=== PATIENT | female | born 1950 | race Caucasian/White ===

== ENCOUNTER 2024-11-22 13:44 | Inpatient (IN) | payer MEDICARE, MEDICAID, SELFPAY ==
[2024-11-22] VITALS (47 sets, daily range): BP systolic 99–181; BP diastolic 52–93; PULSE 51–96; RESP 2–29; TEMP 33.9–34.9; O2SAT 76–989; BMI 25.8
--- NOTE | 2024-11-22 13:48 | XR_ITS ---
Examination: CT brain head without contrast. 2-D sagittal coronal reconstructions Date and time of exam:November 22, 2024 1733 hrs. Comparison November 06, 2016 Indications: Cardiopulmonary arrest today with loss of consciousness altered mental status CTDI: vol (mGy):52.3 DLP: (mGycm):1223 Technique: Multiple CT axial sections of the brain have been obtained, 5 mm slice thickness. Contrast has not been administered. 2-D sagittal, coronal reconstructions have been obtained Low dose protocols were performed. One or more of the following dose reduction techniques were used; automated exposure control, adjustment of the mA and/or KV according to patient size, use of iterative reconstruction technique. Findings: No significant ventricular enlargement. 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 No midline shift Basal cisterns are not remarkable. Fourth ventricle is midline. Cranial vault intact. Impression: Negative for acute hemorrhage, mass effect or midline shift As clinically warranted, brain MRI follow-up would best assess for acute ischemic/anoxic change
--- NOTE | 2024-11-22 13:49 | EDNOTE_ITS ---
ED SOB =RME/HPI General Chief Complaint: Shortness of Breath/Dyspnea Stated Complaint: RESPIRATORY ARREST Time Seen by Provider: 11/22/24 13:48 Arrival date/time: 11/22/24 13:44 RME / HPI RME / HPI Narrative: [facility] where patient was found to be in respiratory distress and had a respiratory arrest initially patient was bagged and then intubated en route. Patient was having some biting of the tube postintubation but when she arrived she was comfortable with intermittent biting. She was reported to be eating her usual pur?ed diet. No witnessed aspiration was seen. No other history is known. Patient development delayed and nonverbal. Patient arrives intubated and with no family and no other information of them provided by EMS. Related Data Home Medications ?Medication ?Instructions ?Recorded ?Confirmed ASCORBATE CALCIUM (VITAMIN C) 500 mg PO QDAY ##0 07/12/16 03/18/18 Acetaminophen * (TYLENOL *) 2 tab PO Q4HR PRN PAIN #0 tabs 07/12/16 03/18/18 Albuterol Sulfate/Ipratropium NEB 3 ml HHN Q4HR PRN SHORTNESS OF 07/12/16 03/18/18 * (DUONEB *) BREATH OR WHEEZE #0 mL Alendronate Sodium * (FOSAMAX *) 35 mg PO Q7D #0 tabs 07/12/16 03/18/18 Calcium Carbonate/Cholecalciferol 1 tab PO BID #0 tabs 07/12/16 03/18/18 600 * (CALTRATE PLUS D 600 *) Guaifenesin/D-Methorphan Hb Syrup 10 ml PO Q4HR PRN COUGH #0 mL 07/12/16 0 03/18/18 (Robitussin Dm Syrup) LORATADINE (CLARITIN) 10 mg PO QDAY ##0 07/12/16 03/18/18 Multivit-Min/Iron Fum/Folic AC 1 tab PO QDAY ##0 07/12/16 03/18/18 (Dfqtt-Hybcicp-Xigqkrfx Tablet) divalproex 500 mg tablet,extended 1,000 mg PO BID #0 tabs 07/12/16 03/18/18 release 24 hr (Depakote ER) docusate sodium 250 mg capsule 250 mg PO 0700 #0 caps 07/12/16 03/18/18 (DOK) docusate sodium 250 mg capsule 500 mg PO 1500 #0 caps 07/12/16 03/18/18 (DOK) lactulose 10 gram/15 mL oral 10 mg PO QDAY CONSTIPATION ##0 07/12/16 03/18/18 solution levothyroxine 100 mcg tablet 100 mcg PO ACBR #0 tabs 07/12/16 03/18/18 (Synthroid) pseudoephedrine HCl 60 mg tablet 60 mg PO Q6HR PRN CONGESTION ##0 07/12/16 03/18/18 (Sudogest) quetiapine 300 mg tablet,extended 300 mg PO BID ##0 07/12/16 03/18/18 release 24 hr (Seroquel XR) simvastatin 20 mg tablet 20 mg PO HS ##0 07/12/16 03/18/18 Allergies Allergy/AdvReac Type Severity Reaction Status Date / Time amitriptyline Allergy Intermediate unknown Verified 03/18/18 07:54 haloperidol Allergy Intermediate Itching Verified 03/18/18 07:54 Review of Systems Review of Systems ROS Unobtainable: due to endotracheal tube Past Medical History Past Medical History MUSCULOSKELETAL: Positive Musculoskeletal Disorders (pt in wheelchair dd pt lives in penit[facility]) and Arthritis HEMATOLOGIC: Positive Blood Disorders (dd pt lives in penitentiary) PSYCHO/SOCIAL: Positive Psychiatric Problems, Schizophrenia and Anxiety Family History FAMILY HISTORY: Negative Family Cardiac Disorders (unknown family hx) Social History SMOKING STATUS: Never smoker ED Exam Narrative Physical exam: Physical Exam:? Patient arrives with a #8 ET tube at 21 cm at the corner of the mouth with bilateral breath sounds and breathing by [id number]. Patient has a good pulse. Patient occasionally is biting down on the ET tube. She is unresponsive to verbal stimuli. General:?? ? Patient is brought in by EMS with ET tube in place due to respiratory arrest . The vital signs were reviewed. The patient is arousable with verbal and painful stimuli patient is not attentive to verbal stimuli. Patient has some spontaneous respirations O2 sats are adequate at the present time. Head & Scalp:?? ? Normocephalic, atraumatic. Face:?? ? Appears normal and is without lesions, deformity. No apparent trauma Ears:??? Left external pinna appears normal. Right external pinna appears normal. Eyes:?? ? The sclera is anicteric. The Left and Right Orbit/Lid/Conjunctiva appears normal without swelling, discoloration or injection. Nose: ? ? The nose is without deformity, discharge or tenderness; Throat: ? ? ET tube at 21 cm in the corner of the mouth at the teeth. Appears normal.? The mucous membranes are pink and moist without exudates, redness or mass seen.? The tongue appears normal. Neck: The neck is supple and no apparent mass or adenopathy. Chest: The chest wall is normal in size and symmetry and has no chest wall tenderness or crepitus. The patient displays adequate ventilator effort without retractions, accessory muscle use. Patient has adequate air movement bilaterally with no wheezes and no rales. ? Cardiovascular: Regular rate and rhythm; No murmurs, rubs, or gallops; Gastrointestinal: The abdomen appears normal.? No obvious hernias or mass. The abdomen is soft and benign, non-distended, with no pain, no guarding and no rebound tenderness.? Bowel sounds are present and normal sounding.? No CVA tenderness. Genitourinary: No apparent injury or trauma. Back/Spine: No apparent injury or trauma Extremities/Musculoskeletal/lymphatic:? ? ? The bilateral upper and lower extremities are warm. There is no evidence of arterial? insufficiency. There is no evidence of venous insufficiency/edema. The patient is obtunded but displays no obvious focal deficits and spontaneously moves bilateral upper and lower extremities with painful or verbal stimuli There is no apparent, injury or trauma. Skin:? The skin is warm, dry and intact.? No rashes. No petechia. No purpura. No abnormal bruising.? The color is appropriate with no cyanosis. Mental status/Psychiatric: Mental status is GCS of 3 unresponsive with some withdrawal to pain and is seen biting on ET tube intermittently. Neurological:? The patient is obtunded. The pupils are equal and reactive to light No obvious focal deficits. Patient responds to painful and verbal stimuli. Course Quality Measures Current suspected stage: severe sepsis Possible source: pulmonary Blood cultures ordered: completed in ED Antibiotic ordered: Yes Pertinent labs: 11/22/24 14:49 Lactic Acid 4.1 H* mMol/L (0.4-2.0) Procalcitonin 0.06 ng/ml (0.0-0.49) sepsis Orders Category Date Time Status 24 HR Medical Restraints Q2HR Care 11/22/24 13:50 Active 24 HR Medical Restraints Q2HR Care 11/22/24 13:50 Active Bedside Blood Glucose NOW Care 11/22/24 13:48 Active EKG (ED ONLY) *Do not use* NOW Care 11/22/24 13:48 Completed Emergency Titration Protocol Stat Care 11/22/24 14:[address] head/brain wo con Stat Exams 11/22/24 13:48 Taken EKG (ED Only) Stat Exams 11/22/24 13:48 Ordered XR chest 1V portable Stat Exams 11/22/24 13:48 Completed XR chest 1V post procedure Stat Exams 11/22/24 16:26 Taken Alcohol, Blood Medical Stat Lab 11/22/24 14:49 Completed Ammonia Stat Lab 11/22/24 14:49 Completed B-Type Natriuretic Peptide Stat Lab 11/22/24 14:49 Completed Blood Culture (Lab) Stat Lab 11/22/24 14:49 Received CBC Stat Lab 11/22/24 14:49 Completed Comprehensive Metabolic Panel Stat Lab 11/22/24 14:49 Completed Drug Screen,Urine Stat Lab 11/22/24 13:48 Ordered Lactate (Lactic Acid) Stat Lab 11/22/24 14:49 Results Procalcitonin Stat Lab 11/22/24 14:49 Completed Prothrombin Time with INR Stat Lab 11/22/24 14:49 Completed Sputum Culture and Gram Stain Stat Lab 11/22/24 13:50 Results Troponin I Stat Lab 11/22/24 14:49 Completed Type and Screen Stat Lab 11/22/24 14:49 Completed Urinalysis, C/S if Indicated Stat Lab 11/22/24 14:44 Completed Urine Culture Stat Lab 11/22/24 14:44 Received Venous Blood Gas Stat Lab 11/22/24 14:49 Completed LORazepam [Ativan Inj] Med 11/22/24 14:12 Discontinued 1 mg IVP X1 ONE Piper/Tazo 3.375 gm [Zosyn] Med 11/22/24 15:48 Discontinued 3.375 gm in 50 ml IV X1 Propofol 1,000 mg Ivpb [Diprivan Ivpb] Med 11/22/24 17:49 Active 1,000 mg in 100 ml IV 5 mcg/kg/min Sodium Chloride 0.9% 1000 ml [Ns] 2,000 ml Med 11/22/24 13:48 Active IV 150 mls/hr Vancomycin Inj 1,000 mg Med 11/22/24 15:48 Discontinued Sodium Chloride 0.9% 250 ml [Ns] 250 ml IV X1 fentaNYL 2,500 MCG/250 ML BAG [Sublimaze Inj 2,500 MCG/ Med 11/22/24 13:58 Active 250 ML BAG] 2,500 mcg in 250 ml IV 25 mcg/hr fentaNYL INJ [Sublimaze Inj] Med 11/22/24 13:46 Discontinued 50 mcg IVP X1 ONE Ventilator [Volume Ventilator] Stat RT 11/22/24 13:55 Active Vital Signs Vital signs: Vital Signs Temperature 93.1 F L 11/22/24 13:45 Pulse Rate 91 11/22/24 13:45 Respiratory Rate 20 11/22/24 13:45 Blood Pressure 105/68 11/22/24 13:45 Pulse Oximetry (%) 100 11/22/24 13:45 Oxygen Delivery Method Mechanical Ventilation 11/22/24 13:45 Shortness of Breath / Dyspnea MDM Narrative MDM Narrative:: Patient evidently has respiratory arrest was intubated by paramedics and brought in with ET tube in place and [id number] breathing. There appeared to be some white somewhat cloudy contents in the ET tube on arrival and RT came stat and suctioned the tube out well. Medical workup was ordered soon after arrival to determine the cause of the respiratory arrest. Patient tolerated the ventilator while the workup was going on in the department and reevaluation multiple times and especially at the time of this dictation which is [address] a [address] scan which shows lots of encephalomalacia with no acute blood. Chest x-ray reveals left lower lobe infiltrates most likely pneumonia cannot exclude aspiration event. ET tube is 5.5 cm above the tracey little high but patient has good end-tidal CO2's and good breath sounds bilaterally. Critical care doctor when she came down Dr. Evans is aware of this. NG tube was placed and a second chest x-ray was done which reveals the NG tube to be in good position. Urinalysis came back with specific gravity of 1010 with thousand 37 white blood cells consistent with a urinary tract infection. Lactic acid came back elevated 4.1. BUN was 25 creatinine 1.2 consistent with prerenal azotemia and probable some dehydration. And/or sepsis. pH was 7.34 pCO2 of 50 white count is 10.2 and hemoglobin is 10.7. Patient presents with respiratory arrest intubated by paramedics and brought in. ET tube was in adequate position with good ventilation and good end-tidal CO 2's. Patient was comfortable and tolerating this with usual sedation. Medical workup reveals both UTI and left lower lobe pneumonias. Because of this vancomycin and Zosyn were started. Patient is admitted to the ICU with Dr. Evans and her team. Patient data External records reviewed:: [facility] previous records (I reviewed discharged packet from 03/18/2018), EMS form and [facility] records (I reviewed medication list from pen[facility] ) Clinical information provided by:: EMS Social determinants that could affect healthcare access:: housing ([facility] resident ) Patient has the following chronic illnesses:: Severe mental retardation, schizophrenia How is presenting disease/condition affected by chronic disease/condition?: exacerbated by Evaluation data The following diagnostics were reviewed and interpreted by me:: lab results, radiology exam(s) (CXR interpreted by me shows ET and OG tube are in satisfactory position, no effusions, left sided pneumonia ) and EKG tracing(s) (Sinus tachycardia, rate 100, no STEMI. ) Lab and/or radiology exams considered but not ordered:: None Interpretation Summary: Ordering Physician: Myles Tidwell MD Date of Service: 11/22/24 Procedure(s): XR chest 1V portable Accession Number(s): [id number] cc: Nathan Avila MD; Myles Tidwell MD; Itz Hernández MD~ Examination: AP chest single view Technique one AP portable supine chest single view Exam date and time: November 22, 2024 1503 hours Comparison March 17, 2017 INDICATIONS: Chest pain today, hypoxic respiratory failure postintubation FINDINGS: Prominent opacity left base consistent with pneumonia and possible left pleural fluid Mild enlargement left ventricle Endotracheal tube tip 5.7 cm above tracey Prominent osteopenia IMPRESSION: Prominent pneumonia left base, consider aspiration pneumonia Endotracheal tube tip 5.7 cm above tracey Dictated By: Itz Hernández MD Signed By: <Electronically signed by Itz Hernández MD in OV> 11/22/24 1526 Medications / Prescriptions Medications or Prescriptions considered but not ordered:: None Medication administrations:: Medication Administration History Sodium Chloride (Ns) 2,000 mls @ 150 mls/hr IV .[id number] ONE Stop: 11/23/24 03:07 Last Admin: 11/22/24 13:54 Dose: 150 mls/hr Documented By: SAULO Fentanyl Citrate (Sublimaze Inj 2,500 Mcg/250 Ml Bag) 2,500 mcg in 250 mls @ 2.5 mls/hr IV .Q24H PRN; Protocol PRN Reason: PER PROTOCOL Stop: 11/27/24 13:57 Last Titration: 11/22/24 15:22 Dose: 300 mcg/hr, 30 mls/hr Documented By: Titration: 11/22/24 15:03 Dose: 225 mcg/hr, 22.5 mls/hr Documented By: Titration: 11/22/24 14:46 Dose: 175 mcg/hr, 17.5 mls/hr Documented By: Titration: 11/22/24 14:27 Dose: 125 mcg/hr, 12.5 mls/hr Documented By: Admin: 11/22/24 14:07 Dose: 25 mcg/hr, 2.5 mls/hr Documented By: SAULO Co-signed By: LIANA Propofol (Diprivan Ivpb) 1,000 mg in 100 mls @ 2.177 mls/hr IV .Q24H PRN; Protocol PRN Reason: PER PROTOCOL Stop: 12/22/24 17:48 Discontinued Medications Fentanyl Citrate (Fentanyl Cit Inj 50 Mcg/Ml Amp 2ml) 50 mcg IVP X1 ONE Stop: 11/22/24 13:47 Last Admin: 11/22/24 13:53 Dose: 50 mcg Documented By: SAULO Vancomycin HCl 1,000 mg/ (Sodium Chloride) 250 mls @ 150 mls/hr IV X1 ONE Stop: 11/22/24 17:27 Piperacillin/Tazobactam/Dextrose (Zosyn) 3.375 gm in 50 mls @ 100 mls/hr IV X1 ONE Stop: 11/22/24 16:17 Last Admin: 11/22/24 16:30 Dose: 100 mls/hr Documented By: SAULO Lorazepam (Lorazepam 2 Mg/Ml Vial) 1 mg IVP X1 ONE Stop: 11/22/24 14:13 Last Admin: 11/22/24 14:16 Dose: 1 mg Documented By: SAULO See above Consultations Consultation(s) initiated? (list below): Yes Consultation #1 (Physician, Specialty, Details): I spoke with sidewalk repairer Dr. Evans. Discussed patients PMHx, HPI, ED course, exam findings, labs, and radiology results as noted above. Diagnosis Shortness of Breath Differential Diagnosis: acute exacerbation of chronic obstructive airways disease, congestive heart failure, community acquired pneumonia and other (Aspiration pneumonia ) Most likely diagnosis given after review of the tests above:: Respiratory arrest Developmental delay Pneumonia Sepsis UTI Endotracheally intubated Elevated lactic acid level Admission Indicated Admission indicated?: indicated Admission Request Was there a request for admission?: Yes Admission Attestation Admission request attestation: Discussed case with [] from Hospitalist service regarding admission. Discussed patients ED course, exam findings, labs, and radiology results. The Hospitalist [agrees,declines] to accept the patient for admission. Disposition Plan Disposition Plan: Admit Critical Care Time Critical Care Time Critical Care Time: Yes Total Critical Care Time (min.): 40 Attestation: The high probability of sudden, clinically significant deterioration in the patient's condition required the highest level of my preparedness to intervene urgently. The services I provided to this patient were to treat and/or prevent clinically significant deterioration. Services included the following: chart data review, reviewing nursing notes and/or old charts, documentation time, residential solar consultant collaboration regarding findings and treatment options, medication orders and management, direct patient care, vital sign assessments and ordering, interpreting and reviewing diagnostic studies and lab tests. Aggregate critical care time includes only time during which I was engaged in work directly related to the patient's care, as described above, whether at bedside or elsewhere in the Emergency Department. It did not include time spent performing other reported procedures or the services of residents, students, nurses or physician assistants. Discharge Plan Plan Patient Disposition: Admit Acute Care w/in Hospital Disposition Comment: ICU Prescriptions/Referrals Prescriptions/Med Rec: No Action ASCORBATE CALCIUM (VITAMIN C) 500 MG tablet 500 mg PO QDAY Qty: 0 Acetaminophen * (TYLENOL *) 325 MG tablet 2 tab PO Q4HR PRN (Reason: PAIN) Qty: 0 Patient Comments: FOR FEVER OR PAIN Albuterol Sulfate/Ipratropium NEB * (DUONEB *) 3 ML AMPUL.NEB 3 ml HHN Q4HR PRN (Reason: SHORTNESS OF BREATH OR WHEEZE) Qty: 0 Alendronate Sodium * (FOSAMAX *) 35 MG tablet 35 mg PO Q7D Qty: 0 levothyroxine [Synthroid] 100 MCG tablet 100 mcg PO ACBR Qty: 0 simvastatin 20 MG tablet 20 mg PO HS Qty: 0 divalproex [Depakote ER] 500 MG tablet extended release 24 hr 1,000 mg PO BID Qty: 0 docusate sodium [DOK] 250 MG capsule 500 mg PO 1500 Qty: 0 docusate sodium [DOK] 250 MG capsule 250 mg PO 0700 Qty: 0 pseudoephedrine HCl [Sudogest] 60 MG tablet 60 mg PO Q6HR PRN (Reason: CONGESTION) Qty: 0 lactulose 10 GM/15 ML syrup 10 mg PO QDAY Qty: 0 quetiapine [Seroquel XR] 300 MG tablet extended release 24 hr 300 mg PO BID Qty: 0 Calcium Carbonate/Cholecalciferol 600 * (CALTRATE PLUS D 600 *) 1 TAB tablet 1 tab PO BID Qty: 0 Guaifenesin/D-Methorphan Hb Syrup (Robitussin Dm Syrup) 120 ML syrup 10 ml PO Q4HR PRN (Reason: COUGH) Qty: 0 LORATADINE (CLARITIN) 10 MG capsule 10 mg PO QDAY Qty: 0 Multivit-Min/Iron Fum/Folic AC (Kfwod-Odzgszw-Ebbywvqf Tablet) 1 EACH tablet 1 tab PO QDAY Qty: 0 Problem List Clinical Impression: Respiratory arrest, Developmental delay, profound, Pneumonia, Sepsis, Urinary tract infection, Endotracheally intubated, Elevated lactic acid level Patient/Caregiver Discharge Instructions Print Language: Portuguese Stand Alone Forms: Aleja Award Info., Patient Portal Info Letter
[2024-11-22] MEDS: fentaNYL CIT INJ 50 mCg/ML AMP 2ML IVP (13:53)
[2024-11-22] MEDS: SODIUM CHLORIDE 0.9% 1000 ML 2,000 ML 150 ML IV (13:54)
[2024-11-22] MEDS: fentaNYL 2,500 MCG/250 ML BAG 2,500 MCG/250 ML BAG IV (14:07)
[2024-11-22] MEDS: LORazepam 2 MG/ML VIAL 1 MG IVP (14:16)
--- NOTE | 2024-11-22 14:22 | PC.NURSE ---
CHERY BOSS RN ATTEMPTED TO INSERT GLOVER CATHETER X2, UNSUCCESFUL. SENDY Rendon RN ATTEMPTING TO INSERT GLOVER CATHETER X1; UNSUCCESFUL. SMALL AMOUNT OF BRIGHT RED BLOOD NOTED AROUND VAGINAL AREA.
--- NOTE | 2024-11-22 14:35 | PC.NURSE ---
DEEPTI CHASE PLACED ON PT AT THIS TIME.
[2024-11-22 14:59] LABS: Collection Type, Urine Clean Catch
[2024-11-22 15:01] LABS: Base Excess, Venous 1 (-3-3); O2 Saturation, Venous 89 % (96-97); PCO2, Venous 50 mmHg (36-56); PO2, Venous 62 mmHg (15-58); pH, Venous 7.34 (7.33-7.66)
[2024-11-22 15:18] LABS: Basophils % (Auto) 0 % (0-2.5); Eosinophils % (Auto) 0 % (0-10); Hematocrit 33.1 % (36.0-46.0); Hemoglobin 10.7 g/dL (12.0-16.0); Immature Granulocytes % (Auto) 1 % (0-0); Immature Granulocytes Auto 0.05 Thou/mm3 (0.00-0.00); Lymphocytes # (Auto) 0.8 Thou/mm3 (1.0-4.8); Lymphocytes % (Auto) 8 % (10-50); Mean Corpuscular HGB Conc 32.3 g/dl (31.0-37.0); Mean Corpuscular Hemoglobin 31.5 pg (25.0-35.0); Mean Corpuscular Volume 97 fL (80-100); Monocytes # (Auto) 0.6 Thou/mm3 (0.0-0.8); Monocytes % (Auto) 6 % (0-12); Neutrophils # (Auto) 8.7 Thou/mm3 (1.8-7.7); Neutrophils % (Auto) 86 % (37-80); Nucleated Red Blood Cell % 0 /100 WBC (0); Platelet Count 93 Thou/mm3 (140-440); RDW Standard Deviation 58.2 fL (36.4-46.3); White Blood Count 10.2 Thou/mm3 (3.6-11.0)
[2024-11-22 15:20] LABS: Prothrombin Time 10.5 Seconds (9.0-12.2)
[2024-11-22 15:24] LABS: B-Type Natriuretic Peptide 149 pg/mL (0-100)
[2024-11-22 15:25] LABS: Ammonia < 10 uMol/L (11-32)
[2024-11-22 15:27] LABS: Alanine Aminotransferase 18 U/L (10-49); Albumin, Serum 3.5 gm/dL (3.4-4.8); Albumin/Globulin Ratio 0.9 (1.2-2.2); Alcohol, Blood Medical < 3.0 mg/dL (0-10.0); Alkaline Phosphatase 173 U/L (46-116); Anion Gap 9 (7-16); Aspartate Amino Transferase 34 U/L (0-34); BUN/Creatinine Ratio 21 Ratio (12-20); Bilirubin,Total < 0.2 mg/dL (0.3-1.2); Blood Urea Nitrogen 25 mg/dL (9-23); Calcium 9.4 mg/dL (8.3-10.6); Calcium (Corrected) 9.8 mg/dL (8.5-10.1); Carbon Dioxide 25.4 mMol/L (20.0-31.0); Chloride 97 mMol/L (98-107); Creatinine (Component) 1.2 mg/dL (0.6-1.3); Estimated Creatinine Clearance 41.3 mL/min (>60); Globulin 3.7 gm/dL (2.3-3.5); Glucose 240 mg/dL (74-106); Osmolality,Calculated 275 (275-295); Sodium 131 mMol/L (136-145); Total Protein 7.2 gm/dL (5.7-8.2); Troponin I < 0.020 ng/mL (0.0-0.045); eGFR 47 See Note
[2024-11-22 15:34] LABS: Procalcitonin 0.06 ng/ml (0.0-0.49)
[2024-11-22 15:35] LABS: Bilirubin,Urine Negative (Negative); Blood,Urine 3+ (Negative); Glucose, Urine Negative (Negative); Ketones,Urine Negative (Negative); Leukocyte Esterase,Urine Positive (Negative); Nitrite,Urine Negative (Negative); PH,Urine 7.5 (5.0-7.0); Protein,Urine 1+ (Neg - Trace); RBC,Urine 85 /hpf (0-3); Renal Epithelial Cells,Urine 2 /hpf (0-5); Squamous Epithelial Cell,Urine 2 /hpf (0-5); Urobilinogen,Urine Negative mg/dL (0.0-1.0); WBC,Urine 1037 /hpf (0-5)
[2024-11-22 15:38] LABS: Clarity,Urine Hazy (Clear/Hazy); Color,Urine Yellow (Lt Yel-Yel); Culture Indicated,Urine Yes
[2024-11-22 15:44] LABS: Lactate (Lactic Acid) 4.1 mMol/L (0.4-2.0)
--- NOTE | 2024-11-22 16:26 | XR_ITS ---
Examination: AP chest single view Technique one AP portable supine chest single view Exam date and time: November 22, 2024 1653 hrs. Comparison November 22, 2024 1503 hrs. Indications: Hypoxic respiratory failure today, postintubation, post orogastric tube placement Findings: Orogastric tube in the stomach satisfactory position Dense opacity left base consistent with pneumonia consider aspiration pneumonia Tracheal tube tip 3.7 cm above tracey Moderate vascular congestion Prominent osteopenia Impression: Interval insertion orogastric tube, in the stomach satisfactory position
[2024-11-22] MEDS: PIPER/TAZO 3.375 GM 3.375 GM/50 ML BAG IV (16:30)
--- NOTE | 2024-11-22 16:53 | ESHP_ITS ---
Documentation for date of: 11/22/24 HPI History of Present Illness Chief complaint: respiratory arrest History of present illness: Ty Alcantar is a 74 yr female with PMH of osteoporosis, seizure disorder, hypothyroidism, developmentally delayed, and hyperlipidemia who presented to ED from half-way. Per chart review and EMS, patient was found at half-way with difficulty breathing, eventually leading to respiratory distress. Pulses were very diminished. She was intubated en route to hospital. RN from home care was eventually contacted. She stated that patient's diet is solely of pureed foods and is able to feed herself under supervision. Per the care staff, patient has been at her baseline since this morning with acute deterioration after coughing episode half hour after lunch. Pulse ox showed O2 sat 85% with apparent worsening respiratory distress. Agonal breathing, facial palor, and decreased responsiveness exhibited by patient. She was sedated and intubated upon presentation to the ED. In ED, vitals significant for BP 130/70, HR 90, hypothermia 93.1. Labs revealed WBC 10.2, Hb 10.7, plts 93, Na 131, potassium 5.0, bicarb 25, BUN 25, Cr 1.2, glucose 240, LA 4.1. Continued of fentanyl for sedation. Zosyn x1, lorazepam 1mg IV x1, 2L ns. CXR LLL consolidation. Head CT pending. Patient admitted for AHRF 2/2 aspiration PNA. PMH: as noted above Social: lives at half-way, needs assitance for ADL, no smoking, no drinking. Allergies: amitriptylline, haloperidol Review of Systems Constitutional Constitutional: Reports system reviewed and no additional complaints, except as documented Exam Vital Signs Temp Pulse Resp BP Pulse Ox O2 Del Method FiO2 93.1 F L 70 20 172/87 H 100 Mechanical Ventilation 100 11/22/24 14:43 11/22/24 16:30 11/22/24 16:30 11/22/24 16:30 11/22/24 16:30 11/22/24 16:30 11/22/24 13:56 Narrative Exam General: sedated, MV, No acute distress Eyes: Pupils are equal and reactive to light bilaterally, anicteric HEENT: Atraumatic, normocephalic. No JVD noted. Mucosa moist Cardiovascular: Normal S1 and S2. Regular rate and rhythm. No pitting edema Respiratory: Lungs are clear to auscultation bilaterally. No wheezing or crackles heard. GI: Soft, nontender, not distended, normal bowel sounds, OG tube : scant blood in diaper, no discharge Skin: Warm to touch, dry, no rashes noted Musculoskeletal: No gross injuries. Neuro: sedated, GCS7T Results: Labs 11/23/24 04:30 11/23/24 04:30 Labs: Short CBC 11/22/24 Range/Units 14:49 WBC 10.2 (3.6-11.0) Thou/mm3 Hgb 10.7 L (12.0-16.0) g/dL Hct 33.1 L (36.0-46.0) % Plt Count 93 L (140-440) Thou/mm3 BMP 11/22/24 14:49 Sodium 131 L Potassium 5.0 Chloride 97 L Carbon Dioxide 25.4 BUN 25 H Creatinine 1.2 Glucose 240 H Calcium 9.4 Cardiac Enzymes 11/22/24 Range/Units 14:49 Troponin I < 0.020 (0.0-0.045) ng/mL Liver Function 11/22/24 Range/Units 14:49 Total Bilirubin < 0.2 L (0.3-1.2) mg/dL AST 34 (0-34) U/L ALT 18 (10-49) U/L Alkaline Phosphatase 173 H (46-116) U/L Albumin 3.5 (3.4-4.8) gm/dL Urine 11/22/24 Range/Units 14:44 Urine Color Yellow (Lt Yel-Yel) Urine Clarity Hazy (Clear/Hazy) Urine pH 7.5 H (5.0-7.0) Ur Specific [place] 1.010 (1.001-1.035) Urine Protein 1+ A (Neg - Trace) Urine Glucose (UA) Negative (Negative) ABG Interpretation ABG results: 11/22/24 14:49 VBG pH 7.34 VBG pCO2 50 VBG pO2 62 H VBG Base Excess 1 Quality Measures Quality Measures VTE prophylaxis Advance care planning discussed with:: other Medications Home Medications and Allergies Home Medications ?Medication ?Instructions ?Recorded ?Confirmed ?Type ASCORBATE CALCIUM (VITAMIN C) 500 mg PO QDAY ##0 07/12/16 11/23/24 History Acetaminophen * (TYLENOL *) 2 tab PO Q4HR PRN PAIN #0 tabs 07/12/16 11/23/24 History Albuterol Sulfate/Ipratropium NEB 3 ml HHN Q4HR PRN SHORTNESS OF 07/12/16 11/23/24 History * (DUONEB *) BREATH OR WHEEZE #0 mL Alendronate Sodium * (FOSAMAX *) 35 mg PO Q7D #0 tabs 07/12/16 11/23/24 History Calcium Carbonate/Cholecalciferol 1 tab PO BID #0 tabs 07/12/16 11/23/24 History 600 * (CALTRATE PLUS D 600 *) Guaifenesin/D-Methorphan Hb Syrup 10 ml PO Q4HR PRN COUGH #0 mL 07/12/16 11/23/24 History (Robitussin Dm Syrup) LORATADINE (CLARITIN) 10 mg PO QDAY ##0 07/12/16 11/23/24 History Multivit-Min/Iron Fum/Folic AC 1 tab PO QDAY ##0 07/12/16 11/23/24 History (Baxii-Gkgbnme-Xupcwljs Tablet) divalproex 500 mg tablet,extended 500 mg PO BID #0 tabs 07/12/16 11/23/24 History release 24 hr (Depakote ER) docusate sodium 250 mg capsule 250 mg PO 0700 #0 caps 07/12/16 11/23/24 History (DOK) docusate sodium 250 mg capsule 500 mg PO 1500 #0 caps 07/12/16 11/23/24 History (DOK) lactulose 10 gram/15 mL oral 10 mg PO QDAY CONSTIPATION ##0 07/12/16 11/23/24 History solution levothyroxine 100 mcg tablet 100 mcg PO ACBR #0 tabs 07/12/16 11/23/24 History (Synthroid) pseudoephedrine HCl 60 mg tablet 60 mg PO Q6HR PRN CONGESTION ##0 07/12/16 11/23/24 History (Sudogest) quetiapine 300 mg tablet,extended 400 mg PO BID ##0 07/12/16 11/23/24 History release 24 hr (Seroquel XR) simvastatin 20 mg tablet 20 mg PO HS ##0 07/12/16 11/23/24 History bisacodyl 10 mg rectal suppository 10 mg NH QDAY PRN Constipation 11/23/24 11/23/24 History naproxen 500 mg tablet 500 mg PO BID PRN pain/agitation 11/23/24 11/23/24 History Allergies Allergy/AdvReac Type Severity Reaction Status Date / Time amitriptyline Allergy Intermediate unknown Verified 03/18/18 07:54 haloperidol Allergy Intermediate Itching Verified 03/18/18 07:54 Visit Medications Sodium Chloride (Ns) 2,000 mls @ 150 mls/hr IV .[id number] ONE Stop: 11/23/24 03:07 Last Admin: 11/22/24 13:54 Dose: 150 mls/hr Fentanyl Citrate (Sublimaze Inj 2,500 Mcg/250 Ml Bag) 2,500 mcg in 250 mls @ 2.5 mls/hr IV .Q24H PRN; Protocol PRN Reason: PER PROTOCOL Stop: 11/27/24 13:57 Last Titration: 11/22/24 15:22 Dose: 300 mcg/hr, 30 mls/hr Vancomycin HCl 1,000 mg/ (Sodium Chloride) 250 mls @ 150 mls/hr IV X1 ONE Stop: 11/22/24 17:27 Discontinued Medications Fentanyl Citrate (Fentanyl Cit Inj 50 Mcg/Ml Amp 2ml) 50 mcg IVP X1 ONE Stop: 11/22/24 13:47 Last Admin: 11/22/24 13:53 Dose: 50 mcg Piperacillin/Tazobactam/Dextrose (Zosyn) 3.375 gm in 50 mls @ 100 mls/hr IV X1 ONE Stop: 11/22/24 16:17 Last Admin: 11/22/24 16:30 Dose: 100 mls/hr Lorazepam (Lorazepam 2 Mg/Ml Vial) 1 mg IVP X1 ONE Stop: 11/22/24 14:13 Last Admin: 11/22/24 14:16 Dose: 1 mg Assessment & Plan Plan Ty Alcantar is 74 yr female with PMH of osteoporosis, seizure disorder, hypothyroidism, developmentally delayed, and hyperlipidemia who presented to ED from half-way. She was sedated and intubated en route after coughing episode Lead to desaturation with unresponsiveness. Pulse ox was 85%. Patient admitted for AHRF 2/2 aspiration PNA. Neuro: #Sedated for MV d/t AHRF 2/2 aspiration PNA At baseline, patient is typically able to feed herself. Diet mostly consists of pur?ed foods. Per nursing staff eye half-way, she has been at baseline since the morning of admission. Shortly after having lunch she developed coughing episode that led to desaturation of oxygen and unresponsiveness. Patient was sedated with fentanyl and intubated and route to the ED. -Fentanyl 25 mcg/h ? Propofol 5 mcg ? RASS 0 ? sedation holiday and assess mentation #Hx seizure disorder Last known seizure has been more than 5 yrs ago. -continue depakote 500mg BID #Hx mood Disorder -Quetiapine 400 mg daily #Developmental delay Resides in half-way for daily needs. CVS: -no active problem #Hx HLD home medication Include simvastatin 20 mg daily ? Start atorvastatin 10 mg daily Pulm: #Mechanically ventilated due to #AHRF 2/2 aspiration pneumonia Ddx: pneumonitis, healthcare associated PNA, effusion Pt had coughing episode half hour after having lunch. Lead to desaturation of 02 to 85%. Cover possible healthcare PNA and anerobes. CXR on 11/22 confirmed LLL consolidation. -start vancomycin -start Zosyn 4.5 g q6hr ?Follow-up MRSA nasal screen ? Sputum culture pending ? Blood cultures pending -goal to decrease Fio2 to 40% with o2 sat >92% -wean sedation and asess mentation for extubation -Daily chest physiotherapy every 6 hours -repeat ABG -repeat cxr Renal: #Mild hyponatremia Most likely due to dehydration. Patient not taking any medications possibly leading to hyponatremia. No recent episodes of vomiting or diarrhea. Sodium 131 -1 L bolus NS -Daily CMP #Hematuria Scant bleeding noticed in diapter in ED. Ddx: trauma from aldana cath attempt, cystitis RBC 85 -treat UTI as noted below #Cystitis Nitrites negative, leukocyte esterase positive, WBC 1037, Hematuria. -Urine cultures pending ? Empirical treatment with Zosyn Elevated lactic acid? Less likely due to sepsis. Patient has probable source however does not meet SIRS. WBC 10.2 Lactic acid 4.1 -Trend every 4 hours GI: no active problems Endo: #Hyperglycemia BS 240. -A1c pending #Hx hypothyroidism -start levothyroxine 100mcg -TSH pending Heme/Onc: #Normocytic anemia -daily CBC -transfuse prbc if Hb <7 #Thrombocytopenia ? Daily CBC ? Transfuse 1 unit platelets if less than 10 ID: #Aspiration PNA -as noted above in resp -vanc/zosyn Skin: no acitve problems Health maintenance: Dispo: ICU, MV 2/2 AHRF DVT prophylaxis: Subcu heparin CODE STATUS: Full code Diet: NPO OG tube 2 peripheral lines The patient's management plan was discussed with my attending physician Dr. Evans and senior Dr. Brian. Yamilet Andrews, PGY-1 Attending Provider Attestation/Addendum Patient seen and examined with resident, agree with above. In brief this is 74-year-old female who was at a facility earlier today and appeared to aspirate become hypoxic. EMS services were called. She was noted to have sats in the 70s upon arrival of EMS. Decision was made to intubate her in the field. Apparently she had significant secretions suctioned once she was intubated which appeared food-like per ER. She was started on fentanyl in the ER for sedation. On exam she is elderly pale, heart rate regular rhythmic with no bruits, no increased work of breathing diminished breath sounds, abdomen soft. Edema of lower extremities. The patient was transferred to the ICU for acute hypoxic respiratory failure secondary to aspiration with an apparent aspiration pneumonia on chest x-ray. Case discussed with the ICU team Labs, imaging and records reviewed Approximately 70 cc minutes required for evaluation, exam, review, intervention, discussion and formulation of plan of care for this critically ill patient with acute hypoxic respiratory failure secondary to aspiration who is currently intubated on mechanical ventilation at high risk for further and ongoing decompensation.
--- NOTE | 2024-11-22 17:22 | PC.NURSE ---
Dr. Evans at bedside assessing pt; made aware that OG tube inserted but CXR post-OG insertion has not resulted. Per Dr. Evans, ok to connect pt's OG tube to Low-Intermittent suction at this time.
[2024-11-22 17:55] LABS: Reflex Lactate? Y
[2024-11-22 18:12] LABS: Lactic Acid, 3 HR 2.7 mMol/L (0.4-2.0)
[2024-11-22] MEDS: PROPOFOL 1,000 MG IVPB 1,000 MG/100 ML VIAL 2.177 MG IV (18:22)
[2024-11-22] MEDS: Vancomycin Inj 1,000 MG in SODIUM CHLORIDE 0.9% 250 ML 250 ML 150 MG IV (18:27)
[2024-11-22] MEDS: SODIUM CHLORIDE 0.9% 1000 ML 1,000 ML 999 ML IV (19:16)
[2024-11-22] MEDS: PANTOPRAZOLE INJ 40 MG VIAL IVP (19:31)
[2024-11-22] MEDS: fentaNYL 2,500 MCG/250 ML BAG 2,500 MCG/250 ML BAG 30 MCG IV (20:23)
[2024-11-22] MEDS: PIPER/TAZO INJ 4.5 GM in SODIUM CHLORIDE 0.9% (P) 100 ML IV (22:01)
[2024-11-22] MEDS: DIVALPROEX SOD DR 500 MG TABLET.DR PO (22:06)
[2024-11-22] MEDS: ATORVASTATIN CALCIUM 10 MG TABLET PO (22:06)
[2024-11-22] MEDS: HEPARIN SOD INJ 5000 UNIT/ML VIAL SC (22:06)
[2024-11-22] MEDS: QUEtiapine FUMARATE 100 MG TABLET 300 MG PO (22:07)
[2024-11-22 22:19] LABS: Lactate (Lactic Acid) 1.3 mMol/L (0.4-2.0)
[2024-11-22] MEDS: fentaNYL 2,500 MCG/250 ML BAG 2,500 MCG/250 ML BAG 20 MCG IV (22:30)
[2024-11-22 22:42] LABS: Base Excess 4 (-3-3); HCO3 27 mEq/L (20-26); Inspired Oxygen, FIO2 50 %; O2 Saturation 95 % (91-98); PCO2 36 mmHg (32.0-48.0); PO2 73 mmHg (83-108); pH, Arterial 7.48 (7.35-7.45)
[2024-11-22 22:43] LABS: Allen Test Performed/OK; Puncture Site Right Radial
[2024-11-23] VITALS (34 sets, daily range): BP systolic 106–173; BP diastolic 49–88; PULSE 60–82; RESP 7–19; TEMP 35.8–36.5; O2SAT 95–98; BMI 25.7
[2024-11-23 00:27] LABS: Base Excess 4 (-3-3); HCO3 28 mEq/L (20-26); Inspired Oxygen, FIO2 50 %; O2 Saturation 80 % (91-98); PCO2 41 mmHg (32.0-48.0); pH, Arterial 7.44 (7.35-7.45)
[2024-11-23 00:31] LABS: PO2 45 mmHg (83-108)
[2024-11-23 00:32] LABS: Allen Test Performed/OK; Puncture Site Right Radial
--- NOTE | 2024-11-23 02:17 | XR_ITS ---
Examination: AP chest single view Technique one AP portable semiupright chest single view Exam date and time: November 23, 2024 0226 hours Comparison November 22, 2024 INDICATIONS: Hypoxic respiratory failure, postintubation FINDINGS: Normal heart size Significant bibasilar pneumonia Endotracheal tube tip 5.5 cm above tracey Orogastric tube proximal stomach IMPRESSION: Significant bibasilar pneumonia Advance the orogastric tube 5 cm
[2024-11-23 04:19] LABS: Base Excess 4 (-3-3); HCO3 28 mEq/L (20-26); O2 Saturation 95 % (91-98); PCO2 39 mmHg (32.0-48.0); PO2 81 mmHg (83-108); pH, Arterial 7.46 (7.35-7.45)
[2024-11-23 04:21] LABS: Allen Test Performed/OK; Inspired Oxygen, FIO2 50 %; Puncture Site Right Radial
[2024-11-23 05:00] LABS: Basophils % (Auto) 0 % (0-2.5); Eosinophils % (Auto) 0 % (0-10); Hematocrit 29.2 % (36.0-46.0); Hemoglobin 9.7 g/dL (12.0-16.0); Immature Granulocytes % (Auto) 1 % (0-0); Immature Granulocytes Auto 0.07 Thou/mm3 (0.00-0.00); Lymphocytes # (Auto) 0.5 Thou/mm3 (1.0-4.8); Lymphocytes % (Auto) 3 % (10-50); Mean Corpuscular HGB Conc 33.2 g/dl (31.0-37.0); Mean Corpuscular Hemoglobin 31.5 pg (25.0-35.0); Mean Corpuscular Volume 95 fL (80-100); Monocytes # (Auto) 1.2 Thou/mm3 (0.0-0.8); Monocytes % (Auto) 8 % (0-12); Neutrophils # (Auto) 13.6 Thou/mm3 (1.8-7.7); Neutrophils % (Auto) 88 % (37-80); Nucleated Red Blood Cell % 0 /100 WBC (0); Platelet Count 83 Thou/mm3 (140-440); RDW Standard Deviation 57.6 fL (36.4-46.3); Red Blood Count 3.08 Miln/mm3 (4.00-5.20); White Blood Count 15.5 Thou/mm3 (3.6-11.0)
[2024-11-23] MEDS: PIPER/TAZO INJ 4.5 GM in SODIUM CHLORIDE 0.9% (P) 100 ML IV (05:17)
[2024-11-23] MEDS: LEVOTHYROXINE SODIUM 100 MCG TABLET PO (05:17)
[2024-11-23 05:18] LABS: Glucose Estimated Average 100 mg/dL (80-131); Hemoglobin A1C 5.1 % Hgb (4.8-6.0)
[2024-11-23 05:32] LABS: Alanine Aminotransferase 18 U/L (10-49); Albumin, Serum 2.9 gm/dL (3.4-4.8); Albumin/Globulin Ratio 0.9 (1.2-2.2); Alkaline Phosphatase 152 U/L (46-116); Anion Gap 4 (7-16); Aspartate Amino Transferase 32 U/L (0-34); BUN/Creatinine Ratio 28 Ratio (12-20); Bilirubin,Total 0.2 mg/dL (0.3-1.2); Blood Urea Nitrogen 22 mg/dL (9-23); Calcium 8.5 mg/dL (8.3-10.6); Calcium (Corrected) 9.4 mg/dL (8.5-10.1); Carbon Dioxide 26.8 mMol/L (20.0-31.0); Cardiac Risk Estimate 2.1 RATIO (3.7-5.6); Chloride 104 mMol/L (98-107); Cholesterol 111 mg/dL (132-200); Creatinine (Component) 0.8 mg/dL (0.6-1.3); Globulin 3.2 gm/dL (2.3-3.5); Glucose 77 mg/dL (74-106); HDL Cholesterol 54 mg/dL (40-60); LDL Cholesterol,Calculated 38 mg/dL (0-130); Magnesium 2.1 mg/dL (1.6-2.6); Osmolality,Calculated 272 (275-295); Phosphorous 2.1 mg/dL (2.4-5.1); Potassium 4.7 mMol/L (3.4-5.1); Sodium 135 mMol/L (136-145); Thyroid Stimulating Hormone 2.59 uIU/mL (0.55-4.78); Total Protein 6.1 gm/dL (5.7-8.2); Triglycerides 93 mg/dL (30-150); eGFR > 60 See Note
[2024-11-23 06:43] LABS: Base Excess 2 (-3-3); HCO3 27 mEq/L (20-26); Inspired Oxygen, FIO2 50 %; O2 Saturation 96 % (91-98); PCO2 41 mmHg (32.0-48.0); PO2 91 mmHg (83-108); pH, Arterial 7.43 (7.35-7.45)
[2024-11-23 06:49] LABS: Allen Test Not Performed; Puncture Site Left Radial
[2024-11-23] MEDS: PANTOPRAZOLE INJ 40 MG VIAL IVP (08:06)
[2024-11-23] MEDS: QUEtiapine FUMARATE 100 MG TABLET 300 MG PO (08:06)
--- NOTE | 2024-11-23 09:59 | PC.NURSE ---
Addendum entered by Aspen Zhu RN 11/23/24 10:07: Dr. Andrews aware, and orders to continue with Vancomycin administration. Original Note: Per Lab MRSA test will not be available to be read until 11/24/24 AM
[2024-11-23] MEDS: VANCOMYCIN/NS 750 MG IVPB 750 MG/150 ML BAG 120 MG IV (10:13)
--- NOTE | 2024-11-23 11:21 | PC.NURSE ---
Spoke with [facility] Nurse Kell, provided appropriate update. Obtained information about pt. Per Kell swallowing/chewing issues started about 1 month ago and pt. was them put on pureed diet. Pt. has been tolerating well ever since, with the exception of yesterdays incident, Per Kell. Pt. baseline: pt. is verbal and has clear speech but Does not make sense per Kell. At baseline pt. takes pills whole with applesauce or yogurt. pt. can stand pivot to wheelchair, but does not walk.
[2024-11-23] MEDS: PIPER/TAZO 3.375 GM 50 ML IV ×2 (12:46→21:14)
--- NOTE | 2024-11-23 13:36 | PC.NURSE ---
Spoke with Sabrina at [facility] and Per Sabrina pt. is an unconserved adult, so in the case of an emergency Dr. Garcia will make medical decision. you can call him at [phone]. He is available 25/05.
--- NOTE | 2024-11-23 13:53 | PC.NURSE ---
Dr. Portillo made aware of pt. platelet level 83, and orders OK to give SC heparin as ordered.
[2024-11-23] MEDS: HEPARIN SOD INJ 5000 UNIT/ML VIAL SC ×2 (13:54→21:14)
--- NOTE | 2024-11-23 15:30 | PC.SS ---
Delayed entry from 11-23-24: [employer] conducted phone contact with the patient?s care provider, Elise Carlos to conduct initial assessment and to discuss discharge plan. Patient currently in ICU and intubated. Patient is a resident of [facility]. Patient is developmentally delayed and a client of [facility]. Patient is an un-conserved client. Patient?s heel caser is Chelsey Boone . Patient utilizes a wheelchair to assist with mobility. Patient has access to a don lyft at facility. Patient does not utilize home oxygen. Patient requires assistance with completion of ADL?s. Dr. Garcia is the patient?s medical decision maker. Patient?s PCP is Dr. Avila. Patient has been a resident of [facility] for approximately 12 years. Plan is for the patient to return to home once medically stable. Patient possesses transport coverage if facility is unable to provide transportation on behalf of the patient. No discharge needs identified by the patient. No further intervention required at this time, social studies department chair will be available to address any further concerns. Next of Kin: Elise Carlos D/C Plan: Home
--- NOTE | 2024-11-23 15:39 | PC.SS ---
Nicci ([facility]) informed ICU medical team that the patient is an unconserved adult client of [facility]. Dr. Garcia is the patient's medical decision maker.
--- NOTE | 2024-11-23 16:29 | ESPR_ITS ---
Documentation for date of: 11/23/24 Subjective Subjective Interval history: This is a 74yo F admitted for acute hypoxic resp failure 2/2 aspiration. She is originally from a [place] [facility] [place]. There were no acute overnight events. She is afebrile, good UOP. She wakes up and is able to interact Critical Care Note Critical care time (min.): 38 Exam Vital Signs Temp Pulse Resp BP Pulse Ox O2 Del Method FiO2 97.7 F 60 14 135/62 H 98 Mechanical Ventilation 35 11/23/24 07:00 11/23/24 16:00 11/23/24 15:00 11/23/24 15:00 11/23/24 15:00 11/22/24 21:00 11/23/24 14:47 Narrative Exam Gen- NAD, awake, alert, elderly, frail HEENT- NC/AT, mucosa hydrated, sclera anicteric, ETT/OGT in place Chest- LCTAB, diminished at bases, HRRR, no increase in WOB Abd- s/nt/bs+ Ext- pulses palp, no clubbing, no mottling, mod edema b/l LE, Vent AC VC Physical Exam Completion Physical Exam Complete?: Yes Objective - Spectrographic Analyst Labs 11/23/24 04:30 11/23/24 04:30 Labs: Laboratory Results - last 24 hr 11/22/24 11/22/24 11/22/24 14:49 18:02 21:57 WBC RBC Hgb Hct MCV MCH MCHC RDW Std Deviation Plt Count Neut % (Auto) Lymph % (Auto) Bennett % (Auto) Eos % (Auto) Baso % (Auto) Neut # (Auto) Lymph # (Auto) Bennett # (Auto) Eos # (Auto) Baso # (Auto) Immature Gran # (Auto) Absolute Nucleated RBC Immature Gran % Nucleated RBC % Puncture Site ABG pH ABG pCO2 ABG pO2 ABG HCO3 ABG O2 Saturation ABG Base Excess FiO2 Sodium Potassium Chloride Carbon Dioxide Anion Gap BUN Creatinine Estim Creat Clear Calc eGFR BUN/Creatinine Ratio Glucose Estimated Ave Glu mg/dL Hemoglobin A1c Calculated Osmolality Lactic Acid 2.7 H 1.3 Calcium Corrected Calcium Phosphorus Magnesium Total Bilirubin AST ALT Alkaline Phosphatase Total Protein Albumin Globulin Albumin/Globulin Ratio Triglycerides Cholesterol LDL Cholesterol, Calc HDL Cholesterol Cholesterol/HDL Ratio TSH Blood Type A Positive Antibody Screen NEGATIVE Blood Bank Wristband ID Yes 11/22/24 11/23/24 11/23/24 22:30 00:17 04:07 WBC RBC Hgb Hct MCV MCH MCHC RDW Std Deviation Plt Count Neut % (Auto) Lymph % (Auto) Bennett % (Auto) Eos % (Auto) Baso % (Auto) Neut # (Auto) Lymph # (Auto) Bennett # (Auto) Eos # (Auto) Baso # (Auto) Immature Gran # (Auto) Absolute Nucleated RBC Immature Gran % Nucleated RBC % Puncture Site Right Radial Right Radial Right Radial ABG pH 7.48 H 7.44 7.46 H ABG pCO2 36 41 39 ABG pO2 73 L 45 L* D 81 L D ABG HCO3 27 H 28 H 28 H ABG O2 Saturation 95 80 L 95 ABG Base Excess 4 H 4 H 4 H FiO2 50 50 50 Sodium Potassium Chloride Carbon Dioxide Anion Gap BUN Creatinine Estim Creat Clear Calc eGFR BUN/Creatinine Ratio Glucose Estimated Ave Glu mg/dL Hemoglobin A1c Calculated Osmolality Lactic Acid Calcium Corrected Calcium Phosphorus Magnesium Total Bilirubin AST ALT Alkaline Phosphatase Total Protein Albumin Globulin Albumin/Globulin Ratio Triglycerides Cholesterol LDL Cholesterol, Calc HDL Cholesterol Cholesterol/HDL Ratio TSH Blood Type Antibody Screen Blood Bank Wristband ID 11/23/24 11/23/24 04:30 06:30 WBC 15.5 H D RBC 3.08 L Hgb 9.7 L Hct 29.2 L MCV 95 MCH 31.5 MCHC 33.2 RDW Std Deviation 57.6 H Plt Count 83 L Neut % (Auto) 88 H Lymph % (Auto) 3 L Bennett % (Auto) 8 Eos % (Auto) 0 Baso % (Auto) 0 Neut # (Auto) 13.6 H Lymph # (Auto) 0.5 L Bennett # (Auto) 1.2 H Eos # (Auto) 0.0 Baso # (Auto) 0.0 Immature Gran # (Auto) 0.07 H Absolute Nucleated RBC 0.00 Immature Gran % 1 H Nucleated RBC % 0 Puncture Site Left Radial ABG pH 7.43 ABG pCO2 41 ABG pO2 91 ABG HCO3 27 H ABG O2 Saturation 96 ABG Base Excess 2 FiO2 50 Sodium 135 L Potassium 4.7 Chloride 104 Carbon Dioxide 26.8 Anion Gap 4 L BUN 22 Creatinine 0.8 Estim Creat Clear Calc 62.0 eGFR > 60 BUN/Creatinine Ratio 28 H Glucose [address] Glu mg/dL 100 Hemoglobin A1c 5.1 Calculated Osmolality 272 L Lactic Acid Calcium 8.5 Corrected Calcium 9.4 Phosphorus 2.1 L Magnesium 2.1 Total Bilirubin 0.2 L AST 32 ALT 18 Alkaline Phosphatase 152 H D Total Protein 6.1 Albumin 2.9 L D Globulin 3.2 Albumin/Globulin Ratio 0.9 L Triglycerides 93 Cholesterol 111 L LDL Cholesterol, Calc 38 HDL Cholesterol 54 Cholesterol/HDL Ratio 2.1 L TSH 2.59 Blood Type Antibody Screen Blood Bank Wristband ID Assessment & Plan Additional Assessment Additional Assessment: In summary this is a 74yo F admitted for acute hypoxic resp failure a/p [employer]ER h/o Cognitive delay- not on sedation h/o Sz- cont current home meds CV stable Resp Acute hypoxic resp failure- currently intubated and on MV, fu with ABG and CXR , ween as able, adjust vent Aspiration PNA- on vanc/zosyn, will descalate once cx are back Renal HypoNa- mild, monitor HypoPhos- replete PO GI GI proph- PPI Endo Hypothyroid Heme Leukocytosis- 2/2 aspiration pna Anemia- mild, monitor, no active bleeding Thrombocytopenia- no active bleed, no need for transfusion at this time DVT proph- lovenox ID Aspiration- on abx ? UTI- cx pending, on abx Case discussed with ICU team labs, imaging and records reviewed ~38ccmin required for eval, exam, review, intervention, discussion of formulation of plan of care for this critically ill patient with acute respiratory failure currently intubated on mechanical ventilation at high risk for further and ongoing decompensation Provider Notation Provider Notation: Although this document has been carefully reviewed, there may still be some phonetic and other typographical errors. These errors are purely grammatical due to imperfections in the software program and should not be construed in any way to compromise the substance of the patient's medical care during this visit. Thank you for the opportunity and privilege in assisting you with this patient's care and management.
--- NOTE | 2024-11-23 17:43 | ESPR_ITS ---
<Statement entered by Shaka Knowles MD - 11/25/24 06:56> Senior Resident Attestation: I supervised/discussed management plan with electrical engineering intern physician Dr. Andrews, and was involved in the care of this patient. I personally saw and examined the patient and discussed the assessment and plan with the entire medicine team, including my attending. I agree with the assessment and plan as documented. Patient's care was discussed with attending physician, Dr. Evans. Shaka Knowles MD PGY-2. Documentation for date of: 11/23/24 Subjective Subjective Interval history: 11/23: Patient was seen and examind at bedside. Overnight, urine ouput was 600cc with no reported BM. Patient is no longer on IV sedation and is able to open eyes to tactile stimuli. She did not pass SBT today due to recurring apnic episodes. While on PS RR was 7-8 with minute ventilaion 2-4. Noticeable prolonged exhalation. Plan to hold quetiapine and all other sedatives to attempt SBT tomrrow. Difficulty in determining baseline mentation because of developmental delay. WBCs uptrended to 15.5, Hb 9.7, platelets downtrnded to 83. Hyponatremia resolving, today 135, Cr 0.8, lactic acid downtrended 1.3. Continue vanc/zosyn for aspiration pneumonia and UTI x7 days. Exam Vital Signs Temp Pulse Resp BP Pulse Ox O2 Del Method FiO2 97.7 F 60 14 136/63 H 97 Mechanical Ventilation 35 11/23/24 07:00 11/23/24 16:00 11/23/24 15:00 11/23/24 16:00 11/23/24 16:00 11/22/24 21:00 11/23/24 16:00 Narrative Exam General: sedated, MV, No acute distress Eyes: Pupils are equal and reactive to light bilaterally, anicteric HEENT: Atraumatic, normocephalic. No JVD noted. Mucosa moist Cardiovascular: Normal S1 and S2. Regular rate and rhythm. +2 pitting edema Respiratory: Lungs are clear to auscultation bilaterally. No wheezing or crackles heard. GI: Soft, nontender, not distended, normal bowel sounds, OG tube : scant blood, aldana cath Skin: Warm to touch, dry, no rashes noted Musculoskeletal: No gross injuries. Neuro: sedated, GCS10T Objective Labs 11/23/24 04:30 11/23/24 04:30 Labs: Laboratory Results - last 24 hr 11/22/24 11/22/24 11/22/24 18:02 21:57 22:30 WBC RBC Hgb Hct MCV MCH MCHC RDW Std Deviation Plt Count Neut % (Auto) Lymph % (Auto) [place] % (Auto) Eos % (Auto) Baso % (Auto) Neut # (Auto) Lymph # (Auto) [place] # (Auto) Eos # (Auto) Baso # (Auto) Immature Gran # (Auto) Absolute Nucleated RBC Immature Gran % Nucleated RBC % Puncture Site Right Radial ABG pH 7.48 H ABG pCO2 36 ABG pO2 73 L ABG HCO3 27 H ABG O2 Saturation 95 ABG Base Excess 4 H FiO2 50 Sodium Potassium Chloride Carbon Dioxide Anion Gap BUN Creatinine Estim Creat Clear Calc eGFR BUN/Creatinine Ratio Glucose Estimated Ave Glu mg/dL Hemoglobin A1c Calculated Osmolality Lactic Acid 2.7 H 1.3 Calcium Corrected Calcium Phosphorus Magnesium Total Bilirubin AST ALT Alkaline Phosphatase Total Protein Albumin Globulin Albumin/Globulin Ratio Triglycerides Cholesterol LDL Cholesterol, Calc HDL Cholesterol Cholesterol/HDL Ratio TSH 11/23/24 11/23/24 11/23/24 00:17 04:07 04:30 WBC 15.5 H D RBC 3.08 L Hgb 9.7 L Hct 29.2 L MCV 95 MCH 31.5 MCHC 33.2 RDW Std Deviation 57.6 H Plt Count 83 L Neut % (Auto) 88 H Lymph % (Auto) 3 L [place] % (Auto) 8 Eos % (Auto) 0 Baso % (Auto) 0 Neut # (Auto) 13.6 H Lymph # (Auto) 0.5 L [place] # (Auto) 1.2 H Eos # (Auto) 0.0 Baso # (Auto) 0.0 Immature Gran # (Auto) 0.07 H Absolute Nucleated RBC 0.00 Immature Gran % 1 H Nucleated RBC % 0 Puncture Site Right Radial Right Radial ABG pH 7.44 7.46 H ABG pCO2 41 39 ABG pO2 45 L* D 81 L D ABG HCO3 28 H 28 H ABG O2 Saturation 80 L 95 ABG Base Excess 4 H 4 H FiO2 50 50 Sodium 135 L Potassium 4.7 Chloride 104 Carbon Dioxide 26.8 Anion Gap 4 L BUN 22 Creatinine 0.8 Estim Creat Clear Calc 62.0 eGFR > 60 BUN/Creatinine Ratio 28 H Glucose [address] Glu mg/dL 100 Hemoglobin A1c 5.1 Calculated Osmolality 272 L Lactic Acid Calcium 8.5 Corrected Calcium 9.4 Phosphorus 2.1 L Magnesium 2.1 Total Bilirubin 0.2 L AST 32 ALT 18 Alkaline Phosphatase 152 H D Total Protein 6.1 Albumin 2.9 L D Globulin 3.2 Albumin/Globulin Ratio 0.9 L Triglycerides 93 Cholesterol 111 L LDL Cholesterol, Calc 38 HDL Cholesterol 54 Cholesterol/HDL Ratio 2.1 L TSH 2.59 11/23/24 06:30 WBC RBC Hgb Hct MCV MCH MCHC RDW Std Deviation Plt Count Neut % (Auto) Lymph % (Auto) [place] % (Auto) Eos % (Auto) Baso % (Auto) Neut # (Auto) Lymph # (Auto) [place] # (Auto) Eos # (Auto) Baso # (Auto) Immature Gran # (Auto) Absolute Nucleated RBC Immature Gran % Nucleated RBC % Puncture Site Left Radial ABG pH 7.43 ABG pCO2 41 ABG pO2 91 ABG HCO3 27 H ABG O2 Saturation 96 ABG Base Excess 2 FiO2 50 Sodium Potassium Chloride Carbon Dioxide Anion Gap BUN Creatinine Estim Creat Clear Calc eGFR BUN/Creatinine Ratio Glucose Estimated Ave Glu mg/dL Hemoglobin A1c Calculated Osmolality Lactic Acid Calcium Corrected Calcium Phosphorus Magnesium Total Bilirubin AST ALT Alkaline Phosphatase Total Protein Albumin Globulin Albumin/Globulin Ratio Triglycerides Cholesterol LDL Cholesterol, Calc HDL Cholesterol Cholesterol/HDL Ratio TSH ABG Interpretation ABG results: 11/22/24 11/22/24 11/23/24 14:49 22:30 00:17 ABG pH 7.48 H 7.44 ABG pCO2 36 41 ABG pO2 73 L 45 L* D ABG HCO3 27 H 28 H ABG O2 Saturation 95 80 L ABG Base Excess 4 H 4 H VBG pH 7.34 VBG pCO2 50 VBG pO2 62 H VBG Base Excess 1 11/23/24 11/23/24 04:07 06:30 ABG pH 7.46 H 7.43 ABG pCO2 39 41 ABG pO2 81 L D 91 ABG HCO3 28 H 27 H ABG O2 Saturation 95 96 ABG Base Excess 4 H 2 VBG pH VBG pCO2 VBG pO2 VBG Base Excess Quality Measures Quality Measures VTE prophylaxis Advance care planning discussed with:: other Assessment & Plan Assessment Current Active Medications: Generic Name Dose Route Start Last Admin Trade Name Juniorq PRN Reason Stop Dose Admin Acetaminophen 650 mg 11/22/24 18:51 Acetaminophen 325 Mg Tablet PO 12/22/24 18:50 Q6H PRN Fever >100.3 or pain Atorvastatin Calcium 10 mg 11/22/24 21:00 11/22/24 22:06 Atorvastatin Calcium 10 Mg Tablet PO 12/23/24 20:59 10 mg HS PRATIBHA Administration Divalproex Sodium 500 mg 11/22/24 21:00 11/23/24 08:[address] 500 Mg Tablet.Dr PO 12/22/24 20:59 Not Given BID PRATIBHA Heparin Sodium (Porcine) 5,000 unit 11/23/24 14:00 11/23/24 13:54 Heparin Sod Inj 5000 Unit/Ml Vial SC 12/07/24 13:59 5,000 unit Q8HR PRATIBHA Administration Propofol 1,000 mg in 100 mls @ 2.177 mls/hr 11/22/24 17:49 11/23/24 03:00 Diprivan Ivpb IV 12/22/24 17:48 0 mcg/kg/min .Q24H PRN 0 mls/hr PER PROTOCOL Titration Protocol 5 MCG/KG/MIN Fentanyl Citrate 2,500 mcg in 250 mls @ 2.5 mls/hr 11/22/24 23:36 Sublimaze Inj 2,500 Mcg/250 Ml Bag IV 11/27/24 13:57 .Q24H PRN PER PROTOCOL Protocol 25 MCG/HR Vancomycin HCl 750 mg/ Sodium 250 mls @ 120 mls/hr 11/23/24 22:00 Chloride IV 11/30/24 21:59 BID@1000,2200 PRATIBHA Piperacillin/Tazobactam/Dextrose 50 mls @ 12.5 mls/hr 11/23/24 12:15 11/23/24 12:46 Zosyn IV 11/30/24 12:14 12.5 mls/hr Q8HR PRATIBHA Administration Lactulose 10 gm 11/22/24 18:51 Lactulose Syrup 20 Gm/30 Ml Udc PO 12/22/24 18:59 QDAY PRN constipation Protocol Levothyroxine Sodium 100 mcg 11/23/24 06:00 11/23/24 05:17 Levothyroxine Sodium 100 Mcg Tablet PO 12/23/24 05:59 100 mcg ACBR PRATIBHA Administration Ondansetron HCl 4 mg 11/22/24 18:51 Ondansetron Inj 2 Mg/Ml Inj 2 Ml IV 12/22/24 18:50 Q6H PRN NAUSEA OR VOMITING Protocol Pantoprazole Sodium 40 mg 11/22/24 19:00 11/23/24 08:06 Pantoprazole Inj 40 Mg Vial IVP 12/22/24 18:59 40 mg QDAY PRATIBHA Administration Pharmacy Consult 1 each 11/22/24 20:30 11/23/24 08:10 Vancomycin Pharmacy To Dose 1 Each Each IV 12/22/24 20:29 Not Given QDAY PRATIBHA Quetiapine Fumarate 300 mg 11/22/24 21:00 11/23/24 08:06 Quetiapine Fumarate 100 Mg Tablet PO 12/22/24 20:59 300 mg BID PRATIBHA Administration Plan Ty Alcantar is 74 yr female with PMH of osteoporosis, seizure disorder, hypothyroidism, developmentally delayed, and hyperlipidemia who presented to ED from residential. She was sedated and intubated en route after coughing episode Lead to desaturation with unresponsiveness. Pulse ox was 85%. Patient admitted for AHRF 2/2 aspiration PNA. Neuro: #s/p sedation for MV d/t AHRF 2/2 aspiration PNA At baseline, patient is typically able to feed herself. Diet mostly consists of pur?ed foods. Per nursing staff eye residential, she has been at baseline since the morning of admission. Shortly after having lunch she developed coughing episode that led to desaturation of oxygen and unresponsiveness. Patient was sedated with fentanyl and intubated and route to the ED. -weaned off all sedation today -unsuccessful SBT with apnic episodes. -hold all sedation overnight/stop quetiapine and -attempt SBT tomorrow morning #Hx seizure disorder Last known seizure has been more than 5 yrs ago. -continue depakote 500mg BID #Hx mood Disorder -hold Quetiapine 400 mg daily #Developmental delay Resides in residential for daily needs. CVS: -no active problem #Hx HLD home medication Include simvastatin 20 mg daily ? Start atorvastatin 10 mg daily Pulm: #Mechanically ventilated due to #AHRF 2/2 aspiration pneumonia Ddx: pneumonitis, healthcare associated PNA, effusion Pt had coughing episode half hour after having lunch. Lead to desaturation of 02 to 85%. Cover possible healthcare PNA and anerobes. CXR on 11/22 confirmed LLL consolidation. -continue vancomycin/Zosyn 4.5 g q6hr x 7 days (until 11/29) ?Follow-up MRSA nasal screen ? Sputum culture pending ? Blood cultures pending -attempt SBT tomorrow and possible extubation. Patient exhibiting prolonged exhalation and hypoventilation. If not able to maintain oxygenation saturation >92% with low RR and MV, may need to defer extubation. -Daily chest physiotherapy every 6 hours -repeat ABG -repeat cxr Renal: #Mild hyponatremia-resolved Most likely due to dehydration. Patient not taking any medications possibly leading to hyponatremia. No recent episodes of vomiting or diarrhea. Sodium 131-->135 -Daily CMP #Hematuria Scant bleeding noticed in diapter in ED. Ddx: trauma from aldana cath attempt, cystitis RBC 85 -treat UTI as noted below #Cystitis Nitrites negative, leukocyte esterase positive, WBC 1037, Hematuria. -Urine cultures pending ? Empirical treatment with Zosyn #Elevated lactic acid?resolved On admission patient did not meet SIRS. WBC was borderline high. There maybe have been early sepsis picture contributing to elevated lactic acid with localized hypoperfusion vs systemic.Patient has probable source. Today WBCs uptrended to 15.5. Has not needed pressors since time of admission. Stable MAP. Lactic acid 4.1-->1.3 GI: no active problems Endo: #Hyperglycemia-resolved -A1c 5.1 #Hx hypothyroidism - levothyroxine 100mcg -TSH 2.59 Heme/Onc: #Normocytic anemia -daily CBC -transfuse prbc if Hb <7 #Thrombocytopenia ? Daily CBC ? Transfuse 1 unit platelets if less than 10 ID: #Aspiration PNA -as noted above in resp -vanc/zosyn Skin: no acitve problems Health maintenance: Dispo: ICU, MV 2/2 AHRF DVT prophylaxis: Subcu heparin 5000 q8hr CODE STATUS: Full code Diet: NPO OG tube 2 peripheral lines The patient's management plan was discussed with my attending physician Dr. Evans and senior Dr. Knowles. Yamilet Andrews, PGY-1
[2024-11-23] MEDS: VALPROATE SOD INJ 250 MG in SODIUM CHLORIDE 0.9% 50 ML 52.5 MG IV (21:14)
[2024-11-23] MEDS: ATORVASTATIN CALCIUM 10 MG TABLET PO (21:14)
[2024-11-23] MEDS: Vancomycin Inj 750 MG in SODIUM CHLORIDE 0.9% 250 ML 250 ML 120 MG IV (22:25)
[2024-11-24] VITALS (26 sets, daily range): BP systolic 152–185; BP diastolic 74–107; PULSE 69–86; RESP 7–16; TEMP 35.9–36.3; O2SAT 90–99
[2024-11-24] MEDS: VALPROATE SOD INJ 250 MG in SODIUM CHLORIDE 0.9% 50 ML 52.5 MG IV ×3 (03:37→15:29)
[2024-11-24 04:13] LABS: Base Excess 0 (-3-3); HCO3 26 mEq/L (20-26); Inspired Oxygen, FIO2 35 %; O2 Saturation 97 % (91-98); PCO2 50 mmHg (32.0-48.0); PO2 121 mmHg (83-108); pH, Arterial 7.33 (7.35-7.45)
[2024-11-24 04:22] LABS: Allen Test Performed/OK; Puncture Site Right Radial
--- NOTE | 2024-11-24 05:00 | XR_ITS ---
Examination: AP chest single view Technique one AP portable semiupright chest single view Exam date and time: November 24, 2024 0524 hrs. Comparison November 23, 2024 Indications: Hypoxic respiratory failure, extensive pneumonia on earlier chest films are significantly November 23, 2024 Findings: Bilateral pneumonia, most severe left base Endotracheal tube tip 7.4 cm above tracey Orogastric tube in the stomach tip in the body the stomach satisfactory position No pneumothorax Minimal prominence left ventricle Moderate vascular congestion Impression: Bilateral pneumonia, significant left base Moderate vascular congestion
[2024-11-24] MEDS: LEVOTHYROXINE SODIUM 100 MCG TABLET PO (05:13)
[2024-11-24] MEDS: HEPARIN SOD INJ 5000 UNIT/ML VIAL SC ×2 (05:13→14:30)
[2024-11-24] MEDS: PIPER/TAZO 3.375 GM 50 ML IV (05:14)
[2024-11-24 06:13] LABS: Basophils % (Auto) 0 % (0-2.5); Eosinophils # (Auto) 0.1 Thou/mm3 (0.0-0.5); Eosinophils % (Auto) 0 % (0-10); Hematocrit 30.2 % (36.0-46.0); Immature Granulocytes % (Auto) 1 % (0-0); Immature Granulocytes Auto 0.08 Thou/mm3 (0.00-0.00); Lymphocytes # (Auto) 1.1 Thou/mm3 (1.0-4.8); Lymphocytes % (Auto) 7 % (10-50); Mean Corpuscular HGB Conc 33.1 g/dl (31.0-37.0); Mean Corpuscular Hemoglobin 32.4 pg (25.0-35.0); Mean Corpuscular Volume 98 fL (80-100); Monocytes # (Auto) 0.7 Thou/mm3 (0.0-0.8); Monocytes % (Auto) 5 % (0-12); Neutrophils # (Auto) 13.1 Thou/mm3 (1.8-7.7); Neutrophils % (Auto) 87 % (37-80); Nucleated Red Blood Cell % 0 /100 WBC (0); Platelet Count 80 Thou/mm3 (140-440); RDW Standard Deviation 59.5 fL (36.4-46.3); Red Blood Count 3.09 Miln/mm3 (4.00-5.20); White Blood Count 15.1 Thou/mm3 (3.6-11.0)
[2024-11-24 07:12] LABS: Alanine Aminotransferase 22 U/L (10-49); Albumin, Serum 3.2 gm/dL (3.4-4.8); Albumin/Globulin Ratio 0.9 (1.2-2.2); Alkaline Phosphatase 162 U/L (46-116); Anion Gap 10 (7-16); Aspartate Amino Transferase 42 U/L (0-34); BUN/Creatinine Ratio 34 Ratio (12-20); Bilirubin,Total 0.3 mg/dL (0.3-1.2); Blood Urea Nitrogen 27 mg/dL (9-23); Calcium 8.9 mg/dL (8.3-10.6); Calcium (Corrected) 9.5 mg/dL (8.5-10.1); Carbon Dioxide 24.6 mMol/L (20.0-31.0); Chloride 104 mMol/L (98-107); Creatinine (Component) 0.8 mg/dL (0.6-1.3); Estimated Creatinine Clearance 62.4 mL/min (>60); Globulin 3.4 gm/dL (2.3-3.5); Osmolality,Calculated 279 (275-295); Potassium 4.5 mMol/L (3.4-5.1); Sodium 139 mMol/L (136-145); Total Protein 6.6 gm/dL (5.7-8.2); eGFR > 60 See Note
[2024-11-24 07:28] LABS: Glucose 39 mg/dL (74-106)
[2024-11-24] MEDS: DEXTROSE 50%-WATER INJ 50 ML SYRINGE IV ×2 (07:39→15:55)
[2024-11-24 09:28] LABS: Vancomycin,Trough 17.5 mcg/mL (5.0-10.0)
[2024-11-24] MEDS: cefTRIAXone/D5w 1gm IV premix 50 ML IV (09:49)
[2024-11-24] MEDS: PANTOPRAZOLE INJ 40 MG VIAL IVP (09:50)
--- NOTE | 2024-11-24 10:05 | ESPR_ITS ---
<Statement entered by Shaka Knowles MD - 11/25/24 06:58> Senior Resident Attestation: I supervised/discussed management plan with employee communications intern physician Dr. Andrews, and was involved in the care of this patient. I personally saw and examined the patient and discussed the assessment and plan with the entire medicine team, including my attending. I agree with the assessment and plan as documented. Patient's care was discussed with attending physician, Dr. Evans. Shaka Knowles MD PGY-2. Documentation for date of: 11/24/24 Subjective Subjective Interval history: 11/23: Patient was seen and examind at bedside. Overnight, urine ouput was 600cc with no reported BM. Patient is no longer on IV sedation and is able to open eyes to tactile stimuli. She did not pass SBT today due to recurring apnic episodes. While on PS RR was 7-8 with minute ventilaion 2-4. Noticeable prolonged exhalation. Plan to hold quetiapine and all other sedatives to attempt SBT tomrrow. Difficulty in determining baseline mentation because of developmental delay. WBCs uptrended to 15.5, Hb 9.7, platelets downtrnded to 83. Hyponatremia resolving, today 135, Cr 0.8, lactic acid downtrended 1.3. Continue vanc/zosyn for aspiration pneumonia and UTI x7 days. 11/24: Patient seen and examined at bedside. Home medication quetiapine was held and patient appeared to have improved mentation. GCS11T. She was able to follow commands to open eyes and turn head. Not able to follow motor commands. Started on PS mode this morning. PS level 10, peep 5, FiO2 35 with patient's MV 3-4. One hour later MV dropped to 2. Will watch for improvement in RR and possible extubation. Preliminary blood cultures, urine cultures were negative. Sputum cultures still pending. Nasal MRSA screen was negative. Stop vancomycin and deescalate to cetriaxone 1 gm daily until 11/29. WBCs 15, Hb 10, plts 80, sodium 139, glucose 39. Patient was given amp D50 with repeat sugars 180. Plan to start D10W if extubation further deferred. Exam Vital Signs Temp Pulse Resp BP Pulse Ox O2 Del Method FiO2 96.8 F 75 14 171/84 H 95 Mechanical Ventilation 35 11/24/24 07:00 11/24/24 09:00 11/23/24 15:00 11/24/24 09:00 11/24/24 09:00 11/24/24 07:00 11/24/24 06:55 Narrative Exam General: elderly, MV, No acute distress Eyes: Pupils are equal and reactive to light bilaterally, anicteric HENT: Atraumatic, normocephalic. No JVD noted. Mucosa moist Cardiovascular: Normal S1 and S2. Regular rate and rhythm. Respiratory: Lungs are clear to auscultation bilaterally. No wheezing or crackles heard. GI: Soft, nontender, not distended, normal bowel sounds, OG tube : aldana cath Skin: Warm to touch, dry, no rashes noted Musculoskeletal: No gross injuries, +2 pitting edema Neuro: GCS11T, follows commands Objective Labs 11/24/24 04:33 11/24/24 04:33 Labs: Laboratory Results - last 24 hr 11/24/24 11/24/24 11/24/24 04:03 04:33 08:25 WBC 15.1 H RBC 3.09 L Hgb 10.0 L Hct 30.2 L MCV 98 MCH 32.4 MCHC 33.1 RDW Std Deviation 59.5 H Plt Count 80 L Neut % (Auto) 87 H Lymph % (Auto) 7 L [place] % (Auto) 5 Eos % (Auto) 0 Baso % (Auto) 0 Neut # (Auto) 13.1 H Lymph # (Auto) 1.1 [place] # (Auto) 0.7 Eos # (Auto) 0.1 Baso # (Auto) 0.0 Immature Gran # (Auto) 0.08 H Absolute Nucleated RBC 0.00 Immature Gran % 1 H Nucleated RBC % 0 Puncture Site Right Radial ABG pH 7.33 L D ABG pCO2 50 H ABG pO2 121 H D ABG HCO3 26 ABG O2 Saturation 97 ABG Base Excess 0 FiO2 35 Sodium 139 Potassium 4.5 Chloride 104 Carbon Dioxide 24.6 Anion Gap 10 BUN 27 H Creatinine 0.8 Estim Creat Clear Calc 62.4 eGFR > 60 BUN/Creatinine Ratio 34 H Glucose 39 L* Calculated Osmolality 279 Calcium 8.9 Corrected Calcium 9.5 Total Bilirubin 0.3 AST 42 H ALT 22 Alkaline Phosphatase 162 H Total Protein 6.6 Albumin 3.2 L Globulin 3.4 Albumin/Globulin Ratio 0.9 L Vancomycin Trough 17.5 H ABG Interpretation ABG results: 11/22/24 11/22/24 11/23/24 14:49 22:30 00:17 ABG pH 7.48 H 7.44 ABG pCO2 36 41 ABG pO2 73 L 45 L* D ABG HCO3 27 H 28 H ABG O2 Saturation 95 80 L ABG Base Excess 4 H 4 H VBG pH 7.34 VBG pCO2 50 VBG pO2 62 H VBG Base Excess 1 11/23/24 11/23/24 11/24/24 04:07 06:30 04:03 ABG pH 7.46 H 7.43 7.33 L D ABG pCO2 39 41 50 H ABG pO2 81 L D 91 121 H D ABG HCO3 28 H 27 H 26 ABG O2 Saturation 95 96 97 ABG Base Excess 4 H 2 0 VBG pH VBG pCO2 VBG pO2 VBG Base Excess Quality Measures Quality Measures VTE prophylaxis Advance care planning discussed with:: other Assessment & Plan Assessment Current Active Medications: Generic Name Dose Route Start Last Admin Trade Name Freq PRN Reason Stop Dose Admin Acetaminophen 650 mg 11/22/24 18:51 Acetaminophen 325 Mg Tablet PO 12/22/24 18:50 Q6H PRN Fever >100.3 or pain Atorvastatin Calcium 10 mg 11/22/24 21:00 11/23/24 21:14 Atorvastatin Calcium 10 Mg Tablet PO 12/23/24 20:59 10 mg HS PRATIBHA Administration Divalproex Sodium 500 mg 11/22/24 21:00 11/23/24 21:[address] 500 Mg Tablet.Dr PO 12/22/24 20:59 Not Given BID PRATIBHA Heparin Sodium (Porcine) 5,000 unit 11/23/24 14:00 11/24/24 05:13 Heparin Sod Inj 5000 Unit/Ml Vial SC 12/07/24 13:59 5,000 unit Q8HR PRATIBHA Administration Valproic Acid 250 mg/ Sodium 52.5 mls @ 52.5 mls/hr 11/23/24 21:00 11/24/24 09:49 Chloride IV 12/23/24 20:59 52.5 mls/hr Q6H PRATIBHA Administration Ceftriaxone Sodium/Dextrose 50 mls @ 100 mls/hr 11/24/24 08:58 11/24/24 09:49 Rocephin/D5w 1gm Iv Premix IV 11/29/24 08:57 100 mls/hr QDAY PRATIBHA Administration Lactulose 10 gm 11/22/24 18:51 Lactulose Syrup 20 Gm/30 Ml Udc PO 12/22/24 18:59 QDAY PRN constipation Protocol Levothyroxine Sodium 100 mcg 11/23/24 06:00 11/24/24 05:13 Levothyroxine Sodium 100 Mcg Tablet PO 12/23/24 05:59 100 mcg ACBR PRATIBHA Administration Ondansetron HCl 4 mg 11/22/24 18:51 Ondansetron Inj 2 Mg/Ml Inj 2 Ml IV 12/22/24 18:50 Q6H PRN NAUSEA OR VOMITING Protocol Pantoprazole Sodium 40 mg 11/22/24 19:00 11/24/24 09:50 Pantoprazole Inj 40 Mg Vial IVP 12/22/24 18:59 40 mg QDAY PRATIBHA Administration Plan Ty Alcantar is 74 yr female with PMH of osteoporosis, seizure disorder, hypothyroidism, developmentally delayed, and hyperlipidemia who presented to ED from group home. She was sedated and intubated en route after coughing episode Lead to desaturation with unresponsiveness. Pulse ox was 85%. Patient admitted for AHRF 2/2 aspiration PNA. Neuro: #s/p sedation for MV d/t AHRF 2/2 aspiration PNA At baseline, patient is typically able to feed herself. Diet mostly consists of pur?ed foods. Per nursing staff eye group home, she has been at baseline since the morning of admission. Shortly after having lunch she developed coughing episode that led to desaturation of oxygen and unresponsiveness. Patient was sedated with fentanyl and intubated and route to the ED. -continue to hold off all sedation -SBT today. Watching for improvement in RR and minute ventilation. Right now pt fluctuates 2-3 mint vent. #Hx seizure disorder Last known seizure has been more than 5 yrs ago. -250 mg IV valproic acid q6hr #Hx mood Disorder -hold Quetiapine 400 mg daily #Developmental delay Resides in group home for daily needs. CVS: -no active problem #Hx HLD home medication Include simvastatin 20 mg daily ? Start atorvastatin 10 mg daily Pulm: #Mechanically ventilated due to #AHRF 2/2 aspiration pneumonia Ddx: pneumonitis, healthcare associated PNA, effusion Pt had coughing episode half hour after having lunch. Lead to desaturation of 02 to 85%. Cover possible healthcare PNA and anerobes. CXR on 11/22 confirmed LLL consolidation. Sputum stain positive for GPC. Nasal MRSA swab negative. -stop vancomycin -deescalate Zosyn 4.5 g q6hr to ceftriaxone 1 gm daily x 7 days (until 11/29) ? Sputum culture pending -attempt SBT today and possible extubation. If not able to maintain oxygenation saturation >92% with low RR and MV, may need to defer extubation. -Daily chest physiotherapy every 6 hours -repeat ABG -repeat cxr Renal: #Mild hyponatremia-resolved Most likely due to dehydration. Patient not taking any medications possibly leading to hyponatremia. No recent episodes of vomiting or diarrhea. Sodium 131-->135-->139 -Daily CMP #Hematuria Scant bleeding noticed in diapter in ED. Ddx: trauma from aldana cath attempt, cystitis RBC 85 -treat UTI as noted below #Cystitis Nitrites negative, leukocyte esterase positive, WBC 1037, Hematuria. -Urine cultures negative ?complete Zosyn course #Elevated lactic acid?resolved On admission patient did not meet SIRS. WBC was borderline high. There maybe have been early sepsis picture contributing to elevated lactic acid with localized hypoperfusion vs systemic.Patient has probable source. Today WBCs uptrended to 15.5. Has not needed pressors since time of admission. Stable MAP. Lactic acid 4.1-->1.3 GI: no active problems Endo: #Hypoglycemia-resolved Blood sugars this morning 30 with improvement to 180 after amp D50. -Plan to start D10W if extubation further deferred. -A1c 5.1 #Hx hypothyroidism - levothyroxine 100mcg -TSH 2.59 Heme/Onc: #Normocytic anemia -daily CBC -transfuse prbc if Hb <7 #Thrombocytopenia ? Daily CBC ? Transfuse 1 unit platelets if less than 10 ID: #Aspiration PNA -as noted above in resp -vanc/zosyn Skin: no acitve problems Health maintenance: Dispo: ICU, MV 2/2 AHRF DVT prophylaxis: Subcu heparin 5000 q8hr CODE STATUS: Full code Diet: NPO OG tube 2 peripheral lines The patient's management plan was discussed with my attending physician Dr. Evans and senior Dr. Knowles. Yamilet Andrews, PGY-1
--- NOTE | 2024-11-24 15:26 | PC.SS ---
Update: Patient has been extubated today. Patient on room air. Speech evaluation is pending. No skin issues present.
[2024-11-24] MEDS: DEXTROSE 10%-WATER 1000 ML 250 ML 75 ML IV (15:57)
[2024-11-24] MEDS: DEXTROSE 10%-WATER 1000 ML 250 ML 25 ML IV (16:06)
--- NOTE | 2024-11-24 18:56 | EVENTNT_ITS ---
Documentation for date of: 11/24/24 Event Note Event Note: Patient is a 74-year-old female with a past medical history of hyperlipidemia, hypothyroidism, history of seizure disorders, developmentally delayed, and osteoporosis who presented with a chief complaint of shortness of breath r equiring intubation and direct admission to ICU on 11/22/2024. During ER visit patient oxygen saturation was low at 85% with worsening distress and admitted for acute hypoxic respiratory failure secondary to aspiration. In ICU patient was treated for aspiration pneumonia and cystitis empirically with Zosyn and de- escalated to ceftriaxone on 11/24/2024. UA cultures negative. Blood cultrues Negative after 48 hours. Lactic Acidosis, resolved, on admission did NOT meet sepsis criteria. Never started on pressors. Patient continues to be on Divalproex for hisotry of seizures. Continue Levothyroxine 100 mcg for hypothyroidism. NPO, pending speech evaluation. Mild Hyponatremia resolved. A1c of 5.1 Sputum culture pending (stain gram positive cocci and WBCs positive w/ epithelia cells). WBCS for today 15.1. Patient was extubated on 11/24/2024 and will be downgrade onto floors, IM team to resume care on 11/24/2024. - The patient's plan was discussed with attending Dr. Painter and senior residents Dr. Candice Villarreal MD PGY1 Internal Medicine
[2024-11-25] VITALS (7 sets, daily range): BP systolic 130–173; BP diastolic 72–96; PULSE 64–73; RESP 17–20; TEMP 35.7–36.6; O2SAT 91–99; BMI 23.4; BMI 23.3
--- NOTE | 2024-11-25 00:03 | PC.NURSE ---
89% O2 sat on room air- Applied O2 inh on at 2L/min/nc with 92% O2 sat.
[2024-11-25] MEDS: VALPROATE SOD INJ 250 MG in SODIUM CHLORIDE 0.9% 50 ML 52.5 MG IV ×5 (00:05→21:25)
[2024-11-25] MEDS: HEPARIN SOD INJ 5000 UNIT/ML VIAL SC (00:08)
--- NOTE | 2024-11-25 05:22 | PC.NURSE ---
urine specimen sent to lab for urine drug screen.
[2024-11-25] MEDS: DEXTROSE 50%-WATER INJ 50 ML SYRINGE IV (05:58)
[2024-11-25 06:12] LABS: Basophils % (Auto) 0 % (0-2.5); Eosinophils # (Auto) 0.1 Thou/mm3 (0.0-0.5); Eosinophils % (Auto) 1 % (0-10); Hematocrit 27.8 % (36.0-46.0); Hemoglobin 9.1 g/dL (12.0-16.0); Immature Granulocytes % (Auto) 1 % (0-0); Immature Granulocytes Auto 0.04 Thou/mm3 (0.00-0.00); Lymphocytes # (Auto) 1.2 Thou/mm3 (1.0-4.8); Lymphocytes % (Auto) 14 % (10-50); Mean Corpuscular HGB Conc 32.7 g/dl (31.0-37.0); Mean Corpuscular Hemoglobin 31.8 pg (25.0-35.0); Mean Corpuscular Volume 97 fL (80-100); Monocytes # (Auto) 0.8 Thou/mm3 (0.0-0.8); Monocytes % (Auto) 9 % (0-12); Neutrophils # (Auto) 6.6 Thou/mm3 (1.8-7.7); Neutrophils % (Auto) 76 % (37-80); Nucleated Red Blood Cell % 0 /100 WBC (0); Platelet Count 103 Thou/mm3 (140-440); RDW Standard Deviation 59.1 fL (36.4-46.3); Red Blood Count 2.86 Miln/mm3 (4.00-5.20); White Blood Count 8.7 Thou/mm3 (3.6-11.0)
[2024-11-25 06:30] LABS: Alanine Aminotransferase 16 U/L (10-49); Albumin, Serum 3.1 gm/dL (3.4-4.8); Alkaline Phosphatase 165 U/L (46-116); Anion Gap 9 (7-16); Aspartate Amino Transferase 33 U/L (0-34); BUN/Creatinine Ratio 32 Ratio (12-20); Bilirubin,Total 0.2 mg/dL (0.3-1.2); Blood Urea Nitrogen 19 mg/dL (9-23); Calcium 9.2 mg/dL (8.3-10.6); Calcium (Corrected) 9.9 mg/dL (8.5-10.1); Carbon Dioxide 28.5 mMol/L (20.0-31.0); Chloride 104 mMol/L (98-107); Creatinine (Component) 0.6 mg/dL (0.6-1.3); Estimated Creatinine Clearance 75.8 mL/min (>60); Globulin 3.2 gm/dL (2.3-3.5); Glucose 51 mg/dL (74-106); Osmolality,Calculated 280 (275-295); Potassium 3.7 mMol/L (3.4-5.1); Sodium 141 mMol/L (136-145); Total Protein 6.3 gm/dL (5.7-8.2); eGFR > 60 See Note
[2024-11-25 06:57] LABS: Amphetamine/Methamp Scrn,U Negative (Negative); Barbiturate Screen,Urine Negative (Negative); Benzodiazepines Screen,Urine Negative (Negative); Benzoylecgonine Screen, Ur Negative (Negative); Fentanyl Screen,Urine Positive (Negative); Opiate Screen,Urine Negative (Negative); THC Screen,Urine Negative (Negative)
[2024-11-25] MEDS: cefTRIAXone/D5w 1gm IV premix 50 ML IV (09:36)
[2024-11-25] MEDS: PANTOPRAZOLE INJ 40 MG VIAL IVP ×2 (09:36→21:25)
--- NOTE | 2024-11-25 10:17 | PCS.ST ---
Swallow Evaluation completed. See report for details. Suspect esophageal dysfunction. Recommend Dysphagia 1/mildy thick liquids with reflux precautions for now. ST will continue service. Medcial team notified.
--- NOTE | 2024-11-25 11:23 | XR_ITS ---
Examination: Esophagram AP abdomen single view Exam date and time: November 25, 2024 1411 hours INDICATIONS: Difficulty swallowing this week FINDINGS: Order Picker/Assembler AP supine abdomen demonstrates small bowel ileus Significant parenchymal disease both lungs consistent with pneumonia but clinical correlation advised Underlying pulmonary mass is not excluded The patient refused esophagram IMPRESSION: The patient refusing esophagram Significant nodular parenchymal disease bilaterally, consider CT chest post intravenous contrast follow-up
--- NOTE | 2024-11-25 13:38 | ESPR_ITS ---
<Statement entered by Rashawn Montgomery MD - 11/25/24 17:04> Patient was seen and examined at the bedside. Patient is AO x 1 and has difficulty speaking with development delay. Patient is currently having low blood sugars and overnight received amp of D50 despite having D10. Currently being managed with IV Rocephin for UTI and aspiration pneumonia. Barium swallow could not be taking as patient refused it. Patient does have hematuria therefore heparin was discontinued bladder irrigation was started. Patient is currently NPO. Consult GI for further recommendations. Continue to monitor blood sugars and current management. All labs and orders were reviewed. I saw and examined the patient, and I agree with current management stated by Dr Salbador MD,PGY1. Plan of care was discussed with the attending physician and resident physician. Disclaimer: Despite multiple revisions, due to the dictation software being used, the document bellow may not be free of grammatical errors including phonetic/typographic errors. However, this does not deter from our commitment to providing health care in the patient's best interest in mind. Dr. Ulises MD, PGY 2 Documentation for date of: 11/25/24 Subjective Subjective Interval history: No overnight events. Patient seen and examined at bedside. Patient resting comfortably. A&O x 1, difficulty speaking, developmentally delayed. No specific complaints. Cough noted on deep inspiration. Patient having aspiration events after eating. Esophagram ordered, follow-up. Continue Rocephin, continue D10W. Exam Vital Signs Temp Pulse Resp BP Pulse Ox O2 Del Method O2 Flow Rate 96.9 F 73 18 130/75 91 L Room Air 2 11/25/24 12:00 11/25/24 12:00 11/25/24 12:00 11/25/24 12:00 11/25/24 12:00 11/25/24 12:00 11/25/24 10:38 FiO2 30 11/24/24 10:46 Objective Labs 11/26/24 04:46 11/26/24 04:46 Labs: Laboratory Results - last 24 hr 11/25/24 11/25/24 04:26 05:19 WBC 8.7 D RBC 2.86 L Hgb 9.1 L Hct 27.8 L MCV 97 MCH 31.8 MCHC 32.7 RDW Std Deviation 59.1 H Plt Count 103 L D Neut % (Auto) 76 Lymph % (Auto) 14 Wirt % (Auto) 9 Eos % (Auto) 1 Baso % (Auto) 0 Neut # (Auto) 6.6 Lymph # (Auto) 1.2 Wirt # (Auto) 0.8 Eos # (Auto) 0.1 Baso # (Auto) 0.0 Immature Gran # (Auto) 0.04 H Absolute Nucleated RBC 0.00 Immature Gran % 1 H Nucleated RBC % 0 Sodium 141 Potassium 3.7 D Chloride 104 Carbon Dioxide 28.5 Anion Gap 9 BUN 19 Creatinine 0.6 Estim Creat Clear Calc 75.8 eGFR > 60 BUN/Creatinine Ratio 32 H Glucose 51 L Calculated Osmolality 280 Calcium 9.2 Corrected Calcium 9.9 Total Bilirubin 0.2 L AST 33 ALT 16 Alkaline Phosphatase 165 H Total Protein 6.3 Albumin 3.1 L Globulin 3.2 Albumin/Globulin Ratio 1.0 L Urine Opiates Screen Negative Urine Fentanyl Screen Positive A Ur Barbiturates Screen Negative U Amphetamin/Meth Scrn Negative U Benzodiazepines Scrn Negative U Cocaine Metab Screen Negative U Marijuana (THC) Screen Negative ABG Interpretation ABG results: 11/22/24 11/22/24 11/23/24 14:49 22:30 00:17 ABG pH 7.48 H 7.44 ABG pCO2 36 41 ABG pO2 73 L 45 L* D ABG HCO3 27 H 28 H ABG O2 Saturation 95 80 L ABG Base Excess 4 H 4 H VBG pH 7.34 VBG pCO2 50 VBG pO2 62 H VBG Base Excess 1 11/23/24 11/23/24 11/24/24 04:07 06:30 04:03 ABG pH 7.46 H 7.43 7.33 L D ABG pCO2 39 41 50 H ABG pO2 81 L D 91 121 H D ABG HCO3 28 H 27 H 26 ABG O2 Saturation 95 96 97 ABG Base Excess 4 H 2 0 VBG pH VBG pCO2 VBG pO2 VBG Base Excess Quality Measures Quality Measures VTE prophylaxis Advance care planning discussed with:: other Assessment & Plan Assessment Current Active Medications: Generic Name Dose Route Start Last Admin Trade Name Freq PRN Reason Stop Dose Admin Acetaminophen 650 mg 11/22/24 18:51 Acetaminophen 325 Mg Tablet PO 12/22/24 18:50 Q6H PRN Fever >100.3 or pain Atorvastatin Calcium 10 mg 11/22/24 21:00 11/25/24 00:11 Atorvastatin Calcium 10 Mg Tablet PO 12/23/24 20:59 Not Given HS PRATIBHA Divalproex Sodium 500 mg 11/22/24 21:00 11/23/24 21:[address] 500 Mg Tablet.Dr PO 12/22/24 20:59 Not Given BID PRATIBHA Heparin Sodium (Porcine) 5,000 unit 11/23/24 14:00 11/25/24 05:52 Heparin Sod Inj 5000 Unit/Ml Vial SC 12/07/24 13:59 Not Given Q8HR PRATIBHA Valproic Acid 250 mg/ Sodium 52.5 mls @ 52.5 mls/hr 11/23/24 21:00 11/25/24 09:41 Chloride IV 12/23/24 20:59 52.5 mls/hr Q6H PRATIBHA Administration Ceftriaxone Sodium/Dextrose 50 mls @ 100 mls/hr 11/24/24 08:58 11/25/24 09:36 Rocephin/D5w 1gm Iv Premix IV 11/29/24 08:57 100 mls/hr QDAY PRATIBHA Administration Lactulose 10 gm 11/22/24 18:51 Lactulose Syrup 20 Gm/30 Ml Udc PO 12/22/24 18:59 QDAY PRN constipation Protocol Levothyroxine Sodium 100 mcg 11/23/24 06:00 11/25/24 05:52 Levothyroxine Sodium 100 Mcg Tablet PO 12/23/24 05:59 Not Given ACBR PRATIBHA Ondansetron HCl 4 mg 11/22/24 18:51 Ondansetron Inj 2 Mg/Ml Inj 2 Ml IV 12/22/24 18:50 Q6H PRN NAUSEA OR VOMITING Protocol Pantoprazole Sodium 40 mg 11/22/24 19:00 11/25/24 09:36 Pantoprazole Inj 40 Mg Vial IVP 12/22/24 18:59 40 mg QDAY PRATIBHA Administration Plan 74 yr female with PMH of osteoporosis, seizure disorder, hypothyroidism, developmentally delayed, and hyperlipidemia who presented to ED from [facility]. She was sedated and intubated en route after coughing episode Lead to desaturation with unresponsiveness. Pulse ox was 85%. Patient admitted for AHRF 2/2 aspiration PNA. #AHRF 2/2 aspiration pneumonia, resolving #Frequent aspiration events Pt had coughing episode half hour after having lunch. Lead to desaturation of 02 to 85%. CXR on 11/22 confirmed LLL consolidation. Sputum stain positive for GPC. Nasal MRSA swab negative. Patient required intubation and ICU. Was successfully extubated and downgraded to floors for further management. Patient saturating well on 2 L nasal cannula. Patient was evaluated by speech therapy, patient was functionally swallowing well, however with developed coughing fits shortly afterwards. Suspect some form of reflux versus esophageal dysmotility. Patient refused esophagram. -Ceftriaxone 1 gm daily x 7 days (until 11/29) -Daily chest physiotherapy every 6 hours -Protonix 40 mg IV twice daily -Will get GI consult, follow-up #Hematuria Scant bleeding noticed in diaper in ED. Patient had Giraldo cath inserted. Gross hematuria noted in Giraldo. No notable bleeding at Giraldo insertion. RBC 85. -Hold anticoagulants, use SCDs for DVT prophylaxis -Bladder irrigation x 1 #Cystitis, treated Nitrites negative, leukocyte esterase positive, WBC 1037, Hematuria. -Urine cultures negative ?completed Zosyn course #Hypoglycemia, persistent Blood sugars found to be 30 with improvement to 180 after amp D50. Patient has had frequent hypoglycemic episodes despite treatment with D5W. Patient showed slight improvement on D10 W. -D10 W70 5 mL/h x 2 L -Blood sugar checks every 6 hours #Mild hyponatremia-resolved Most likely due to dehydration. Patient not taking any medications possibly leading to hyponatremia. No recent episodes of vomiting or diarrhea. Sodium 131-->135-->139 -Daily CMP #Hx hypothyroidism -Resume home levothyroxine 100mcg -TSH 2.59 #Normocytic anemia -daily CBC -transfuse prbc if Hb <7 #Thrombocytopenia -Daily CBC -Transfuse 1 unit platelets if less than 10 #Hx seizure disorder Last known seizure has been more than 5 yrs ago. -resume home 250 mg IV valproic acid q6hr #Hx mood Disorder -Resume home quetiapine 400 mg daily #Developmental delay Resides in [facility] for daily needs. DVT prophylaxis: SCDs GI prophylaxis: Protonix Diet: N.p.o. Lines: Peripheral IV, Giraldo cath Code status: Full code Plan of care discussed with senior resident Dr. Montgomery PGY?[address] Painter. Grupo Siu MD PGY-1 Attending Provider Attestation/Addendum I have examined the patient, reviewed labs and imaging findings, discussed the case with the resident(s), and reviewed entered orders. I agree with the plan of care as outlined in this note, with these additional summaries/recommendations: Patient is a 74-year-old male with a medical history of developmental delay, seizure disorder, hypothyroidism, hyperlipidemia, and osteoporosis who presented to [facility] emergency department on 11/22/2024 with chief complaint of acute hypoxic respiratory failure. Patient was intubated and admitted to ICU. Patient was successfully extubated and downgraded to medical floor and hospitalist team has resumed care. # Acute hypoxic respiratory failure: Secondary to aspiration pneumonia. Status post extubation. Continue supplemental oxygen as needed. # Community-acquired pneumonia: Chest x-ray shows bilateral pneumonia significant left base. Continue antibiotics. Sputum, blood, and urine culture show no growth. #?Dysphagia #Recurrent hypoglycemia Patient is relatively nonverbal at baseline and no history can be obtained. Suspect patient has been having dysphagia. Recurrent hypoglycemia likely secondary to dysphagia. Speech therapy following and recommended esophagram. The patient apparently refused esophagram while in interventional radiology unit. Continue to monitor blood sugars closely every 6 hours and and if patient not tolerating diet dysphagia 1 then we will consult gastroenterology. # Developmental delay # Seizure disorder Plan: No evidence of seizure-like activity while hospitalized. Continue home antiepileptics. Dr. Painter
--- NOTE | 2024-11-25 14:46 | PC.SS ---
Rounding note: ICU downgrade. Pending blood glucose improvement.
[2024-11-25] MEDS: DEXTROSE 10%-WATER 1000 ML 1,000 ML 70 ML IV (17:14)
--- NOTE | 2024-11-25 21:41 | PD.IMCONS ---
HPI Data of Consult Requesting Physician: Natty Evans MD Primary Care Provider: Nathan Avila MD Consult Narrative Reason for consult: Dysphagia possible aspiration History of present illness: 74 years old female no history 74 years old female, I have been asked for evaluation as the esophagram could not be done and appears that she has dysphagia No history obtainable She was admitted with bilateral pneumonia leading to acute respiratory failure requiring endotracheal intubation and mechanical ventilation cc:: cc: Natty Evans MD Review of Systems Review of Systems ROS Unobtainable: unobtainable due to medical condition Past Medical History Surgical History OTHER SURGICAL HX: As in the history of present illness Meds Home Medications and Allergies Home Medications ?Medication ?Instructions ?Recorded ?Confirmed ?Type ASCORBATE CALCIUM (VITAMIN C) 500 mg PO QDAY ##0 07/12/16 11/23/24 History Acetaminophen * (TYLENOL *) 2 tab PO Q4HR PRN PAIN #0 tabs 07/12/16 11/23/24 History Albuterol Sulfate/Ipratropium NEB 3 ml HHN Q4HR PRN SHORTNESS OF 07/12/16 11/23/24 History * (DUONEB *) BREATH OR WHEEZE #0 mL Alendronate Sodium * (FOSAMAX *) 35 mg PO Q7D #0 tabs 07/12/16 11/23/24 History Calcium Carbonate/Cholecalciferol 1 tab PO BID #0 tabs 07/12/16 11/23/24 History 600 * (CALTRATE PLUS D 600 *) Guaifenesin/D-Methorphan Hb Syrup 10 ml PO Q4HR PRN COUGH #0 mL 07/12/16 11/23/24 History (Robitussin Dm Syrup) LORATADINE (CLARITIN) 10 mg PO QDAY ##0 07/12/16 11/23/24 History Multivit-Min/Iron Fum/Folic AC 1 tab PO QDAY ##0 07/12/16 11/23/24 History (Rwdgb-Lqqurzo-Tbqtlagy Tablet) divalproex 500 mg tablet,extended 500 mg PO BID #0 tabs 07/12/16 11/23/24 History release 24 hr (Depakote ER) docusate sodium 250 mg capsule 250 mg PO 0700 #0 caps 07/12/16 11/23/24 History (DOK) docusate sodium 250 mg capsule 500 mg PO 1500 #0 caps 07/12/16 11/23/24 History (DOK) lactulose 10 gram/15 mL oral 10 mg PO QDAY CONSTIPATION ##0 07/12/16 11/23/24 History solution levothyroxine 100 mcg tablet 100 mcg PO ACBR #0 tabs 07/12/16 11/23/24 History (Synthroid) pseudoephedrine HCl 60 mg tablet 60 mg PO Q6HR PRN CONGESTION ##0 07/12/16 11/23/24 History (Sudogest) quetiapine 300 mg tablet,extended 400 mg PO BID ##0 07/12/16 11/23/24 History release 24 hr (Seroquel XR) simvastatin 20 mg tablet 20 mg PO HS ##0 07/12/16 11/23/24 History bisacodyl 10 mg rectal suppository 10 mg TX QDAY PRN Constipation 11/23/24 11/23/24 History naproxen 500 mg tablet 500 mg PO BID PRN pain/agitation 11/23/24 11/23/24 History Allergies Allergy/AdvReac Type Severity Reaction Status Date / Time amitriptyline Allergy Intermediate unknown Verified 03/18/18 07:54 haloperidol Allergy Intermediate Itching Verified 03/18/18 07:54 Exam Vital Signs Temp Pulse Resp BP Pulse Ox O2 Del Method O2 Flow Rate 96.3 F L 70 20 167/96 H 99 Nasal Cannula 2 11/25/24 20:00 11/25/24 20:00 11/25/24 20:00 11/25/24 20:00 11/25/24 20:00 11/25/24 20:00 11/25/24 20:00 FiO2 30 11/24/24 10:46 Constitutional Comments: Chronically ill-appearing Routine Respiratory Exam Comments: Scattered rhonchi Routine Abdominal Exam Comments: Soft nontender Results Labs 11/25/24 04:26 11/25/24 04:26 Labs: Short CBC 11/25/24 Range/Units 04:26 WBC 8.7 D (3.6-11.0) Thou/mm3 Hgb 9.1 L (12.0-16.0) g/dL Hct 27.8 L (36.0-46.0) % Plt Count 103 L D (140-440) Thou/mm3 BMP 11/25/24 04:26 Sodium 141 Potassium 3.7 D Chloride 104 Carbon Dioxide 28.5 BUN 19 Creatinine 0.6 Glucose 51 L Calcium 9.2 Liver Function 11/25/24 Range/Units 04:26 Total Bilirubin 0.2 L (0.3-1.2) mg/dL AST 33 (0-34) U/L ALT 16 (10-49) U/L Alkaline Phosphatase 165 H (46-116) U/L Albumin 3.1 L (3.4-4.8) gm/dL ABG Interpretation ABG results: 11/22/24 11/22/24 11/23/24 14:49 22:30 00:17 ABG pH 7.48 H 7.44 ABG pCO2 36 41 ABG pO2 73 L 45 L* D ABG HCO3 27 H 28 H ABG O2 Saturation 95 80 L ABG Base Excess 4 H 4 H VBG pH 7.34 VBG pCO2 50 VBG pO2 62 H VBG Base Excess 1 11/23/24 11/23/24 11/24/24 04:07 06:30 04:03 ABG pH 7.46 H 7.43 7.33 L D ABG pCO2 39 41 50 H ABG pO2 81 L D 91 121 H D ABG HCO3 28 H 27 H 26 ABG O2 Saturation 95 96 97 ABG Base Excess 4 H 2 0 VBG pH VBG pCO2 VBG pO2 VBG Base Excess Assessment and Plan Additional Assessment & Plan Additional Plan: # Dysphagia may be the cause of aspiration or patient may have esophageal motility disorder Plan N.p.o. midnight tonight Fiberoptic esophagogastroduodenoscopy with possible biopsy possible therapeutic intervention under intravenous moderate sedation Consent will be obtained from the appropriate authorities Procedure has been tentatively scheduled for tomorrow Other medical problems include # Bilateral pneumonia leading to acute respiratory failure requiring intubation and subsequent extubation Thank you very much for the opportunity to participate in the care of this patient
[2024-11-26] VITALS (18 sets, daily range): BP systolic 118–206; BP diastolic 65–116; PULSE 64–116; RESP 10–94; TEMP 36.1–36.5; O2SAT 91–96; BMI 22.8
[2024-11-26] MEDS: VALPROATE SOD INJ 250 MG in SODIUM CHLORIDE 0.9% 50 ML 52.5 MG IV ×4 (03:25→20:11)
[2024-11-26 05:12] LABS: Basophils % (Auto) 0 % (0-2.5); Eosinophils # (Auto) 0.1 Thou/mm3 (0.0-0.5); Eosinophils % (Auto) 1 % (0-10); Hematocrit 30.3 % (36.0-46.0); Immature Granulocytes % (Auto) 0 % (0-0); Immature Granulocytes Auto 0.02 Thou/mm3 (0.00-0.00); Lymphocytes # (Auto) 0.9 Thou/mm3 (1.0-4.8); Lymphocytes % (Auto) 13 % (10-50); Mean Corpuscular Hemoglobin 31.5 pg (25.0-35.0); Mean Corpuscular Volume 96 fL (80-100); Monocytes # (Auto) 0.8 Thou/mm3 (0.0-0.8); Monocytes % (Auto) 11 % (0-12); Neutrophils # (Auto) 5.1 Thou/mm3 (1.8-7.7); Neutrophils % (Auto) 74 % (37-80); Nucleated Red Blood Cell % 0 /100 WBC (0); Platelet Count 110 Thou/mm3 (140-440); RDW Standard Deviation 56.9 fL (36.4-46.3); Red Blood Count 3.17 Miln/mm3 (4.00-5.20); White Blood Count 6.9 Thou/mm3 (3.6-11.0)
[2024-11-26 05:33] LABS: Alanine Aminotransferase 15 U/L (10-49); Albumin, Serum 3.2 gm/dL (3.4-4.8); Albumin/Globulin Ratio 0.9 (1.2-2.2); Alkaline Phosphatase 172 U/L (46-116); Anion Gap 6 (7-16); Aspartate Amino Transferase 29 U/L (0-34); BUN/Creatinine Ratio 22 Ratio (12-20); Bilirubin,Total 0.2 mg/dL (0.3-1.2); Blood Urea Nitrogen 13 mg/dL (9-23); Calcium 9.2 mg/dL (8.3-10.6); Calcium (Corrected) 9.8 mg/dL (8.5-10.1); Carbon Dioxide 31.5 mMol/L (20.0-31.0); Chloride 101 mMol/L (98-107); Creatinine (Component) 0.6 mg/dL (0.6-1.3); Estimated Creatinine Clearance 75.8 mL/min (>60); Globulin 3.4 gm/dL (2.3-3.5); Glucose 124 mg/dL (74-106); Magnesium 1.7 mg/dL (1.6-2.6); Osmolality,Calculated 276 (275-295); Phosphorous 3.3 mg/dL (2.4-5.1); Potassium 3.5 mMol/L (3.4-5.1); Sodium 138 mMol/L (136-145); Total Protein 6.6 gm/dL (5.7-8.2); eGFR > 60 See Note
--- NOTE | 2024-11-26 05:48 | PC.NURSE ---
Addendum entered by Radha Mireles RN 11/26/24 05:50: No new orders received at this point. Original Note: Dr. Persaud made aware of patient's BP being on the high side. said he'll look into patient's chart.
[2024-11-26] MEDS: PANTOPRAZOLE INJ 40 MG VIAL IVP ×2 (08:19→20:04)
[2024-11-26] MEDS: cefTRIAXone/D5w 1gm IV premix 50 ML IV (08:19)
[2024-11-26] MEDS: DEXTROSE 10%-WATER 1000 ML 1,000 ML 70 ML IV (08:24)
--- NOTE | 2024-11-26 13:17 | ESPR_ITS ---
Documentation for date of: 11/26/24 Subjective Subjective Interval history: No overnight events reported for patient. Patient continues to be on dextrose 10% at 70 mL/h, re-evaluate as patient is now full liquid. Glucose has fluctuated between 108 and 126. Patient is scheduled for EGD this morning. Patient examined at bedside. Patient was drowsy but arousable and later in the evening with more alert and trying to communicate. EGD showed gastritis, esophagitis and moderate stenosis. Exam Vital Signs Temp Pulse Resp BP Pulse Ox O2 Del Method O2 Flow Rate 97.4 F 67 17 156/77 H 93 L Nasal Cannula 2 11/26/24 12:00 11/26/24 12:00 11/26/24 12:00 11/26/24 12:00 11/26/24 12:00 11/26/24 12:00 11/26/24 12:00 FiO2 30 11/24/24 10:46 Narrative Exam General Appearance: Alert & Oriented X0, well-nourished female who is lying in bed in no acute distress HEENT: Skull symmetrical and atraumatic. Conjunctivae pin and moist. Pupils equal, round, reactive to light and accommodation (PERRL). External ear without lesion or discharge. Straight, nares patient, mucosa pink, no discharge. No thyroid nodule appreciated. No cervical lymphadenopathy. Cardio: Normal Rate and Rhythm with S1 and S2 heart sounds. No murmurs or extra heart sounds auscultated. No bruits on carotid auscultation. No peripheral edema or cyanosis. Lungs: Symmetric with good expansion. Chest and back non-tender. Breath sounds vesicular with some rhonchi Abdomen: Non-tender, Non-distended, Normal Reactive Bowel Sounds Neuro: Yes Alert, Yes cooperative, No oriented to person, No place, and No time. Speech clear. CN grossly intact. Upper motor strength 5/5 and Lower motor strength 5/5. Sensation intact. Objective Labs 11/26/24 04:46 11/26/24 04:46 Labs: Laboratory Results - last 24 hr 11/26/24 04:46 WBC 6.9 RBC 3.17 L Hgb 10.0 L Hct 30.3 L MCV 96 MCH 31.5 MCHC 33.0 RDW Std Deviation 56.9 H Plt Count 110 L Neut % (Auto) 74 Lymph % (Auto) 13 Chambers % (Auto) 11 Eos % (Auto) 1 Baso % (Auto) 0 Neut # (Auto) 5.1 Lymph # (Auto) 0.9 L Chambers # (Auto) 0.8 Eos # (Auto) 0.1 Baso # (Auto) 0.0 Immature Gran # (Auto) 0.02 H Absolute Nucleated RBC 0.00 Immature Gran % 0 Nucleated RBC % 0 Sodium 138 Potassium 3.5 Chloride 101 Carbon Dioxide 31.5 H Anion Gap 6 L BUN 13 Creatinine 0.6 Estim Creat Clear Calc 75.8 eGFR > 60 BUN/Creatinine Ratio 22 H Glucose 124 H D Calculated Osmolality 276 Calcium 9.2 Corrected Calcium 9.8 Phosphorus 3.3 Magnesium 1.7 Total Bilirubin 0.2 L AST 29 ALT 15 Alkaline Phosphatase 172 H Total Protein 6.6 Albumin 3.2 L Globulin 3.4 Albumin/Globulin Ratio 0.9 L ABG Interpretation ABG results: 11/22/24 11/22/24 11/23/24 14:49 22:30 00:17 ABG pH 7.48 H 7.44 ABG pCO2 36 41 ABG pO2 73 L 45 L* D ABG HCO3 27 H 28 H ABG O2 Saturation 95 80 L ABG Base Excess 4 H 4 H VBG pH 7.34 VBG pCO2 50 VBG pO2 62 H VBG Base Excess 1 11/23/24 11/23/24 11/24/24 04:07 06:30 04:03 ABG pH 7.46 H 7.43 7.33 L D ABG pCO2 39 41 50 H ABG pO2 81 L D 91 121 H D ABG HCO3 28 H 27 H 26 ABG O2 Saturation 95 96 97 ABG Base Excess 4 H 2 0 VBG pH VBG pCO2 VBG pO2 VBG Base Excess Quality Measures Quality Measures VTE prophylaxis Advance care planning discussed with:: patient Assessment & Plan Assessment Current Active Medications: Generic Name Dose Route Start Last Admin Trade Name Freq PRN Reason Stop Dose Admin Acetaminophen 650 mg 11/22/24 18:51 Acetaminophen 325 Mg Tablet PO 12/22/24 18:50 Q6H PRN Fever >100.3 or pain Atorvastatin Calcium 10 mg 11/22/24 21:00 11/25/24 21:24 Atorvastatin Calcium 10 Mg Tablet PO 12/23/24 20:59 Not Given HS PRATIBHA Divalproex Sodium 500 mg 11/22/24 21:00 11/23/24 21:[address] 500 Mg Tablet.Dr PO 12/22/24 20:59 Not Given BID PRATIBHA Valproic Acid 250 mg/ Sodium 52.5 mls @ 52.5 mls/hr 11/23/24 21:00 11/26/24 08:18 Chloride IV 12/23/24 20:59 52.5 mls/hr Q6H PRATIBHA Administration Ceftriaxone Sodium/Dextrose 50 mls @ 100 mls/hr 11/24/24 08:58 11/26/24 08:19 Rocephin/D5w 1gm Iv Premix IV 11/29/24 08:57 100 mls/hr QDAY PRATIBHA Administration Dextrose 1,000 mls @ 70 mls/hr 11/25/24 16:45 11/26/24 08:24 D10w 1000 Ml IV 11/26/24 21:19 70 mls/hr .[id number] PRATIBHA Administration Protocol Lactulose 10 gm 11/22/24 18:51 Lactulose Syrup 20 Gm/30 Ml Udc PO 12/22/24 18:59 QDAY PRN constipation Protocol Levothyroxine Sodium 100 mcg 11/23/24 06:00 11/26/24 05:28 Levothyroxine Sodium 100 Mcg Tablet PO 12/23/24 05:59 Not Given ACBR PRATIBHA Ondansetron HCl 4 mg 11/22/24 18:51 Ondansetron Inj 2 Mg/Ml Inj 2 Ml IV 12/22/24 18:50 Q6H PRN NAUSEA OR VOMITING Protocol Pantoprazole Sodium 40 mg 11/25/24 21:00 11/26/24 08:19 Pantoprazole Inj 40 Mg Vial IVP 12/25/24 20:59 40 mg BID PRATIBHA Administration Plan 74 yr female with PMH of osteoporosis, seizure disorder, hypothyroidism, developmentally delayed, and hyperlipidemia who presented to ED from group home. She was sedated and intubated en route after coughing episode Lead to desaturation with unresponsiveness. Pulse ox was 85%. Patient admitted for AHRF 2/2 aspiration PNA. #Dysphagia secondary to stenosis #S/P EGD w/ Dilation (11/26/2024) Given findings of stenosis on EGD. Consider D/C Alendronate as a side effect is stenosis of the esophagus and esophagitis. EGD Findings: Esophagitis w/ two biopsies. Benign appearing, moderate stenosis at proximal esophagus-->Dilation. Moderate inflammation at stomach level/gastritis. Plan: Protonix 40 mg BID Consider D/C Alendronate upon discharge Full Liquid diet, advance as needed Antireflux regimen on discharge #AHRF 2/2 aspiration pneumonia, resolving #Frequent aspiration events Pt had coughing episode half hour after having lunch. Lead to desaturation of 02 to 85%. CXR on 11/22 confirmed LLL consolidation. Sputum stain positive for GPC. Nasal MRSA swab negative. Patient required intubation and ICU. Was successfully extubated and downgraded to floors for further management. Patient saturating well on 2 L nasal cannula. Patient was evaluated by speech therapy, patient was functionally swallowing well, however with developed coughing fits shortly afterwards. Suspect some form of reflux versus esophageal dysmotility. Patient refused esophagram. -Ceftriaxone 1 gm daily x 7 days (until 11/29) -Daily chest physiotherapy every 6 hours -Will get GI consult, follow-up #Hematuria Scant bleeding noticed in diaper in ED. Patient had Giraldo cath inserted. Gross hematuria noted in Giraldo. No notable bleeding at Giraldo insertion. RBC 85. -Hold anticoagulants, use SCDs for DVT prophylaxis -Bladder irrigation x 1 #Hypoglycemia, persistent Blood sugars found to be 30 with improvement to 180 after amp D50. Patient has had frequent hypoglycemic episodes despite treatment with D5W. Patient showed slight improvement on D10 W. -D10 W70 5 mL/h x 2 L, will be completed after second bag on 11/26/2024. May extend another bag but patinet is now full liquids. Re-evaluate. -Blood sugar checks every 6 hours #Mild hyponatremia-resolved Most likely due to dehydration. Patient not taking any medications possibly leading to hyponatremia. No recent episodes of vomiting or diarrhea. Sodium 131-->135-->139 -Daily CMP #Hx hypothyroidism -Resume home levothyroxine 100mcg -TSH 2.59 #Normocytic anemia -daily CBC -transfuse prbc if Hb <7 #Thrombocytopenia -Daily CBC -Transfuse 1 unit platelets if less than 10 #Hx seizure disorder Last known seizure has been more than 5 yrs ago. -resume home 250 mg IV valproic acid q6hr #Hx mood Disorder -Resume home quetiapine 400 mg daily #Developmental delay Resides in group home for daily needs. #Cystitis, treated DVT prophylaxis: SCDs GI prophylaxis: Protonix Diet: Full liquid, advance as tolerated Lines: Peripheral IV, Giraldo cath Code status: Full code disposition, tentative d/c for tomorrow if patient is able to tolerate diet as its advanced. - The patient's plan was discussed with attending Dr. Painter and senior residents Dr. Harvey. Mirtha Villarreal MD PGY1 Internal Medicine Attending Provider Attestation/Addendum I have examined the patient, reviewed labs and imaging findings, discussed the case with the resident(s), and reviewed entered orders. I agree with the plan of care as outlined in this note, with these additional summaries/recommendations: Patient is a 74-year-old male with a medical history of developmental delay, seizure disorder, hypothyroidism, hyperlipidemia, and osteoporosis who presented to [facility] emergency department on 11/22/2024 with chief complaint of acute hypoxic respiratory failure. Patient was intubated and admitted to ICU. Patient was successfully extubated and downgraded to medical floor and hospitalist team has resumed care. # Acute hypoxic respiratory failure: Secondary to aspiration pneumonia. Status post extubation. Continue supplemental oxygen as needed. # Community-acquired pneumonia: Chest x-ray shows bilateral pneumonia significant left base. Continue antibiotics. Sputum, blood, and urine culture show no growth. #Dysphagia #Recurrent hypoglycemia Patient is relatively nonverbal at baseline although does speak at times. Suspect patient has been having dysphagia. Recurrent hypoglycemia likely secondary to dysphagia. Speech therapy following and recommended esophagram. The patient apparently refused esophagram while in interventional radiology unit. Continue to monitor blood sugars closely every 6 hours Plan: Gastroenterology consulted and patient went for EGD today which revealed esophagitis with biopsies taken, benign appearing stenosis status post dilation, gastritis with biopsies taken. Per GI await pathology reports and follow-up in gastroenterology's office in 2 weeks. Antireflux regimen. We will resume dysphagia diet and monitor for any aspiration events. If evidence of any continued aspiration patient will likely require gastrostomy tube. # Developmental delay # Seizure disorder Plan: No evidence of seizure-like activity while hospitalized. Continue home antiepileptics. Dr. Painter
--- NOTE | 2024-11-26 15:26 | SUR.PHASEI ---
1503 pt to pacu via yunior, drowsy able to follow simple commands, iv's intact, will monitor
[2024-11-26] MEDS: ATORVASTATIN CALCIUM 10 MG TABLET PO (20:04)
[2024-11-27] VITALS: BP 145/77; PULSE 74; RESP 20; TEMP 36.2; O2SAT 95
[2024-11-27] MEDS: VALPROATE SOD INJ 250 MG in SODIUM CHLORIDE 0.9% 50 ML 52.5 MG IV ×4 (03:24→22:20)
[2024-11-27 04:00] VITALS: BP 153/76; PULSE 69; RESP 21; TEMP 36.1; O2SAT 96
[2024-11-27] MEDS: DEXTROSE 50%-WATER INJ 50 ML SYRINGE IV (05:46)
[2024-11-27] MEDS: LEVOTHYROXINE SODIUM 100 MCG TABLET PO (05:52)
[2024-11-27 06:00] VITALS: BMI 21.9
[2024-11-27 06:20] LABS: Basophils % (Auto) 0 % (0-2.5); Eosinophils # (Auto) 0.1 Thou/mm3 (0.0-0.5); Eosinophils % (Auto) 2 % (0-10); Hematocrit 30.1 % (36.0-46.0); Hemoglobin 9.7 g/dL (12.0-16.0); Immature Granulocytes % (Auto) 1 % (0-0); Immature Granulocytes Auto 0.03 Thou/mm3 (0.00-0.00); Lymphocytes # (Auto) 1.3 Thou/mm3 (1.0-4.8); Lymphocytes % (Auto) 22 % (10-50); Mean Corpuscular HGB Conc 32.2 g/dl (31.0-37.0); Mean Corpuscular Hemoglobin 31.2 pg (25.0-35.0); Mean Corpuscular Volume 97 fL (80-100); Monocytes # (Auto) 0.8 Thou/mm3 (0.0-0.8); Monocytes % (Auto) 13 % (0-12); Neutrophils # (Auto) 3.7 Thou/mm3 (1.8-7.7); Neutrophils % (Auto) 62 % (37-80); Nucleated Red Blood Cell % 0 /100 WBC (0); Platelet Count 99 Thou/mm3 (140-440); RDW Standard Deviation 57.2 fL (36.4-46.3); Red Blood Count 3.11 Miln/mm3 (4.00-5.20)
[2024-11-27 06:46] LABS: Alanine Aminotransferase 20 U/L (10-49); Alkaline Phosphatase 167 U/L (46-116); Anion Gap 6 (7-16); Aspartate Amino Transferase 38 U/L (0-34); BUN/Creatinine Ratio 20 Ratio (12-20); Bilirubin,Total 0.2 mg/dL (0.3-1.2); Blood Urea Nitrogen 10 mg/dL (9-23); Calcium 9.1 mg/dL (8.3-10.6); Calcium (Corrected) 9.9 mg/dL (8.5-10.1); Carbon Dioxide 34.4 mMol/L (20.0-31.0); Chloride 101 mMol/L (98-107); Creatinine (Component) 0.5 mg/dL (0.6-1.3); Globulin 3.1 gm/dL (2.3-3.5); Glucose 65 mg/dL (74-106); Magnesium 1.7 mg/dL (1.6-2.6); Osmolality,Calculated 278 (275-295); Phosphorous 3.4 mg/dL (2.4-5.1); Potassium 3.2 mMol/L (3.4-5.1); Sodium 141 mMol/L (136-145); Total Protein 6.1 gm/dL (5.7-8.2); eGFR > 60 See Note
[2024-11-27 08:00] VITALS: BP 155/90; PULSE 69; RESP 18; TEMP 36.3; O2SAT 93
[2024-11-27] MEDS: PANTOPRAZOLE INJ 40 MG VIAL IVP ×2 (08:14→22:19)
[2024-11-27] MEDS: cefTRIAXone/D5w 1gm IV premix 50 ML IV (08:14)
[2024-11-27] MEDS: POTASSIUM CHLORIDE 20 mEq TABCR 40 MEQ PO (11:02)
[2024-11-27 12:00] VITALS: BP 172/77; PULSE 73; RESP 20; TEMP 36.4; O2SAT 95
--- NOTE | 2024-11-27 13:15 | PD.RESPRO ---
Documentation for date of: 11/27/24 Subjective Subjective Interval history: No overnight events. Patient seen and examined at bedside. No specific complaints. Patient seems to be tolerating oral diet well. Continue full liquid diet, will advance as tolerated. Continue to monitor blood glucose. Exam Vital Signs Temp Pulse Resp BP Pulse Ox O2 Del Method O2 Flow Rate 97.5 F 73 20 172/77 H 95 Nasal Cannula 2 11/27/24 12:00 11/27/24 12:00 11/27/24 12:00 11/27/24 12:00 11/27/24 12:00 11/27/24 12:00 11/27/24 12:00 FiO2 30 11/24/24 10:46 Narrative Exam PE: Gen: Well-developed and well-nourished. HEENT: NCAT, PERRLA, EOMI, MMM, anicteric conjunctivae. CVS: normal S1 and S2. RRR. No M/R/G. Resp: CTA B/L. No rhonchi, rales, crackles or wheezing. Abd: soft, non-tender, non-distended. BS+ in all 4 quadrants. MSK: Good ROM in BUE & BLE. No edema or rash. Neuro: CN II-XII grossly intact. Strength 5/5 in BUE & BLE. Alert and oriented x1, baseline for patient. Cooperative. Psych: appropriate mood and affect. Objective Labs 11/27/24 04:59 11/27/24 04:59 Labs: Laboratory Results - last 24 hr 11/27/24 04:59 WBC 6.0 RBC 3.11 L Hgb 9.7 L Hct 30.1 L MCV 97 MCH 31.2 MCHC 32.2 RDW Std Deviation 57.2 H Plt Count 99 L Neut % (Auto) 62 Lymph % (Auto) 22 [place] % (Auto) 13 H Eos % (Auto) 2 Baso % (Auto) 0 Neut # (Auto) 3.7 Lymph # (Auto) 1.3 [place] # (Auto) 0.8 Eos # (Auto) 0.1 Baso # (Auto) 0.0 Immature Gran # (Auto) 0.03 H Absolute Nucleated RBC 0.00 Immature Gran % 1 H Nucleated RBC % 0 Sodium 141 Potassium 3.2 L Chloride 101 Carbon Dioxide 34.4 H Anion Gap 6 L BUN 10 Creatinine 0.5 L Estim Creat Clear Calc 91.0 eGFR > 60 BUN/Creatinine Ratio 20 Glucose 65 L D Calculated Osmolality 278 Calcium 9.1 Corrected Calcium 9.9 Phosphorus 3.4 Magnesium 1.7 Total Bilirubin 0.2 L AST 38 H ALT 20 Alkaline Phosphatase 167 H Total Protein 6.1 Albumin 3.0 L Globulin 3.1 Albumin/Globulin Ratio 1.0 L ABG Interpretation ABG results: 11/22/24 11/22/24 11/23/24 14:49 22:30 00:17 ABG pH 7.48 H 7.44 ABG pCO2 36 41 ABG pO2 73 L 45 L* D ABG HCO3 27 H 28 H ABG O2 Saturation 95 80 L ABG Base Excess 4 H 4 H VBG pH 7.34 VBG pCO2 50 VBG pO2 62 H VBG Base Excess 1 11/23/24 11/23/24 11/24/24 04:07 06:30 04:03 ABG pH 7.46 H 7.43 7.33 L D ABG pCO2 39 41 50 H ABG pO2 81 L D 91 121 H D ABG HCO3 28 H 27 H 26 ABG O2 Saturation 95 96 97 ABG Base Excess 4 H 2 0 VBG pH VBG pCO2 VBG pO2 VBG Base Excess Quality Measures Quality Measures VTE prophylaxis Advance care planning discussed with:: other Assessment & Plan Assessment Current Active Medications: Generic Name Dose Route Start Last Admin Trade Name Freq PRN Reason Stop Dose Admin Acetaminophen 650 mg 11/22/24 18:51 Acetaminophen 325 Mg Tablet PO 12/22/24 18:50 Q6H PRN Fever >100.3 or pain Atorvastatin Calcium 10 mg 11/22/24 21:00 11/26/24 20:04 Atorvastatin Calcium 10 Mg Tablet PO 12/23/24 20:59 10 mg HS PRATIBHA Administration Dextrose 25 ml 11/27/24 05:34 Dextrose 50%-Water Inj 50 Ml Syringe IV 12/27/24 05:33 Q15MIN PRN BG 50-70 responsive npo pt Dextrose 50 ml 11/27/24 05:34 Dextrose 50%-Water Inj 50 Ml Syringe IV 12/27/24 05:33 Q15MIN PRN BG <50 OR BG <70 & pt unresponsive Glucagon 1 mg 11/27/24 05:34 Glucagon Inj 1 Mg Vial IM Q15MIN PRN BG <70, and no IV access Valproic Acid 250 mg/ Sodium 52.5 mls @ 52.5 mls/hr 11/23/24 21:00 11/27/24 08:14 Chloride IV 12/23/24 20:59 52.5 mls/hr Q6H PRATIBHA Administration Ceftriaxone Sodium/Dextrose 50 mls @ 100 mls/hr 11/24/24 08:58 11/27/24 08:14 Rocephin/D5w 1gm Iv Premix IV 11/29/24 08:57 100 mls/hr QDAY PRATIBHA Administration Lactulose 10 gm 11/22/24 18:51 Lactulose Syrup 20 Gm/30 Ml Udc PO 12/22/24 18:59 QDAY PRN constipation Protocol Levothyroxine Sodium 100 mcg 11/23/24 06:00 11/27/24 05:52 Levothyroxine Sodium 100 Mcg Tablet PO 12/23/24 05:59 100 mcg ACBR PRATIBHA Administration Ondansetron HCl 4 mg 11/22/24 18:51 Ondansetron Inj 2 Mg/Ml Inj 2 Ml IV 12/22/24 18:50 Q6H PRN NAUSEA OR VOMITING Protocol Pantoprazole Sodium 40 mg 11/25/24 21:00 11/27/24 08:14 Pantoprazole Inj 40 Mg Vial IVP 12/25/24 20:59 40 mg BID PRATIBHA Administration Plan 74 yr female with PMH of osteoporosis, seizure disorder, hypothyroidism, developmentally delayed, and hyperlipidemia who presented to ED from residential. She was sedated and intubated en route after coughing episode Lead to desaturation with unresponsiveness. Pulse ox was 85%. Patient admitted for AHRF 2/2 aspiration PNA. #AHRF 2/2 aspiration pneumonia, resolving #Frequent aspiration events Pt had coughing episode half hour after having lunch. Lead to desaturation of 02 to 85%. CXR on 11/22 confirmed LLL consolidation. Sputum stain positive for GPC. Nasal MRSA swab negative. Patient required intubation and ICU. Was successfully extubated and downgraded to floors for further management. Patient saturating well on 2 L nasal cannula. Patient was evaluated by speech therapy, patient was functionally swallowing well, however with developed coughing fits shortly afterwards. Suspect some form of reflux versus esophageal dysmotility. Patient refused esophagram. Patient received EGD which showed esophageal stenosis, dilated. Biopsies were taken for esophagitis and gastritis. -Ceftriaxone 1 gm daily x 7 days (until 11/29) -Daily chest physiotherapy every 6 hours -Protonix 40 mg IV twice daily -GI consult appreciated -DC alendronate upon discharge #Hypoglycemia, persistent Blood sugars found to be 30 with improvement to 180 after amp D50. Patient has had frequent hypoglycemic episodes despite treatment with D5W. Patient showed slight improvement on D10 W. D10 W70 5 mL/h x 2 L was given. -Blood sugar checks every 6 hours #Hematuria, resolved Scant bleeding noticed in diaper in ED. Patient had Giraldo cath inserted. Gross hematuria noted in Giraldo. No notable bleeding at Giraldo insertion. RBC 85. Patient received bladder irrigation x 1, urine has been pale yellow since. -Hold anticoagulants, use SCDs for DVT prophylaxis -Monitor #Mild hyponatremia-resolved Most likely due to dehydration. Patient not taking any medications possibly leading to hyponatremia. No recent episodes of vomiting or diarrhea. Sodium 131-->135-->139 -Daily CMP #Hx hypothyroidism -Resume home levothyroxine 100mcg -TSH 2.59 #Normocytic anemia -daily CBC -transfuse prbc if Hb <7 #Thrombocytopenia -Daily CBC -Transfuse 1 unit platelets if less than 10 #Hx seizure disorder Last known seizure has been more than 5 yrs ago. -resume home 250 mg IV valproic acid q6hr #Hx mood Disorder -Resume home quetiapine 400 mg daily #Cystitis, treated Nitrites negative, leukocyte esterase positive, WBC 1037, Hematuria. Urine cultures negative completed Zosyn course #Developmental delay Resides in residential for daily needs. DVT prophylaxis: SCDs GI prophylaxis: Protonix Diet: Full liquid diet, advance as tolerated Lines: Peripheral IV, Giraldo cath Code status: Full code Plan of care discussed with attending Dr. Painter. Grupo Siu MD PGY-1 Attending Provider Attestation/Addendum I have examined the patient, reviewed labs and imaging findings, discussed the case with the resident(s), and reviewed entered orders. I agree with the plan of care as outlined in this note, with these additional summaries/recommendations: Patient is a 74-year-old male with a medical history of developmental delay, seizure disorder, hypothyroidism, hyperlipidemia, and osteoporosis who presented to [facility] emergency department on 11/22/2024 with chief complaint of acute hypoxic respiratory failure. Patient was intubated and admitted to ICU. Patient was successfully extubated and downgraded to medical floor and hospitalist team has resumed care. # Acute hypoxic respiratory failure: Secondary to aspiration pneumonia. Status post extubation. Continue supplemental oxygen as needed. # Community-acquired pneumonia: Chest x-ray shows bilateral pneumonia significant left base. Continue antibiotics. Sputum, blood, and urine culture show no growth. #Dysphagia #Recurrent hypoglycemia Patient is relatively nonverbal at baseline although does speak at times. Suspect patient has been having dysphagia. Recurrent hypoglycemia likely secondary to dysphagia. Speech therapy following and recommended esophagram. The patient apparently refused esophagram while in interventional radiology unit. Continue to monitor blood sugars closely every 6 hours Plan: Gastroenterology consulted and patient went for EGD which revealed esophagitis with biopsies taken, benign appearing stenosis status post dilation, gastritis with biopsies taken. Per GI await pathology reports and follow-up in gastroenterology's office in 2 weeks. Antireflux regimen. We will resume dysphagia diet and advance as tolerated. If patient tolerates diet then anticipate discharge in the next 24 to 48 hours. If unable to tolerate diet patient may require PEG tube. # Developmental delay # Seizure disorder Plan: No evidence of seizure-like activity while hospitalized. Continue home antiepileptics. Dr. Painter
--- NOTE | 2024-11-27 14:41 | PC.SS ---
Rounding: Continue full liquid diet, advance as tolerated, continue to monitor blood glucose.
[2024-11-27 15:56] VITALS: PULSE 72; RESP 18; TEMP 36.3; O2SAT 93
--- NOTE | 2024-11-27 18:03 | PD.IMPROG ---
Documentation for date of: 11/27/24 Subjective Subjective Interval history: Patient status post endoscopic dilatation Exam Vital Signs Temp Pulse Resp BP Pulse Ox O2 Del Method O2 Flow Rate 97.4 F 72 18 172/77 H 93 L Nasal Cannula 2 11/27/24 15:56 11/27/24 15:56 11/27/24 15:56 11/27/24 12:00 11/27/24 15:56 11/27/24 15:56 11/27/24 15:56 FiO2 30 11/24/24 10:46 Objective Labs 11/27/24 04:59 11/27/24 04:59 Labs: Laboratory Results - last 24 hr 11/27/24 04:59 WBC 6.0 RBC 3.11 L Hgb 9.7 L Hct 30.1 L MCV 97 MCH 31.2 MCHC 32.2 RDW Std Deviation 57.2 H Plt Count 99 L Neut % (Auto) 62 Lymph % (Auto) 22 [place] % (Auto) 13 H Eos % (Auto) 2 Baso % (Auto) 0 Neut # (Auto) 3.7 Lymph # (Auto) 1.3 [place] # (Auto) 0.8 Eos # (Auto) 0.1 Baso # (Auto) 0.0 Immature Gran # (Auto) 0.03 H Absolute Nucleated RBC 0.00 Immature Gran % 1 H Nucleated RBC % 0 Sodium 141 Potassium 3.2 L Chloride 101 Carbon Dioxide 34.4 H Anion Gap 6 L BUN 10 Creatinine 0.5 L Estim Creat Clear Calc 91.0 eGFR > 60 BUN/Creatinine Ratio 20 Glucose 65 L D Calculated Osmolality 278 Calcium 9.1 Corrected Calcium 9.9 Phosphorus 3.4 Magnesium 1.7 Total Bilirubin 0.2 L AST 38 H ALT 20 Alkaline Phosphatase 167 H Total Protein 6.1 Albumin 3.0 L Globulin 3.1 Albumin/Globulin Ratio 1.0 L Impressions Impression: # esophageal stricture status post endoscopic dilatation # Gastritis , continue current management ABG Interpretation ABG results: 11/22/24 11/22/24 11/23/24 14:49 22:30 00:17 ABG pH 7.48 H 7.44 ABG pCO2 36 41 ABG pO2 73 L 45 L* D ABG HCO3 27 H 28 H ABG O2 Saturation 95 80 L ABG Base Excess 4 H 4 H VBG pH 7.34 VBG pCO2 50 VBG pO2 62 H VBG Base Excess 1 01/22/25 01/22/25 01/23/25 04:07 06:30 04:03 ABG pH 7.46 H 7.43 7.33 L D ABG pCO2 39 41 50 H ABG pO2 81 L D 91 121 H D ABG HCO3 28 H 27 H 26 ABG O2 Saturation 95 96 97 ABG Base Excess 4 H 2 0 VBG pH VBG pCO2 VBG pO2 VBG Base Excess Assessment & Plan A&P Narrative # Dysphagia may be the cause of aspiration or patient may have esophageal motility disorder Plan N.p.o. midnight tonight Fiberoptic esophagogastroduodenoscopy with possible biopsy possible therapeutic intervention under intravenous moderate sedation Consent will be obtained from the appropriate authorities Procedure has been tentatively scheduled for tomorrow Other medical problems include # Bilateral pneumonia leading to acute respiratory failure requiring intubation and subsequent extubation Thank you very much for the opportunity to participate in the care of this patient Time Spent With Patient Time: Total time spent is greater than 50% in coordination of care (as documented) at patient's floor/unit and/or counseling patient:
[2024-11-27 20:00] VITALS: BP 159/87; PULSE 75; PULSE 78; RESP 18; RESP 20; TEMP 36.6; O2SAT 93
[2024-11-27] MEDS: ATORVASTATIN CALCIUM 10 MG TABLET PO (22:19)
[2024-11-27] MEDS: DEXTROSE 50%-WATER INJ 50 ML SYRINGE 25 ML IV (23:26)
[2024-11-28] VITALS (9 sets, daily range): BP systolic 140–179; BP diastolic 71–96; PULSE 67–85; RESP 15–19; TEMP 36.3–37.3; O2SAT 92–97; BMI 21.5
[2024-11-28] MEDS: VALPROATE SOD INJ 250 MG in SODIUM CHLORIDE 0.9% 50 ML 52.5 MG IV ×3 (03:27→21:29)
[2024-11-28] MEDS: LEVOTHYROXINE SODIUM 100 MCG TABLET PO (05:10)
[2024-11-28 06:44] LABS: Basophils % (Auto) 0 % (0-2.5); Eosinophils # (Auto) 0.1 Thou/mm3 (0.0-0.5); Eosinophils % (Auto) 2 % (0-10); Hematocrit 31.9 % (36.0-46.0); Hemoglobin 10.4 g/dL (12.0-16.0); Immature Granulocytes % (Auto) 0 % (0-0); Immature Granulocytes Auto 0.02 Thou/mm3 (0.00-0.00); Lymphocytes # (Auto) 1.3 Thou/mm3 (1.0-4.8); Lymphocytes % (Auto) 22 % (10-50); Mean Corpuscular HGB Conc 32.6 g/dl (31.0-37.0); Mean Corpuscular Hemoglobin 31.6 pg (25.0-35.0); Mean Corpuscular Volume 97 fL (80-100); Monocytes # (Auto) 0.9 Thou/mm3 (0.0-0.8); Monocytes % (Auto) 15 % (0-12); Neutrophils # (Auto) 3.6 Thou/mm3 (1.8-7.7); Neutrophils % (Auto) 61 % (37-80); Nucleated Red Blood Cell % 0 /100 WBC (0); Platelet Count 103 Thou/mm3 (140-440); RDW Standard Deviation 56.5 fL (36.4-46.3); Red Blood Count 3.29 Miln/mm3 (4.00-5.20)
[2024-11-28 07:11] LABS: Alanine Aminotransferase 18 U/L (10-49); Albumin, Serum 3.1 gm/dL (3.4-4.8); Albumin/Globulin Ratio 0.9 (1.2-2.2); Alkaline Phosphatase 167 U/L (46-116); Anion Gap 8 (7-16); Aspartate Amino Transferase 31 U/L (0-34); BUN/Creatinine Ratio 17 Ratio (12-20); Bilirubin,Total 0.3 mg/dL (0.3-1.2); Blood Urea Nitrogen 10 mg/dL (9-23); Calcium 8.9 mg/dL (8.3-10.6); Calcium (Corrected) 9.6 mg/dL (8.5-10.1); Carbon Dioxide 31.1 mMol/L (20.0-31.0); Chloride 103 mMol/L (98-107); Creatinine (Component) 0.6 mg/dL (0.6-1.3); Estimated Creatinine Clearance 75.8 mL/min (>60); Globulin 3.4 gm/dL (2.3-3.5); Glucose 77 mg/dL (74-106); Magnesium 1.7 mg/dL (1.6-2.6); Osmolality,Calculated 281 (275-295); Phosphorous 3.1 mg/dL (2.4-5.1); Potassium 3.9 mMol/L (3.4-5.1); Sodium 142 mMol/L (136-145); Total Protein 6.5 gm/dL (5.7-8.2); eGFR > 60 See Note
--- NOTE | 2024-11-28 08:55 | PCS.ST ---
Pt needs dysphagia 1 diet with mildy thick liquids. S/S of laryngeal penetration with regular CLD.
[2024-11-28] MEDS: cefTRIAXone/D5w 1gm IV premix 50 ML IV (10:06)
[2024-11-28] MEDS: PANTOPRAZOLE INJ 40 MG VIAL IVP ×2 (10:06→21:29)
--- NOTE | 2024-11-28 10:39 | PC.SS ---
SS follow up note; Patient's blood sugars have been low.
[2024-11-28] MEDS: Magnesium Sulfate 4 GM Ivpb 4 GM/50 ML BAG IV (12:38)
--- NOTE | 2024-11-28 13:35 | ESPR_ITS ---
<Statement entered by Rashawn Montgomery MD - 11/28/24 14:20> Patient was seen and examined at the bedside this morning. Patient is passing bowel movements regularly. Speech therapist evaluated the patient and transferred diet to dysphagia 1 with thick liquid level 2. Overnight patient blood sugars were low and amp of D50 was given. Will continue with Rocephin for 1 more day for UTI. Potassium was repleted. Kidney functions remained stable. All labs and orders were reviewed. I saw and examined the patient, and I agree with current management stated by Dr Salbador MD,PGY1. Plan of care was discussed with the attending physician and resident physician. Disclaimer: Despite multiple revisions, due to the dictation software being used, the document bellow may not be free of grammatical errors including phonetic/typographic errors. However, this does not deter from our commitment to providing health care in the patient's best interest in mind. Dr. Ulises MD, PGY 2 Documentation for date of: 11/28/24 Subjective Subjective Interval history: No overnight events. Patient seen and examined at bedside. Patient was tolerating full liquid diet well, required assistance to eat. No aspiration noted. Diet advanced to pur?ed. Continue to monitor blood sugar. Exam Vital Signs Temp Pulse Resp BP Pulse Ox O2 Del Method O2 Flow Rate 97.9 F 67 17 179/79 H 95 Nasal Cannula 2 11/28/24 12:00 11/28/24 12:00 11/28/24 12:00 11/28/24 12:00 11/28/24 12:00 11/28/24 12:00 11/28/24 12:00 FiO2 30 11/24/24 10:46 Narrative Exam PE: Gen: Well-developed and well-nourished. HEENT: NCAT, PERRLA, EOMI, MMM, anicteric conjunctivae. CVS: normal S1 and S2. RRR. No M/R/G. Resp: CTA B/L. No rhonchi, rales, crackles or wheezing. Abd: soft, non-tender, non-distended. BS+ in all 4 quadrants. MSK: Good ROM in BUE & BLE. No edema or rash. Neuro: CN II-XII grossly intact. Strength 5/5 in BUE & BLE. Alert and oriented x1, baseline for patient. Cooperative. Psych: appropriate mood and affect. Objective Labs 11/29/24 04:53 11/29/24 04:53 Labs: Laboratory Results - last 24 hr 11/28/24 05:56 WBC 6.0 RBC 3.29 L Hgb 10.4 L Hct 31.9 L MCV 97 MCH 31.6 MCHC 32.6 RDW Std Deviation 56.5 H Plt Count 103 L Neut % (Auto) 61 Lymph % (Auto) 22 [place] % (Auto) 15 H Eos % (Auto) 2 Baso % (Auto) 0 Neut # (Auto) 3.6 Lymph # (Auto) 1.3 [place] # (Auto) 0.9 H Eos # (Auto) 0.1 Baso # (Auto) 0.0 Immature Gran # (Auto) 0.02 H Absolute Nucleated RBC 0.00 Immature Gran % 0 Nucleated RBC % 0 Sodium 142 Potassium 3.9 D Chloride 103 Carbon Dioxide 31.1 H Anion Gap 8 BUN 10 Creatinine 0.6 Estim Creat Clear Calc 75.8 eGFR > 60 BUN/Creatinine Ratio 17 Glucose 77 Calculated Osmolality 281 Calcium 8.9 Corrected Calcium 9.6 Phosphorus 3.1 Magnesium 1.7 Total Bilirubin 0.3 AST 31 ALT 18 Alkaline Phosphatase 167 H Total Protein 6.5 Albumin 3.1 L Globulin 3.4 Albumin/Globulin Ratio 0.9 L ABG Interpretation ABG results: 11/22/24 11/22/24 11/23/24 14:49 22:30 00:17 ABG pH 7.48 H 7.44 ABG pCO2 36 41 ABG pO2 73 L 45 L* D ABG HCO3 27 H 28 H ABG O2 Saturation 95 80 L ABG Base Excess 4 H 4 H VBG pH 7.34 VBG pCO2 50 VBG pO2 62 H VBG Base Excess 1 11/23/24 11/23/24 11/24/24 04:07 06:30 04:03 ABG pH 7.46 H 7.43 7.33 L D ABG pCO2 39 41 50 H ABG pO2 81 L D 91 121 H D ABG HCO3 28 H 27 H 26 ABG O2 Saturation 95 96 97 ABG Base Excess 4 H 2 0 VBG pH VBG pCO2 VBG pO2 VBG Base Excess Quality Measures Quality Measures VTE prophylaxis Advance care planning discussed with:: patient Assessment & Plan Assessment Current Active Medications: Generic Name Dose Route Start Last Admin Trade Name Freq PRN Reason Stop Dose Admin Acetaminophen 650 mg 11/22/24 18:51 Acetaminophen 325 Mg Tablet PO 12/22/24 18:50 Q6H PRN Fever >100.3 or pain Atorvastatin Calcium 10 mg 11/22/24 21:00 11/27/24 22:19 Atorvastatin Calcium 10 Mg Tablet PO 12/23/24 20:59 10 mg HS PRATIBHA Administration Dextrose 25 ml 11/27/24 05:34 11/27/24 23:26 Dextrose 50%-Water Inj 50 Ml Syringe IV 12/27/24 05:33 25 ml Q15MIN PRN Administration BG 50-70 responsive npo pt Dextrose 50 ml 11/27/24 05:34 Dextrose 50%-Water Inj 50 Ml Syringe IV 12/27/24 05:33 Q15MIN PRN BG <50 OR BG <70 & pt unresponsive Glucagon 1 mg 11/27/24 05:34 Glucagon Inj 1 Mg Vial IM Q15MIN PRN BG <70, and no IV access Valproic Acid 250 mg/ Sodium 52.5 mls @ 52.5 mls/hr 11/23/24 21:00 11/28/24 10:54 Chloride IV 12/23/24 20:59 52.5 mls/hr Q6H PRATIBHA Administration Ceftriaxone Sodium/Dextrose 50 mls @ 100 mls/hr 11/24/24 08:58 11/28/24 10:06 Rocephin/D5w 1gm Iv Premix IV 11/29/24 08:57 100 mls/hr QDAY PRATIBHA Administration Lactulose 10 gm 11/22/24 18:51 Lactulose Syrup 20 Gm/30 Ml Udc PO 12/22/24 18:59 QDAY PRN constipation Protocol Levothyroxine Sodium 100 mcg 11/23/24 06:00 11/28/24 05:10 Levothyroxine Sodium 100 Mcg Tablet PO 12/23/24 05:59 100 mcg ACBR PRATIBHA Administration Ondansetron HCl 4 mg 11/22/24 18:51 Ondansetron Inj 2 Mg/Ml Inj 2 Ml IV 12/22/24 18:50 Q6H PRN NAUSEA OR VOMITING Protocol Pantoprazole Sodium 40 mg 11/25/24 21:00 11/28/24 10:06 Pantoprazole Inj 40 Mg Vial IVP 12/25/24 20:59 40 mg BID PRATIBHA Administration Plan 74 yr female with PMH of osteoporosis, seizure disorder, hypothyroidism, developmentally delayed, and hyperlipidemia who presented to ED from longterm. She was sedated and intubated en route after coughing episode Lead to desaturation with unresponsiveness. Pulse ox was 85%. Patient admitted for AHRF 2/2 aspiration PNA. #AHRF 2/2 aspiration pneumonia, resolving # Esophageal stenosis, s/p dilation Pt had coughing episode half hour after having lunch. Lead to desaturation of 02 to 85%. CXR on 11/22 confirmed LLL consolidation. Sputum stain positive for GPC. Nasal MRSA swab negative. Patient required intubation and ICU. Was successfully extubated and downgraded to floors for further management. Patient saturating well on 2 L nasal cannula. Patient was evaluated by speech therapy, patient was functionally swallowing well, however with developed coughing fits shortly afterwards. Suspect some form of reflux versus esophageal dysmotility. Patient refused esophagram. Patient received EGD which showed esophageal stenosis, dilated. Biopsies were taken for esophagitis and gastritis. -Ceftriaxone 1 gm daily x 7 days (until 11/29) -Daily chest physiotherapy every 6 hours -Protonix 40 mg IV twice daily -GI consult appreciated -DC alendronate upon discharge -Diet advanced, as needed #Hypoglycemia, persistent Blood sugars found to be 30 with improvement to 180 after amp D50. Patient has had frequent hypoglycemic episodes despite treatment with D5W. Patient showed slight improvement on D10 W. D10 W70 5 mL/h x 2 L was given. -Blood sugar checks every 6 hours #Hematuria, resolved Scant bleeding noticed in diaper in ED. Patient had Giraldo cath inserted. Gross hematuria noted in Giraldo. No notable bleeding at Giraldo insertion. RBC 85. Patient received bladder irrigation x 1, urine has been pale yellow since. -Hold anticoagulants, use SCDs for DVT prophylaxis -Monitor #Mild hyponatremia-resolved Most likely due to dehydration. Patient not taking any medications possibly leading to hyponatremia. No recent episodes of vomiting or diarrhea. Sodium 131-->135-->139 -Daily CMP #Hx hypothyroidism -Resume home levothyroxine 100mcg -TSH 2.59 #Normocytic anemia -daily CBC -transfuse prbc if Hb <7 #Thrombocytopenia -Daily CBC -Transfuse 1 unit platelets if less than 10 #Hx seizure disorder Last known seizure has been more than 5 yrs ago. -resume home 250 mg IV valproic acid q6hr #Hx mood Disorder -Resume home quetiapine 400 mg daily #Cystitis, treated Nitrites negative, leukocyte esterase positive, WBC 1037, Hematuria. Urine cultures negative completed Zosyn course #Developmental delay Resides in longterm for daily needs. DVT prophylaxis: SCDs GI prophylaxis: Protonix Diet: Full liquid diet, advance as tolerated Lines: Peripheral IV, Giraldo cath Code status: Full code Plan of care discussed with senior resident Dr. Montgomery PGY?[address] Painter. Grupo Siu MD PGY-1 Attending Provider Attestation/Addendum I have examined the patient, reviewed labs and imaging findings, discussed the case with the resident(s), and reviewed entered orders. I agree with the plan of care as outlined in this note, with these additional summaries/recommendations: Patient is a 74-year-old male with a medical history of developmental delay, seizure disorder, hypothyroidism, hyperlipidemia, and osteoporosis who presented to [facility] emergency department on 11/22/2024 with chief complaint of acute hypoxic respiratory failure. Patient was intubated and admitted to ICU. Patient was successfully extubated and downgraded to medical floor and hospitalist team has resumed care. # Acute hypoxic respiratory failure: Secondary to aspiration pneumonia. Status post extubation. Continue supplemental oxygen as needed. # Community-acquired pneumonia: Chest x-ray shows bilateral pneumonia significant left base. Continue antibiotics and patient to complete last dose tomorrow 11/29/23. Sputum, blood, and urine culture show no growth. #Dysphagia #Recurrent hypoglycemia Patient is relatively nonverbal at baseline although does speak at times. Suspect patient has been having dysphagia. Recurrent hypoglycemia likely secondary to dysphagia. Speech therapy following and recommended esophagram. The patient apparently refused esophagram while in interventional radiology unit. Continue to monitor blood sugars closely every 6 hours Plan: Gastroenterology consulted and patient went for EGD which revealed esophagitis with biopsies taken, benign appearing stenosis status post dilation, gastritis with biopsies taken. Per GI await pathology reports and follow-up in gastroenterology's office in 2 weeks. Antireflux regimen. Dysphagia diet has been started and patient appears to be tolerating. We will continue to advance and if tolerating anticipate discharge in the next 24 to 48 hrs # Developmental delay # Seizure disorder Plan: No evidence of seizure-like activity while hospitalized. Continue home antiepileptics. Dr. Painter
[2024-11-28] MEDS: amLODIPine BESYLATE 5 MG TABLET PO (18:04)
[2024-11-28] MEDS: ATORVASTATIN CALCIUM 10 MG TABLET PO (21:29)
--- NOTE | 2024-11-28 21:53 | ESPR_ITS ---
Documentation for date of: 11/28/24 Subjective Subjective Interval history: Patient evaluated Status post endoscopic dilatation with Kazakh 45 and 54 savory dilators Exam Vital Signs Temp Pulse Resp BP Pulse Ox O2 Del Method O2 Flow Rate 97.3 F 85 18 144/71 H 92 L Nasal Cannula 2 11/28/24 20:00 11/28/24 20:00 11/28/24 20:00 11/28/24 20:00 11/28/24 20:00 11/28/24 20:00 11/28/24 20:00 FiO2 30 11/24/24 10:46 Objective Labs 11/28/24 05:56 11/28/24 05:56 Labs: Laboratory Results - last 24 hr 11/28/24 05:56 WBC 6.0 RBC 3.29 L Hgb 10.4 L Hct 31.9 L MCV 97 MCH 31.6 MCHC 32.6 RDW Std Deviation 56.5 H Plt Count 103 L Neut % (Auto) 61 Lymph % (Auto) 22 [place] % (Auto) 15 H Eos % (Auto) 2 Baso % (Auto) 0 Neut # (Auto) 3.6 Lymph # (Auto) 1.3 [place] # (Auto) 0.9 H Eos # (Auto) 0.1 Baso # (Auto) 0.0 Immature Gran # (Auto) 0.02 H Absolute Nucleated RBC 0.00 Immature Gran % 0 Nucleated RBC % 0 Sodium 142 Potassium 3.9 D Chloride 103 Carbon Dioxide 31.1 H Anion Gap 8 BUN 10 Creatinine 0.6 Estim Creat Clear Calc 75.8 eGFR > 60 BUN/Creatinine Ratio 17 Glucose 77 Calculated Osmolality 281 Calcium 8.9 Corrected Calcium 9.6 Phosphorus 3.1 Magnesium 1.7 Total Bilirubin 0.3 AST 31 ALT 18 Alkaline Phosphatase 167 H Total Protein 6.5 Albumin 3.1 L Globulin 3.4 Albumin/Globulin Ratio 0.9 L Impressions Impression: # Dyspepsia # Esophageal stricture status post endoscopic dilatation Continue current management ABG Interpretation ABG results: 11/22/24 11/22/24 11/23/24 14:49 22:30 00:17 ABG pH 7.48 H 7.44 ABG pCO2 36 41 ABG pO2 73 L 45 L* D ABG HCO3 27 H 28 H ABG O2 Saturation 95 80 L ABG Base Excess 4 H 4 H VBG pH 7.34 VBG pCO2 50 VBG pO2 62 H VBG Base Excess 1 11/23/24 11/23/24 11/24/24 04:07 06:30 04:03 ABG pH 7.46 H 7.43 7.33 L D ABG pCO2 39 41 50 H ABG pO2 81 L D 91 121 H D ABG HCO3 28 H 27 H 26 ABG O2 Saturation 95 96 97 ABG Base Excess 4 H 2 0 VBG pH VBG pCO2 VBG pO2 VBG Base Excess Assessment & Plan A&P Narrative # Dysphagia may be the cause of aspiration or patient may have esophageal motility disorder Plan N.p.o. midnight tonight Fiberoptic esophagogastroduodenoscopy with possible biopsy possible therapeutic intervention under intravenous moderate sedation Consent will be obtained from the appropriate authorities Procedure has been tentatively scheduled for tomorrow Other medical problems include # Bilateral pneumonia leading to acute respiratory failure requiring intubation and subsequent extubation Thank you very much for the opportunity to participate in the care of this patient Time Spent With Patient Time: Total time spent is greater than 50% in coordination of care (as documented) at patient's floor/unit and/or counseling patient:
[2024-11-29] VITALS: BP 158/83; PULSE 84; RESP 92; TEMP 36.4; O2SAT 92
[2024-11-29] MEDS: LEVOTHYROXINE SODIUM 100 MCG TABLET PO (05:20)
[2024-11-29 06:24] LABS: Basophils % (Auto) 0 % (0-2.5); Eosinophils % (Auto) 0 % (0-10); Hematocrit 33.7 % (36.0-46.0); Hemoglobin 10.9 g/dL (12.0-16.0); Immature Granulocytes % (Auto) 0 % (0-0); Immature Granulocytes Auto 0.04 Thou/mm3 (0.00-0.00); Lymphocytes % (Auto) 10 % (10-50); Mean Corpuscular HGB Conc 32.3 g/dl (31.0-37.0); Mean Corpuscular Hemoglobin 31.4 pg (25.0-35.0); Mean Corpuscular Volume 97 fL (80-100); Monocytes # (Auto) 0.9 Thou/mm3 (0.0-0.8); Monocytes % (Auto) 9 % (0-12); Neutrophils # (Auto) 7.9 Thou/mm3 (1.8-7.7); Neutrophils % (Auto) 79 % (37-80); Nucleated Red Blood Cell % 0 /100 WBC (0); Platelet Count 124 Thou/mm3 (140-440); RDW Standard Deviation 55.8 fL (36.4-46.3); Red Blood Count 3.47 Miln/mm3 (4.00-5.20); White Blood Count 9.9 Thou/mm3 (3.6-11.0)
[2024-11-29 07:13] LABS: Alanine Aminotransferase 16 U/L (10-49); Albumin, Serum 3.5 gm/dL (3.4-4.8); Alkaline Phosphatase 174 U/L (46-116); Anion Gap 8 (7-16); Aspartate Amino Transferase 28 U/L (0-34); BUN/Creatinine Ratio 28 Ratio (12-20); Bilirubin,Total 0.2 mg/dL (0.3-1.2); Blood Urea Nitrogen 17 mg/dL (9-23); Calcium 8.8 mg/dL (8.3-10.6); Calcium (Corrected) 9.2 mg/dL (8.5-10.1); Carbon Dioxide 31.4 mMol/L (20.0-31.0); Chloride 100 mMol/L (98-107); Creatinine (Component) 0.6 mg/dL (0.6-1.3); Estimated Creatinine Clearance 75.8 mL/min (>60); Globulin 3.5 gm/dL (2.3-3.5); Glucose 132 mg/dL (74-106); Magnesium 2.2 mg/dL (1.6-2.6); Osmolality,Calculated 281 (275-295); Phosphorous 2.8 mg/dL (2.4-5.1); Sodium 139 mMol/L (136-145); eGFR > 60 See Note
[2024-11-29 08:00] VITALS: BP 158/83; PULSE 88; RESP 17; TEMP 36.4; O2SAT 9
[2024-11-29] MEDS: VALPROATE SOD INJ 250 MG in SODIUM CHLORIDE 0.9% 50 ML 52.5 MG IV ×3 (08:03→16:16)
--- NOTE | 2024-11-29 08:18 | PC.NURSE ---
md BEEN Notified on the Pt. bp of 180/96. per MD give amlodopine right now and receheck in 20 in minutes
[2024-11-29 08:27] VITALS: BP 180/96; PULSE 96
[2024-11-29] MEDS: amLODIPine BESYLATE 5 MG TABLET 10 MG PO (08:27)
[2024-11-29] MEDS: PANTOPRAZOLE INJ 40 MG VIAL IVP (08:28)
--- NOTE | 2024-11-29 08:57 | PC.NURSE ---
[facility] on 11/29/24 from 0100 to 0700.
[2024-11-29 12:00] VITALS: BP 145/114; PULSE 96; RESP 18; TEMP 36.1; O2SAT 94
--- NOTE | 2024-11-29 12:34 | PC.NURSE ---
delayed discharge until pt. void after DC aldana.
--- NOTE | 2024-11-29 13:22 | ESDS_ITS ---
<Statement entered by Rashawn Montgomery MD - 11/29/24 15:11> I saw and examined the patient, and I agree with current management stated by Dr Luis Eduardo MD,PGY1. Plan of care was discussed with the attending physician and resident physician. Disclaimer: Despite multiple revisions, due to the dictation software being used, the document bellow may not be free of grammatical errors including phonetic/typographic errors. However, this does not deter from our commitment to providing health care in the patient's best interest in mind. Dr. Live MD, PGY 2 Planned Discharge Date 11/29/24 DS: Providers Provider Date of admission: 11/22/24 18:51 Primary care physician: Nathan Avila MD Admitting Provider: Natty Evans MD Attending Provider on Admission: Kenny Painter MD Consults: 11/24/24 15:35 Referral Speech Therapy Stat Comment: Instructions: s/p extubation. Developmental delay, pureed diet at [facility]. 11/25/24 17:06 Consult to Gastroenterology Routine Comment: Consulting Provider: Jelena Amaya Attending Provider on DC: Kenny Painter MD Discharging Provider: Grupo Siu MD DS: Diagnosis Problem List Completed Was Problem List Reviewed/Reconciled?: Yes Hospital Course Hospital Course Hospital course: 74 yr female with PMH of osteoporosis, seizure disorder, hypothyroidism, developmentally delayed, and hyperlipidemia who presented to ED from [facility]. Per chart review and EMS, patient was found at [facility] with difficulty breathing, eventually leading to respiratory distress. She was intubated en route to hospital. RN from home care was eventually contacted, she stated that patient's diet is solely of pureed foods and is able to feed herself under supervision. Per the care staff, patient has acute deterioration after coughing episode half hour after lunch. Pulse ox showed O2 sat 85% with apparent worsening respiratory distress. Agonal breathing, facial pallor, and decreased responsiveness exhibited by patient. She was sedated and intubated upon presentation to the ED. In ED, continued fentanyl for sedation. Zosyn x1, lorazepam 1mg IV x1, 2L ns. CXR LLL consolidation. Head CT pending. Patient admitted for AHRF 2/2 aspiration PNA. In ICU patient was treated for aspiration pneumonia and cystitis empirically with Zosyn and de-escalated to ceftriaxone on 11/24/2024. UA cultures negative. Blood cultrues Negative after 48 hours. Lactic Acidosis, resolved, on admission did NOT meet sepsis criteria. Never started on pressors. Patient was extubated on 11/24/2024 and downgraded onto floors. Speech therapy saw, noted patient had significant regurgitation, aspiration events after eating. GI consult was placed, patient received an EGD which showed esophageal stenosis, which was successfully dilated. Patient was advanced to pur?ed diet, equal to what patient was eating outpatient. Patient tolerating diet well without further aspiration. Patient completed 1 week course of Rocephin for aspiration pneumonia. Patient medically stable and cleared for discharge. Discharge plan: You have been discharged on following medications: -Amlodipine 10 mg daily, hold if BP drops -Lisinopril 10 mg daily, hold if BP drops -Protonix 40 mg daily We have discontinued the following medication: -Alendronate. Please continue taking all other medications as previously prescribed Started on a pur?ed diet, please continue Please follow-up with your PCP in 1-2 weeks Please return to ER if you develop new or worsening symptoms. Diagnoses: #AHRF 2/2 aspiration pneumonia, resolved #Esophageal stenosis, s/p dilation #Hypoglycemia, persistent #Hematuria, resolved #Mild hyponatremia-resolved #Hx hypothyroidism #Normocytic anemia #Thrombocytopenia #Hx seizure disorder #Hx mood Disorder #Cystitis, treated #Developmental delay Plan of care discussed with senior resident Dr. Montgomery PGY?[address] Painter. Grupo Siu MD PGY?1 Time Spent with Patient Time attestation: Total time spent providing and/or coordinating discharge services: Exam Vital Signs Temp Pulse Resp BP Pulse Ox O2 Del Method O2 Flow Rate 97.5 F 96 17 180/96 H 9 L Room Air 3 11/29/24 08:00 11/29/24 08:27 11/29/24 08:00 11/29/24 08:27 11/29/24 08:00 11/29/24 08:00 11/29/24 08:00 FiO2 30 11/29/24 08:00 Narrative Exam PE: Gen: Well-developed and well-nourished. HEENT: NCAT, PERRLA, EOMI, MMM, anicteric conjunctivae. CVS: normal S1 and S2. RRR. No M/R/G. Resp: CTA B/L. No rhonchi, rales, crackles or wheezing. Abd: soft, non-tender, non-distended. BS+ in all 4 quadrants. MSK: Good ROM in BUE & BLE. No edema or rash. Neuro: CN II-XII grossly intact. Strength 5/5 in BUE & BLE. Alert and oriented x1, baseline for patient. Cooperative. Psych: appropriate mood and affect. Discharge Plan Plan Patient Disposition: HOME (Self Care) Patient condition on transfer: Stable Care Plan Goals: You have been discharged on following medications: -Amlodipine 10 mg daily, hold if BP drops -Lisinopril 10 mg daily, hold if BP drops -Protonix 40 mg daily We have discontinued the following medication: -Alendronate. Please continue taking all other medications as previously prescribed Started on a pur?ed diet, please continue Please follow-up with your PCP in 1-2 weeks Please return to ER if you develop new or worsening symptoms. Prescriptions/Referrals Prescriptions/Med Rec: New pantoprazole [Protonix] 40 mg tablet,delayed release (DR/EC) 40 mg PO QDAY Qty: 30 0RF amlodipine 10 mg tablet 10 mg PO QDAY Qty: 30 0RF lisinopril 10 mg tablet 10 mg PO QDAY Qty: 30 0RF Continued ASCORBATE CALCIUM (VITAMIN C) 500 MG tablet 500 mg PO QDAY Qty: 0 Acetaminophen * (TYLENOL *) 325 MG tablet 2 tab PO Q4HR PRN (Reason: PAIN) Qty: 0 Patient Comments: FOR FEVER OR PAIN Albuterol Sulfate/Ipratropium NEB * (DUONEB *) 3 ML AMPUL.NEB 3 ml HHN Q4HR PRN (Reason: SHORTNESS OF BREATH OR WHEEZE) Qty: 0 levothyroxine [Synthroid] 100 MCG tablet 100 mcg PO ACBR Qty: 0 simvastatin 20 MG tablet 20 mg PO HS Qty: 0 divalproex [Depakote ER] 500 MG tablet extended release 24 hr 500 mg PO BID Qty: 0 docusate sodium [DOK] 250 MG capsule 500 mg PO 1500 Qty: 0 docusate sodium [DOK] 250 MG capsule 250 mg PO 0700 Qty: 0 pseudoephedrine HCl [Sudogest] 60 MG tablet 60 mg PO Q6HR PRN (Reason: CONGESTION) Qty: 0 lactulose 10 GM/15 ML syrup 10 mg PO QDAY Qty: 0 Rx Instructions: May hold if loose stools quetiapine [Seroquel XR] 300 MG tablet extended release 24 hr 400 mg PO BID Qty: 0 Calcium Carbonate/Cholecalciferol 600 * (CALTRATE PLUS D 600 *) 1 TAB tablet 1 tab PO BID Qty: 0 Guaifenesin/D-Methorphan Hb Syrup (Robitussin Dm Syrup) 120 ML syrup 10 ml PO Q4HR PRN (Reason: COUGH) Qty: 0 LORATADINE (CLARITIN) 10 MG capsule 10 mg PO QDAY Qty: 0 Multivit-Min/Iron Fum/Folic AC (Zydou-Bdpnjfr-Gzzpgbye Tablet) 1 EACH tablet 1 tab PO QDAY Qty: 0 bisacodyl 10 mg Suppository 10 mg AR QDAY PRN (Reason: Constipation) Rx Instructions: if no BM in 3 days Discontinued Alendronate Sodium * (FOSAMAX *) 35 MG tablet 35 mg PO Q7D Qty: 0 naproxen 500 mg Tablet 500 mg PO BID PRN (Reason: pain/agitation) Referrals: Nathan Avila MD [Primary Care Provider] - Patient/Caregiver Discharge Instructions Education Materials: Upper GI Endoscopy Print Language: Norwegian Stand Alone Forms: Aleja Award Info., Patient Portal Info Letter Discharge Order Discharge Orders: Discharge (Routine); Ordered 11/29/24 Ordered By: Rashawn Montgomery Quality Discharge Quality Measures VTE prophylaxis Attestestation MD Attestation I have examined the patient, reviewed labs and imaging findings, discussed the case with the resident(s), and reviewed entered orders. I agree with the plan of care as outlined in this note. Dr. Painter
--- NOTE | 2024-11-29 15:04 | PC.SS ---
SS update: patient has DC orders. Patient to return to [facility]. Contacted Elise with [facility] to confirm they can accept the patient this evening. They confirmed and informed transportation would be needed for the patient. [facility] reference number for transport: [id number]. [facility] confirmed ETA for 1700. Updated bedside nurse and staff at [facility].
[2024-11-29 16:00] VITALS: BP 162/86; PULSE 112; RESP 17; TEMP 36.2; O2SAT 95
--- NOTE | 2024-11-29 21:04 | PD.IMPROG ---
Documentation for date of: 11/29/24 Subjective Subjective Interval history: Late entry for the note okay to discharge patient home after discussion with the internal medicine team Exam Vital Signs Temp Pulse Resp BP Pulse Ox O2 Del Method O2 Flow Rate 97.2 F 112 H 17 162/86 H 95 Room Air 3 11/29/24 16:00 11/29/24 16:00 11/29/24 16:00 11/29/24 16:00 11/29/24 16:00 11/29/24 16:00 11/29/24 12:00 FiO2 30 11/29/24 12:00 Objective Labs 11/29/24 04:53 11/29/24 04:53 Labs: Laboratory Results - last 24 hr 11/29/24 04:53 WBC 9.9 D RBC 3.47 L Hgb 10.9 L Hct 33.7 L MCV 97 MCH 31.4 MCHC 32.3 RDW Std Deviation 55.8 H Plt Count 124 L D Neut % (Auto) 79 Lymph % (Auto) 10 [place] % (Auto) 9 Eos % (Auto) 0 Baso % (Auto) 0 Neut # (Auto) 7.9 H Lymph # (Auto) 1.0 [place] # (Auto) 0.9 H Eos # (Auto) 0.0 Baso # (Auto) 0.0 Immature Gran # (Auto) 0.04 H Absolute Nucleated RBC 0.00 Immature Gran % 0 Nucleated RBC % 0 Sodium 139 Potassium 4.0 Chloride 100 Carbon Dioxide 31.4 H Anion Gap 8 BUN 17 Creatinine 0.6 Estim Creat Clear Calc 75.8 eGFR > 60 BUN/Creatinine Ratio 28 H Glucose 132 H D Calculated Osmolality 281 Calcium 8.8 Corrected Calcium 9.2 Phosphorus 2.8 Magnesium 2.2 Total Bilirubin 0.2 L AST 28 ALT 16 Alkaline Phosphatase 174 H Total Protein 7.0 Albumin 3.5 Globulin 3.5 Albumin/Globulin Ratio 1.0 L Impressions Impression: # Dysphagia status post endoscopic dilatation Okay to discharge patient ABG Interpretation ABG results: 11/22/24 11/22/24 11/23/24 14:49 22:30 00:17 ABG pH 7.48 H 7.44 ABG pCO2 36 41 ABG pO2 73 L 45 L* D ABG HCO3 27 H 28 H ABG O2 Saturation 95 80 L ABG Base Excess 4 H 4 H VBG pH 7.34 VBG pCO2 50 VBG pO2 62 H VBG Base Excess 1 11/23/24 11/23/24 11/24/24 04:07 06:30 04:03 ABG pH 7.46 H 7.43 7.33 L D ABG pCO2 39 41 50 H ABG pO2 81 L D 91 121 H D ABG HCO3 28 H 27 H 26 ABG O2 Saturation 95 96 97 ABG Base Excess 4 H 2 0 VBG pH VBG pCO2 VBG pO2 VBG Base Excess Assessment & Plan A&P Narrative # Dysphagia may be the cause of aspiration or patient may have esophageal motility disorder Plan N.p.o. midnight tonight Fiberoptic esophagogastroduodenoscopy with possible biopsy possible therapeutic intervention under intravenous moderate sedation Consent will be obtained from the appropriate authorities Procedure has been tentatively scheduled for tomorrow Other medical problems include # Bilateral pneumonia leading to acute respiratory failure requiring intubation and subsequent extubation Thank you very much for the opportunity to participate in the care of this patient Time Spent With Patient Time: Total time spent is greater than 50% in coordination of care (as documented) at patient's floor/unit and/or counseling patient:
== END 2024-11-29 16:55 | disposition home or self-care (01) | DRG 208 ==
LOC: SERX 15:58 → SERHOLD 19:05 → S2SX 21:16 → S3SX 11-24 20:39
PROVIDERS: Specialist; Student in an Organized Health Care Education/Training Program; Admitting Provider Internal Medicine; Emergency Provider Emergency Medicine; PCP Family Medicine; Visit Provider Student in an Organized Health Care Education/Training Program
PROC: 0DB38ZX Excision of Lower Esophagus, Via Natural or Artificial Opening Endoscopic, Diagnostic (ICD-10-PCS; CPT 43239; principal; 2024-11-26 17:00)
DX: J96.01 Acute respiratory failure with hypoxia (principal); J69.0 Pneumonitis due to inhalation of food and vomit; F72 Severe intellectual disabilities; E87.1 Hypo-osmolality and hyponatremia; E87.20 Acidosis, unspecified; E03.9 Hypothyroidism, unspecified; M81.0 Age-related osteoporosis without current pathological fracture; E78.5 Hyperlipidemia, unspecified; R62.50 Unspecified lack of expected normal physiological development in childhood; G40.909 Epilepsy, unspecified, not intractable, without status epilepticus; T68.XXXA Hypothermia, initial encounter; N30.91 Cystitis, unspecified with hematuria; E83.39 Other disorders of phosphorus metabolism; F39 Unspecified mood [affective] disorder; K29.70 Gastritis, unspecified, without bleeding; K22.2 Esophageal obstruction; E86.0 Dehydration; R73.9 Hyperglycemia, unspecified; E16.2 Hypoglycemia, unspecified; D64.9 Anemia, unspecified; D69.6 Thrombocytopenia, unspecified; Z79.899 Other long term (current) drug therapy; K20.90 Esophagitis, unspecified without bleeding; Z11.52 Encounter for screening for COVID-19; Z88.8 Allergy status to other drugs, medicaments and biological substances; Z53.29 Procedure and treatment not carried out because of patient's decision for other reasons
CPT/HCPCS: 36415; 36600; 70450; 71045; 74220; 80053; 80061; 80202; 80307; 80320; 81001; 82140; 82803; 83036; 83605; 83735; 83880; 84100; 84145; 84443; 84484; 85025; 85610; 86850; 86900; 86901; 87040; 87081; 87086; 87205; 87811; 92526; 92610; 93005; 94002; 94003; 96360; 96365; 96366; 96375; 99291; A4217; C1769; J0360; J0696; J1643; J2060; J2250; J2470; J2543; J2704; J3010; J3370; J3371; J3475; J7030; J7050; A9270; G0480

== ENCOUNTER 2024-12-05 10:33 | Emergency (ER) | payer MEDICARE, MEDICAID, SELFPAY ==
[2024-12-05] VITALS (22 sets, daily range): BP systolic 80–121; BP diastolic 44–62; PULSE 70–93; RESP 12–91; TEMP 34.2–36.1; O2SAT 90–98; BMI 21.5
--- NOTE | 2024-12-05 10:42 | EKG_ITS ---
[facility] Test Date: 2024-12-05 Pat Name: AGGIE LEUNG Department: Room: - Gender: Female Criminal Analyst: : 1950 Requested By: Solo Moses (ROSETTE) Order Number: [id number] Reading MD: Solo Moses (MATERIAL HANDLER 2ND SHIFT) Measurements Intervals [place] Rate: 75 P: 55 NV: 138 QRS: 42 QRSD: 106 T: 92 QT: 415 QTc: 465 Interpretive Statements SINUS RHYTHM NONSPECIFIC T-WAVE ABNORMALITY No previous ECG available for comparison /store/S0/[id number]
--- NOTE | 2024-12-05 11:15 | PC.NURSE ---
PT COMING IN FROM ED LOBBY WITH C/O HYPOTENSION. PT PMH OF SCHIZOPHRENIA AND DEVELOPMENTAL DELAY. PER CAREGIVER AT BEDSIDE, PT WAS RECENTLY DISCHARGED FROM HOSPITAL. PT GIVEN BLOOD PRESSURE MEDICATIONS THIS MORNING. PT STARTED BECOMING WEAK, UNABLE TO HOLD HER HEAD UP WHICH SHE NORMALLY DOES. PT WAS NOT EATING AND WAS DROOLING MORE TOO. PT NOT ACTING LIKE HERSELF. PT CONNECTED TO MONITORS AT THIS TIME.
--- NOTE | 2024-12-05 11:36 | XR_ITS ---
Examination: AP chest single view Technique one AP portable upright chest single view Exam date and time: December 05, 2024 1218 hours INDICATIONS: Weakness today. FINDINGS: Left basilar pneumonia with possible left pleural fluid Mild prominence left ventricle Moderate vascular congestion Prominent osteopenia IMPRESSION: Left base pneumonia
[2024-12-05] MEDS: SODIUM CHLORIDE 0.9% 500 ML 500 ML 999 ML IV (11:40)
[2024-12-05 12:06] LABS: Basophils % (Auto) 0 % (0-2.5); Eosinophils % (Auto) 0 % (0-10); Hematocrit 24.8 % (36.0-46.0); Immature Granulocytes % (Auto) 1 % (0-0); Immature Granulocytes Auto 0.08 Thou/mm3 (0.00-0.00); Lymphocytes # (Auto) 0.7 Thou/mm3 (1.0-4.8); Lymphocytes % (Auto) 6 % (10-50); Mean Corpuscular HGB Conc 32.7 g/dl (31.0-37.0); Mean Corpuscular Volume 98 fL (80-100); Monocytes # (Auto) 0.9 Thou/mm3 (0.0-0.8); Monocytes % (Auto) 7 % (0-12); Neutrophils # (Auto) 11.1 Thou/mm3 (1.8-7.7); Neutrophils % (Auto) 86 % (37-80); Nucleated Red Blood Cell % 0 /100 WBC (0); Platelet Count 170 Thou/mm3 (140-440); RDW Standard Deviation 59.1 fL (36.4-46.3); Red Blood Count 2.53 Miln/mm3 (4.00-5.20); White Blood Count 12.8 Thou/mm3 (3.6-11.0)
[2024-12-05 12:18] LABS: Partial Thromboplastin Time 24.8 Seconds (22.0-36.0); Prothrombin Time 10.9 Seconds (9.0-12.2)
--- NOTE | 2024-12-05 12:28 | PD.EDWEAK ---
ED Weakness RME/HPI General Chief complaint: Weakness Stated complaint: SENT BY PMD FOR LOW BP Time Seen by Provider: 12/05/24 11:17 Arrival date/time: 12/05/24 10:33 RME / HPI RME / HPI Narrative: 74 year old female with a medical history significant for developmental delay, seizures, hypothyroidism, osteoporosis, and hyperlipidemia presents to the ED for evaluation of hypotension. The patient was referred from her primary care physician?s office following a follow-up appointment today. Her caregiver reports that the patient was discharged from here one week ago and was doing okay until 3 days ago where she is exhibiting increased grogginess, fatigue, and difficulty keeping her head up. The caregiver adds that prior to this week, the patient was able to hold her head upright without difficulty. Additionally, the caregiver states that at the follow-up appointment with PCP Dr. Avila, he discontinued her Lisinopril and Amlodipine, which had been prescribed during her hospital stay. The caregiver noted that the patient's blood pressure was only checked once in the two days since the initiation of these hypertensive medications. This recent change in her medication regimen and her current presentation raises possible adverse effects related to medication adjustments. Related Data Previous Rx's ?Medication ?Instructions ?Recorded ASCORBATE CALCIUM (VITAMIN C) 500 mg PO QDAY #30 mg 11/29/24 Acetaminophen * (TYLENOL *) 2 tab PO Q4HR PRN PAIN #30 tabs 11/29/24 Albuterol Sulfate/Ipratropium NEB 3 ml HHN Q4HR PRN SHORTNESS OF 11/29/24 * (DUONEB *) BREATH OR WHEEZE #9 mL Calcium Carbonate/Cholecalciferol 1 tab PO BID #30 tabs 11/29/24 600 * (CALTRATE PLUS D 600 *) Guaifenesin/D-Methorphan Hb Syrup 10 ml PO Q4HR PRN COUGH #120 mL 11/29/24 (Robitussin Dm Syrup) LORATADINE (CLARITIN) 10 mg PO QDAY #30 mg 11/29/24 Multivit-Min/Iron Fum/Folic AC 1 tab PO QDAY #30 mg 11/29/24 (Pdywb-Lviucgu-Knimbtcc Tablet) bisacodyl 10 mg rectal suppository 10 mg [place] QDAY PRN Constipation #30 11/29/24 ea divalproex 500 mg tablet,extended 500 mg PO BID #30 tabs 11/29/24 release 24 hr (Depakote ER) docusate sodium 250 mg capsule 250 mg PO QDAY PRN constipation 11/29/24 #30 caps lactulose 10 gram/15 mL oral 1 g (1.5 mL) PO QDAY PRN 11/29/24 solution CONSTIPATION #3,785 mL levothyroxine 100 mcg tablet 100 mcg PO ACBR #30 tabs 11/29/24 (Synthroid) pantoprazole 40 mg tablet,delayed 40 mg PO QDAY #30 tabs 11/29/24 release (Protonix) pseudoephedrine HCl 60 mg tablet 60 mg PO Q6HR PRN CONGESTION #30 11/29/24 (Sudogest) tabs quetiapine 300 mg tablet,extended 400 mg (1.3333 x 300 mg) PO BID 11/29/24 release 24 hr (Seroquel XR) #30 tabs simvastatin 20 mg tablet 20 mg PO HS #30 tabs 11/29/24 amoxicillin 875 mg-potassium 1 tab PO BID pneumonia 5 days #10 12/05/24 clavulanate 125 mg tablet tabs Allergies Allergy/AdvReac Type Severity Reaction Status Date / Time amitriptyline Allergy Intermediate unknown Verified 12/05/24 10:41 haloperidol Allergy Intermediate Itching Verified 12/05/24 10:41 Review of Systems Review of Systems ROS Unobtainable: unobtainable due to medical condition Past Medical History Past Medical History MUSCULOSKELETAL: Positive Musculoskeletal Disorders and Arthritis HEMATOLOGIC: Positive Blood Disorders PSYCHO/SOCIAL: Positive Psychiatric Problems, Schizophrenia and Anxiety Family History FAMILY HISTORY: Negative Family Cardiac Disorders Social History SMOKING STATUS: Never smoker ED Exam Narrative Physical exam: GENERAL APPEARANCE: Lethargic, somewhat somnolent, complains of pain everywhere when pushing on her which caregiver reports is normal for her. HEENT: NC, AT. MMM. EOMI, clear conjunctiva, oropharynx clear. NECK: Supple without lymphadenopathy. No stiffness or restricted ROM. HEART: Normal rate and regular rhythm, normal S1/S1, no m/r/g LUNGS: CTAB, moving air well. No crackles or wheezes are heard. ABDOMEN: Soft, nontender, nondistended with good bowel sounds heard. BACK: No midline C/T/L spine pain or deformity, No CVAT, no obvious deformity. EXTREMITIES: Without cyanosis, clubbing or edema. MUSCULOSKELETAL: FROM of all major joints, no chest tenderness NEUROLOGICAL: Lethargic, somewhat somnolent, CN not formally tested but appear grossly intact. Skin: Warm and dry without any rash. Course Course Course Narrative: 1800: Patient signed out to Dr. Chacon pending ultrasound, reassessment, and final disposition. Quality Measures Current suspected stage: sepsis Possible source: pulmonary Blood cultures ordered: completed in ED Antibiotic ordered: Yes Pertinent labs: 12/05/24 12/05/24 11:48 16:22 Lactic Acid 3.0 H mMol/L 0.9 mMol/L (0.4-2.0) (0.4-2.0) Procalcitonin 0.07 ng/ml (0.0-0.49) sepsis Orders Category Date Time Status Bedside COVID-19 Antigen Test NOW Care 12/05/24 11:36 Completed Bedside Influenza A&B Antigen Test NOW Care 12/05/24 11:[address] Screening NOW Care 12/05/24 13:06 Completed EKG (ED ONLY) *Do not use* NOW Care 12/05/24 10:42 Completed guaiac [Occult Blood,Stool (Nursing)] NOW Care 12/05/24 13:[address] chest abdomen pelvis w Stat Exams 12/05/24 13:06 Completed EKG (ED Only) Stat Exams 12/05/24 10:42 Draft US gall bladder Stat Exams 12/05/24 17:50 Completed XR chest 1V Stat Exams 12/05/24 11:36 Completed Blood Culture (Lab) Stat Lab 12/05/24 11:48 Received CBC Stat Lab 12/05/24 11:48 Completed CMP [Comprehensive Metabolic Panel] Stat Lab 12/05/24 11:48 Completed Lactate (Lactic Acid) Stat Lab 12/05/24 11:48 Completed Lactic Acid, 3 HR Stat Lab 12/05/24 16:22 Completed Occult Blood, Stool (LAB) Stat Lab 12/05/24 14:20 Completed Partial Thromboplastin Time Stat Lab 12/05/24 11:48 Completed Procalcitonin Stat Lab 12/05/24 11:48 Completed Prothrombin Time with INR Stat Lab 12/05/24 11:48 Completed Urinalysis Stat Lab 12/05/24 18:20 Completed Sodium Chloride 0.9% 1000 ml [Ns] 1,000 ml Med 12/05/24 13:06 Discontinued IV 999 mls/hr Sodium Chloride 0.9% 500 ml [Ns] 500 ml Med 12/05/24 11:35 Discontinued IV 999 mls/hr Sodium Chloride 0.9% 500 ml [Ns] 500 ml Med 12/05/24 11:36 Discontinued IV 999 mls/hr Reevaluation(s) Reevaluation #1: On reassessment, the patient is moaning when palpating anywhere on her body which the neon tube pumper states is baseline for the patient. Delivery And Installation Subcontractor does not feel the patient is in any distress. Time: 12:50 Vital Signs Vital signs: Vital Signs Temperature 93.9 F L 12/05/24 11:15 Pulse Rate 73 12/05/24 11:15 Respiratory Rate 18 12/05/24 11:15 Blood Pressure 84/52 L 12/05/24 11:15 Pulse Oximetry (%) 94 L 12/05/24 11:15 Oxygen Delivery Method Nasal Cannula 12/05/24 11:15 Oxygen Flow Rate 2 12/05/24 11:15 Pulse ox is 94% on 2L o2 which is adequate. Weakness MDM Narrative MDM Narrative:: Clary Jimenez am scribing for and in the presence of Dr. Narvaez. Patient data External records reviewed:: [facility] previous records (I reviewed admission from 11/22/2024 through 11/29/2024 ) Clinical information provided by:: neon tube pumper Social determinants that could affect healthcare access:: housing (retirement resident ) Patient has the following chronic illnesses:: developmental delay, seizures, hypothyroidism, osteoporosis, and hyperlipidemia How is presenting disease/condition affected by chronic disease/condition?: exacerbated by Evaluation data The following diagnostics were reviewed and interpreted by me:: lab results, radiology exam(s) and EKG tracing(s) (Sinus rhythm, rate 75, normal axis, normal intervals, no acute ST or T-wave changes, no STEMI. ) Lab and/or radiology exams considered but not ordered:: None Interpretation Summary: Ordering Physician: Brandon Narvaez MD Date of Service: 12/05/24 Procedure(s): XR chest 1V Accession Number(s): [id number] cc: Nathan Avila MD; Brandon Narvaez MD; Itz Hernández MD~ Examination: AP chest single view Technique one AP portable upright chest single view Exam date and time: December 05, 2024 1218 hours INDICATIONS: Weakness today. FINDINGS: Left basilar pneumonia with possible left pleural fluid Mild prominence left ventricle Moderate vascular congestion Prominent osteopenia IMPRESSION: Left base pneumonia Dictated By:Itz Hernández MD Signed By:<Electronically signed by Itz Hernández MD in OV>12/05/24 1259 Ordering Physician: Brandon Narvaez MD Date of Service: 12/05/24 Procedure(s): CT chest abdomen pelvis w Accession Number(s): [id number] cc: Nathan Avila MD; Brandon Narvaez MD; Itz Hernández MD~ Examination: CT chest with intravenous contrast CT abdomen with intravenous contrast CT pelvis with intravenous contrast 2-D coronal and sagittal reconstructions Time of exam: December 05, 2024 1543 hours Comparison November 13, 2016 INDICATIONS: Generalized body pain hypotension weakness today CTDI: vol (mGy) : 13.3 DLP: (mGycm): 1060 Technique: Multiple axial images of the chest, abdomen and pelvis with intravenous contrast, 3.0 mm slice thickness. Images obtained post intravenous injection Isovue 370 60 cc. 2-D sagittal and coronal reconstructions. Low dose protocols were performed. One or more of the following dose reduction techniques were used; automated exposure control, adjustment of the mA and/or KV according to patient size, use of iterative reconstruction technique. Findings: No thoracic aortic aneurysmal dilatation or dissection No pulmonary artery emboli on this non-CTA study Prominent pneumonia left base and right base Mild vascular congestion Mild enlargement cardiac contour No focal liver lesions Gallstones Gallbladder wall appears thickened Spleen is not enlarged No hydronephrosis No pancreatic or adrenal mass Abdominal aorta is not enlarged Fluid distended colon Normal appendix No diverticulitis Atrophic uterus Urinary bladder intact Prominent osteopenia Old fracture body of the sternum Moderate narrowing hip joints IMPRESSION: Significant bibasilar pneumonia, differential includes aspiration pneumonia Cholelithiasis, recommend hepatobiliary sonography to exclude gallbladder wall thickening No renal or ureteral calculi, no hydronephrosis Normal appendix Diffuse moderate colonic ileus No obstruction Dictated By:Itz Hernández MD Signed By:<Electronically signed by Itz Hernández MD in OV>12/05/24 1625 Medications / Prescriptions Medications or Prescriptions considered but not ordered:: None Medication administrations:: Medication Administration History Discontinued Medications Sodium Chloride (Ns) 500 mls @ 999 mls/hr IV .Q31M ONE Stop: 12/05/24 12:06 Last Infusion: 12/05/24 12:15 Dose: Infused Documented By: Admin: 12/05/24 11:40 Dose: 999 mls/hr Documented By: SAULO Sodium Chloride (Ns) 500 mls @ 999 mls/hr IV .Q31M ONE Stop: 12/05/24 12:05 Last Admin: 12/05/24 11:38 Dose: Not Given Documented By: SAULO Non-Admin Reason: Duplicate Medication on eMAR Sodium Chloride (Ns) 1,000 mls @ 999 mls/hr IV .Q1H1M ONE Stop: 12/05/24 14:06 Last Infusion: 12/05/24 14:05 Dose: Infused Documented By: Admin: 12/05/24 13:15 Dose: 999 mls/hr Documented By: MIAN See above Consultations Consultation(s) initiated? (list below): No Diagnosis Weakness Differential Diagnosis: anemia, hypoglycemia, sepsis, dehydration and other (Pneumonia, hypotension, viral illness) Most likely diagnosis given after review of the tests above:: Pneumonia Admission Indicated Admission indicated?: not indicated Explain why admission is indicated or not indicated:: 1800: Patient signed out to Dr. Chacon pending ultrasound, reassessment, and final disposition. Admission Request Was there a request for admission?: No Disposition Plan Disposition Plan: other (specify) (Patient signed out to Dr. Chacon) Discharge Plan Plan Patient Disposition: HOME (Self Care) Disposition Comment: Back to longterm Patient condition on transfer: Stable Prescriptions/Referrals Prescriptions/Med Rec: New amoxicillin-pot clavulanate 875-125 mg tablet 1 tab PO BID 5 Days Qty: 10 0RF Discontinued amlodipine 10 mg tablet 10 mg PO QDAY Qty: 30 0RF lisinopril 10 mg tablet 10 mg PO QDAY Qty: 30 0RF No Action pantoprazole [Protonix] 40 mg tablet,delayed release (DR/EC) 40 mg PO QDAY Qty: 30 0RF docusate sodium 250 mg capsule 250 mg PO QDAY PRN (Reason: constipation) Qty: 30 0RF ASCORBATE CALCIUM (VITAMIN C) 500 MG tablet 500 mg PO QDAY Qty: 30 0RF Acetaminophen * (TYLENOL *) 325 MG tablet 2 tab PO Q4HR PRN (Reason: PAIN) Qty: 30 0RF Albuterol Sulfate/Ipratropium NEB * (DUONEB *) 3 ML AMPUL.NEB 3 ml HHN Q4HR PRN (Reason: SHORTNESS OF BREATH OR WHEEZE) Qty: 9 0RF levothyroxine [Synthroid] 100 MCG tablet 100 mcg PO ACBR Qty: 30 0RF bisacodyl 10 mg Suppository 10 mg AZ QDAY PRN (Reason: Constipation) Qty: 30 0RF Rx Instructions: if no BM in 3 days simvastatin 20 MG tablet 20 mg PO HS Qty: 30 0RF divalproex [Depakote ER] 500 MG tablet extended release 24 hr 500 mg PO BID Qty: 30 0RF pseudoephedrine HCl [Sudogest] 60 MG tablet 60 mg PO Q6HR PRN (Reason: CONGESTION) Qty: 30 0RF lactulose 10 GM/15 ML syrup 1 g PO QDAY PRN (Reason: CONSTIPATION) Qty: 3785 0RF Rx Instructions: May hold if loose stools quetiapine [Seroquel XR] 300 MG tablet extended release 24 hr 400 mg PO BID Qty: 30 0RF Calcium Carbonate/Cholecalciferol 600 * (CALTRATE PLUS D 600 *) 1 TAB tablet 1 tab PO BID Qty: 30 0RF Guaifenesin/D-Methorphan Hb Syrup (Robitussin Dm Syrup) 120 ML syrup 10 ml PO Q4HR PRN (Reason: COUGH) Qty: 120 0RF LORATADINE (CLARITIN) 10 MG capsule 10 mg PO QDAY Qty: 30 0RF Multivit-Min/Iron Fum/Folic AC (Ornzj-Dbzdttc-Lcncdqfi Tablet) 1 EACH tablet 1 tab PO QDAY Qty: 30 0RF Referrals: Nathan Avila MD [Primary Care Provider] - In 1 week Problem List Clinical Impression: Pneumonia Patient/Caregiver Discharge Instructions Education Materials: Preventing Pneumonia, Treating Pneumonia, Dysphagia Aspiration Additional Instructions: Please stop amlodipine and lisinopril. Please take the prescribed antibiotic, Augmentin 875-125 mg twice daily for a total of 5 days for pneumonia. Please prevent aspiration by giving pureed diet with thick liquids. Supervision with feeding at all times. Upright positioning for meals. If observed aspiration event occurs, attempts should be made for pharyngeal suction to clear particulate and fluids. Follow up with PCP within 1 week of discharge. Continue rest of medications as previously prescribed. Return to the ED or call EMS if symptoms return and/or worsen. Print Language: Mongolian Stand Alone Forms: [employer] Award Info., Patient Portal Info Letter
[2024-12-05 12:38] LABS: Alanine Aminotransferase 19 U/L (10-49); Albumin, Serum 3.3 gm/dL (3.4-4.8); Albumin/Globulin Ratio 0.9 (1.2-2.2); Alkaline Phosphatase 151 U/L (46-116); Anion Gap 10 (7-16); Aspartate Amino Transferase 35 U/L (0-34); BUN/Creatinine Ratio 25 Ratio (12-20); Bilirubin,Total < 0.2 mg/dL (0.3-1.2); Blood Urea Nitrogen 32 mg/dL (9-23); Calcium 9.5 mg/dL (8.3-10.6); Calcium (Corrected) 10.1 mg/dL (8.5-10.1); Carbon Dioxide 27.9 mMol/L (20.0-31.0); Chloride 100 mMol/L (98-107); Creatinine (Component) 1.3 mg/dL (0.6-1.3); Estimated Creatinine Clearance 39.1 mL/min (>60); Globulin 3.8 gm/dL (2.3-3.5); Glucose 92 mg/dL (74-106); Osmolality,Calculated 282 (275-295); Potassium 4.4 mMol/L (3.4-5.1); Procalcitonin 0.07 ng/ml (0.0-0.49); Sodium 138 mMol/L (136-145); Total Protein 7.1 gm/dL (5.7-8.2); eGFR 43 See Note
[2024-12-05 12:46] LABS: Hemoglobin 8.1 g/dL (12.0-16.0)
--- NOTE | 2024-12-05 13:06 | XR_ITS ---
Examination: CT chest with intravenous contrast CT abdomen with intravenous contrast CT pelvis with intravenous contrast 2-D coronal and sagittal reconstructions Time of exam: December 05, 2024 1543 hours Comparison November 13, 2016 INDICATIONS: Generalized body pain hypotension weakness today CTDI: vol (mGy) : 13.3 DLP: (mGycm): 1060 Technique: Multiple axial images of the chest, abdomen and pelvis with intravenous contrast, 3.0 mm slice thickness. Images obtained post intravenous injection Isovue 370 60 cc. 2-D sagittal and coronal reconstructions. Low dose protocols were performed. One or more of the following dose reduction techniques were used; automated exposure control, adjustment of the mA and/or KV according to patient size, use of iterative reconstruction technique. Findings: No thoracic aortic aneurysmal dilatation or dissection No pulmonary artery emboli on this non-CTA study Prominent pneumonia left base and right base Mild vascular congestion Mild enlargement cardiac contour No focal liver lesions Gallstones Gallbladder wall appears thickened Spleen is not enlarged No hydronephrosis No pancreatic or adrenal mass Abdominal aorta is not enlarged Fluid distended colon Normal appendix No diverticulitis Atrophic uterus Urinary bladder intact Prominent osteopenia Old fracture body of the sternum Moderate narrowing hip joints IMPRESSION: Significant bibasilar pneumonia, differential includes aspiration pneumonia Cholelithiasis, recommend hepatobiliary sonography to exclude gallbladder wall thickening No renal or ureteral calculi, no hydronephrosis Normal appendix Diffuse moderate colonic ileus No obstruction
[2024-12-05] MEDS: SODIUM CHLORIDE 0.9% 1000 ML 1,000 ML 999 ML IV (13:15)
--- NOTE | 2024-12-05 14:20 | PC.NURSE ---
PT HAD A BM; PT GIVEN PERINEAL CARE WITH WARM BATH CLOTHS. CHUCKS UNDER PT CHANGED ALSO.
[2024-12-05 14:55] LABS: Reflex Lactate? Y
[2024-12-05 15:12] LABS: OBS Developer Lot # 2-24-551749; OBS Performed By MADRG3; OBS QC OK? Yes; Occult Blood, Stool Negative (Negative)
--- NOTE | 2024-12-05 15:24 | PC.NURSE ---
RN CALLED CT AT THIS TIME; NO ANSWER.
--- NOTE | 2024-12-05 16:00 | PC.NURSE ---
PT HAD ANOTHER LARGE LIGHT BROWN BM MOVEMENT; LOOSE IN NATURE. PT GIVEN PERINEAL CARE WITH WARM BATH CLOTHS. PT PLACED IN NEW GOWN AND NEW BRIEFS. LINEN CHANGE PERFORMED WELL. PT GIVEN NEW BLANKETS.
[2024-12-05 16:38] LABS: Lactic Acid, 3 HR 0.9 mMol/L (0.4-2.0)
--- NOTE | 2024-12-05 17:50 | XR_ITS ---
Examination: Abdomen sonogram, Limited Date and time of exam: December 05, 2024 1815 hours INDICATIONS: Onset low blood pressure abdominal pain today, gallbladder wall appears thickened on CT abdomen study today Technique: Real-time gomez scale transabdominal sonographic images of the upper abdomen obtained. Findings: Gallstones with shadowing Gallbladder wall 0.2 cm no edema Common bile duct 0.3 cm Pancreatic head 2.1 cm Liver 13.9 cm no focal liver lesions Normal hepatopedal portal venous flow Patent IVC IMPRESSION: Cholelithiasis Negative for cholecystitis
--- NOTE | 2024-12-05 18:43 | PD.EDADDENDU ---
Emergency Room Addendum <Eli Avila - Last Filed: 12/05/24 23:02> Addendum Narrative: 1800: Care assumed from Dr. Narvaez, the previous shift emergency physician. Past medical, surgical, social and family history reviewed. Vitals and home medications reviewed. Results and treatment plan discussed. I will assume the care of the patient at this time and will follow the patient. Please refer to the emergency department record for history and examination from initial visit. <Tatianna Quintero MD - Last Filed: 12/05/24 23:45> Addendum Narrative: 1800: Care assumed from Dr. Narvaez, the previous shift emergency physician. Past medical, surgical, social and family history reviewed. Vitals and home medications reviewed. Results and treatment plan discussed. I will assume the care of the patient at this time and will follow the patient. 1839: Seen and examined at bedside by Dr. Quintero. Patient on Anabell hugger, abdomen soft nontender, normal breath sounds, unlabored breathing saturating 95% on 2L. BP 106/56. Responds to name. 2129: Reevaluation, patient BP 118/57 and saturating 92-93% on room air. 2229: Patient has maintained saturation at 92% on room air. BP maintained. Patient stable to be discharged back to her facility, prescribed 5-day course of Augmentin for pneumonia. Discharge instructions include to stop lisinopril and amlodipine due to hypotension. Please refer to the emergency department record for history and examination from initial visit.
[2024-12-05 19:02] LABS: Collection Type, Urine Catheter; Squamous Epithelial Cell,Urine 0 /hpf (0-5)
[2024-12-05 19:49] LABS: Bilirubin,Urine Negative (Negative); Blood,Urine 1+ (Negative); Budding Yeast,Urine Present; Clarity,Urine Clear (Clear/Hazy); Color,Urine Lt-Yellow (Lt Yel-Yel); Glucose, Urine Negative (Negative); Hyaline Casts,Urine < 1 /hpf (0-1); Ketones,Urine Negative (Negative); Leukocyte Esterase,Urine Positive (Negative); Nitrite,Urine Negative (Negative); PH,Urine 5.5 (5.0-7.0); Protein,Urine 1+ (Neg - Trace); RBC,Urine 4 /hpf (0-3); Specific Gravity,Urine 1.015 (1.001-1.035); Urobilinogen,Urine Negative mg/dL (0.0-1.0); WBC,Urine 20 /hpf (0-5)
[2024-12-06 00:25] VITALS: BP 130/61; PULSE 83; RESP 17; O2SAT 98
[2024-12-06 00:27] VITALS: BP 130/61; PULSE 76; RESP 18; O2SAT 94
== END 2024-12-06 00:45 | disposition home or self-care (01) ==
PROVIDERS: Emergency Medicine; Emergency Provider Emergency Medicine; PCP Family Medicine
DX: J18.9 Pneumonia, unspecified organism (principal); E03.9 Hypothyroidism, unspecified; M81.0 Age-related osteoporosis without current pathological fracture; E78.5 Hyperlipidemia, unspecified
CPT/HCPCS: 36415; 71045; 71260; 74177; 76705; 80053; 81001; 82270; 83605; 84145; 85025; 85610; 85730; 87040; 87400; 87811; 93005; 96360; 96361; 99285; A4649; J7030; J7040; Q9967

== ENCOUNTER 2024-12-08 16:30 | Inpatient (IN) | payer MEDICARE, MEDICAID, SELFPAY ==
[2024-12-08 16:36] VITALS: BP 130/82; PULSE 84; RESP 20; TEMP 36.4; O2SAT 94
[2024-12-08 17:23] VITALS: PULSE 88; RESP 20; O2SAT 95
--- NOTE | 2024-12-08 18:11 | PD.EDAMS ---
Altered Mental Status RME/HPI General Chief Complaint: Altered Mental Status Stated Complaint: AMS Time Seen by Provider: 12/08/24 18:21 Arrival date/time: 12/08/24 16:30 RME / HPI RME / HPI narrative: Dr. Huang?s Main ED Evaluation: 74yo female LILA from [facility] accompanied by her caregiver osteoporosis, seizure disorder, hypothyroidism, developmentally delayed, and HLD presents to the ED for a chief complaint of AMS. Caregiver states the patient has been slumped forward and generally weak since her last admission one week ago. She states they found the patient to have a temperature of 94.2, reporting it wouldn't go up despite being given warm blankets and fluids. Patient was also saturating at 77% RA per caregiver, so they had the patient brought in for evaluation. She states the patient is normally able to communicate more and feed herself, but has not been doing so lately. Full ROS is unobtainable due to the patient's AMS. Related Data Previous Rx's ?Medication ?Instructions ?Recorded ASCORBATE CALCIUM (VITAMIN C) 500 mg PO QDAY #30 mg 11/29/24 Acetaminophen * (TYLENOL *) 2 tab PO Q4HR PRN PAIN #30 tabs 11/29/24 Albuterol Sulfate/Ipratropium NEB 3 ml HHN Q4HR PRN SHORTNESS OF 11/29/24 * (DUONEB *) BREATH OR WHEEZE #9 mL Calcium Carbonate/Cholecalciferol 1 tab PO BID #30 tabs 11/29/24 600 * (CALTRATE PLUS D 600 *) Guaifenesin/D-Methorphan Hb Syrup 10 ml PO Q4HR PRN COUGH #120 mL 11/29/24 (Robitussin Dm Syrup) LORATADINE (CLARITIN) 10 mg PO QDAY #30 mg 11/29/24 Multivit-Min/Iron Fum/Folic AC 1 tab PO QDAY #30 mg 11/29/24 (Qslrp-Jwbjhvp-Mxzmgkkh Tablet) bisacodyl 10 mg rectal suppository 10 mg VA QDAY PRN Constipation #30 11/29/24 ea divalproex 500 mg tablet,extended 500 mg PO BID #30 tabs 11/29/24 release 24 hr (Depakote ER) docusate sodium 250 mg capsule 250 mg PO QDAY PRN constipation 11/29/24 #30 caps lactulose 10 gram/15 mL oral 1 g (1.5 mL) PO QDAY PRN 11/29/24 solution CONSTIPATION #3,785 mL levothyroxine 100 mcg tablet 100 mcg PO ACBR #30 tabs 11/29/24 (Synthroid) pantoprazole 40 mg tablet,delayed 40 mg PO QDAY #30 tabs 11/29/24 release (Protonix) pseudoephedrine HCl 60 mg tablet 60 mg PO Q6HR PRN CONGESTION #30 11/29/24 (Sudogest) tabs quetiapine 300 mg tablet,extended 400 mg (1.3333 x 300 mg) PO BID 11/29/24 release 24 hr (Seroquel XR) #30 tabs simvastatin 20 mg tablet 20 mg PO HS #30 tabs 11/29/24 amoxicillin 875 mg-potassium 1 tab PO BID pneumonia 5 days #10 12/05/24 clavulanate 125 mg tablet tabs Allergies Allergy/AdvReac Type Severity Reaction Status Date / Time amitriptyline Allergy Intermediate unknown Verified 12/05/24 10:41 haloperidol Allergy Intermediate Itching Verified 12/05/24 10:41 Review of Systems Review of Systems ROS Unobtainable: unobtainable due to mental status Past Medical History Past Medical History NEUROLOGIC: Negative Neurological Disorders (dd pt lives in half-way) or Seizures CARDIAC: Negative Cardiac Disorders or Congestive Heart Failure RESPIRATORY: Negative Chronic Obstructive Pulmonary Disease (COPD) or Asthma GASTROINTESTINAL: Negative Gastrointestinal Disorders (dd pt lives in half-way) GENITOURINARY: Negative Genitourinary Disorders (dd pt lives in half-way) or Renal Disease MUSCULOSKELETAL: Positive Musculoskeletal Disorders and Arthritis ENDOCRINE: Negative Endocrine Disorders, Diabetes Mellitus Type 1 or Diabetes Mellitus Type 2 HEMATOLOGIC: Positive Blood Disorders; Negative Sickle Cell Disease PSYCHO/SOCIAL: Positive Psychiatric Problems, Schizophrenia and Anxiety OTHER HISTORY: Negative Blood Transfusions, Blood Transfusion Reaction or Anesthesia Reactions Family History FAMILY HISTORY: Negative Family Cardiac Disorders Social History SMOKING STATUS: Unknown if ever smoked ED Exam Narrative Physical exam: GENERAL APPEARANCE: awake, alert to self, confused, somnolent but easily arousable to voice, well-nourished, no acute distress VITALS: All vitals were reviewed and the pulse ox is 96% on room air, which is normal according to my interpretation. HEENT: Normocephalic, atraumatic; pupils equal, round, reactive to light; EOMI; mucous membranes pink, dry; oropharynx clear NECK: Supple LUNGS: CTABL; no wheezes, no rales, no rhonchi HEART: Regular rate, regular rhythm; normal S1, S2; no murmurs ABDOMEN: non distended; normal BS; soft, no tenderness, no guarding, no rebound; no masses, no organomegaly, no hernia BACK: no CVA tenderness EXTREMITIES: atraumatic; no edema NEUROLOGIC: awake; alert to self but confused; cranial nerves II-XII grossly intact; no focal sensory or motor deficits PSYCHIATRIC: appropriate mood and affect SKIN: warm, dry, normal color; no rashes Course Course Course Narrative: CXR is ordered for determining the etiology of hypothermia. Quality Measures none Orders Category Date Time Status Warehouse Engineer STAT Care 12/08/24 18:31 Active Continuous Pulse Oximetry STAT Care 12/08/24 18:31 Completed EKG (ED ONLY) *Do not use* NOW Care 12/08/24 18:31 Completed In and Out Catheter X1PRN Care 12/08/24 18:31 Completed Insert IV NOW Care 12/08/24 18:31 Active Miscellaneous Nursing Order NOW Care 12/08/24 18:38 Active NPO STAT Care 12/08/24 18:31 Active Strict Intake and Output Routine Care 12/08/24 18:[address] head/brain wo con Stat Exams 12/08/24 18:38 Completed EKG (ED Only) Stat Exams 12/08/24 18:31 Draft XR chest 1V portable Stat Exams 12/08/24 18:30 Completed B-Type Natriuretic Peptide Stat Lab 12/08/24 18:49 Completed Blood Culture (Lab) Stat Lab 12/08/24 18:56 Received CBC Stat Lab 12/08/24 18:49 Completed Comprehensive Metabolic Panel Stat Lab 12/08/24 18:49 Completed Free T4 (Free Thyroxine) Stat Lab 12/08/24 18:49 Completed LDH (Lactate Dehydrogenase) Stat Lab 12/08/24 18:49 Completed Lactate (Lactic Acid) Stat Lab 12/08/24 18:49 Completed Lipase Stat Lab 12/08/24 18:49 Completed Magnesium Stat Lab 12/08/24 18:49 Completed Partial Thromboplastin Time Stat Lab 12/08/24 18:49 Completed Phosphorous Stat Lab 12/08/24 18:49 Completed Procalcitonin Stat Lab 12/08/24 18:49 Completed Prothrombin Time with INR Stat Lab 12/08/24 18:49 Completed Troponin I Stat Lab 12/08/24 18:49 Completed Urinalysis Stat Lab 12/08/24 20:14 Completed Urine Culture Stat Lab 12/08/24 20:14 Received VBG [Venous Blood Gas] Stat Lab 12/08/24 18:49 Completed Valporic Acid (Depak)* Stat Lab 12/08/24 Ordered Doxycycline Inj [Vibramycin Inj] 100 mg Med 12/08/24 18:30 Discontinued Sodium Chloride 0.9% 250 ml [Ns] 250 ml IV X1 Piper/Tazo 3.375 gm [Zosyn] Med 12/08/24 18:30 Discontinued 3.375 gm in 50 ml IV X1 Sodium Chloride 0.9% 1000 ml [Ns] 1,000 ml Med 12/08/24 18:35 Discontinued IV 999 mls/hr Sodium Chloride 0.9% 1000 ml [Ns] 1,000 ml Med 12/08/24 18:35 Discontinued IV 999 mls/hr Oxygen Delivery NOW RT 12/08/24 18:31 Active Vital Signs Vital signs: Vital Signs Temperature 97.5 F 12/08/24 16:36 Pulse Rate 84 12/08/24 16:36 Respiratory Rate 20 12/08/24 16:36 Blood Pressure 130/82 12/08/24 16:36 Pulse Oximetry (%) 94 L 12/08/24 16:36 Oxygen Delivery Method Room Air 12/08/24 16:36 Altered Mental Status MDM Narrative MDM Narrative:: Scribe Attestation: 12/08/24 Eli Arnold am scribing for and in the presence of Dr. Huang. 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 Social determinants that could affect healthcare access:: housing (half-way resident) Patient has the following chronic illnesses:: osteoporosis, seizure disorder, hypothyroidism, developmentally delayed, and HLD How is presenting disease/condition affected by chronic disease/condition?: uneffected by Evaluation data The following diagnostics were reviewed and interpreted by me:: lab results, radiology exam(s) and EKG tracing(s) Lab and/or radiology exams considered but not ordered:: none Interpretation Summary: WBC count is low at 2.8, Lactate is normal, HnH is 9.5/29.1 (which is baseline for the patient), PT and INR are normal, PTT is normal, BNP is 231, EKG done at 1902, NSR, rate of 83, normal axis, no ectopy, no acute ischemia, according to my interpretation. -------- [facility] Report Signed Patient: AGGIE LEUNG. Record#: [id number] Birthdate: 1950 Age/Sex: 74 / F Location: [facility] Attending Dr: Ordering Physician: Aníbal Huang MD Date of Service: 12/08/24 Procedure(s): XR chest 1V portable Accession Number(s): [id number] cc: Itz Hernández MD; Aníbal Huang MD~ Examination: AP chest single view Technique one AP portable supine chest single view Exam date and time: December 08, 2024 1841 hrs. Comparison December 05, 2024 Indications: Coughing fever shortness of breath today. Findings: Extensive bilateral pneumonia Mild enlargement cardiac contour with prominent vascular congestion Prominent osteopenia Impression: Extensive bilateral pneumonia Mild associated heart failure Dictated By: Itz Hernández MD Signed By: <Electronically signed by Itz Hernández MD in OV> 12/08/241914 [facility] Report Signed Patient: AGGIE LEUNG Record#: [id number] Birthdate: 1950 Age/Sex: 74 / F Location: [facility] Attending Dr: Ordering Physician: Aníbal Huang MD Date of Service: 12/08/24 Procedure(s): CT head/brain wo con Accession Number(s): [id number] cc: Itz Hernández MD; Aníbal Huang MD~ Examination: CT brain head without contrast. 2-D sagittal coronal reconstructions Date and time of exam:December 08, 2024 1924 hrs. Indications: Onset altered mental status today CTDI: vol (mGy):52.4 DLP: (mGycm):1096 Technique: Multiple CT axial sections of the brain have been obtained, 5 mm slice thickness. Contrast has not been administered. 2-D sagittal, coronal reconstructions have been obtained Low dose protocols were performed. One or more of the following dose reduction techniques were used; automated exposure control, adjustment of the mA and/or KV according to patient size, use of iterative reconstruction technique. Findings: No significant ventricular enlargement. Small chronic subdural hygromas, larger on the right side at the level of the frontal area measuring 9 mm Old infarct right cerebellar hemisphere Ventricular enlargement Intra-axial or extra-axial hemorrhage density is not seen. No mass effect or midline shift Basal cisterns are not remarkable. Fourth ventricle is midline. Cranial vault intact. Impression: Negative for acute hemorrhage, mass effect or midline shift If symptoms persist, consider brain MRI follow-up Dictated By: Itz Hernández MD Signed By: <Electronically signed by Itz Hernández MD in OV> 12/08/24 193 Medications / Prescriptions Medications or Prescriptions considered but not ordered:: none Medication administrations:: Medication Administration History Discontinued Medications Piperacillin/Tazobactam/Dextrose (Zosyn) 3.375 gm in 50 mls @ 100 mls/hr IV X1 ONE Stop: 12/08/24 18:59 Last Infusion: 12/08/24 19:22 Dose: Infused Documented By: Admin: 12/08/24 18:52 Dose: 100 mls/hr Documented By: DOMENIC Doxycycline Hyclate 100 mg/ (Sodium Chloride) 250 mls @ 125 mls/hr IV X1 ONE Stop: 12/08/24 20:29 Last Admin: 12/08/24 20:24 Dose: 125 mls/hr Documented By: EF Sodium Chloride (Ns) 1,000 mls @ 999 mls/hr IV .Q1H1M ONE Stop: 12/08/24 19:35 Last Admin: 12/08/24 18:52 Dose: 999 mls/hr Documented By: SF Sodium Chloride (Ns) 1,000 mls @ 999 mls/hr IV .Q1H1M ONE Stop: 12/08/24 19:35 Last Admin: 12/08/24 18:52 Dose: 999 mls/hr Documented By: SF see above Consultations Consultation(s) initiated? (list below): Yes Consultation #1 (Physician, Specialty, Details): Discussed case with [the resident physician, attending Dr. Painter] from Hospitalist service regarding admission. Discussed patients ED course, exam findings, labs, and radiology results. The Hospitalist [agrees] to accept the patient for admission. Time: 20:38 Diagnosis Differential diagnosis altered mental status: sepsis and other (UTI, pneumonia, skin infection, severe sepsis, septic shock) Most likely diagnosis given after review of the tests above:: bilateral pneumonia, AMS Admission Indicated Admission indicated?: indicated Admission Request Was there a request for admission?: Yes Admission Attestation Admission request attestation: Discussed case with [] from Hospitalist service regarding admission. Discussed patients ED course, exam findings, labs, and radiology results. The Hospitalist [agrees,declines] to accept the patient for admission. Disposition Plan Disposition Plan: Admit Critical Care Time Critical Care Time Critical Care Time: Yes Total Critical Care Time (min.): 35 Attestation: The high probability of sudden, clinically significant deterioration in the patient?s condition required the highest level of my preparedness to intervene urgently. The services I provided to this patient were to treat and/or prevent clinically significant deterioration. Services included the following: chart data review, reviewing nursing notes and/or old charts, documentation time, data virtualization consultant collaboration regarding findings and treatment options, medication orders and management, direct patient care, vital sign assessments and ordering, interpreting and reviewing diagnostic studies and lab tests. Aggregate critical care time includes only time during which I was engaged in work directly related to the patient?s care, as described above, whether at bedside or elsewhere in the Emergency Department. It did not include time spent performing other reported procedures or the services of residents, students, nurses or physician assistants. Discharge Plan Plan Patient Disposition: Admit Acute Care w/in Hospital Prescriptions/Referrals Prescriptions/Med Rec: No Action amoxicillin-pot clavulanate 875-125 mg tablet 1 tab PO BID 5 Days Qty: 10 0RF pantoprazole [Protonix] 40 mg tablet,delayed release (DR/EC) 40 mg PO QDAY Qty: 30 0RF docusate sodium 250 mg capsule 250 mg PO QDAY PRN (Reason: constipation) Qty: 30 0RF ASCORBATE CALCIUM (VITAMIN C) 500 MG tablet 500 mg PO QDAY Qty: 30 0RF Acetaminophen * (TYLENOL *) 325 MG tablet 2 tab PO Q4HR PRN (Reason: PAIN) Qty: 30 0RF Albuterol Sulfate/Ipratropium NEB * (DUONEB *) 3 ML AMPUL.NEB 3 ml HHN Q4HR PRN (Reason: SHORTNESS OF BREATH OR WHEEZE) Qty: 9 0RF levothyroxine [Synthroid] 100 MCG tablet 100 mcg PO ACBR Qty: 30 0RF bisacodyl 10 mg Suppository 10 mg VA QDAY PRN (Reason: Constipation) Qty: 30 0RF Rx Instructions: if no BM in 3 days simvastatin 20 MG tablet 20 mg PO HS Qty: 30 0RF divalproex [Depakote ER] 500 MG tablet extended release 24 hr 500 mg PO BID Qty: 30 0RF pseudoephedrine HCl [Sudogest] 60 MG tablet 60 mg PO Q6HR PRN (Reason: CONGESTION) Qty: 30 0RF lactulose 10 GM/15 ML syrup 1 g PO QDAY PRN (Reason: CONSTIPATION) Qty: 3785 0RF Rx Instructions: May hold if loose stools quetiapine [Seroquel XR] 300 MG tablet extended release 24 hr 400 mg PO BID Qty: 30 0RF Calcium Carbonate/Cholecalciferol 600 * (CALTRATE PLUS D 600 *) 1 TAB tablet 1 tab PO BID Qty: 30 0RF Guaifenesin/D-Methorphan Hb Syrup (Robitussin Dm Syrup) 120 ML syrup 10 ml PO Q4HR PRN (Reason: COUGH) Qty: 120 0RF LORATADINE (CLARITIN) 10 MG capsule 10 mg PO QDAY Qty: 30 0RF Multivit-Min/Iron Fum/Folic AC (Yllpm-Crndlgm-Qvcmveck Tablet) 1 EACH tablet 1 tab PO QDAY Qty: 30 0RF Referrals: Nathan Avila MD [Primary Care Provider] - In 1 week Problem List Clinical Impression: Acute dehydration, Altered mental status, Bilateral pneumonia Patient/Caregiver Discharge Instructions Print Language: Canadian Stand Alone Forms: Aleja Award Info., Patient Portal Info Letter
--- NOTE | 2024-12-08 18:30 | XR_ITS ---
Examination: AP chest single view Technique one AP portable supine chest single view Exam date and time: December 08, 2024 1841 hrs. Comparison December 05, 2024 Indications: Coughing fever shortness of breath today. Findings: Extensive bilateral pneumonia Mild enlargement cardiac contour with prominent vascular congestion Prominent osteopenia Impression: Extensive bilateral pneumonia Mild associated heart failure
--- NOTE | 2024-12-08 18:31 | EKG_ITS ---
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
[2024-12-08 18:33] VITALS: TEMP 35.7
--- NOTE | 2024-12-08 18:38 | XR_ITS ---
Examination: CT brain head without contrast. 2-D sagittal coronal reconstructions Date and time of exam:December 08, 2024 1924 hrs. Indications: Onset altered mental status today CTDI: vol (mGy):52.4 DLP: (mGycm):1096 Technique: Multiple CT axial sections of the brain have been obtained, 5 mm slice thickness. Contrast has not been administered. 2-D sagittal, coronal reconstructions have been obtained Low dose protocols were performed. One or more of the following dose reduction techniques were used; automated exposure control, adjustment of the mA and/or KV according to patient size, use of iterative reconstruction technique. Findings: No significant ventricular enlargement. Small chronic subdural hygromas, larger on the right side at the level of the frontal area measuring 9 mm Old infarct right cerebellar hemisphere Ventricular enlargement Intra-axial or extra-axial hemorrhage density is not seen. No mass effect or midline shift Basal cisterns are not remarkable. Fourth ventricle is midline. Cranial vault intact. Impression: Negative for acute hemorrhage, mass effect or midline shift If symptoms persist, consider brain MRI follow-up
[2024-12-08] MEDS: SODIUM CHLORIDE 0.9% 1000 ML 1,000 ML 999 ML IV ×2 (18:52)
[2024-12-08] MEDS: PIPER/TAZO 3.375 GM 3.375 GM/50 ML BAG IV (18:52)
[2024-12-08 18:58] LABS: Base Excess, Venous 9 (-3-3); Lactate (Lactic Acid) 0.7 mMol/L (0.4-2.0); O2 Saturation, Venous 82 % (96-97); PCO2, Venous 34 mmHg (36-56); PO2, Venous 39 mmHg (15-58); pH, Venous 7.58 (7.33-7.66)
[2024-12-08 19:03] LABS: Basophils % (Auto) 0 % (0-2.5); Eosinophils % (Auto) 1 % (0-10); Hematocrit 29.1 % (36.0-46.0); Hemoglobin 9.5 g/dL (12.0-16.0); Immature Granulocytes % (Auto) 0 % (0-0); Immature Granulocytes Auto 0.01 Thou/mm3 (0.00-0.00); Lymphocytes # (Auto) 0.2 Thou/mm3 (1.0-4.8); Lymphocytes % (Auto) 8 % (10-50); Mean Corpuscular HGB Conc 32.6 g/dl (31.0-37.0); Mean Corpuscular Hemoglobin 31.7 pg (25.0-35.0); Mean Corpuscular Volume 97 fL (80-100); Monocytes # (Auto) 0.3 Thou/mm3 (0.0-0.8); Monocytes % (Auto) 12 % (0-12); Neutrophils # (Auto) 2.2 Thou/mm3 (1.8-7.7); Neutrophils % (Auto) 79 % (37-80); Nucleated Red Blood Cell % 0 /100 WBC (0); Platelet Count 144 Thou/mm3 (140-440); RDW Standard Deviation 61.1 fL (36.4-46.3)
[2024-12-08 19:19] LABS: INR 0.9 (0.9-1.3); Partial Thromboplastin Time 27.5 Seconds (22.0-36.0); Prothrombin Time 10.4 Seconds (9.0-12.2)
[2024-12-08 19:27] LABS: White Blood Count 2.8 Thou/mm3 (3.6-11.0)
[2024-12-08 19:35] VITALS: PULSE 76; RESP 18; RESP 95
[2024-12-08 19:39] LABS: B-Type Natriuretic Peptide 231 pg/mL (0-100)
[2024-12-08 19:47] LABS: Alanine Aminotransferase 22 U/L (10-49); Albumin, Serum 2.7 gm/dL (3.4-4.8); Albumin/Globulin Ratio 0.9 (1.2-2.2); Alkaline Phosphatase 121 U/L (46-116); Anion Gap 3 (7-16); Aspartate Amino Transferase 47 U/L (0-34); BUN/Creatinine Ratio 32 Ratio (12-20); Bilirubin,Total < 0.2 mg/dL (0.3-1.2); Blood Urea Nitrogen 19 mg/dL (9-23); Calcium 8.4 mg/dL (8.3-10.6); Calcium (Corrected) 9.4 mg/dL (8.5-10.1); Carbon Dioxide 31.9 mMol/L (20.0-31.0); Chloride 104 mMol/L (98-107); Creatinine (Component) 0.6 mg/dL (0.6-1.3); Free T4 (Free Thyroxine) 0.63 ng/dL (0.89-1.76); Globulin 3.1 gm/dL (2.3-3.5); Glucose 79 mg/dL (74-106); LDH (Lactate Dehydrogenase) 226 U/L (120-246); Lipase 74 U/L (12-53); Magnesium 2.4 mg/dL (1.6-2.6); Osmolality,Calculated 278 (275-295); Phosphorous 3.1 mg/dL (2.4-5.1); Potassium 4.7 mMol/L (3.4-5.1); Procalcitonin 0.05 ng/ml (0.0-0.49); Sodium 139 mMol/L (136-145); Total Protein 5.8 gm/dL (5.7-8.2); Troponin I < 0.020 ng/mL (0.0-0.045); eGFR > 60 See Note
[2024-12-08 19:48] VITALS: BMI 18.7
[2024-12-08 20:09] LABS: Estimated Creatinine Clearance 84.7 mL/min (>60)
[2024-12-08 20:10] VITALS: BP 134/87; PULSE 82; RESP 17; TEMP 35.6; O2SAT 96
[2024-12-08 20:17] LABS: Collection Type, Urine Clean Catch; Squamous Epithelial Cell,Urine 0 /hpf (0-5)
--- NOTE | 2024-12-08 20:21 | PC.NURSE ---
delvin sumner phone number [phone] [facility]
[2024-12-08] MEDS: DOXYCYCLINE INJ 100 MG in SODIUM CHLORIDE 0.9% 250 ML 250 ML 125 MG IV (20:24)
[2024-12-08 20:29] LABS: Bilirubin,Urine Negative (Negative); Blood,Urine Negative (Negative); Budding Yeast,Urine Present; Clarity,Urine Clear (Clear/Hazy); Color,Urine Yellow (Lt Yel-Yel); Glucose, Urine Negative (Negative); Ketones,Urine Negative (Negative); Leukocyte Esterase,Urine Negative (Negative); Nitrite,Urine Negative (Negative); Protein,Urine 1+ (Neg - Trace); RBC,Urine 3 /hpf (0-3); Specific Gravity,Urine 1.015 (1.001-1.035); Urobilinogen,Urine Negative mg/dL (0.0-1.0); WBC,Urine 4 /hpf (0-5)
--- NOTE | 2024-12-08 21:38 | PC.NURSE ---
spoke with delvin sumner via telephone stated patient is under a conservatorship by [facility] full code
--- NOTE | 2024-12-08 21:39 | ESHP_ITS ---
Documentation for date of: 12/08/24 HPI History of Present Illness History of present illness: This is a 74-year-old female PMHx of seizure disorder, developmental delay, hypothyroidism, HLD, osteoporosis coming from [facility] with acute altered mental status and a temperature of 103. History is limited, patient is encephalopathic at baseline. Comfortable although refused physical exam. I spoke with [facility]ci who said patient has been generally weak and slightly altered over the last few days. More altered than usual over the last 2 days. Today they checked her temperature which was 103. She was desatting 77% on room air. No reported cough, headaches, GI or urinary symptoms. ED COURSE: T93.9, RR 22, HR 84, BP 130/82, on room air satting 94%. WBC 12.8. Hgb 9.5, baseline around 10. No coagulopathies. EGD showed pH 7.53, pCO2 34, pO2 39, O2 sats 82. Chemistry showed mild transaminitis with AST 47, ALP 121. BNP was slightly elevated at 231. Free T4 0.63, pending TSH. She was here on 12/05/2024, at the time she had lactic acid of 3.0 and creatinine of 1.3, both resolved after fluids. Currently creatinine and lactic acid are normal. UA negative for UTI. EKG shows sinus rhythm, no ST changes. Troponin was normal. Head CT was negative for acute pathology. CXR showed extensive bilateral pneumonia, mild associated heart failure. PMHx: As above. PSHx: Unable to obtained. MEDS: ALBUTEROL/IPRATROPIUM, LORATADINE 10 mg q. day, DEPAKOTE 500 mg BID, VALBENAZINE 80 mg HS PRATIBHA, QUETIAPINE 400 mg BID, LEVOTHYROXINE 100 mcg AC BR, ALENDRONATE 35 mg q. 7 days, SIMVASTATIN 20 mg HS, ROBITUSSIN 10 mm PRN for cough, Daily Bowel Reg (LACTULOSE 10 mg QID PRATIBHA, DOCUSATE 250 mg suppository q. day, milk of magnesium 30 mg q. day) ALLERGIES: HALOPERIDOL (itching), AMITRIPTYLINE (unknown allergy) SH: Unable to obtained. Exam Vital Signs Temp Pulse Resp BP Pulse Ox O2 Del Method 96.1 F L 82 17 134/87 H 96 Room Air 12/08/24 20:10 12/08/24 20:10 12/08/24 20:10 12/08/24 20:10 12/08/24 20:10 12/08/24 20:10 Narrative Exam GENERAL/PSYCH * Agitated, appears anxious, combative, refused physical exam. * Alert, disoriented, not following command. HEENT/NECK * Limited exam: No abnormality on visual inspection. CHEST * RRR, no m/g/r * Refused exam: I was able to appreciate coarse breath sounds bilaterally. ABDOMEN * Soft, flat, nontender. No guarding/rebound tenderness/masses. * Bowel sounds presents EXTREMITIES * Nontender, no cyanosis, no edema * 2+ bilateral lower extremity. SKIN * Warm and dry, no jaundice/rashes. NEUROMUSCULAR * Unable to obtain exam. Results: Labs 12/08/24 18:49 12/08/24 18:49 Labs: Short CBC 12/08/24 Range/Units 18:49 WBC 2.8 L D (3.6-11.0) Thou/mm3 Hgb 9.5 L (12.0-16.0) g/dL Hct 29.1 L (36.0-46.0) % Plt Count 144 (140-440) Thou/mm3 BMP 12/08/24 18:49 Sodium 139 Potassium 4.7 Chloride 104 Carbon Dioxide 31.9 H BUN 19 Creatinine 0.6 D Glucose 79 Calcium 8.4 Cardiac Enzymes 12/08/24 Range/Units 18:49 Troponin I < 0.020 (0.0-0.045) ng/mL Liver Function 12/08/24 Range/Units 18:49 Total Bilirubin < 0.2 L (0.3-1.2) mg/dL AST 47 H (0-34) U/L ALT 22 (10-49) U/L Alkaline Phosphatase 121 H (46-116) U/L Albumin 2.7 L (3.4-4.8) gm/dL Urine 12/08/24 Range/Units 20:14 Urine Color Yellow (Lt Yel-Yel) Urine Clarity Clear (Clear/Hazy) Urine pH 7.0 (5.0-7.0) Ur Specific [place] 1.015 (1.001-1.035) Urine Protein 1+ A (Neg - Trace) Urine Glucose (UA) Negative (Negative) ABG Interpretation ABG results: 12/08/24 18:49 VBG pH 7.58 VBG pCO2 34 L VBG pO2 39 VBG Base Excess 9 H Quality Measures Quality Measures none Advance care planning discussed with:: patient Medications Home Medications and Allergies Allergies Allergy/AdvReac Type Severity Reaction Status Date / Time amitriptyline Allergy Intermediate unknown Verified 12/05/24 10:41 haloperidol Allergy Intermediate Itching Verified 12/05/24 10:41 Visit Medications Acetaminophen (Acetaminophen 325 Mg Tablet) 650 mg PO Q6H PRN PRN Reason: PAIN SCALE 1-3 (mild Stop: 01/07/25 21:21 Acetaminophen (Acetaminophen 325 Mg Tablet) 650 mg PO Q6H PRN PRN Reason: Fever >100 Stop: 01/07/25 21:21 Albuterol/Ipratropium (Albuterol/Ipratropium (Duoneb) Rt Belkys 3 Ml Nebu) 3 ml INH Q6HRRT [facility] Stop: 01/08/25 00:59 Divalproex Sodium (Divalproex Sod Dr 500 Mg Tablet.Dr) 500 mg PO BID [facility] Stop: 01/07/25 21:44 Docusate Sodium (Docusate Sod 250 Mg Capsule) 250 mg PO QDAY [facility]; Protocol Stop: 01/08/25 08:59 Piperacillin Sod/Tazobactam (Sod 4.5 gm/ Sodium Chloride) 100 mls @ 200 mls/hr IV Q6HR [facility] Stop: 12/16/24 00:00 Loratadine (Loratadine 10 Mg Tablet) 10 mg PO QDAY [facility] Stop: 01/08/25 08:59 Non-Formulary Medication (Valbenazine) 80 mg PO HS [facility] Stop: 01/08/25 20:59 Pantoprazole Sodium (Pantoprazole Inj 40 Mg Vial) 40 mg IVP QDAY [facility] Stop: 01/08/25 08:59 Quetiapine Fumarate (Quetiapine Fumarate 25 Mg Tablet) 400 mg PO BID [facility] Stop: 01/07/25 21:44 Discontinued Medications Piperacillin/Tazobactam/Dextrose (Zosyn) 3.375 gm in 50 mls @ 100 mls/hr IV X1 ONE Stop: 12/08/24 18:59 Last Infusion: 12/08/24 19:22 Dose: Infused Doxycycline Hyclate 100 mg/ (Sodium Chloride) 250 mls @ 125 mls/hr IV X1 ONE Stop: 12/08/24 20:29 Last Admin: 12/08/24 20:24 Dose: 125 mls/hr Sodium Chloride (Ns) 1,000 mls @ 999 mls/hr IV .Q1H1M ONE Stop: 12/08/24 19:35 Last Admin: 12/08/24 18:52 Dose: 999 mls/hr Sodium Chloride (Ns) 1,000 mls @ 999 mls/hr IV .Q1H1M ONE Stop: 12/08/24 19:35 Last Admin: 12/08/24 18:52 Dose: 999 mls/hr Sodium Chloride (Sodium Chloride Rt 10% 15 Ml Nebu) 5 ml INH X1 ONE Stop: 12/08/24 21:28 Assessment & Plan Plan In summary: 74-year-old female PMHx of seizure disorder, developmental delay, hypothyroidism, HLD, osteoporosis coming from [facility] with acute altered mental status and a temperature of 103. Admitted for acute encephalopathy. Holding PO meds secondary to dysphagia. Home meds ordered but on hold, resume when able to. Acute encephalopathy Schizophrenia Developmental delay Seizure disorder Likely multifactorial, most likely infectious 2/2 sepsis PNA. SNF stated patient has been more altered than usual. At baseline she has mental retardation and schizophrenia. On exam she is alert, disoriented, does not follow command. Head CT negative for acute pathology. No electrolyte/metabolic abnormality, ammonia normal. No signs of seizure activities at this time. Currently n.p.o. after failing swallow eval. ? Treating underlying cause as below ? Frequently orientation ? Avoid narcotics ? Seizure precautions ? Consider neurology consult ? Pending TSH/free T4 ? Resume home DEPAKOTE 500 mg BID when able ? Resume home VALBENAZINE 80 mg HS PRATIBHA when able ? Resume home QUETIAPINE 400 mg BID when able Sepsis 2/2 Aspiration pneumonia Transaminitis Met 3/4 SIRS criteria with T93.3, WBC 12.8, RR 20, with signs of EOD i.e. elevated LFTs. CXR showed extensive bilateral pneumonia. Hide risk for aspiration secondary to dysphagia and AMS. Currently on room air and satting well. Mild transaminitis with AST 47, ALP 121. Adequately fluid resuscitated. ? Continue ZOSYN q.8h. (12/09 to present) ? Continue DuoNebs q.6h. scheduled ? Pending blood and sputum culture. ? Daily labs Dysphagia Esophageal stenosis Chronic constipation Previously underwent EGD and dilation for esophageal stenosis on November/2024. Appears to have worsening dysphagia, likely causing aspiration pneumonia. Failed bedside swallow eval. ? Continue n.p.o. ? Consider goals of care. ? Pending formal swallow eval ? Will will likely need PEG tube. ? Resume home LACTULOSE 10 mg QID PRATIBHA when able ? Resume home DOCUSATE 250 mg SUP daily PRATIBHA when able ? Resume home milk of magnesium 30 mg daily PRATIBHA when able Hypothyroidism ? Pending TSH and free T4 ? Resume home LEVOTHYROXINE 100 mcg when able Hyperlipidemia ? Resume home ATORVASTATIN 20 mg when able Osteoporosis ? Resume home ALENDRONATE 10 mg when able ? Resume when able to Health maintenance Diet: NPO GI prophylaxis: PROTONIX DVT prophylaxis: LOVENOX Antibiotics: ZOSYN CODE STATUS: Full code Disposition: Workup for acute encephalopathy Patient case was discussed with attending, Kenny Painter MD. Willard Villalobos DO PGYI Attending Provider Attestation/Addendum I have examined the patient, reviewed labs and imaging findings, discussed the case with the resident(s), and reviewed entered orders. I agree with the plan of care as outlined in this note, with these additional summaries/recommendations: Patient is a 74-year-old female with a medical history of seizure disorder, hypothyroidism, developmental delay, mood disorder, hyperlipidemia, osteoporosis, and dysphagia presented to [facility] emergency department on 12/08/2024 with complaints of altered mental status, generalized weakness, and hypothermia/hypoxia. In the emergency department patient diagnosed with sepsis and pneumonia and thus hospitalist team consulted for continuation of care. # Acute encephalopathy Baseline patient speaks at times but mostly repetitive statements. Appears baseline is only oriented to self. Head CT wo: Negative for acute hemorrhage, mass effect or midline shift. 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 Plan: Most likely secondary to infectious etiology. Started on IV antibiotics and we will monitor for improvement. Non-Pharm measures to prevent delirium. #Sepsis #Aspiration Pneumonia # H. pylori infection SIRS: 3 out 4 SIRS criteria positive qSOFA: 1 point indicating not high risk for inpatient mortality CXR: Extensive bilateral pneumonia. Urinalysis relatively within normal limits 11/22/24: EGD biopsy result returned positive for H. pylori COVID and flu negative Order blood cultures Abx: Zosyn (12/08/24-) Fluids: Received 30 cc/kg fluid resuscitation in ED. No need for pressors or source control at this time Plan: Follow-up culture results. Repeat hematology panel in AM. We will cover H. pylori with Zosyn for now and then transition to triple therapy. Continue PPI. # Dysphagia S/P EGD 11/26/24 which showed esophagitis, esophageal stenosis status post dilation, gastritis Plan: N.p.o. except meds order bedside swallow evaluation and referral to speech therapy. Patient was previously placed on dysphagia diet and now presenting again with aspiration pneumonia. If no improvement patient may require PEG tube. # Hypothermia Likely secondary to underlying sepsis. Plan: Continue rewarming techniques. #Developmental Delay #Seizure disorder #Mood Disorder Plan: Pending med rec, Resume home medication. # Hypothyroidism: Plan: Continue home levothyroxine 100 mcg # Osteoporosis: Plan: Outpatient follow-up. Avoid bisphosphonates in setting of esophagitis/dysphagia. Dr. Painter
[2024-12-08 22:56] VITALS: BP 139/78; PULSE 72; RESP 16; TEMP 35.7; O2SAT 96
[2024-12-09] VITALS (12 sets, daily range): BP systolic 121–154; BP diastolic 63–97; PULSE 71–88; RESP 16–95; TEMP 35.9–36.4; O2SAT 92–99; BMI 27.4; BMI 27.3
[2024-12-09] MEDS: PIPER/TAZO INJ 3.375 GM in SODIUM CHLORIDE 0.9% (P) 100 ML IV ×3 (00:42→16:30)
[2024-12-09] MEDS: ALBUTEROL/IPRATROPIUM (Duoneb) RT SOL 3 ML NEBU INH ×3 (01:39→20:11)
[2024-12-09] MEDS: SODIUM CHLORIDE RT 10% 15 ML NEBU 5 ML INH (02:28)
--- NOTE | 2024-12-09 02:36 | PC.RT ---
Sputum Induction performed at this time. Pt unable to produce sputum sample. Pt unable to follow command. RN is aware.
[2024-12-09 05:47] LABS: Basophils % (Auto) 0 % (0-2.5); Eosinophils # (Auto) 0.1 Thou/mm3 (0.0-0.5); Eosinophils % (Auto) 2 % (0-10); Hematocrit 28.9 % (36.0-46.0); Hemoglobin 9.3 g/dL (12.0-16.0); Immature Granulocytes % (Auto) 1 % (0-0); Immature Granulocytes Auto 0.02 Thou/mm3 (0.00-0.00); Lymphocytes # (Auto) 0.6 Thou/mm3 (1.0-4.8); Lymphocytes % (Auto) 17 % (10-50); Mean Corpuscular HGB Conc 32.2 g/dl (31.0-37.0); Mean Corpuscular Hemoglobin 31.6 pg (25.0-35.0); Mean Corpuscular Volume 98 fL (80-100); Monocytes # (Auto) 0.3 Thou/mm3 (0.0-0.8); Monocytes % (Auto) 10 % (0-12); Neutrophils # (Auto) 2.3 Thou/mm3 (1.8-7.7); Neutrophils % (Auto) 70 % (37-80); Nucleated Red Blood Cell % 0 /100 WBC (0); Platelet Count 144 Thou/mm3 (140-440); RDW Standard Deviation 61.4 fL (36.4-46.3); Red Blood Count 2.94 Miln/mm3 (4.00-5.20); White Blood Count 3.2 Thou/mm3 (3.6-11.0)
[2024-12-09 06:47] LABS: Alanine Aminotransferase 20 U/L (10-49); Albumin, Serum 2.6 gm/dL (3.4-4.8); Albumin/Globulin Ratio 0.9 (1.2-2.2); Alkaline Phosphatase 119 U/L (46-116); Anion Gap 4 (7-16); Aspartate Amino Transferase 42 U/L (0-34); BUN/Creatinine Ratio 27 Ratio (12-20); Bilirubin,Total 0.2 mg/dL (0.3-1.2); Blood Urea Nitrogen 16 mg/dL (9-23); Calcium 8.2 mg/dL (8.3-10.6); Calcium (Corrected) 9.3 mg/dL (8.5-10.1); Chloride 108 mMol/L (98-107); Creatinine (Component) 0.6 mg/dL (0.6-1.3); Free T4 (Free Thyroxine) 0.55 ng/dL (0.89-1.76); Magnesium 2.2 mg/dL (1.6-2.6); Osmolality,Calculated 281 (275-295); Phosphorous 2.7 mg/dL (2.4-5.1); Potassium 4.4 mMol/L (3.4-5.1); Sodium 142 mMol/L (136-145); Thyroid Stimulating Hormone 0.56 uIU/mL (0.55-4.78); Total Protein 5.6 gm/dL (5.7-8.2); eGFR > 60 See Note
[2024-12-09 07:17] LABS: Glucose 38 mg/dL (74-106)
--- NOTE | 2024-12-09 07:19 | CHAP ---
Responded to Rapid Response. Said silent prayer in the hallway. No family present.
[2024-12-09] MEDS: DEXTROSE 50%-WATER INJ 50 ML SYRINGE IV (07:25)
--- NOTE | 2024-12-09 07:35 | PC.NURSE ---
Received a call from the lab at for Pt. BS is 38 and check the pt. BS is 32. Pt alert ,awake, call the SAW SUPERINTENDENT on pt. the pt. IV dextrose of 25 ml per MD presence on the bedside.
[2024-12-09] MEDS: DEXTROSE 5%-NS 1,000 ML 80 ML IV (08:45)
[2024-12-09] MEDS: ENOXAPARIN SOD INJ 40 MG/0.4 ML SYRINGE SC (09:09)
--- NOTE | 2024-12-09 09:26 | PC.SS ---
Follow up note: Pt is on IV antibiotic. Pt had rapid response this morning.
[2024-12-09] MEDS: AZITHROMYCIN INJ 500 MG in SODIUM CHLORIDE 0.9% 250 ML 250 ML 250 MG IV (10:34)
[2024-12-09] MEDS: QUEtiapine FUMARATE 100 MG TABLET 400 MG PO ×2 (10:41→22:41)
--- NOTE | 2024-12-09 11:35 | ESPR_ITS ---
<Statement entered by Nikolay Erazo MD - 12/10/24 17:33> I discussed with and supervised the sport intern physician involved in the care of this patient. Patient assessment and plan was discussed with entire medicine team, including my attending. I agree with the assessment and plan as documented by sport intern doctor. Patient care was discussed with my attending physician Dr. Pedro Erazo, PGY-2 Documentation for date of: 12/09/24 Subjective Subjective Interval history: 12/09/2024: Patient is an overnight admit. Patient had a rapid response earlier this morning for hypoglycemia and required administration of IV dextrose, patient was also started on IV fluid resuscitation measures with D5/NS. Patient has been having dysphagia secondary to esophageal strictures status post endoscopic manipulation from last admission. On reassessment, patient is awake but does have developmental disorder at baseline. Per speech eval, patient has been started on a pur?ed diet. Patient continues to be treated with IV antibiotics for suspected aspiration event. There are also laboratory findings which include some leukopenia and hypothyroidism with reduced TSH which will need outpatient workup for secondary hypothyroidism. Facility nurse was contacted alongside professional security officer regarding patient's status and they have been updated. Patient apparently takes Ingrezza 80 mg at night for dyskinesia but hospital does not have an formulary.. Will assess for medication need on further examination. Exam Vital Signs Temp Pulse Resp BP Pulse Ox O2 Del Method O2 Flow Rate 97.1 F 79 16 133/70 H 92 L Room Air 2 12/09/24 08:00 12/09/24 08:00 12/09/24 08:00 12/09/24 08:00 12/09/24 08:00 12/09/24 08:00 12/09/24 02:29 Narrative Exam Physical Exam: GENERAL: Verbal, but has clear developmental disorder, awake, appears stated age HEENT: NC/AT. Moist mucosa. PERRLA/EOMI. CARDIO: Heart RRR, no obvious murmurs, no JVD. PULM: No coughing or visible SOB. Lungs CTA B/L. GI: Abdomen soft, NT/ND, +BS. SKIN/MSK/EXT: No wounds/discoloration/rashes/edema/amputations. +Pedal pulses present B/L. NEURO: Oriented x0. Unable to assess orientation, no focal neurologic deficits noted. Objective Labs 12/09/24 04:33 12/09/24 04:33 Labs: Laboratory Results - last 24 hr 12/08/24 12/08/24 12/09/24 18:49 20:14 04:33 WBC 2.8 L D 3.2 L RBC 3.00 L 2.94 L Hgb 9.5 L 9.3 L Hct 29.1 L 28.9 L MCV 97 98 MCH 31.7 31.6 MCHC 32.6 32.2 RDW Std Deviation 61.1 H 61.4 H Plt Count 144 144 Neut % (Auto) 79 70 Lymph % (Auto) 8 L 17 [place] % (Auto) 12 10 Eos % (Auto) 1 2 Baso % (Auto) 0 0 Neut # (Auto) 2.2 2.3 Lymph # (Auto) 0.2 L 0.6 L [place] # (Auto) 0.3 0.3 Eos # (Auto) 0.0 0.1 Baso # (Auto) 0.0 0.0 Immature Gran # (Auto) 0.01 H 0.02 H Absolute Nucleated RBC 0.00 0.00 Immature Gran % 0 1 H Nucleated RBC % 0 0 PT 10.4 INR 0.9 APTT 27.5 VBG pH 7.58 VBG pCO2 34 L VBG pO2 39 VBG O2 Sat (Ayde) 82 L VBG Base Excess 9 H Sodium 139 142 Potassium 4.7 4.4 Chloride 104 108 H Carbon Dioxide 31.9 H 30.0 Anion Gap 3 L 4 L BUN 19 16 Creatinine 0.6 D 0.6 Estim Creat Clear Calc 84.7 85.0 eGFR > 60 > 60 BUN/Creatinine Ratio 32 H 27 H Glucose 79 38 L* D Calculated Osmolality 278 281 Lactic Acid 0.7 Calcium 8.4 8.2 L Corrected Calcium 9.4 9.3 Phosphorus 3.1 2.7 Magnesium 2.4 2.2 Total Bilirubin < 0.2 L 0.2 L AST 47 H 42 H ALT 22 20 Alkaline Phosphatase 121 H 119 H Lactate Dehydrogenase 226 Troponin I < 0.020 B-Natriuretic Peptide 231 H Total Protein 5.8 5.6 L Albumin 2.7 L 2.6 L Globulin 3.1 3.0 Albumin/Globulin Ratio 0.9 L 0.9 L Lipase 74 H Procalcitonin 0.05 TSH 0.56 D Free T4 0.63 L 0.55 L Ur Collection Type Clean Catch Urine Color Yellow Urine Clarity Clear Urine pH 7.0 Ur Specific [place] 1.015 Urine Protein 1+ A Urine Glucose (UA) Negative Urine Ketones Negative Urine Blood Negative Urine Nitrite Negative Urine Bilirubin Negative Urine Urobilinogen (Auto) Negative Ur Leukocyte Esterase Negative Urine RBC 3 Urine WBC 4 Ur Squamous Epith Cells 0 Urine Bacteria None Urine Yeast (Budding) Present A ABG Interpretation ABG results: 12/08/24 18:49 VBG pH 7.58 VBG pCO2 34 L VBG pO2 39 VBG Base Excess 9 H Quality Measures Quality Measures none Advance care planning discussed with:: legal surragate Assessment & Plan Assessment Current Active Medications: Generic Name Dose Route Start Last Admin Trade Name Freq PRN Reason Stop Dose Admin Acetaminophen 650 mg 12/08/24 21:22 Acetaminophen 325 Mg Tablet PO 01/07/25 21:21 Q6H PRN PAIN SCALE 1-3 (mild Acetaminophen 650 mg 12/08/24 21:22 Acetaminophen 325 Mg Tablet PO 01/07/25 21:21 Q6H PRN Fever >100 Albuterol/Ipratropium 3 ml 12/09/24 01:00 12/09/24 06:33 Albuterol/Ipratropium (Duoneb) Rt Belkys 3 Ml Nebu INH 01/08/25 00:59 Not Given Q6HRRT PRATIBHA Alendronate Sodium 35 mg 12/08/24 21:45 12/08/24 23:03 Alendronate Sodium 70 Mg Tablet PO 01/07/25 21:44 Not Given Q7D PRATIBHA Atorvastatin Calcium 20 mg 12/09/24 21:00 Atorvastatin Calcium 20 Mg Tablet PO 01/08/25 20:59 HS PRATIBHA Bisacodyl 10 mg 12/08/24 21:32 Bisacodyl 10 Mg Supp MI 01/07/25 21:31 QDAY PRN CONSTIPATION Protocol Dextrose 50 ml 12/09/24 07:22 Dextrose 50%-Water Inj 50 Ml Syringe IV 01/08/25 07:21 Q15MIN PRN BG <50 OR BG <70 & pt unresponsive Divalproex Sodium 500 mg 12/08/24 21:45 12/08/24 23:[address] 500 Mg Tablet.Dr PO 01/07/25 21:44 Not Given BID PRATIBHA Docusate Sodium 250 mg 12/09/24 09:00 12/09/24 08:49 Docusate Sod 250 Mg Capsule PO 01/08/25 08:59 Not Given QDAY [facility] Protocol Enoxaparin Sodium 40 mg 12/09/24 09:00 12/09/24 09:09 Enoxaparin Sod Inj 40 Mg/0.4 Ml Syringe SC 12/23/24 08:59 40 mg QDAY PRATIBHA Administration Glucagon 1 mg 12/09/24 07:22 Glucagon Inj 1 Mg Vial IM Q15MIN PRN BG <70, and no IV access Guaifenesin/Codeine Phosphate 10 ml 12/08/24 21:32 Guaifenesin/Cod Syrup 5 Ml Udc PO 01/07/25 21:31 QID PRN COUGH Protocol Piperacillin Sod/Tazobactam 100 mls @ 25 mls/hr 12/09/24 00:30 12/09/24 09:08 Sod 3.375 gm/ Sodium Chloride IV 12/16/24 00:29 25 mls/hr Q8H PRATIBHA Administration Dextrose/Sodium Chloride 1,000 mls @ 80 mls/hr 12/09/24 07:30 12/09/24 08:45 D5-Ns IV 12/09/24 19:59 80 mls/hr .[id number] PRATIBHA Administration Azithromycin 500 mg/ Sodium 250 mls @ 250 mls/hr 12/09/24 09:00 12/09/24 10:34 Chloride IV 12/16/24 08:59 250 mls/hr QDAY PRATIBHA Administration Lactulose 10 gm 12/08/24 21:45 12/08/24 23:03 Lactulose Syrup 20 Gm/30 Ml Udc PO 01/07/25 21:44 Not Given QID [facility] Protocol Levothyroxine Sodium 100 mcg 12/09/24 06:00 Levothyroxine Sodium 100 Mcg Tablet PO 01/08/25 05:59 ACBR PRATIBHA Loratadine 10 mg 12/09/24 09:00 Loratadine 10 Mg Tablet PO 01/08/25 08:59 QDAY [facility] Magnesium Hydroxide 30 ml 12/09/24 09:00 Milk Of Magnesia Susp 30 Ml Udc PO 01/08/25 08:59 QDAY [facility] Protocol Home Medication- 80 mg 12/09/24 09:00 Please Speak With PO 01/08/25 08:59 Patient Caregiver To HS PRATIBHA Have Rx Brought To [facility] Pantoprazole Sodium 40 mg 12/09/24 09:00 Pantoprazole Inj 40 Mg Vial IVP 01/08/25 08:59 QDAY PRATIBHA Quetiapine Fumarate 400 mg 12/09/24 10:45 12/09/24 10:41 Quetiapine Fumarate 100 Mg Tablet PO 01/08/25 10:44 400 mg BID PRATIBHA Administration Plan 74-year-old female PMHx of seizure disorder, developmental delay, hypothyroidism, HLD, osteoporosis coming from [facility] with acute altered mental status and a temperature of 103. Admitted for acute encephalopathy. #Aspiration pneumonia Met 3/4 SIRS criteria with T93.3, WBC 12.8, RR 20, with signs of EOD i.e. elevated LFTs. CXR showed extensive bilateral pneumonia. High risk for aspiration secondary to dysphagia and chronically bedbound state, developmental disorder Currently on room air and satting well. Mild transaminitis with AST 47, ALP 121. Adequately fluid resuscitated. Plan: Continue IV antibiotics MRSA nares pending Pending blood and sputum culture. #Acute encephalopathy #Schizophrenia #Developmental delay #Seizure disorder Likely multifactorial, most likely infectious 2/2 sepsis PNA. SNF stated patient has been more altered than usual. At baseline she has mental retardation and schizophrenia. On exam she is alert, disoriented, does not follow command. Head CT negative for acute pathology. No electrolyte/metabolic abnormality, ammonia normal. No signs of seizure activities at this time. Patient passed speech evaluation, dysphagia pur?ed diet set Home valbenazine 80 mg HS PRATIBHA not in formulary, will will assess acute need Plan: Frequently orientation Seizure precautions On home Depakote 500 mg BID when able On hold quetiapine 400 mg BID when able #Dysphagia #Esophageal stenosis #Chronic constipation Previously underwent EGD and dilation for esophageal stenosis on November/2024. Appears to have worsening dysphagia, likely causing aspiration pneumonia. Initially patient failed bedside swallow eval. Speech eval recommends pur?ed diet with aspiration precaution and VFSS Plan: Resume diet, remain guarded regarding future plan for feeding Holding lactulose, docusate and milk of magnesia at this time; will consider restarting at a later time #Normocytic anemia Patient has hemoglobin of 9.3 with MCV of 98 No signs of active GI bleeding Differentials include: Anemia of chronic disease, iron deficiency anemia, vitamin deficiency, myelodysplastic syndrome Plan: Iron panel ordered Ferritin ordered #Hypothyroidism Likely secondary due to TSH and free T4 being low Plan: Resume levothyroxine 100 mcg Outpatient follow-up for thyroid workup Health Maintenance: Lines: PIV Diet: Dysphagia 1 Bowel: milk of magnesia GI prophylaxis: Not needed DVT prophylaxis: lovenox Dispo: Treating aspiration pneumonia Code: Full Patient seen and assessed with attending Dr. Vasquez and senior resident Dr. Castro Lemus, PGY-1
[2024-12-09] MEDS: DIVALPROEX SOD DR 500 MG TABLET.DR PO (23:32)
[2024-12-10] VITALS (10 sets, daily range): BP systolic 127–151; BP diastolic 67–85; PULSE 76–91; RESP 16–96; TEMP 36.2–36.9; O2SAT 91–100
[2024-12-10] MEDS: PIPER/TAZO INJ 3.375 GM in SODIUM CHLORIDE 0.9% (P) 100 ML IV ×2 (00:09→08:17)
[2024-12-10] MEDS: ALBUTEROL/IPRATROPIUM (Duoneb) RT SOL 3 ML NEBU INH ×3 (01:06→13:11)
[2024-12-10] MEDS: DEXTROSE 50%-WATER INJ 50 ML SYRINGE IV (05:41)
[2024-12-10 05:46] LABS: Basophils % (Auto) 0 % (0-2.5); Eosinophils # (Auto) 0.1 Thou/mm3 (0.0-0.5); Eosinophils % (Auto) 2 % (0-10); Hematocrit 25.7 % (36.0-46.0); Immature Granulocytes % (Auto) 1 % (0-0); Immature Granulocytes Auto 0.02 Thou/mm3 (0.00-0.00); Lymphocytes % (Auto) 25 % (10-50); Mean Corpuscular HGB Conc 32.3 g/dl (31.0-37.0); Mean Corpuscular Hemoglobin 31.7 pg (25.0-35.0); Mean Corpuscular Volume 98 fL (80-100); Monocytes # (Auto) 0.5 Thou/mm3 (0.0-0.8); Monocytes % (Auto) 14 % (0-12); Neutrophils # (Auto) 2.2 Thou/mm3 (1.8-7.7); Neutrophils % (Auto) 59 % (37-80); Nucleated Red Blood Cell % 0 /100 WBC (0); Platelet Count 160 Thou/mm3 (140-440); RDW Standard Deviation 62.5 fL (36.4-46.3); Red Blood Count 2.62 Miln/mm3 (4.00-5.20); White Blood Count 3.8 Thou/mm3 (3.6-11.0)
[2024-12-10 05:48] LABS: Hemoglobin 8.3 g/dL (12.0-16.0)
[2024-12-10] MEDS: LEVOTHYROXINE SODIUM 100 MCG TABLET PO (06:07)
[2024-12-10 06:08] LABS: Alanine Aminotransferase 17 U/L (10-49); Albumin, Serum 2.6 gm/dL (3.4-4.8); Albumin/Globulin Ratio 0.9 (1.2-2.2); Alkaline Phosphatase 119 U/L (46-116); Anion Gap 6 (7-16); Aspartate Amino Transferase 33 U/L (0-34); BUN/Creatinine Ratio 21 Ratio (12-20); Bilirubin,Total < 0.2 mg/dL (0.3-1.2); Blood Urea Nitrogen 17 mg/dL (9-23); Calcium 8.1 mg/dL (8.3-10.6); Calcium (Corrected) 9.2 mg/dL (8.5-10.1); Carbon Dioxide 27.8 mMol/L (20.0-31.0); Chloride 112 mMol/L (98-107); Creatinine (Component) 0.8 mg/dL (0.6-1.3); Estimated Creatinine Clearance 63.7 mL/min (>60); Glucose 63 mg/dL (74-106); Magnesium 2.1 mg/dL (1.6-2.6); Osmolality,Calculated 290 (275-295); Phosphorous 3.6 mg/dL (2.4-5.1); Potassium 4.3 mMol/L (3.4-5.1); Sodium 146 mMol/L (136-145); Total Protein 5.6 gm/dL (5.7-8.2); eGFR > 60 See Note
[2024-12-10 07:28] LABS: Ferritin 273 ng/mL (7.3-270.7); Iron 49 mcg/dL (50-170); Percent Iron Saturation 21 % (20-55); Total Iron Binding Capacity 223 mcg/dL (250-425); Unsaturated Iron Binding 174 (225-295)
[2024-12-10] MEDS: Milk Of Magnesia Susp 30 ML UDC PO (08:17)
[2024-12-10] MEDS: QUEtiapine FUMARATE 100 MG TABLET 400 MG PO (08:18)
[2024-12-10] MEDS: ENOXAPARIN SOD INJ 40 MG/0.4 ML SYRINGE SC (08:18)
[2024-12-10] MEDS: AZITHROMYCIN INJ 500 MG in SODIUM CHLORIDE 0.9% 250 ML 250 ML 250 MG IV (08:18)
[2024-12-10] MEDS: DIVALPROEX SOD 125 MG SPRINKLE 500 MG PO (09:31)
--- NOTE | 2024-12-10 12:33 | PC.SS ---
Addendum entered by Yuliana Linares 12/10/24 16:28: DEEPTI scheduled EMS ETA for 1800. DEEPTI notified bedside Michelle and [employer], Elise. Addendum entered by Yuliana Linares 12/10/24 16:03: Jag received a phone call from [facility] ClerkGeovanna who reported that patient can discharge to [facility]. DEEPTI requested that bedside RNEmily contact [facility] at [phone] to provide discharge information. DEEPTI contacted [facility] for insurance transportation (reference number: [id number]). Pending EMS ETA. Addendum entered by Yuliana Linares 12/10/24 12:39: At 12:19, DEEPTI received a phone call from [facility]-[employer] ClerkGeovanna. DEEPTI updated Geovanna with information. Geovanna reported that she would have to call Elise and return phone call to DEEPTI. Original Note: This is 74-year-old, female who presented to the ED for altered mental status. Patient is developmentally delayed. All assessment questions were made with [facility] [employer], Elise Carlos. Per Elise, patient resides at [facility]. Patient is wheelchair bound. She has a wheelchair and don lift at home. Patient is connected with [facility], and Dr. Garcia is the health consultant for medical decisions. Elise expressed concerns with discharge plan. She reported that she felt patient was too unstable. She reported that patient has been readmitted to the hospital three times in the last two weeks. At this time, she would like for DEEPTI to contact [facility] to explain Medicare Rights and appeal D/C. When patient is cleared, RN will need to call [facility] at [phone]. Patient needs non-emergency transportation. Discharge plan: [facility] via non-emergency transportation.
--- NOTE | 2024-12-10 12:55 | PC.NURSE ---
SS notified about the pt. dicharge that long term considering appeal on the discharge.
--- NOTE | 2024-12-10 13:18 | PD.RESDS ---
Planned Discharge Date 12/10/24 DS: Providers Provider Date of admission: 12/08/24 21:22 Primary care physician: Nathan Avila MD Admitting Provider: Kenny Painter MD Attending Provider on Admission: Emil Vasquez MD Consults: 12/08/24 21:30 Referral Speech Therapy Stat Comment: 12/09/24 01:10 [facility] Referral - Knowledge Deficit Routine Comment: Positive screening for knowledge deficit needs. 12/09/24 08:00 Referral Physical Therapy Routine Comment: Physician Instructions: Referral Registered Dietitian Routine Comment: Attending Provider on DC: Jorge Alberto Lemus MD Discharging Provider: Jorge Alberto Lemus MD DS: Diagnosis Problem List Completed Was Problem List Reviewed/Reconciled?: Yes Hospital Course Hospital Course Hospital course: 74-year-old female with past medical history of seizure disorder, developmental delay, hypothyroidism, hyperlipidemia, osteoporosis presented from [facility] on 12/08/2024 with acute change in mental status along with a temperature of 103. In the ED, patient was found to be hypothermic and exhibit tachypnea. Laboratory findings showed decreased leukocytosis and metabolic alkalosis along with transaminitis and low thyroid function. Patient also had elevated lactic acid but UA was negative for UTI, head CT negative for any acute pathology and chest x-ray showed extensive bilateral pneumonia. Patient exhibited signs of dysphagia, as such speech therapy was consulted and their recommendations were put in. Patient was treated with IV antibiotics for likely aspiration pneumonia and had improvement in the white cell count. Patient also had hypoglycemic events; however, upon starting a diet glucose levels normalized. Patient had an upper GI endoscopy with biopsy completed on prior admission, and confirmatory testing showed H. pylori. Patient will be discharged with the following strict instructions to SNF. Encourage high-carb diet and increase water intake to 64oz a day Complete 14-day treatment for H.pylori infection with Omeprazole, Bismuth, Tetracycline and Metronidazole as directed Please complete the Augmentin antibiotic regimen as prescribed Please follow-up with Wound care for friable skin on examination Please follow-up with your PCP within 1-2 weeks, ask about low TSH/T4 If your symptoms worsen or you develop new shortness of breath, chest pain, diarrhea or bleeding - please come to the ED immediately Hospital Diagnosis: #Aspiration pneumonia #Acute encephalopathy #Schizophrenia #Developmental delay #Seizure disorder #Dysphagia #Esophageal stenosis #Chronic constipation #Normocytic anemia #Hypothyroidism Jorge Alberto Lemus, PGY-1 Status at Discharge Overall status at discharge: patient is progressing back to baseline Time Spent with Patient Time attestation: Total time spent providing and/or coordinating discharge services: 45 minutes Exam Vital Signs Temp Pulse Resp BP Pulse Ox O2 Del Method O2 Flow Rate 97.4 F 77 18 133/74 H 98 Room Air 1 12/10/24 07:37 12/10/24 13:12 12/10/24 13:12 12/10/24 07:37 12/10/24 13:12 12/10/24 07:37 12/10/24 07:01 Narrative Exam Physical Exam: GENERAL: Verbal, but has clear developmental disorder, awake, appears stated age HEENT: NC/AT. Moist mucosa. PERRLA/EOMI. CARDIO: Heart RRR, no obvious murmurs, no JVD. PULM: No coughing or visible SOB. Lungs CTA B/L. GI: Abdomen soft, NT/ND, +BS. SKIN/MSK/EXT: Friable skin noted on R upper extremity. No discoloration/rashes/edema/amputations. +Pedal pulses present B/L. NEURO: Oriented x0. Unable to assess orientation, no focal neurologic deficits noted. Discharge Plan Plan Patient Disposition: Xfer Skilled Nsg Fac (SNF) Care Plan Goals: Encourage high-carb diet and increase water intake to 64oz a day Complete 14-day treatment for H.pylori infection with Omeprazole, Bismuth, Tetracycline and Metronidazole as directed Please complete the Augmentin antibiotic regimen as prescribed Please follow-up with Wound care for friable skin on examination Please follow-up with your PCP within 1-2 weeks, ask about low TSH/T4 If your symptoms worsen or you develop new shortness of breath, chest pain, diarrhea or bleeding - please come to the ED immediately Prescriptions/Referrals Prescriptions/Med Rec: New bismuth subsalicylate [Stomach Relief] 262 mg tablet,chewable 2 tab PO QID 14 Days Qty: 112 0RF tetracycline 500 mg capsule 500 mg PO QID 14 Days Qty: 56 0RF metronidazole 500 mg/5 mL suspension 500 mg PO TID 14 Days Qty: 210 0RF Continued amoxicillin-pot clavulanate 875-125 mg tablet 1 tab PO BID 5 Days Qty: 10 0RF pantoprazole [Protonix] 40 mg tablet,delayed release (DR/EC) 40 mg PO QDAY Qty: 30 0RF docusate sodium 250 mg capsule 250 mg PO QDAY PRN (Reason: constipation) Qty: 30 0RF ASCORBATE CALCIUM (VITAMIN C) 500 MG tablet 500 mg PO QDAY Qty: 30 0RF Acetaminophen * (TYLENOL *) 325 MG tablet 2 tab PO Q4HR PRN (Reason: PAIN) Qty: 30 0RF Albuterol Sulfate/Ipratropium NEB * (DUONEB *) 3 ML AMPUL.NEB 3 ml HHN Q4HR PRN (Reason: SHORTNESS OF BREATH OR WHEEZE) Qty: 9 0RF levothyroxine [Synthroid] 100 MCG tablet 100 mcg PO ACBR Qty: 30 0RF bisacodyl 10 mg Suppository 10 mg MO QDAY PRN (Reason: Constipation) Qty: 30 0RF Rx Instructions: if no BM in 3 days simvastatin 20 MG tablet 20 mg PO HS Qty: 30 0RF divalproex [Depakote ER] 500 MG tablet extended release 24 hr 500 mg PO BID Qty: 30 0RF pseudoephedrine HCl [Sudogest] 60 MG tablet 60 mg PO Q6HR PRN (Reason: CONGESTION) Qty: 30 0RF lactulose 10 GM/15 ML syrup 1 g PO QDAY PRN (Reason: CONSTIPATION) Qty: 3785 0RF Rx Instructions: May hold if loose stools quetiapine [Seroquel XR] 300 MG tablet extended release 24 hr 400 mg PO BID Qty: 30 0RF Calcium Carbonate/Cholecalciferol 600 * (CALTRATE PLUS D 600 *) 1 TAB tablet 1 tab PO BID Qty: 30 0RF Guaifenesin/D-Methorphan Hb Syrup (Robitussin Dm Syrup) 120 ML syrup 10 ml PO Q4HR PRN (Reason: COUGH) Qty: 120 0RF LORATADINE (CLARITIN) 10 MG capsule 10 mg PO QDAY Qty: 30 0RF Multivit-Min/Iron Fum/Folic AC (Yhxzb-Lhljjoy-Kaeujchn Tablet) 1 EACH tablet 1 tab PO QDAY Qty: 30 0RF Referrals: Duane Peoples MD [Physician] - (Upper extremity friable skin) Nathan Avila MD [Primary Care Provider] - Patient/Caregiver Discharge Instructions Education Materials: Dehydration Print Language: Setswana Stand Alone Forms: Aleja Award Info., Patient Portal Info Letter Discharge Order Discharge Orders: Discharge (Routine); Ordered 12/10/24 Ordered By: Jorge Alberto Lemus Quality Discharge Quality Measures VTE prophylaxis
--- NOTE | 2024-12-10 14:51 | PC.NURSE ---
follow up SS about pt. discharge per SS still waiting for the [facility] to call them back.
--- NOTE | 2024-12-10 16:13 | PC.NURSE ---
Report given to nurse Castorena at the [facility]. And update about that the ETA will be given shared with the Elise at the [facility] when confirmed by SS.
--- NOTE | 2024-12-10 16:19 | PC.NURSE ---
made aware of the pt. Nurses Kell requested to send the prescription to [facility] in [facility] and the fax no. [phone] has been given to the MD.
[2024-12-10] MEDS: PIPER/TAZO 3.375 GM 50 ML IV (16:47)
== END 2024-12-10 18:05 | disposition skilled nursing facility (03) | DRG 178 ==
LOC: SERX 20:39 → SERHOLD 22:02 → S3SX 12-09 06:32 → SERHOLD 12-09 06:32
PROVIDERS: Admitting Provider Student in an Organized Health Care Education/Training Program; Emergency Provider Emergency Medicine; PCP Family Medicine; Visit Provider Internal Medicine
DX: J69.0 Pneumonitis due to inhalation of food and vomit (principal); G93.40 Encephalopathy, unspecified; G40.909 Epilepsy, unspecified, not intractable, without status epilepticus; E78.5 Hyperlipidemia, unspecified; M81.0 Age-related osteoporosis without current pathological fracture; E03.9 Hypothyroidism, unspecified; F20.9 Schizophrenia, unspecified; R74.01 Elevation of levels of liver transaminase levels; R13.10 Dysphagia, unspecified; K22.2 Esophageal obstruction; K59.09 Other constipation; D64.9 Anemia, unspecified; T68.XXXA Hypothermia, initial encounter; G24.9 Dystonia, unspecified; F79 Unspecified intellectual disabilities; K27.9 Peptic ulcer, site unspecified, unspecified as acute or chronic, without hemorrhage or perforation; B96.81 Helicobacter pylori [H. pylori] as the cause of diseases classified elsewhere; R62.50 Unspecified lack of expected normal physiological development in childhood; Z79.899 Other long term (current) drug therapy; Z79.83 Long term (current) use of bisphosphonates; Z88.8 Allergy status to other drugs, medicaments and biological substances
CPT/HCPCS: 36415; 70450; 71045; 80053; 80164; 81001; 82728; 82803; 83540; 83550; 83605; 83615; 83690; 83735; 83880; 84100; 84145; 84439; 84443; 84484; 85025; 85610; 85730; 87040; 87081; 87086; 87811; 89220; 92610; 93225; 94640; 97161; A9270; J0456; J1650; J2543; J3490; J7030; J7042; J7050

== ENCOUNTER 2025-07-12 20:27 | Inpatient (IN) | payer MEDICARE, MEDICAID, SELFPAY ==
--- NOTE | 2025-07-12 20:30 | PC.NURSE ---
PT BROUGHT TO ER FROM HOME CARE ( [facility]), PT CAME BY AMBULANCE, EMS REPORTED THAT TOOL TROUBLE SHOOTER SAID THAT PT IS NOT ACTING RIGHT AND HER TEMP IS LOW. RUDY WHARF TENDER HEAD INFORMED ME THAT PT IS A OF [facility] AND PT IS A FULL CODE.
--- NOTE | 2025-07-12 20:34 | EDNOTE_ITS ---
Altered Mental Status RME/HPI General Chief Complaint: General Adult/Misc Complain Stated Complaint: AMS,HYPOTHERMIA Time Seen by Provider: 07/12/25 20:45 Arrival date/time: 07/12/25 20:27 RME / HPI RME / HPI narrative: See MDM for Dr. Miller's HPI documentation. Related Data Previous Rx's ?Medication ?Instructions ?Recorded ASCORBATE CALCIUM (VITAMIN C) 500 mg PO QDAY #30 mg Acetaminophen * (TYLENOL *) 2 tab PO Q4HR PRN PAIN #30 tabs 11/29/24 Albuterol Sulfate/Ipratropium NEB 3 ml HHN Q4HR PRN SH ORTNESS OF 11/29/24 * (DUONEB *) BREATH OR WHEEZE #9 mL Calcium Carbonate/Cholecalciferol 1 tab PO BID #30 tab s 11/29/24 600 * (CALTRATE PLUS D 600 *) Guaifenesin/D-Methorphan Hb Syrup 10 ml PO Q4HR PRN CO UGH #120 mL 11/29/24 (Robitussin Dm Syrup) LORATADINE (CLARITIN) 10 mg PO QDAY #30 mg 5 Multivit-Min/Iron Fum/Folic AC 1 tab PO QDAY #30 mg (Ogkxl-Zwziutn-Uhynwkqb Tablet) bisacodyl 10 mg rectal suppository 10 mg MI QDAY PRN C onstipation #30 11/29/24 ea divalproex 500 mg tablet,extended 500 mg PO BID #30 ta bs 11/29/24 release 24 hr (Depakote ER) docusate sodium 250 mg capsule 250 mg PO QDAY PRN cons tipation 11/29/24 #30 caps lactulose 10 gram/15 mL oral 1 g (1.5 mL) PO QDAY PRN 11/29/24 solution CONSTIPATION #3,785 mL levothyroxine 100 mcg tablet 100 mcg PO ACBR #30 tabs 11/29/24 (Synthroid) pantoprazole 40 mg tablet,delayed 40 mg PO QDAY #30 ta bs 11/29/24 release (Protonix) pseudoephedrine HCl 60 mg tablet 60 mg PO Q6HR PRN CON GESTION #30 11/29/24 (Sudogest) tabs quetiapine 300 mg tablet,extended 400 mg (1.3333 x 300 mg) PO BID 11/29/24 release 24 hr (Seroquel XR) #30 tabs simvastatin 20 mg tablet 20 mg PO HS #30 tabs 5 Allergies Allergy/AdvReac Type Severity Reaction Status Date / Time amitriptyline Allergy Intermediate unknown Verified 07/12/25 21:36 haloperidol Allergy Intermediate Itching Verified 07/12/25 21:36 Review of Systems Review of Systems ROS Unobtainable: unobtainable due to mental status ED Exam Narrative Physical exam: See [facility] for Dr. Miller's physical exam documentation. Course Course Course Narrative: CXR is ordered for determining the etiology of hypothermia. Quality Measures none Orders Category Date Time Status Bedside COVID-19 Antigen Test NOW Care 07/12/25 20:46 Active Bedside Influenza A&B Antigen Test NOW Care 07/12/25 20:46 Completed COVID-19 Screening Questionnaire NOW Care 07/13/25 00:[address] Screening NOW Care 07/12/25 20:49 Active Decision to Admit X1 Care 07/13/25 00:40 Completed EKG (ED ONLY) *Do not use* NOW Care 07/12/25 20:48 Completed Glucose [Bedside Blood Glucose] NOW Care 07/13/25 00:07 Active In and Out Catheter X1 Care 07/12/25 20:57 Completed Miscellaneous Nursing Order NOW Care 07/12/25 20:47 Active Saline [Insert IV] NOW Care 07/12/25 20:46 Active Straight [In and Out Catheter] X1 Care 07/12/25 20:[address] chest abdomen pelvis wo Stat Exams 07/12/25 22:[address] head/brain wo con Stat Exams 07/12/25 20:49 Completed EKG (ED Only) Stat Exams 07/12/25 20:48 Draft US abdomen limited Stat Exams 07/12/25 20:49 Completed US venous doppler LE BI Stat Exams 07/12/25 20:48 Completed XR chest 1V portable Stat Exams 07/12/25 20:48 Completed ABG [Arterial Blood Gas] Stat Lab 07/12/25 21:30 Completed Ammonia Stat Lab 07/12/25 20:55 Completed Amylase Stat Lab 07/12/25 20:55 Completed BNP [B-Type Natriuretic Peptide] Stat Lab 07/12/25 20:55 Completed Beta Hydroxybutyrate Stat Lab 07/12/25 20:55 Completed Bilirubin,Direct Stat Lab 07/12/25 20:55 Completed Blood Culture (Lab) Stat Lab 07/12/25 20:55 Received CBC Stat Lab 07/12/25 20:55 Completed CMP [Comprehensive Metabolic Panel] Stat Lab 07/12/25 20:55 Completed CRP [C-Reactive Protein] Stat Lab 07/12/25 20:55 Completed D-Dimer Stat Lab 07/12/25 20:55 Completed ESR [Sed Rate (ESR)] Stat Lab 07/12/25 20:55 Completed Lactate (Lactic Acid) Stat Lab 07/12/25 20:55 Completed Lipase Stat Lab 07/12/25 20:55 Completed Magnesium Stat Lab 07/12/25 20:55 Completed Potassium Stat Lab 07/12/25 22:33 Completed Procalcitonin Stat Lab 07/12/25 20:55 Completed TSH [Thyroid Stimulating Hormone] Stat Lab 07/12/25 20:55 Completed Troponin I Stat Lab 07/12/25 20:55 Completed UA, C/S IF [Urinalysis, C/S if Indicated] Stat Lab 07/12/25 20:56 Completed Urine Culture Stat Lab 07/12/25 20:56 Received Albuterol/Ipratr Rt Belkys [Duoneb Rt Belkys] Med 07/12/25 22:22 Discontinued 3 ml INH X1 ONE Azithromycin Inj [Zithromax Inj] 500 mg Med 07/12/25 21:30 Discontinued Sodium Chloride 0.9% 250 ml [Ns] 250 ml IV X1 Dextrose 50% Syr [D50w Syringe Abboject] Med 07/12/25 22:23 Discontinued 25 ml IVP X1 ONE Diazepam Inj [Valium Inj] Med 07/12/25 23:17 Discontinued 2.5 mg IVP X1 ONE MethylPREDNISolone.* [SoluMEDROL Inj] Med 07/12/25 22:22 Discontinued 125 mg IVP X1 ONE cefTRIAXone/D5w 1gm IV premix [Rocephin/D5w 1gm IV Med 07/12/25 20:48 Discontinued premix] 1 gm in 50 ml IV X1 Vital Signs Vital signs: Vital Signs Temperature 94.1 F L 07/12/25 20:35 Pulse Rate 74 07/12/25 20:35 Respiratory Rate 20 07/12/25 20:35 Blood Pressure 163/77 H 07/12/25 20:35 Pulse Oximetry (%) 87 L 07/12/25 20:35 Oxygen Delivery Method Room Air 07/12/25 20:35 Altered Mental Status MDM Narrative MDM Narrative:: This section includes all my notes and documentations, including HPI, PE, and ED course. Jacob Miller MD HPI: 75yo female BIBA here for altered mental status. Patient was acting differently during dinner and was acting more sluggish than normal. Rectal temperature was 94.4 ?F. Can't obtain any history from the patient due to profound development delay and AMS. ROS: Can't obtain from the patient due to current clinical condition. Physical Exam: General: Lethargic. Oriented X 1. In respiratory distress. Hypothermia noted. Hypoxia noted. Eyes: Conjunctivae and lids clear. PERRL. EOMI. ENT: No nasal congestion. Pharynx normal. TM normal bilaterally. Neck: Supple. No carotid bruit. No JVD. Heart: RRR. Lungs: In respiratory distress. Decreased air movement with wheezing and rales. Abdomen: Soft and nontender. Skin: Warm and dry. Neuro: Cranial nerves II through XII grossly normal. No peripheral motor deficits. I reviewed EMS notes. I reviewed all diagnostic test results. My interpretation of the EKG is sinus rhythm with nonspecific ST-T changes. My interpretation of the chest x-ray is infiltrates. My review of the bilateral lower extremity US report is no DVT. My review of the abdominal US report is cholelithiasis. My review of the CT head report is NAD. My review of the CT chest abdomen pelvis report is pneumonia and CHF and cholelithiasis and constipation. Blood tests remarkable for ESR 41, K 5.6, Ammonia 102, BNP 386. ABG showed pH 7.37, pCO2 54, pHCO3 31. UA remarkable for positive leukocyte esterase, 28 RBCs, and 133 WBCs. COVID/Influenza negative. At this point, diagnoses include: Acute respiratory failure with hypoxia Sepsis Pneumonia UTI (urinary tract infection) CHF (congestive heart failure) Hypothermia AMS (altered mental status) Cholelithiasis Constipation Hyperkalemia Increased ammonia level Treatment here included: Duoneb Solumedrol 100 to 5 mg IV D50 25 mL for mild hypoglycemia. Valium 2.5 mg IV for agitation during CT scan Rocephin 1 g IV Azithromycin 500 IVF Anabell taylor I discussed the case with our hospitalist. About the presentation and exam and diagnostics and treatments here. And need of further care in the hospital. Will accept the patient. Jacob Miller MD Patient data External records reviewed:: [facility] previous records (Per chart review, patient was admitted here on 12/08/24 for acute hypotension and hypothermia.) and EMS form Clinical information provided by:: EMS Social determinants that could affect healthcare access:: housing ([facility]) Patient has the following chronic illnesses:: seizure disorder, developmental delay, hypothyroidism, HLD, osteoporosis How is presenting disease/condition affected by chronic disease/condition?: exacerbated by Evaluation data The following diagnostics were reviewed and interpreted by me:: lab results, radiology exam(s) and EKG tracing(s) (My interpretation of the EKG is: Sinus rhythm (74 bpm) with nonspecific ST-T changes. Jacob Miller MD) Lab and/or radiology exams considered but not ordered:: none Interpretation Summary: I reviewed all diagnostic test results. My interpretation of the EKG is sinus rhythm with nonspecific ST-T changes. My interpretation of the chest x-ray is infiltrates. My review of the bilateral lower extremity US report is no DVT. My review of the abdominal US report is cholelithiasis. My review of the CT head report is NAD. My review of the CT chest abdomen pelvis report is pneumonia and CHF and cholelithiasis and constipation. Blood tests remarkable for ESR 41, K 5.6, Ammonia 102, BNP 386. ABG showed pH 7.37, pCO2 54, pHCO3 31. UA remarkable for positive leukocyte esterase, 28 RBCs, and 133 WBCs. COVID/Influenza negative. Medications / Prescriptions Medications or Prescriptions considered but not ordered:: none Medication administrations:: Medication Administration History Acetaminophen (Acetaminophen 325 Mg Tablet) 650 mg PO Q6H PRN PRN Reason: PAIN SCALE 1-3 (mild Stop: 08/12/25 00:51 Acetaminophen (Acetaminophen 325 Mg Tablet) 650 mg PO Q6H PRN PRN Reason: Fever >100.4 Stop: 08/12/25 00:51 Albuterol/Ipratropium (Albuterol/Ipratropium (Duoneb) Rt Belkys 3 Ml Nebu) 3 ml INH Q6HRRT PRN PRN Reason: Wheezing Stop: 08/12/25 01:56 Atorvastatin Calcium (Atorvastatin Calcium 10 Mg Tablet) 10 mg PO 2100 PRATIBHA Stop: 08/12/25 20:59 Dextrose (Dextrose 50%-Water Inj 50 Ml Syringe) 25 ml IV Q15MIN PRN PRN Reason: BG 50-70 responsive npo pt Stop: 08/12/25 01:50 Dextrose (Dextrose 50%-Water Inj 50 Ml Syringe) 50 ml IV Q15MIN PRN PRN Reason: BG <50 OR BG <70 & pt unresponsive Stop: 08/12/25 01:50 Glucagon (Glucagon Inj 1 Mg Vial) 1 mg IM Q15MIN PRN PRN Reason: BG <70, and no IV access Piperacillin Sod/Tazobactam (Sod 4.5 gm/ Sodium Chloride) 100 mls @ 200 mls/hr IV Q8HR PRATIBHA; Protocol Stop: 07/20/25 05:59 Vancomycin HCl 500 mg/ Sodium (Chloride) 100 mls @ 100 mls/hr IV X1 ONE Stop: 07/13/25 01:57 Lactulose (Lactulose Syrup 20 Gm/30 Ml Udc) 30 gm MI TID PRATIBHA; Protocol Stop: 08/12/25 05:59 Levothyroxine Sodium (Levothyroxine Sodium 100 Mcg Tablet) 100 mcg PO ACBR PRATIBHA Stop: 08/12/25 05:59 Non-Formulary Medication (Divalproex [Depakote Er]) 500 mg PO BID PRATIBHA Stop: 08/12/25 08:59 Non-Formulary Medication (Quetiapine [Seroquel Xr]) 400 mg PO BID [facility] Stop: 08/12/25 08:59 Ondansetron HCl (Ondansetron Inj 2 Mg/Ml Inj 2 Ml) 4 mg IVP Q6H PRN; Protocol PRN Reason: NAUSEA OR VOMITING Stop: 08/12/25 00:51 Pantoprazole Sodium (Pantoprazole Inj 40 Mg Vial) 40 mg IVP QDAY [facility] Stop: 08/12/25 08:59 Pharmacy Consult (Vancomycin Pharmacy To Dose 1 Each Each) 1 each IV QDAY PRATIBHA Stop: 08/12/25 08:59 Rifaximin (Rifaximin 550 Mg Tablet) 550 mg PO BID [facility] Stop: 07/20/25 08:59 Discontinued Medications Albuterol/Ipratropium (Albuterol/Ipratropium (Duoneb) Rt Belkys 3 Ml Nebu) 3 ml INH X1 ONE Stop: 07/12/25 22:23 Last Admin: 07/12/25 22:35 Dose: 3 ml Documented By: SUZE Dextrose (Dextrose 50%-Water Inj 50 Ml Syringe) 25 ml IVP X1 ONE Stop: 07/12/25 22:24 Last Admin: 07/12/25 22:44 Dose: 25 ml Documented By: CVL Diazepam (Diazepam Inj 5 Mg/Ml Vial 2 Ml) 2.5 mg IVP X1 ONE Stop: 07/12/25 23:18 Last Admin: 07/13/25 01:15 Dose: Not Given Documented By: CVL Non-Admin Reason: Change of Condition Furosemide (Furosemide Inj 10 Mg/Ml 4ml Vial) 40 mg IVP X1 ONE Stop: 07/13/25 01:47 Ceftriaxone Sodium/Dextrose (Rocephin/D5w 1gm Iv Premix) 1 gm in 50 mls @ 100 mls/hr IV X1 ONE Stop: 07/12/25 21:17 Last Infusion: 07/12/25 21:57 Dose: Infused Documented By: Admin: 07/12/25 21:31 Dose: 100 mls/hr Documented By: CVL Azithromycin 500 mg/ Sodium (Chloride) 250 mls @ 250 mls/hr IV X1 ONE Stop: 07/12/25 22:29 Last Infusion: 07/12/25 23:41 Dose: Infused Documented By: Admin: 07/12/25 22:18 Dose: 250 mls/hr Documented By: CVL Dextrose/Sodium Chloride (D5-Ns) 500 mls @ 60 mls/hr IV .Q8H20M PRATIBHA Stop: 08/12/25 01:14 Last Infusion: 07/13/25 02:03 Dose: 0 mls/hr Documented By: Admin: 07/13/25 01:30 Dose: 60 mls/hr Documented By: CVL Methylprednisolone Sodium Succinate (Methylprednisolone Sod Succ 62.5 Mg/Ml 2ml Vial) 125 mg IVP X1 ONE Stop: 07/12/25 22:23 Last Admin: 07/12/25 22:42 Dose: 125 mg Documented By: CVL Sodium Polystyrene Sulfonate (Sod Polystyrene Sulfon Susp 15 Gm/60 Ml Btl) 30 gm PO X1 ONE Stop: 07/13/25 00:58 Last Admin: 07/13/25 01:55 Dose: 30 gm Documented By: CVL Treatment here from me included: Duoneb Solumedrol 100 to 5 mg IV D50 25 mL for mild hypoglycemia. Valium 2.5 mg IV for agitation during CT scan Rocephin 1 g IV Azithromycin 500 IVF Anabell cornejoer Consultations Consultation(s) initiated? (list below): Yes Consultation #1 (Physician, Specialty, Details): I discussed the case with our hospitalist. About the presentation and exam and diagnostics and treatments here. And need of further care in the hospital. Will accept the patient. Diagnosis Differential diagnosis altered mental status: alcoholic intoxication, altered mental status, delirium, dementia, hypoglycemia, hyponatremia, subarachnoid hemorrhage and sepsis Most likely diagnosis given after review of the tests above:: Acute respiratory failure with hypoxia Sepsis Pneumonia UTI (urinary tract infection) CHF (congestive heart failure) Hypothermia AMS (altered mental status) Cholelithiasis Constipation Hyperkalemia Increased ammonia level Admission Indicated Admission indicated?: indicated Explain why admission is indicated or not indicated:: At this point, diagnoses include: Acute respiratory failure with hypoxia Sepsis Pneumonia UTI (urinary tract infection) CHF (congestive heart failure) Hypothermia AMS (altered mental status) Cholelithiasis Constipation Hyperkalemia Increased ammonia level Admission Request Was there a request for admission?: Yes Admission Attestation Admission request attestation: Discussed case with Hospitalist service regarding admission. Discussed patients ED course, exam findings, labs, and radiology results. Agreed to accept the patient for admission. Disposition Plan Disposition Plan: Admit Critical Care Time Critical Care Time Critical Care Time: Yes Total Critical Care Time (min.): 35 Attestation: Due to a high probability of clinically significant, life threatening deterioration, the patient required my highest level of preparedness to intervene emergently and I personally spent this critical care time directly and personally managing the patient. This critical care time included obtaining a history; examining the patient; ordering and review of studies; arranging urgent treatment with development of a management plan; evaluation of patient's response to treatment; frequent reassessment; and discussions with family and other providers. It was exclusive of separately billable procedures and treating other patients and teaching time. Jacob Miller MD Discharge Plan Plan Patient Disposition: Admit Acute Care w/in Hospital Problem List Clinical Impression: Acute respiratory failure with hypoxia, Sepsis, Pneumonia, UTI (urinary tract infection), CHF (congestive heart failure), Hypothermia, AMS (altered mental status), Cholelithiasis, Constipation, Hyperkalemia, Increased ammonia level
[2025-07-12 20:35] VITALS: BP 163/77; PULSE 74; RESP 20; TEMP 34.5; O2SAT 87
--- NOTE | 2025-07-12 20:48 | EKG_ITS ---
[facility] Test Date: 2025-07-12 Pat Name: AGGIE LEUNG Department: Room: - Gender: Female [employer] Associate: : 1950 Requested By: Jacob Gonsalez Order Number: [id number] Reading MD: Jacob Gonsalez Measurements Intervals [place] Rate: 74 P: 58 FL: 154 QRS: 36 QRSD: 105 T: 73 QT: 383 QTc: 426 Interpretive Statements SINUS RHYTHM POSSIBLE LEFT ATRIAL ENLARGEMENT [-0.1mV P-WAVE IN V1/V2] NONSPECIFIC T-WAVE ABNORMALITY Compared to ECG 12/08/2024 19:02:17 T-wave abnormality now present /store/S0/[id number]
--- NOTE | 2025-07-12 20:48 | XR_ITS ---
Examination: Venous duplex lower extremity sonogram, bilateral. Date and time of exam: July 12, 2025 2138 hours Indications: D dizziness today Technique: Multiple sonographic images of the deep venous system have been obtained. B-mode/2-D grayscale imaging of vascular structures and Doppler spectral analysis (waveforms) and color performed Both legs are examined. Findings: Deep venous systems do not demonstrate abnormal echogenicity. All visualized deep veins exhibit compressibility. All visualized deep veins exhibit augmentation. Impression: Negative for deep vein thrombosis
--- NOTE | 2025-07-12 20:48 | XR_ITS ---
Examination: AP chest single view Technique one AP upright portable chest single view Date and time: July Comminuted 2053 hrs., Comparison December 08, 2024 Indications: Shortness of breath today. Findings: Mild enlargement cardiac contour Bibasilar opacity consistent with pneumonia Probable layering left pleural fluid No pulmonary edema Impression: Significant bibasilar pneumonia
--- NOTE | 2025-07-12 20:49 | XR_ITS ---
Examination: Abdomen sonogram, Limited Date and time of exam: July2024 2130 hrs., Indications: Onset abdominal pain today Technique: Real-time gomez scale transabdominal sonographic images of the upper abdomen obtained. Findings: Cholelithiasis, gallbladder wall 0.3 cm no edema Common bile duct 0.4 cm Pancreatic head 2.2 cm Liver 17.5 cm fatty infiltration Normal hepatopedal portal venous oh Patent IVC Impression: Cholelithiasis, negative for cholecystitis Hepatomegaly with fatty infiltration
--- NOTE | 2025-07-12 20:49 | XR_ITS ---
Examination: CT brain head without contrast. 2-D sagittal coronal reconstructions Date and time of exam:July 12, 2025 11:07 PM Comparison December 08, 2024 Indications: Altered mental status today CTDI: vol (mGy):55.1 DLP: (mGycm):1166 Technique: Multiple CT axial sections of the brain have been obtained, 5 mm slice thickness. Contrast has not been administered. 2-D sagittal, coronal reconstructions have been obtained Low dose protocols were performed. One or more of the following dose reduction techniques were used; automated exposure control, adjustment of the mA and/or KV according to patient size, use of iterative reconstruction technique. Findings: No significant ventricular enlargement. Frontal atrophy Intra-axial or extra-axial hemorrhage density is not seen. No mass effect or midline shift Basal cisterns are not remarkable. Fourth ventricle is midline. Cranial vault intact. Impression: Negative for acute hemorrhage, mass effect or midline shift Advise clinical correlation and follow-up accordingly
[2025-07-12 21:18] LABS: Collection Type, Urine Clean Catch; Squamous Epithelial Cell,Urine 0 /hpf (0-5)
[2025-07-12 21:18] LABS: Lactate (Lactic Acid) 1.3 mMol/L (0.4-2.0)
[2025-07-12 21:25] LABS: Beta Hydroxybutyrate 0.0 mmol/L (<0.6)
[2025-07-12 21:26] VITALS: BP 176/86; PULSE 71; RESP 14; O2SAT 97
[2025-07-12 21:29] LABS: Sed Rate (ESR) 41 mm/hr (0-30)
[2025-07-12 21:31] LABS: Basophils # (Auto) 0.0 Thou/mm3 (0.0-0.2); Basophils % (Auto) 0 % (0-2.5); Eosinophils # (Auto) 0.0 Thou/mm3 (0.0-0.5); Eosinophils % (Auto) 1 % (0-10); Hematocrit 31.3 % (36.0-46.0); Hemoglobin 10.2 g/dL (12.0-16.0); Immature Granulocytes Auto 0.01 Thou/mm3 (0.00-0.00); Lymphocytes # (Auto) 1.0 Thou/mm3 (1.0-4.8); Lymphocytes % (Auto) 21 % (10-50); Mean Corpuscular HGB Conc 32.6 g/dl (31.0-37.0); Mean Corpuscular Hemoglobin 31.6 pg (25.0-35.0); Mean Corpuscular Volume 97 fL (80-100); Monocytes # (Auto) 0.5 Thou/mm3 (0.0-0.8); Monocytes % (Auto) 11 % (0-12); Neutrophils # (Auto) 3.2 Thou/mm3 (1.8-7.7); Neutrophils % (Auto) 68 % (37-80); Nucleated Red Blood Cell # 0.00 Thou/mm3 (0.00-0.00); Nucleated Red Blood Cell % 0 /100 WBC (0); Platelet Count 89 Thou/mm3 (140-440); RDW Standard Deviation 56.1 fL (36.4-46.3); Red Blood Count 3.23 Miln/mm3 (4.00-5.20); White Blood Count 4.7 Thou/mm3 (3.6-11.0)
[2025-07-12] MEDS: cefTRIAXone/D5w 1gm IV premix 1 GM/50 ML BAG IV (21:31)
[2025-07-12 21:35] LABS: Bilirubin,Urine Negative (Negative); Blood,Urine 2+ (Negative); Clarity,Urine Turbid (Clear/Hazy); Color,Urine Lt-Yellow (Lt Yel-Yel); Glucose, Urine Negative (Negative); Hyaline Casts,Urine < 1 /hpf (0-1); Ketones,Urine Negative (Negative); Leukocyte Esterase,Urine Positive (Negative); Nitrite,Urine Negative (Negative); PH,Urine 6.0 (5.0-7.0); Protein,Urine Trace (Neg - Trace); RBC,Urine 28 /hpf (0-3); Specific Gravity,Urine 1.012 (1.001-1.035); Urobilinogen,Urine Negative mg/dL (0.0-1.0); WBC,Urine 133 /hpf (0-5)
[2025-07-12 21:36] LABS: Culture Indicated,Urine Yes
[2025-07-12 21:39] LABS: B-Type Natriuretic Peptide 386 pg/mL (0-100)
[2025-07-12 21:40] LABS: Ammonia 102 uMol/L (11-32)
[2025-07-12 21:43] LABS: Allen Test Performed/OK; Base Excess 5 (-3-3); HCO3 31 mEq/L (20-26); Inspired O2, VO2 Liters 3 L/min; Inspired Oxygen, FIO2 21 %; O2 Saturation 97 % (91-98); PCO2 54 mmHg (32.0-48.0); PO2 138 mmHg (83-108); Puncture Site Right Radial; pH, Arterial 7.37 (7.35-7.45)
[2025-07-12 21:53] LABS: D-Dimer < 250 ng/mL (<600)
[2025-07-12 22:00] LABS: Alanine Aminotransferase 13 U/L (10-49); Albumin, Serum 3.8 gm/dL (3.4-4.8); Albumin/Globulin Ratio 1.2 (1.2-2.2); Alkaline Phosphatase 112 U/L (46-116); Amylase 168 U/L (30-118); Anion Gap 6 (7-16); Aspartate Amino Transferase 32 U/L (0-34); BUN/Creatinine Ratio 26 Ratio (12-20); Bilirubin,Direct < 0.1 mg/dL (0.0-0.3); Bilirubin,Total 0.2 mg/dL (0.3-1.2); Blood Urea Nitrogen 21 mg/dL (9-23); C-Reactive Protein 1.8 mg/dL (0.0-0.9); Calcium 9.7 mg/dL (8.3-10.6); Calcium (Corrected) 9.9 mg/dL (8.5-10.1); Carbon Dioxide 30.2 mMol/L (20.0-31.0); Chloride 94 mMol/L (98-107); Creatinine (Component) 0.8 mg/dL (0.6-1.3); Globulin 3.2 gm/dL (2.3-3.5); Glucose 72 mg/dL (74-106); Magnesium 2.4 mg/dL (1.6-2.6); Osmolality,Calculated 262 (275-295); Potassium 5.6 mMol/L (3.4-5.1); Procalcitonin < 0.04 ng/ml (0.0-0.49); Sodium 130 mMol/L (136-145); Thyroid Stimulating Hormone 5.81 uIU/mL (0.55-4.78); Total Protein 7.0 gm/dL (5.7-8.2); Troponin I < 0.020 ng/mL (0.0-0.045); eGFR > 60 See Note
[2025-07-12] MEDS: AZITHROMYCIN INJ 500 MG in SODIUM CHLORIDE 0.9% 250 ML 250 ML 250 MG IV (22:18)
--- NOTE | 2025-07-12 22:26 | XR_ITS ---
Examination: CT chest, without intravenous contrast. CT abdomen, without intravenous contrast. CT pelvis, without intravenous contrast. 2-D sagittal and coronal reconstructions. 3-D reconstructions. Date and time of exam:July 12 40,025, 11:09 PM Indications: Chest pain shortness of breath abdominal pain today CTDI vol (mgy) 14.6 DLP (MGycm)1143 Technique: Multiple CT images, 3.0 mm slice thickness, obtained chest, abdomen, pelvis, with the high-resolution 64 slice scanner.. Sagittal and coronal 2-D reconstructions are obtained. 3-D reconstructions Low dose protocols were performed. One or more of the following dose reduction techniques were used; automated exposure control, adjustment of the mA and/or KV according to patient size, use of iterative reconstruction technique. Findings: No thoracic aortic aneurysm dilatation Pulmonary artery segments are not enlarged. Moderate vascular congestion. No pneumonia left base versus pulmonary mass, 4.6 cm in the left lower lobe 5 mm pulmonary nodule right lower lobe No visualized liver or splenic lesion No pancreatic mass Gallstones Gallbladder wall appears thickened No pancreatic mass No hydronephrosis renal or ureteral calculi Aorta normal size No pericecal inflammatory change Abundant stool throughout the colon Bladder wall shows irregular thickening up to 5 mm Moderate osteopenia Hips bones of the pelvis intact Atrophic uterus Impression: Dense pneumonic consolidation versus pulmonary mass 4.6 cm in the left lower lobe, follow-up chest imaging post antibiotic therapy recommended Moderate vascular congestion Cholelithiasis, recommend hepatobiliary sonography to assess the gallbladder wall Large amounts of stool throughout the entire colon No bowel obstruction Bladder wall shows irregular thickening up to 5 mm, differential would include cystitis
[2025-07-12 22:29] VITALS: TEMP 34.7
[2025-07-12] MEDS: ALBUTEROL/IPRATROPIUM (Duoneb) RT SOL 3 ML NEBU INH (22:35)
[2025-07-12 22:36] VITALS: PULSE 71; RESP 18; O2SAT 100
[2025-07-12] MEDS: MethylPREDNISolone SOD SUCC 62.5 MG/ML 2ML VIAL 125 MG IVP (22:42)
[2025-07-12] MEDS: DEXTROSE 50%-WATER INJ 50 ML SYRINGE 25 ML IVP (22:44)
[2025-07-12 22:54] LABS: Potassium 5.6 mMol/L (3.4-5.1)
[2025-07-13] VITALS (16 sets, daily range): BP systolic 120–167; BP diastolic 57–104; PULSE 70–96; RESP 12–88; TEMP 34.3–37.1; O2SAT 6–99; BMI 28.1; BMI 27.1
[2025-07-13 00:32] LABS: Lipase 109 U/L (12-53)
--- NOTE | 2025-07-13 00:57 | ECHO_ITS ---
Transthoracic Echo Report Ht (in): 70 Wt (lb): 200 Exam Location: Echo Lab Status: Emergency Habilitation Specialist: Genet Cristina Indications: Procedure Performed: BP: 149 / 85 HR: 74 MEASUREMENTS (Male / Female) Normal Values 2D ECHO LV Diastolic Diameter PLAX 3.9 cm 4.2 - 5.9 / 3.9 - 5.3 cm LV Systolic Diameter PLAX 2.5 cm IVS Diastolic Thickness 1.0 cm 0.6 - 1.0 / 0.6 - 0.9 cm LVPW Diastolic Thickness 1.0 cm 0.6 - 1.0 / 0.6 - 0.9 cm LV Relative Wall Thickness 0.5 LVOT Diameter 1.9 cm LV Ejection Fraction MOD BP 56.6 % >= 55 % LV Cardiac Index MOD BP 2175.2 cm?/min?m? LV Ejection Fraction MOD 4C 47.1 % LV Cardiac Index MOD 4C 1617.5 cm?/min?m? LV Ejection Fraction 4C AL 47.4 % LV Cardiac Index 4C AL 1654.2 cm?/min?m? LV Ejection Fraction MOD 2C 61.2 % LV Cardiac Index MOD 2C 2417.7 cm?/min?m? LV Ejection Fraction 2C AL 62.3 % LV Cardiac Index 2C AL 2487.1 cm?/min?m? Ascending Aorta Diameter 2.7 cm M-MODE AV Cusp Separation MM 1.5 cm DOPPLER AV Peak Velocity 126.0 cm/s AV Peak Gradient 6.4 mmHg AV Mean Gradient 3.0 mmHg AV Velocity Time Integral 28.5 cm LVOT Peak Velocity 81.3 cm/s LVOT Peak Gradient 2.6 mmHg LVOT Velocity Time Integral 19.0 cm LVOT Cardiac Index 1865.9 cm?/min?m? AV Area Cont Eq vti 1.9 cm? AV Area Cont Eq pk 1.8 cm? MV Area PHT 5.4 cm? Mitral E Point Velocity 38.0 cm/s Mitral A Point Velocity 90.9 cm/s Mitral E to A Ratio 0.4 LV E' Lateral Velocity 4.5 cm/s Mitral E to LV E' Lateral Ratio 8.5 TR Peak Velocity 183.0 cm/s TR Peak Gradient 13.4 mmHg PV Peak Velocity 100.0 cm/s PV Peak Gradient 4.0 mmHg FINDINGS Left Ventricle Normal left ventricular size, wall thickness, systolic function with no obvious regional wall motion abnormalities. There is grade I diastolic dysfunction of the left ventricle (impaired relaxation pattern). The ejection fraction is visually estimated at 50-55 %. Right Ventricle The right ventricle is normal in size and systolic function. Left Atrium The left atrial cavity size is moderately increased. Right Atrium The right atrium is normal by two-dimensional imaging, color flow and Doppler imaging with no structural abnormalities, no thrombus formation present. Atrial Septum The interatrial septum appears normal with no evidence of a shunt. Aorta The aorta is normal by two-dimensional, color flow and Doppler interrogation. Mitral Valve Mild thickening of the mitral valve leaflets. Mild mitral regurgitation. Aortic Valve Aortic valve sclerosis without stenosis Tricuspid Valve The tricuspid valve is normal by two-dimensional, color flow and Doppler interrogation. There is trace tricuspid valve regurgitation. Pulmonic Valve The pulmonic valve is not well visualized. There is no significant pulmonic valve regurgitation. Vessels The pulmonary artery appears normal. The inferior vena cava pulmonary and hepatic veins appear normal. Pericardium The pericardium is normal by two-dimensional imaging. There is no significant pericardial effusion. CONCLUSIONS Indication: LE edema, JVD Normal left ventricular size and function. Approximate ejection fraction is 50- 55%. Grade I diastolic dysfunction. Normal rightventricular size and function. Aortic valve sclerosis without stenosis Mild thickening of the mitral valve leaflets. Mild mitral and trace tricuspid regurgitation Steffany Cyr (Electronically Signed) Final Date: 14 July 2025 16:30
--- NOTE | 2025-07-13 01:15 | ESHP_ITS ---
<Statement entered by Aquiles Black MD - 07/13/25 05:26> I have discussed and was present for the essential components of the history, physical examination, diagnosis, and treatment plan with the resident. I agree with the patient's care as documented by the resident and amended herein by me. Aquiles Black MD FACP. Documentation for date of: 07/13/25 HPI History of Present Illness History of present illness: This is a 74-year-old female PMHx of seizure disorder, developmental delay, schizophrenia, hypothyroidism, HLD, osteoporosis coming from [facility] with low temperature of 94 and shortness of breath. He is encephalopathic at baseline, history is limited. Contacted guardian, Elise, who advised to reach out to [facility] for history and for any consents needed during this stay. Attempted to contact [facility] at [phone], left voicemail, have not heard back. Per guardian, she was seen by her PCP several days ago for concern for rectal bleed. Evidently she had a rectal exam showed normal abnormality. GI bleed reportedly resolved. Per EMS she was found to have a temperature of 94 degrees during nursing rounds. She was also found to have short of breath, desatted to low 80s on room air. Unable to obtain further history at this time. Remainder history obtained from chart review. She presented in December of this year with similar symptoms. At that time she was found to have aspiration pneumonia and was discharged on oral ANTIBIOTICS. She then had an upper GI endoscopy with biopsy confirming H. pylori for which she was sent on oral ANTIBIOTICS for that. Past Medical History: * As above. Past Surgical History: * Unable to obtain. Medications: * ALBUTEROL/IPRATROPIUM, LORATADINE 10 mg q. day, DEPAKOTE 500 mg BID, VALBENAZINE 80 mg HS PRATIBHA, QUETIAPINE 400 mg BID, LEVOTHYROXINE 100 mcg AC BR, ALENDRONATE 35 mg q. 7 days, SIMVASTATIN 20 mg HS, ROBITUSSIN 10 mm PRN for cough, Daily Bowel Reg (LACTULOSE 10 mg QID PRATIBHA, DOCUSATE 250 mg suppository q. day, milk of magnesium 30 mg q. day) Allergies: * AMITRIPTYLINE unknown allergy, HALOPERIDOL causes itching. Family History: * Unable to obtain. Social History: * Unable to obtain. ED Course: * Rectal temp 94.1, HR 74, BP 163/77, satting 87% on room air which improved on 3 L NC. * CBC showed WBC 4.7, Hgb 10.2 around baseline, PLT 89 (baseline 150s). * Coag studies are pending. D-dimer is negative. * ABG showed chronic compensated respiratory acidosis with pH 7.37, pCO2 54, bicarb 31. * CHEM panel significant for sodium 130, potassium 5.6, chloride 94, GLUCOSE 72, ammonia 102, CRP 1.8, BNP 386, amylase 168, lipase 109, TSH 5.81. * Normal anion gap, renal function, lactic acid, LFTs, BHB, Troponin and procalcitonin. * UA was turbid with 133 WBC, 28 RBC, and 2+ blood. * Pending UTOX and VALPROIC ACID level. * CXR showed significant bibasilar pneumonia. * Venous Doppler was negative for LE DVT bilaterally. * Abdominal ultrasound showed cholelithiasis but no cholecystitis, hepatomegaly with fatty infiltrates. * Head CT was negative for acute pathology. * KG shows sinus rhythm, without acute ST changes. * CT abdomen showed dense pneumonic consolidation versus mass of 4.6 cm in the left lower lobe, moderate vascular congestion, cholelithiasis, large amount of stool in the rectum, no SBO, possible cystitis. Reason for admission: Acute hypoxemic respiratory failure likely secondary to pneumonia versus CHF exacerbation, concern for hepatic encephalopathy given elevated ammonia, UTI needing IV ANTIBIOTICS, isolated emulation lipase elevation, and rule out GI bleed. Review of Systems Review of Systems ROS Unobtainable: unobtainable due to mental status Exam Vital Signs Temp Pulse Resp BP Pulse Ox O2 Del Method O2 Flow Rate 93.8 F L 77 18 120/57 L 99 Oxy Mask 6 07/13/25 00:33 07/13/25 00:33 07/13/25 00:33 07/13/25 00:33 07/13/25 00:33 07/13/25 00:07/13/25 00:33 Narrative Exam GENERAL * Ill-appearing female, HEENT * NCAT.?GALDINO. Oral mucosa is moist. Patent Nares NECK * Supple, nontender, elevated JVD. CHEST * RRR, no m/g/r * Coarse breath sounds bilaterally, no wheezing, symmetrical expansion. ABDOMEN * Soft, flat, nontender. No guarding/rebound tenderness/masses. * Bowel sounds presents EXTREMITIES * 3+ bilateral LE edema. SKIN * Warm and dry, no jaundice/rashes. NEUROMUSCULAR * No lumbar or midline, no CVA, no paraspinal muscle spasm or tenderness. * Moves all 4 extremities well, with full ROM and good CSM. * ROCHA x4, CN II-XII grossly intact. * No focal neurologic deficits. PSYCHIATRY * Normal mood and affect, cooperative, no SI or HI or hallucinations. Results: Labs 07/12/25 20:55 07/12/25 22:33 Labs: Short CBC 07/12/25 Range/Units 20:55 WBC 4.7 (3.6-11.0) Thou/mm3 Hgb 10.2 L (12.0-16.0) g/dL Hct 31.3 L (36.0-46.0) % Plt Count 89 L (140-440) Thou/mm3 BMP 07/12/25 07/12/25 20:55 22:33 Sodium 130 L Potassium 5.6 H 5.6 H Chloride 94 L Carbon Dioxide 30.2 BUN 21 Creatinine 0.8 Glucose 72 L Calcium 9.7 Cardiac Enzymes 07/12/25 Range/Units 20:55 Troponin I < 0.020 (0.0-0.045) ng/mL Liver Function 07/12/25 Range/Units 20:55 Total Bilirubin 0.2 L (0.3-1.2) mg/dL Direct Bilirubin < 0.1 (0.0-0.3) mg/dL AST 32 (0-34) U/L ALT 13 (10-49) U/L Alkaline Phosphatase 112 (46-116) U/L Albumin 3.8 (3.4-4.8) gm/dL Urine 07/12/25 Range/Units 20:56 Urine Color Lt-Yellow (Lt Yel-Yel) Urine Clarity Turbid A (Clear/Hazy) Urine pH 6.0 (5.0-7.0) Ur Specific [place] 1.012 (1.001-1.035) Urine Protein Trace (Neg - Trace) Urine Glucose (UA) Negative (Negative) ABG Interpretation ABG results: 07/12/25 21:30 ABG pH 7.37 ABG pCO2 54 H ABG pO2 138 H ABG HCO3 31 H ABG O2 Saturation 97 ABG Base Excess 5 H Quality Measures Quality Measures none Advance care planning discussed with:: patient Medications Home Medications and Allergies Allergies Allergy/AdvReac Type Severity Reaction Status Date / Time amitriptyline Allergy Intermediate unknown Verified 07/12/25 21:36 haloperidol Allergy Intermediate Itching Verified 07/12/25 21:36 Visit Medications Acetaminophen (Acetaminophen 325 Mg Tablet) 650 mg PO Q6H PRN PRN Reason: PAIN SCALE 1-3 (mild Stop: 08/12/25 00:51 Acetaminophen (Acetaminophen 325 Mg Tablet) 650 mg PO Q6H PRN PRN Reason: Fever >100.4 Stop: 08/12/25 00:51 Piperacillin Sod/Tazobactam (Sod 4.5 gm/ Sodium Chloride) 100 mls @ 200 mls/hr IV Q8HR PRATIBHA; Protocol Stop: 07/20/25 05:59 Vancomycin HCl 500 mg/ Sodium (Chloride) 100 mls @ 100 mls/hr IV X1 ONE Stop: 07/13/25 01:57 Dextrose/Sodium Chloride (D5-Ns) 500 mls @ 60 mls/hr IV .Q8H20M PRATIBHA Stop: 08/12/25 01:14 Lactulose (Lactulose Syrup 20 Gm/30 Ml Udc) 30 gm DE TID PRATIBHA; Protocol Stop: 08/12/25 05:59 Levothyroxine Sodium (Levothyroxine Sodium 100 Mcg Tablet) 100 mcg PO ACBR PRATIBHA Stop: 08/12/25 05:59 Non-Formulary Medication (Divalproex [Depakote Er]) 500 mg PO BID PRATIBHA Stop: 08/12/25 08:59 Non-Formulary Medication (Quetiapine [Seroquel Xr]) 400 mg PO BID PRATIBHA Stop: 08/12/25 08:59 Non-Formulary Medication (Simvastatin) 20 mg PO HS PRATIBHA Stop: 08/12/25 20:59 Ondansetron HCl (Ondansetron Inj 2 Mg/Ml Inj 2 Ml) 4 mg IVP Q6H PRN; Protocol PRN Reason: NAUSEA OR VOMITING Stop: 08/12/25 00:51 Pantoprazole Sodium (Pantoprazole Inj 40 Mg Vial) 40 mg IVP QDAY PRATIBHA Stop: 08/12/25 08:59 Pharmacy Consult (Vancomycin Pharmacy To Dose 1 Each Each) 1 each IV QDAY PRATIBHA Stop: 08/12/25 08:59 Rifaximin (Rifaximin 550 Mg Tablet) 550 mg PO BID PRATIBHA Stop: 07/20/25 08:59 Discontinued Medications Albuterol/Ipratropium (Albuterol/Ipratropium (Duoneb) Rt Belkys 3 Ml Nebu) 3 ml INH X1 ONE Stop: 07/12/25 22:23 Last Admin: 07/12/25 22:35 Dose: 3 ml Dextrose (Dextrose 50%-Water Inj 50 Ml Syringe) 25 ml IVP X1 ONE Stop: 07/12/25 22:24 Last Admin: 07/12/25 22:44 Dose: 25 ml Diazepam (Diazepam Inj 5 Mg/Ml Vial 2 Ml) 2.5 mg IVP X1 ONE Stop: 07/12/25 23:18 Ceftriaxone Sodium/Dextrose (Rocephin/D5w 1gm Iv Premix) 1 gm in 50 mls @ 100 mls/hr IV X1 ONE Stop: 07/12/25 21:17 Last Infusion: 07/12/25 21:57 Dose: Infused Azithromycin 500 mg/ Sodium (Chloride) 250 mls @ 250 mls/hr IV X1 ONE Stop: 07/12/25 22:29 Last Infusion: 07/12/25 23:41 Dose: Infused Methylprednisolone Sodium Succinate (Methylprednisolone Sod Succ 62.5 Mg/Ml 2ml Vial) 125 mg IVP X1 ONE Stop: 07/12/25 22:23 Last Admin: 07/12/25 22:42 Dose: 125 mg Sodium Polystyrene Sulfonate (Sod Polystyrene Sulfon Susp 15 Gm/60 Ml Btl) 30 gm PO X1 ONE Stop: 07/13/25 00:58 Assessment & Plan Plan This is a 74-year-old female PMHx of seizure disorder, developmental delay, schizophrenia, hypothyroidism, HLD, osteoporosis coming from [facility] with low temperature of 94 and shortness of breath. AHRF Significant john PNA, likely GNR vs Anaerobes Possible NEW CHF exacerbation Presenting from [facility] with low temperature of 94, and shortness of breath. Desatted to 87. While in the ED, rectal temperature was 94.1. WBC WNL, but possibly improper immune response. Likely combination pneumonia versus new onset CHF. CXR showed significant bibasilar pneumonia. CT abdomen showed dense pneumonic consolidation versus pulmonary mass of 4.6 on the left lobe. BNP slightly elevated with evidence of vascular congestion on imaging, JVD and 3+ bilateral lower extremity edema. No baseline echocardiogram file. She had mild hyponatremia of 130 with low serum osmolality, suggestive of fluid retention. ? Continue VANCOMYCIN and ZOSYN for pneumonia ? Given LASIX 40 mg x 1, assess response in the a.m. ? Fluid restriction, salt restriction, strict MAREK's ? Pending echocardiogram ? Pending panculture ? Continue BiPAP PRN ? Recommended repeat CT chest to assess for mass resolution after ANTIBIOTICS Acute Metobolic Encephalopathy Schizophrenia Developmental delay Seizure disorder Baseline developmental delay, unable to obtain further history from [facility] at this point. Labs significant for ammonia of 102. No history of cirrhosis, however there was signs of hepatomegaly on ultrasound. Unable to rule out hepatic encephalopathy, will proceed with treatment. ? Continue LACTULOSE DE 30 mg TID (likely won't tolerate p.o.), goal 3?5 BMs daily ? Continue rifaximin 500 mg BID ? Pending hepatitis panel ? Continue home SEROQUEL 400 mg BID, DEPAKOTE 500 mg BID ? Avoid narcotics ? Pending VALPROIC ACID level UTI, likely GNR UA showed UTI. Unable to assess for symptom. However will treat with ANTIBIOTICS as above. ? ANTIBIOTICS as above ? Follow-up culture Isolated Elevated Pancreatic Enzymes Base 168, amylase 109 which is highly specific for acute pancreatitis. No evidence of acute pancreatitis on CT again, unable to assess for symptoms. Unable to give fluids given concern for CHF. ? Monitor closely Hyperkalemia Potassium 5.6. No clear cause, may be dehydration. ? Given KAYEXALATE x 1. ? Daily labs Mild hypoglycemia GLUCOSE 70 on admission, likely poor nutrition. ? Hypoglycemia protocol ? Registered dietitian consulted ? Consider D5 NS when able Concern for GI bleed She was evaluated earlier this week by PCP for bloody stool with negative work- up. Hgb around baseline. ? Pending coag panel ? Pending FOBT ? Daily labs, transfuse if Hgb < 7.0 Hypothyroidism TSH 5.81, pending T4 ? Continue LEVOTHYROXINE 100 mcg ACBR Hyperlipidemia Seasonal allergies Chronic constipation ? Continue ATORVASTATIN 10 mg HS ? Continue LORATIDINE 10 mg ? On Lactulose Health maintenance Diet: Puree Diet GI prophylaxis: PROTONIX DVT prophylaxis: SCDs Antibiotics: ZOSYN, VANCOMYCIN CODE STATUS: FULL-CODE (Please verify with [facility]) Disposition: Treating Acute encephalopathy, AHRF, PNA, UTI Case was discussed with attending physician. Willard Villalobos DO PGY II This document was transcribed using voice recognition technology. Minor inaccuracies may be present.
[2025-07-13] MEDS: DEXTROSE 5%-NS 500 ML 60 ML IV (01:30)
[2025-07-13] MEDS: SOD POLYSTYRENE SULFON SUSP 15 GM/60 ML BTL 30 GM PO (01:55)
[2025-07-13] MEDS: FUROSEMIDE INJ 10 MG/ML 4ML VIAL 40 MG IVP ×2 (02:31→09:14)
[2025-07-13] MEDS: PIPER/TAZO INJ 4.5 GM in SODIUM CHLORIDE 0.9% (POP) 100 ML IV (02:56)
[2025-07-13 03:36] LABS: Alcohol, Urine Negative (Negative); Amphetamine/Methamp Scrn,U Negative (Negative); Barbiturate Screen,Urine Negative (Negative); Benzodiazepines Screen,Urine Negative (Negative); Benzoylecgonine Screen, Ur Negative (Negative); Fentanyl Screen,Urine Negative (Negative); Opiate Screen,Urine Negative (Negative); THC Screen,Urine Negative (Negative)
[2025-07-13] MEDS: VANCOMYCIN/NS 1 GM IVPB 200 ML IV ×2 (03:41→09:33)
--- NOTE | 2025-07-13 04:07 | PC.NURSE ---
REPORT GIVEN TO ROBERTO OLSON AT TELE.
[2025-07-13 05:52] LABS: Basophils # (Auto) 0.0 Thou/mm3 (0.0-0.2); Basophils % (Auto) 0 % (0-2.5); Eosinophils # (Auto) 0.0 Thou/mm3 (0.0-0.5); Eosinophils % (Auto) 0 % (0-10); Hematocrit 28.8 % (36.0-46.0); Hemoglobin 9.4 g/dL (12.0-16.0); Immature Granulocytes Auto 0.03 Thou/mm3 (0.00-0.00); Lymphocytes # (Auto) 0.4 Thou/mm3 (1.0-4.8); Lymphocytes % (Auto) 10 % (10-50); Mean Corpuscular HGB Conc 32.6 g/dl (31.0-37.0); Mean Corpuscular Hemoglobin 31.8 pg (25.0-35.0); Mean Corpuscular Volume 97 fL (80-100); Monocytes # (Auto) 0.1 Thou/mm3 (0.0-0.8); Monocytes % (Auto) 1 % (0-12); Neutrophils # (Auto) 3.1 Thou/mm3 (1.8-7.7); Neutrophils % (Auto) 87 % (37-80); Nucleated Red Blood Cell # 0.00 Thou/mm3 (0.00-0.00); Nucleated Red Blood Cell % 0 /100 WBC (0); RDW Standard Deviation 56.4 fL (36.4-46.3); Red Blood Count 2.96 Miln/mm3 (4.00-5.20); White Blood Count 3.6 Thou/mm3 (3.6-11.0)
[2025-07-13 05:53] LABS: Platelet Count 75 Thou/mm3 (140-440)
[2025-07-13 05:59] LABS: INR 1.0 (0.9-1.3); Partial Thromboplastin Time 26.5 Seconds (22.0-36.0); Prothrombin Time 10.6 Seconds (9.0-12.2)
[2025-07-13] MEDS: LACTULOSE SYRUP 20 GM/30 ML UDC 30 GM PR ×2 (06:03→13:40)
[2025-07-13 06:05] LABS: Alanine Aminotransferase 11 U/L (10-49); Albumin, Serum 3.5 gm/dL (3.4-4.8); Albumin/Globulin Ratio 1.3 (1.2-2.2); Alkaline Phosphatase 99 U/L (46-116); Anion Gap 5 (7-16); Aspartate Amino Transferase 23 U/L (0-34); BUN/Creatinine Ratio 25 Ratio (12-20); Bilirubin,Total 0.2 mg/dL (0.3-1.2); Blood Urea Nitrogen 20 mg/dL (9-23); Calcium 9.0 mg/dL (8.3-10.6); Calcium (Corrected) 9.4 mg/dL (8.5-10.1); Carbon Dioxide 32.8 mMol/L (20.0-31.0); Chloride 96 mMol/L (98-107); Creatinine (Component) 0.8 mg/dL (0.6-1.3); Estimated Creatinine Clearance 64.6 mL/min (>60); Free T4 (Free Thyroxine) 0.75 ng/dL (0.89-1.76); Globulin 2.7 gm/dL (2.3-3.5); Glucose 100 mg/dL (74-106); Magnesium 2.1 mg/dL (1.6-2.6); Osmolality,Calculated 270 (275-295); Phosphorous 4.0 mg/dL (2.4-5.1); Potassium 4.9 mMol/L (3.4-5.1); Sodium 134 mMol/L (136-145); Total Protein 6.2 gm/dL (5.7-8.2); eGFR > 60 See Note
[2025-07-13 07:11] LABS: Slide Review Platelets confirmed
[2025-07-13 10:03] LABS: Hepatitis A Antibody IgM Equivocal (Non React); Hepatitis B Core Antibody IgM Non Reactive (Non React); Hepatitis B Surface Antigen Non Reactive (Non React); Hepatitis C Antibody Non Reactive (Non React)
[2025-07-13] MEDS: DIVALPROEX SOD ER 250 MG TABER (NON-FORMULARY) 500 MG PO (10:28)
--- NOTE | 2025-07-13 11:16 | PCS.ST ---
Swallowing evaluation completed. See report for details. Pharyngeal vs esophageal dysphagia. Aspiration risk chronic. Modified diet with precautions. MBSS for assessment of pharyngeal swallow
--- NOTE | 2025-07-13 11:44 | ESPR_ITS ---
<Statement entered by Emil Vasquez MD - 07/24/25 09:07> I reviewed above note and agree with findings and plans. I have also personally examined the patient with medicine team and went over assessment and plan with medical team including financial internship and resident physician. <Statement entered by Hiro Metzger MD - 07/13/25 16:33> Overnight admission. Seen and examined at bedside and reed cleaner present. Per reed cleaner, patient is at her baseline but does state that she does have recurrent hospitalizations that seem to be repetitive in nature that revolves around hypoxia and blue lips. Suspect dysphagia and/or aspiration, especially given imaging findings of mass in thoracic cavity. Speech therapy evaluated patient and is known to them, who suspects pharyngeal versus esophageal dysphagia and recommends video swallow study. However, at this time we will consult GI and await recommendations. Otherwise, transitioned certain p.o. medications to IV, including Depakote and levothyroxine and patient currently NPO. ----- Note reviewed and agree with care plan as documented. Please refer to the note below for further details. Plan discussed with attending physician Dr. Pedro Metzger MD PGY-2 Internal Medicine Documentation for date of: 07/13/25 Subjective Subjective Interval history: Patient seen and examined at bedside. Ammonia decreased from 102 down to 41. Patient had trouble tolerating oral intake. Per nursing the patient would cough when her lactulose was administered. GI consulted. Hyponatremia is correcting at appropriate rate. Hyperkalemia resolved. Exam Vital Signs Temp Pulse Resp BP Pulse Ox O2 Del Method O2 Flow Rate 98.8 F 88 14 149/85 H 95 Oxy Mask 5 07/13/25 08:00 07/13/25 09:14 07/13/25 08:00 07/13/25 09:14 07/13/25 08:00 07/13/25 08:00 07/13/25 08:00 Narrative Exam General: Frail, unable to communicate, making incomprehensible sounds when asked questions. Neurologic: Confused, no gross neurological deficit. HEENT: Normocephalic, atraumatic, mucous membranes moist. Pupils reactive to light. Heart: Regular rate and rhythm, normal S1 and S2, no murmurs. Lungs: Coarse breath sounds bilaterally. Abdomen: Soft, nondistended, nontender, positive bowel sounds. No guarding or rebound tenderness. Extremities: No edema. 2+ radial and dorsalis pedis pulses bilaterally. Skin: Warm. Dry. No rash or ecchymoses. Objective Labs 07/15/25 05:10 07/15/25 05:10 Labs: Laboratory Results - last 24 hr 07/12/25 07/12/25 07/12/25 20:55 20:56 21:30 WBC 4.7 RBC 3.23 L Hgb 10.2 L Hct 31.3 L MCV 97 MCH 31.6 MCHC 32.6 RDW Std Deviation 56.1 H Plt Count 89 L Neut % (Auto) 68 Lymph % (Auto) 21 [place] % (Auto) 11 Eos % (Auto) 1 Baso % (Auto) 0 Neut # (Auto) 3.2 Lymph # (Auto) 1.0 [place] # (Auto) 0.5 Eos # (Auto) 0.0 Baso # (Auto) 0.0 Immature Gran # (Auto) 0.01 H Absolute Nucleated RBC 0.00 Immature Gran % 0 Nucleated RBC % 0 ESR 41 H PT INR APTT D-Dimer < 250 Puncture Site Right Radial ABG pH 7.37 ABG pCO2 54 H ABG pO2 138 H ABG HCO3 31 H ABG O2 Saturation 97 ABG Base Excess 5 H Oxygen Liter Flow 3 FiO2 21 Sodium 130 L Potassium 5.6 H Chloride 94 L Carbon Dioxide 30.2 Anion Gap 6 L BUN 21 Creatinine 0.8 Estim Creat Clear Calc Not Performed. eGFR > 60 BUN/Creatinine Ratio 26 H Glucose 72 L Calculated Osmolality 262 L Lactic Acid 1.3 Calcium 9.7 Corrected Calcium 9.9 Phosphorus Magnesium 2.4 Total Bilirubin 0.2 L Direct Bilirubin < 0.1 AST 32 ALT 13 Alkaline Phosphatase 112 Ammonia 102 H* Troponin I < 0.020 C-Reactive Prot, Quant 1.8 H B-Natriuretic Peptide 386 H Total Protein 7.0 Albumin 3.8 Globulin 3.2 Albumin/Globulin Ratio 1.2 Amylase 168 H Lipase 109 H Beta-Hydroxybutyrate/Acetoacetate 0.0 Procalcitonin < 0.04 TSH 5.81 H Free T4 Ur Collection Type Clean Catch Urine Color Lt-Yellow Urine Clarity Turbid A Urine pH 6.0 Ur Specific [place] 1.012 Urine Protein Trace Urine Glucose (UA) Negative Urine Ketones Negative Urine Blood 2+ A Urine Nitrite Negative Urine Bilirubin Negative Urine Urobilinogen (Auto) Negative Ur Leukocyte Esterase Positive Urine RBC 28 H Urine WBC 133 H Ur Squamous Epith Cells 0 Urine Bacteria None Hyaline Casts < 1 Ur Culture Indicated? Yes Urine Opiates Screen Urine Fentanyl Screen Ur Barbiturates Screen U Amphetamin/Meth Scrn U Benzodiazepines Scrn U Cocaine Metab Screen U Marijuana (THC) Screen Urine Alcohol Hepatitis A IgM Ab Hep Bs Antigen Hep B Core IgM Ab Hepatitis C Antibody Misc Test Result Blood Type Antibody Screen Blood Bank Wristband ID 07/12/25 07/13/25 07/13/25 22:33 01:25 03:04 WBC RBC Hgb Hct MCV MCH MCHC RDW Std Deviation Plt Count Neut % (Auto) Lymph % (Auto) [place] % (Auto) Eos % (Auto) Baso % (Auto) Neut # (Auto) Lymph # (Auto) [place] # (Auto) Eos # (Auto) Baso # (Auto) Immature Gran # (Auto) Absolute Nucleated RBC Immature Gran % Nucleated RBC % ESR PT INR APTT D-Dimer Puncture Site ABG pH ABG pCO2 ABG pO2 ABG HCO3 ABG O2 Saturation ABG Base Excess Oxygen Liter Flow FiO2 Sodium Potassium 5.6 H Chloride Carbon Dioxide Anion Gap BUN Creatinine Estim Creat Clear Calc eGFR BUN/Creatinine Ratio Glucose Calculated Osmolality Lactic Acid Calcium Corrected Calcium Phosphorus Magnesium Total Bilirubin Direct Bilirubin AST ALT Alkaline Phosphatase Ammonia Troponin I C-Reactive Prot, Quant B-Natriuretic Peptide Total Protein Albumin Globulin Albumin/Globulin Ratio Amylase Lipase Beta-Hydroxybutyrate/Acetoacetate Procalcitonin TSH Free T4 Ur Collection Type Urine Color Urine Clarity Urine pH Ur Specific [place] Urine Protein Urine Glucose (UA) Urine Ketones Urine Blood Urine Nitrite Urine Bilirubin Urine Urobilinogen (Auto) Ur Leukocyte Esterase Urine RBC Urine WBC Ur Squamous Epith Cells Urine Bacteria Hyaline Casts Ur Culture Indicated? Urine Opiates Screen Negative Urine Fentanyl Screen Negative Ur Barbiturates Screen Negative U Amphetamin/Meth Scrn Negative U Benzodiazepines Scrn Negative U Cocaine Metab Screen Negative U Marijuana (THC) Screen Negative Urine Alcohol Negative Hepatitis A IgM Ab Hep Bs Antigen Hep B Core IgM Ab Hepatitis C Antibody Misc Test Result Blood Type A Positive Antibody Screen NEGATIVE Blood Bank Wristband ID Yes 07/13/25 05:30 WBC 3.6 RBC 2.96 L Hgb 9.4 L Hct 28.8 L MCV 97 MCH 31.8 MCHC 32.6 RDW Std Deviation 56.4 H Plt Count 75 L Neut % (Auto) 87 H Lymph % (Auto) 10 [place] % (Auto) 1 Eos % (Auto) 0 Baso % (Auto) 0 Neut # (Auto) 3.1 Lymph # (Auto) 0.4 L [place] # (Auto) 0.1 Eos # (Auto) 0.0 Baso # (Auto) 0.0 Immature Gran # (Auto) 0.03 H Absolute Nucleated RBC 0.00 Immature Gran % 1 H Nucleated RBC % 0 ESR PT 10.6 INR 1.0 APTT 26.5 D-Dimer Puncture Site ABG pH ABG pCO2 ABG pO2 ABG HCO3 ABG O2 Saturation ABG Base Excess Oxygen Liter Flow FiO2 Sodium 134 L Potassium 4.9 D Chloride 96 L Carbon Dioxide 32.8 H Anion Gap 5 L BUN 20 Creatinine 0.8 Estim Creat Clear Calc 64.6 eGFR > 60 BUN/Creatinine Ratio 25 H Glucose 100 Calculated Osmolality 270 L Lactic Acid Calcium 9.0 Corrected Calcium 9.4 Phosphorus 4.0 Magnesium 2.1 Total Bilirubin 0.2 L Direct Bilirubin AST 23 ALT 11 Alkaline Phosphatase 99 Ammonia Troponin I C-Reactive Prot, Quant B-Natriuretic Peptide Total Protein 6.2 Albumin 3.5 Globulin 2.7 Albumin/Globulin Ratio 1.3 Amylase Lipase Beta-Hydroxybutyrate/Acetoacetate Procalcitonin TSH Free T4 0.75 L Ur Collection Type Urine Color Urine Clarity Urine pH Ur Specific [place] Urine Protein Urine Glucose (UA) Urine Ketones Urine Blood Urine Nitrite Urine Bilirubin Urine Urobilinogen (Auto) Ur Leukocyte Esterase Urine RBC Urine WBC Ur Squamous Epith Cells Urine Bacteria Hyaline Casts Ur Culture Indicated? Urine Opiates Screen Urine Fentanyl Screen Ur Barbiturates Screen U Amphetamin/Meth Scrn U Benzodiazepines Scrn U Cocaine Metab Screen U Marijuana (THC) Screen Urine Alcohol Hepatitis A IgM Ab Equivocal Hep Bs Antigen Non Reactive Hep B Core IgM Ab Non Reactive Hepatitis C Antibody Non Reactive Misc Test Result Platelets confirmed Blood Type Antibody Screen Blood Bank Wristband ID ABG Interpretation ABG results: 07/12/25 21:30 ABG pH 7.37 ABG pCO2 54 H ABG pO2 138 H ABG HCO3 31 H ABG O2 Saturation 97 ABG Base Excess 5 H Quality Measures Quality Measures none Advance care planning discussed with:: patient and other (Caregiver) Assessment & Plan Assessment Current Active Medications: Generic Name Dose Route Start Last Admin Trade Name Freq PRN Reason Stop Dose Admin Acetaminophen 650 mg 07/13/25 00:52 Acetaminophen 325 Mg Tablet PO 08/12/25 00:51 Q6H PRN PAIN SCALE 1-3 (mild Acetaminophen 650 mg 07/13/25 00:52 Acetaminophen 325 Mg Tablet PO 08/12/25 00:51 Q6H PRN Fever >100.4 Albuterol/Ipratropium 3 ml 07/13/25 01:57 Albuterol/Ipratropium (Duoneb) Rt Belkys 3 Ml Nebu INH 08/12/25 01:56 Q6HRRT PRN Wheezing Atorvastatin Calcium 10 mg 07/13/25 21:00 Atorvastatin Calcium 10 Mg Tablet PO 08/12/25 20:59 2100 PRATIBHA Dextrose 25 ml 07/13/25 01:51 Dextrose 50%-Water Inj 50 Ml Syringe IV 08/12/25 01:50 Q15MIN PRN BG 50-70 responsive npo pt Dextrose 50 ml 07/13/25 01:51 Dextrose 50%-Water Inj 50 Ml Syringe IV 08/12/25 01:50 Q15MIN PRN BG <50 OR BG <70 & pt unresponsive Divalproex Sodium 500 mg 07/13/25 09:00 07/13/25 10:28 Divalproex Sod Er 250 Mg Bruce (Non-Formulary) PO 08/12/25 08:59 500 mg BID PRATIBHA Administration Glucagon 1 mg 07/13/25 01:51 Glucagon Inj 1 Mg Vial IM Q15MIN PRN BG <70, and no IV access Piperacillin/Tazobactam/Dextrose 3.375 gm in 50 mls @ 12.5 mls/hr 07/13/25 14:00 Zosyn IV 07/20/25 13:59 Q8HR PRATIBHA Protocol Vancomycin HCl/Dextrose 250 mls @ 120 mls/hr 07/14/25 10:00 Vancomycin/D5w 1,250 Mg Ivpb IV 07/21/25 09:59 DAILY@1000 PRATIBHA Lactulose 30 gm 07/13/25 06:00 07/13/25 06:03 Lactulose Syrup 20 Gm/[address] 08/12/25 05:59 30 gm TID PRATIBHA Administration Protocol Levothyroxine Sodium 125 mcg 07/14/25 06:00 Levothyroxine Sodium 125 Mcg Tablet PO 08/13/25 05:59 ACBR PRATIBHA Ondansetron HCl 4 mg 07/13/25 00:52 Ondansetron Inj 2 Mg/Ml Inj 2 Ml IVP 08/12/25 00:51 Q6H PRN NAUSEA OR VOMITING Protocol Pantoprazole Sodium 40 mg 07/13/25 09:00 07/13/25 09:33 Pantoprazole Inj 40 Mg Vial IVP 08/12/25 08:59 40 mg QDAY PRATIBHA Administration Pharmacy Consult 1 each 07/13/25 09:00 Vancomycin Pharmacy To Dose 1 Each Each IV 08/12/25 08:59 QDAY PRN CONSULT Quetiapine Fumarate 400 mg 07/13/25 09:00 07/13/25 09:14 Quetiapine Fumarate 100 Mg Tablet PO 08/12/25 08:59 400 mg BID PRATIBHA Administration Rifaximin 550 mg 07/13/25 09:00 07/13/25 09:14 Rifaximin 550 Mg Tablet PO 07/20/25 08:59 550 mg BID PRATIBHA Administration Plan This is a 74-year-old female PMHx of seizure disorder, developmental delay, schizophrenia, hypothyroidism, HLD, osteoporosis coming from [facility] skilled nursing with low temperature of 94 and shortness of breath. #AHRF secondary to pneumonia versus CHF exacerbation Presenting from [facility] with low temperature of 94, and shortness of breath. Desatted to 87. While in the ED, rectal temperature was 94.1. WBC WNL, but possibly improper immune response. Likely combination pneumonia versus new onset CHF. CXR showed significant bibasilar pneumonia. CT abdomen showed dense pneumonic consolidation versus pulmonary mass of 4.6 on the left lobe. BNP slightly elevated with evidence of vascular congestion on imaging, JVD and 3+ bilateral lower extremity edema. No baseline echocardiogram file. She had mild hyponatremia of 130 with low serum osmolality, suggestive of fluid retention. Plan: ? Echocardiogram ordered due to suspicion of CHF exacerbation ? Continue VANCOMYCIN and ZOSYN for pneumonia ? Given LASIX 40 mg x 1 morning of 07/13/2025, trend urine output ? Fluid restriction, salt restriction, strict MAREK's ? Pending panculture ? Continue BiPAP PRN ? Recommended repeat CT chest to assess for mass resolution after ANTIBIOTICS #Acute Metobolic Encephalopathy #Schizophrenia #Developmental delay #Seizure disorder Baseline developmental delay, unable to obtain further history from skilled nursing at this point. Labs significant for ammonia of 102, improved to 41. Consider side effects in the presence of Depakote home meds. No history of cirrhosis, however there was signs of hepatomegaly on ultrasound. Unable to rule out hepatic encephalopathy, will proceed with treatment. Patient unable to tolerate p.o. Patient does have a history of esophageal dilation procedure in November of this year. Plan: ? GI consulted, follow-up if GI plans for endoscopy vs videofluoroscopy ? N.p.o. pending GI consult ? DC lactulose PO and hold rifaximin 500 mg BID PO ? Pending hepatitis panel ? Continue home SEROQUEL 400 mg BID ? DC'd Depakote 500 mg twice daily p.o. ? Start valproate sodium injection 250 mg IV every 6 hours ? Avoid narcotics ? Pending VALPROIC ACID level #UTI, likely GNR UA showed UTI. Unable to assess for symptom. However will treat with ANTIBIOTICS as above. Plan: ? ANTIBIOTICS as above ? Follow-up culture #Isolated Elevated Pancreatic Enzymes Base 168, amylase 109 which is highly specific for acute pancreatitis. No evidence of acute pancreatitis on CT again, unable to assess for symptoms. Unable to give fluids given concern for CHF. Plan: ? Monitor closely #Hyperkalemia (Resolved) Potassium 5.6. Improved to 4.9. ? Daily labs #Mild hypoglycemia GLUCOSE 70 on admission, likely poor nutrition. Sodium 134 Plan: ? Started D5W and normal saline to correct hypoglycemia and hyponatremia ? Hypoglycemia protocol ? Registered dietitian consulted #Concern for GI bleed She was evaluated earlier this week by PCP for bloody stool with negative work- up. Hgb around baseline. Plan: ? Pending FOBT ? Daily labs, transfuse if Hgb < 7.0 #Hypothyroidism TSH 5.81, free T4 0.75 Plan: ? Continue LEVOTHYROXINE 100 milligrams IV daily #Hyperlipidemia #Seasonal allergies #Chronic constipation Plan: ? Hold ATORVASTATIN 10 mg, n.p.o. ? Hold home LORATIDINE 10 mg, n.p.o. Health maintenance Diet: N.p.o. GI prophylaxis: PROTONIX DVT prophylaxis: SCDs Antibiotics: ZOSYN, VANCOMYCIN CODE STATUS: FULL-CODE (Please verify with skilled nursing) Disposition: GI consulted due to dysphagia. Follow-up with GI is willing to do an EGD vs videofluoroscopy Patient was seen and discussed with my attending physician Dr. Pedro TOLBERT and my senior resident Dr. Domenica TOLBERT PGY-2. Wes Osorio DO PGY-1.
[2025-07-13 11:50] LABS: Ammonia 41 uMol/L (11-32)
[2025-07-13] MEDS: LEVOTHYROXINE SODIUM 25 MCG TABLET PO (12:57)
[2025-07-13] MEDS: PIPER/TAZO 3.375 GM PREMIX 3.375 GM/50 ML BAG IV ×2 (13:40→21:18)
--- NOTE | 2025-07-13 15:11 | PC.SS ---
SS contacted [facility] information technology account manager/hoop maker machine to obtain history of patient. SS spoke to Elise, who confirmed her role and that patient is a resident at the [facility]. Patient is devel. delayed and has 24 hour care. Patient is total care. She is non ambulatory. Elise states they use a don lift and patient uses a wheelchair. Patient is not on 02 at the [facility]. Patient currently is on 02 in hospital. [facility] makes all medical healthcare decisions for patient. Dr. Garcia assists with all the medical decision making. Patient is not conserved. [facility] director of casework department is Chelsey Cervantes. [facility] [phone] PCP: Dr. Avila @ [facility] Psychiatrist: Dr. Faria [facility] can provide transport before 2p.m. otherwise, they will need a gurney transport
[2025-07-13] MEDS: VALPROATE SOD INJ 250 MG in SODIUM CHLORIDE 0.9% 50 ML 52.5 MG IV (18:16)
[2025-07-13] MEDS: DEXTROSE 5%-NS 1,000 ML 100 ML IV (18:23)
[2025-07-13] MEDS: FUROSEMIDE INJ 10 MG/ML VIAL 2 ML 20 MG IVP (20:35)
--- NOTE | 2025-07-13 22:04 | PD.IMCONS ---
HPI Data of Consult Requesting Physician: Emil Vasquez MD Primary Care Provider: Nathan Avila MD Consult Narrative Reason for consult: Dysphagia History of present illness: 75 years old female evaluated at the request of the internal medicine team for my previous evaluation with this patient in November of this year when she underwent upper endoscopy with endoscopic dilatation of the esophageal stricture Patient still has cough and trouble swallowing I have been consulted again to see if the patient needs additional endoscopy and possibly if no findings may consider placement of a PEG Unfortunately no history is obtainable as patient is developmentally delayed with schizophrenia hypothyroidism and hyperlipidemia Patient was brought into the emergency room with altered mental status and hypothermia with a rectal temperature of [address] scan of the chest abdomen and pelvis without contrast showed a left lower lobe consolidation 4.6 cm versus mass cholelithiasis large stool in the rectum Bilateral lower extremity Doppler ultrasounds negative for DVT and abdominal ultrasound showed cholelithiasis fatty liver and hepatomegaly size is 17.5 cm cc:: cc: Emil Vasquez MD Review of Systems Review of Systems ROS Unobtainable: unobtainable due to medical condition Past Medical History Surgical History OTHER SURGICAL HX: As in the history of present illness Meds Home Medications and Allergies Allergies Allergy/AdvReac Type Severity Reaction Status Date / Time amitriptyline Allergy Intermediate unknown Verified 07/12/25 21:36 haloperidol Allergy Intermediate Itching Verified 07/12/25 21:36 Exam Vital Signs Temp Pulse Resp BP Pulse Ox O2 Del Method O2 Flow Rate 97.6 F 88 16 167/77 H 93 L Oxy Mask 7 07/13/25 20:00 07/13/25 20:35 07/13/25 20:00 07/13/25 20:35 07/13/25 20:00 07/13/25 20:00 07/13/25 20:00 Routine Respiratory Exam Comments: Decreased breath sounds at the bases Routine Abdominal Exam Comments: Soft nontender Results Labs 07/13/25 05:30 07/13/25 05:30 Labs: Short CBC 07/13/25 Range/Units 05:30 WBC 3.6 (3.6-11.0) Thou/mm3 Hgb 9.4 L (12.0-16.0) g/dL Hct 28.8 L (36.0-46.0) % Plt Count 75 L (140-440) Thou/mm3 BMP 07/12/25 07/13/25 22:33 05:30 Sodium 134 L Potassium 5.6 H 4.9 D Chloride 96 L Carbon Dioxide 32.8 H BUN 20 Creatinine 0.8 Glucose 100 Calcium 9.0 Liver Function 07/13/25 Range/Units 05:30 Total Bilirubin 0.2 L (0.3-1.2) mg/dL AST 23 (0-34) U/L ALT 11 (10-49) U/L Alkaline Phosphatase 99 (46-116) U/L Albumin 3.5 (3.4-4.8) gm/dL ABG Interpretation ABG results: 07/12/25 21:30 ABG pH 7.37 ABG pCO2 54 H ABG pO2 138 H ABG HCO3 31 H ABG O2 Saturation 97 ABG Base Excess 5 H Assessment and Plan Additional Assessment & Plan Additional Plan: Dysphagia with cough with previous history of endoscopic dilatation of the esophageal stricture Plan Will schedule the patient for upper endoscopy with possible endoscopic dilatation if necessary if there is no stricture might consider in the future for the placement of a PEG tube for nutritional support Current CT scan chest abdomen pelvis findings could be related to aspiration as well Other medical problems include Developmentally delayed Schizophrenia Hypothyroidism Hyperlipidemia Thank you very much for the opportunity to participate in the care of this patient
[2025-07-14] VITALS (25 sets, daily range): BP systolic 136–190; BP diastolic 69–96; PULSE 71–91; RESP 12–23; TEMP 35.8–36.4; O2SAT 88–98; BMI 27.1
[2025-07-14] MEDS: VALPROATE SOD INJ 250 MG in SODIUM CHLORIDE 0.9% 50 ML 52.5 MG IV ×4 (00:48→20:18)
[2025-07-14] MEDS: FUROSEMIDE INJ 10 MG/ML VIAL 2 ML 20 MG IVP ×2 (05:08→17:41)
[2025-07-14] MEDS: PIPER/TAZO 3.375 GM PREMIX 3.375 GM/50 ML BAG IV ×3 (05:55→21:13)
[2025-07-14 05:59] LABS: Basophils # (Auto) 0.0 Thou/mm3 (0.0-0.2); Basophils % (Auto) 0 % (0-2.5); Eosinophils # (Auto) 0.0 Thou/mm3 (0.0-0.5); Eosinophils % (Auto) 0 % (0-10); Hematocrit 31.3 % (36.0-46.0); Hemoglobin 10.2 g/dL (12.0-16.0); Immature Granulocytes Auto 0.02 Thou/mm3 (0.00-0.00); Lymphocytes # (Auto) 0.9 Thou/mm3 (1.0-4.8); Lymphocytes % (Auto) 15 % (10-50); Mean Corpuscular HGB Conc 32.6 g/dl (31.0-37.0); Mean Corpuscular Hemoglobin 32.2 pg (25.0-35.0); Mean Corpuscular Volume 99 fL (80-100); Monocytes # (Auto) 0.9 Thou/mm3 (0.0-0.8); Monocytes % (Auto) 14 % (0-12); Neutrophils # (Auto) 4.4 Thou/mm3 (1.8-7.7); Neutrophils % (Auto) 71 % (37-80); Nucleated Red Blood Cell # 0.00 Thou/mm3 (0.00-0.00); Nucleated Red Blood Cell % 0 /100 WBC (0); Platelet Count 80 Thou/mm3 (140-440); RDW Standard Deviation 57.1 fL (36.4-46.3); Red Blood Count 3.17 Miln/mm3 (4.00-5.20); White Blood Count 6.2 Thou/mm3 (3.6-11.0)
[2025-07-14 06:22] LABS: Alanine Aminotransferase 10 U/L (10-49); Albumin, Serum 3.5 gm/dL (3.4-4.8); Albumin/Globulin Ratio 1.1 (1.2-2.2); Alkaline Phosphatase 106 U/L (46-116); Anion Gap 9 (7-16); Aspartate Amino Transferase 26 U/L (0-34); BUN/Creatinine Ratio 26 Ratio (12-20); Bilirubin,Total 0.2 mg/dL (0.3-1.2); Blood Urea Nitrogen 18 mg/dL (9-23); Calcium 9.4 mg/dL (8.3-10.6); Calcium (Corrected) 9.8 mg/dL (8.5-10.1); Carbon Dioxide 34.1 mMol/L (20.0-31.0); Chloride 97 mMol/L (98-107); Creatinine (Component) 0.7 mg/dL (0.6-1.3); Estimated Creatinine Clearance 72.3 mL/min (>60); Globulin 3.2 gm/dL (2.3-3.5); Glucose 86 mg/dL (74-106); Magnesium 1.9 mg/dL (1.6-2.6); Osmolality,Calculated 280 (275-295); Phosphorous 3.4 mg/dL (2.4-5.1); Potassium 3.7 mMol/L (3.4-5.1); Sodium 140 mMol/L (136-145); Total Protein 6.7 gm/dL (5.7-8.2); eGFR > 60 See Note
[2025-07-14] MEDS: VANCOMYCIN/D5W 1,250 MG IVPB 250 ML 120 MG IV (09:44)
--- NOTE | 2025-07-14 11:20 | PC.SS ---
rounding note: Pending EGD. Plan: return to [facility]
--- NOTE | 2025-07-14 14:15 | ESPR_ITS ---
<Statement entered by iHro Metzger MD - 07/14/25 17:52> No acute overnight events. Seen and examined at bedside and patient appears to be resting comfortably in bed with sat tutor present. Also spoke to patient's conservator, Dr. Garcia, regarding PEG tube feedings given patient's recent history of recurrent aspirations. Will touch base with Dr. Garcia tomorrow regarding his decision after he speaks with Dr. Amaya and snips for further information. Otherwise, vital signs stable, no leukocytosis, hemoglobin stable, and CHEM panel shows slight increase in HCO3. Will continue with IV antibiotics and await further instructions from Dr. Garcia. ----- Note reviewed and agree with care plan as documented. Please refer to the note below for further details. Plan discussed with attending physician Dr. Richard Metzger MD PGY-2 Internal Medicine Documentation for date of: 07/14/25 Subjective Subjective Interval history: HPI: This is a 74-year-old female PMHx of seizure disorder, developmental delay, schizophrenia, hypothyroidism, HLD, osteoporosis coming from [facility] with low temperature of 94 and shortness of breath.? Was admitted for acute hypoxic respiratory failure secondary to bibasilar pneumonia. 07/13/2025: Overnight admission. Seen and examined at bedside and sat tutor present. Per sat tutor, patient is at her baseline but does state that she does have recurrent hospitalizations that seem to be repetitive in nature that revolves around hypoxia and blue lips. Suspect dysphagia and/or aspiration, especially given imaging findings of mass in thoracic cavity. Speech therapy evaluated patient and is known to them, who suspects pharyngeal versus esophageal dysphagia and recommends video swallow study. However, at this time we will consult GI and await recommendations. Otherwise, transitioned certain p.o. medications to IV, including Depakote and levothyroxine and patient currently NPO. 07/14/2025: Patient remains hypothermic with a temp of 96.5, satting at 93% on 3 L nasal cannula. Sodium was 134 up to 140 now. Patient's mentation is improved today. GI consulted the patient and will schedule for upper endoscopy with possible endoscopic dilation and consideration of PEG tube placement. Exam Vital Signs Temp Pulse Resp BP Pulse Ox O2 Del Method O2 Flow Rate 96.5 F L 86 18 136/69 H 93 L Humidified Nasal Cannula 3 07/14/25 12:00 07/14/25 12:03 07/14/25 12:03 07/14/25 12:00 07/14/25 12:03 07/14/25 12:00 07/14/25 12:03 Narrative Exam General: Frail, unable to communicate, making incomprehensible sounds when asked questions. Neurologic: Confused, no gross neurological deficit. HEENT: Normocephalic, atraumatic, mucous membranes moist. Pupils reactive to light. Heart: Regular rate and rhythm, normal S1 and S2, no murmurs. Lungs: Coarse breath sounds bilaterally. Abdomen: Soft, nondistended, nontender, positive bowel sounds. No guarding or rebound tenderness. Extremities: No edema. 2+ radial and dorsalis pedis pulses bilaterally. Skin: Warm. Dry. No rash or ecchymoses. Objective Labs 07/15/25 05:10 07/15/25 05:10 Labs: Laboratory Results - last 24 hr 07/14/25 04:51 WBC 6.2 D RBC 3.17 L Hgb 10.2 L Hct 31.3 L MCV 99 MCH 32.2 MCHC 32.6 RDW Std Deviation 57.1 H Plt Count 80 L Neut % (Auto) 71 Lymph % (Auto) 15 Wetzel % (Auto) 14 H Eos % (Auto) 0 Baso % (Auto) 0 Neut # (Auto) 4.4 Lymph # (Auto) 0.9 L [place] # (Auto) 0.9 H Eos # (Auto) 0.0 Baso # (Auto) 0.0 Immature Gran # (Auto) 0.02 H Absolute Nucleated RBC 0.00 Immature Gran % 0 Nucleated RBC % 0 Sodium 140 Potassium 3.7 D Chloride 97 L Carbon Dioxide 34.1 H Anion Gap 9 BUN 18 Creatinine 0.7 Estim Creat Clear Calc 72.3 eGFR > 60 BUN/Creatinine Ratio 26 H Glucose 86 Calculated Osmolality 280 Calcium 9.4 Corrected Calcium 9.8 Phosphorus 3.4 Magnesium 1.9 Total Bilirubin 0.2 L AST 26 ALT 10 Alkaline Phosphatase 106 Total Protein 6.7 Albumin 3.5 Globulin 3.2 Albumin/Globulin Ratio 1.1 L ABG Interpretation ABG results: 07/12/25 21:30 ABG pH 7.37 ABG pCO2 54 H ABG pO2 138 H ABG HCO3 31 H ABG O2 Saturation 97 ABG Base Excess 5 H Quality Measures Quality Measures none Advance care planning discussed with:: patient and other (Caregiver) Assessment & Plan Assessment Current Active Medications: Generic Name Dose Route Start Last Admin Trade Name Freq PRN Reason Stop Dose Admin Acetaminophen 650 mg 07/13/25 00:52 Acetaminophen 325 Mg Tablet PO 08/12/25 00:51 Q6H PRN PAIN SCALE 1-3 (mild Acetaminophen 650 mg 07/13/25 00:52 Acetaminophen 325 Mg Tablet PO 08/12/25 00:51 Q6H PRN Fever >100.4 Albuterol/Ipratropium 3 ml 07/13/25 01:57 Albuterol/Ipratropium (Duoneb) Rt Belkys 3 Ml Nebu INH 08/12/25 01:56 Q6HRRT PRN Wheezing Atorvastatin Calcium 10 mg 07/13/25 21:00 Atorvastatin Calcium 10 Mg Tablet PO 08/12/25 20:59 On Hold: 07/13/25 21:00 2100 PRATIBHA Dextrose 25 ml 07/13/25 01:51 Dextrose 50%-Water Inj 50 Ml Syringe IV 08/12/25 01:50 Q15MIN PRN BG 50-70 responsive npo pt Dextrose 50 ml 07/13/25 01:51 Dextrose 50%-Water Inj 50 Ml Syringe IV 08/12/25 01:50 Q15MIN PRN BG <50 OR BG <70 & pt unresponsive Divalproex Sodium 500 mg 07/13/25 09:00 07/13/25 10:28 Divalproex Sod Er 250 Mg Bruce (Non-Formulary) PO 08/12/25 08:59 500 mg On Hold: 07/13/25 16:19 BID PRATIBHA Administration Comment: HOLD CHANGED TO IV TORB ANDRADE UTO Furosemide 20 mg 07/13/25 20:00 07/14/25 05:08 Furosemide Inj 10 Mg/Ml Vial 2 Ml IVP 08/12/25 19:59 20 mg BIDD PRATIBHA Administration Glucagon 1 mg 07/13/25 01:51 Glucagon Inj 1 Mg Vial IM Q15MIN PRN BG <70, and no IV access Piperacillin/Tazobactam/Dextrose 3.375 gm in 50 mls @ 12.5 mls/hr 07/13/25 14:00 07/14/25 05:55 Zosyn IV 07/20/25 13:59 12.5 mls/hr Q8HR PRATIBHA Administration Protocol Valproic Acid 250 mg/ Sodium 52.5 mls @ 52.5 mls/hr 07/13/25 18:00 07/14/25 13:08 Chloride IV 08/12/25 17:59 52.5 mls/hr Q6HR PRATIBHA Administration Levothyroxine Sodium 125 mcg 07/14/25 06:00 Levothyroxine Sodium 125 Mcg Tablet PO 08/13/25 05:59 On Hold: 07/14/25 06:00 ACBR PRATIBHA Comment: HOLD CHANGED TO IV JENIFER LUPE METZGER Levothyroxine Sodium 100 mcg 07/14/25 09:00 07/14/25 09:24 Levothyroxine Inj 100 Mcg Vial IV 08/13/25 08:59 100 mcg QDAY PRATIBHA Administration Ondansetron HCl 4 mg 07/13/25 00:52 Ondansetron Inj 2 Mg/Ml Inj 2 Ml IVP 08/12/25 00:51 Q6H PRN NAUSEA OR VOMITING Protocol Pantoprazole Sodium 40 mg 07/13/25 09:00 07/14/25 09:24 Pantoprazole Inj 40 Mg Vial IVP 08/12/25 08:59 40 mg QDAY PRATIBHA Administration Quetiapine Fumarate 400 mg 07/13/25 09:00 07/13/25 09:14 Quetiapine Fumarate 100 Mg Tablet PO 08/12/25 08:59 400 mg On Hold: 07/13/25 19:10 BID PRATIBHA Administration Plan Summary: This is a 74-year-old female PMHx of seizure disorder, developmental delay, schizophrenia, hypothyroidism, HLD, osteoporosis coming from [facility] with low temperature of 94 and shortness of breath. #AHRF secondary to pneumonia versus CHF exacerbation Presenting from [facility] with low temperature of 94, and shortness of breath. Desatted to 87. While in the ED, rectal temperature was 94.1. WBC WNL, but possibly improper immune response. Likely combination pneumonia versus new onset CHF. CXR showed significant bibasilar pneumonia. CT abdomen showed dense pneumonic consolidation versus pulmonary mass of 4.6 on the left lobe. BNP slightly elevated with evidence of vascular congestion on imaging, JVD and 3+ bilateral lower extremity edema. No baseline echocardiogram file. She had mild hyponatremia of 130 with low serum osmolality, suggestive of fluid retention. Echo showed normal left ventricular size and function with an approximate ejection fraction of 50-55%. There was aortic valve sclerosis without stenosis. Mild thickening of the mitral valve leaflets and mild mitral and trace tricuspid regurg. Plan: ? Continue ZOSYN for pneumonia, DC Vanco because MRSA negative ? Continue Lasix 20 mg twice daily ? Fluid restriction, salt restriction, strict MAREK's ?Blood cultures negative for growth after 24 hours ? Continue BiPAP PRN ? Recommended repeat CT chest to assess for mass resolution after ANTIBIOTICS #Acute Metobolic Encephalopathy #Schizophrenia #Developmental delay #Seizure disorder #Dysphagia Baseline developmental delay, unable to obtain further history from shelter at this point. Labs significant for ammonia of 102, improved to 41. Consider side effects in the presence of Depakote home meds. No history of cirrhosis, however there was signs of hepatomegaly on ultrasound. Unable to rule out hepatic encephalopathy, will proceed with treatment. Patient unable to tolerate p.o. Patient does have a history of esophageal dilation procedure in November of this year. GI saw the patient, scheduled for upper endoscopy with possible endoscopic diet dilatation if necessary, GI will also consider placement of PEG tube Plan: ? GI on board ? N.p.o. ? DC lactulose and rifaximin ? Pending hepatitis panel ? Continue home SEROQUEL 400 mg BID ? DC'd Depakote 500 mg twice daily p.o. ? Continue valproate sodium injection 250 mg IV every 6 hours ? Avoid narcotics ? Pending VALPROIC ACID level #Positive cocci serology Sent for confirmation and titer Plan: ?Consider fluconazole #UTI, likely GNR UA showed UTI. Unable to assess for symptom. However will treat with ANTIBIOTICS as above. Plan: ? ANTIBIOTICS as above ? Follow-up culture #Isolated Elevated Pancreatic Enzymes Base 168, amylase 109 which is highly specific for acute pancreatitis. No evidence of acute pancreatitis on CT again, unable to assess for symptoms. Unable to give fluids given concern for CHF. Plan: ? Monitor closely #Hyperkalemia (Resolved) Potassium 5.6. Improved to 4.9. ? Daily labs #Mild hypoglycemia Glucose in the 80s and 90s Plan: ? Will start D5W in LR drip at 75 mL/h due to patient being n.p.o. and being slightly hypoglycemic ? Registered dietitian consulted #Concern for GI bleed She was evaluated earlier this week by PCP for bloody stool with negative work- up. Hgb around baseline. Plan: ? Pending FOBT ? Daily labs, transfuse if Hgb < 7.0 #Hypothyroidism TSH 5.81, free T4 0.75 Plan: ? Continue LEVOTHYROXINE 100 milligrams IV daily #Hyperlipidemia #Seasonal allergies #Chronic constipation Plan: ? Hold ATORVASTATIN 10 mg, n.p.o. ? Hold home LORATIDINE 10 mg, n.p.o. Health maintenance Diet: N.p.o. GI prophylaxis: PROTONIX DVT prophylaxis: SCDs Antibiotics: ZOSYN, VANCOMYCIN CODE STATUS: FULL-CODE (Please verify with shelter) Disposition: GI consulted due to dysphagia. Plan for EGD today. Patient was seen and discussed with my attending physician Dr. Richard CH[facility] and my senior resident Dr. Domenica TOLBERT PGY-2. Wes Osorio DO PGY-1. Attending Provider Attestation/Addendum Tere Jimenez DO, attest that I was physically present for the horn portions of the service and evaluated the patient with the resident and I reviewed and discussed the case with the resident and agree with the resident's findings and plans of care as documented above Patient seen and evaluated this AM. She is pending egd this afternoon. Patient states she is doing well. She is A&Ox1. Currently on 3L/NC. Dr. Garcia, director of [facility], was made aware of GI recommendations that patient may need a PEG tube if she continues to be unable to safely tolerate is PO intake. States that he will have to review patient's chart and patient has history of frequent aspiration events, which cannot be prevented. Will f/u with EGD results. CT chest was also reviewed. Patient appears to have a mass/ density that measures 4.6cm causing tracheal deviation. Did not appear to be on CT chest in December. Will order cocci and aspergillus.
[2025-07-14 15:41] LABS: Cocci Serology, IgM Positive (Negative)
[2025-07-14 15:43] LABS: Cocid Sro, CF/ID (UCD) NO CHG* See Sep Rpt
[2025-07-14] MEDS: DEXTROSE 5%-LACTATED RINGERS 1,000 ML 75 ML IV (17:29)
[2025-07-14] MEDS: ALBUTEROL/IPRATROPIUM (Duoneb) RT SOL 3 ML NEBU INH (18:36)
--- NOTE | 2025-07-14 20:10 | SUR.PHASEI ---
pt awake and alert, breathing unlabored on 6l oxymask. v/s stable. report called to Maryjo OLSON. pt will be transferred to room at this time.
[2025-07-15] VITALS (11 sets, daily range): BP systolic 150–184; BP diastolic 64–87; PULSE 68–95; RESP 12–20; TEMP 36.1–36.7; O2SAT 97–99; BMI 25.8
[2025-07-15] MEDS: VALPROATE SOD INJ 250 MG in SODIUM CHLORIDE 0.9% 50 ML 52.5 MG IV ×4 (00:41→17:46)
--- NOTE | 2025-07-15 01:56 | PC.NURSE ---
notified Dr David of pts BP 184/86 HR 76. new order received.
[2025-07-15] MEDS: hydrALAZINE INJ 20 MG/ML VIAL 10 MG IVP (02:06)
[2025-07-15] MEDS: FUROSEMIDE INJ 10 MG/ML VIAL 2 ML 20 MG IVP (05:30)
[2025-07-15] MEDS: PIPER/TAZO 3.375 GM PREMIX 3.375 GM/50 ML BAG IV ×3 (05:30→21:02)
[2025-07-15 05:46] LABS: Basophils # (Auto) 0.0 Thou/mm3 (0.0-0.2); Basophils % (Auto) 0 % (0-2.5); Eosinophils # (Auto) 0.0 Thou/mm3 (0.0-0.5); Eosinophils % (Auto) 0 % (0-10); Hematocrit 33.6 % (36.0-46.0); Hemoglobin 10.8 g/dL (12.0-16.0); Immature Granulocytes Auto 0.03 Thou/mm3 (0.00-0.00); Lymphocytes # (Auto) 0.6 Thou/mm3 (1.0-4.8); Lymphocytes % (Auto) 7 % (10-50); Mean Corpuscular HGB Conc 32.1 g/dl (31.0-37.0); Mean Corpuscular Hemoglobin 32.0 pg (25.0-35.0); Mean Corpuscular Volume 99 fL (80-100); Monocytes # (Auto) 0.9 Thou/mm3 (0.0-0.8); Monocytes % (Auto) 9 % (0-12); Neutrophils # (Auto) 7.8 Thou/mm3 (1.8-7.7); Neutrophils % (Auto) 84 % (37-80); Nucleated Red Blood Cell # 0.00 Thou/mm3 (0.00-0.00); Nucleated Red Blood Cell % 0 /100 WBC (0); Platelet Count 84 Thou/mm3 (140-440); RDW Standard Deviation 57.5 fL (36.4-46.3); Red Blood Count 3.38 Miln/mm3 (4.00-5.20); White Blood Count 9.3 Thou/mm3 (3.6-11.0)
[2025-07-15 06:28] LABS: Alanine Aminotransferase 10 U/L (10-49); Albumin, Serum 3.5 gm/dL (3.4-4.8); Albumin/Globulin Ratio 1.1 (1.2-2.2); Alkaline Phosphatase 109 U/L (46-116); Anion Gap 9 (7-16); Aspartate Amino Transferase 31 U/L (0-34); BUN/Creatinine Ratio 23 Ratio (12-20); Bilirubin,Total 0.3 mg/dL (0.3-1.2); Blood Urea Nitrogen 14 mg/dL (9-23); Calcium 9.6 mg/dL (8.3-10.6); Calcium (Corrected) 10.0 mg/dL (8.5-10.1); Carbon Dioxide 34.3 mMol/L (20.0-31.0); Chloride 98 mMol/L (98-107); Creatinine (Component) 0.6 mg/dL (0.6-1.3); Estimated Creatinine Clearance 82.4 mL/min (>60); Globulin 3.2 gm/dL (2.3-3.5); Glucose 99 mg/dL (74-106); Magnesium 1.6 mg/dL (1.6-2.6); Osmolality,Calculated 281 (275-295); Phosphorous 3.1 mg/dL (2.4-5.1); Potassium 3.5 mMol/L (3.4-5.1); Sodium 141 mMol/L (136-145); Total Protein 6.7 gm/dL (5.7-8.2); eGFR > 60 See Note
--- NOTE | 2025-07-15 11:20 | ESPR_ITS ---
<Statement entered by Yordy Nichols MD - 07/16/25 07:11> Patient was examined with the team including attending physician. Note reviewed, I agree with the discharge plan as documented. - Yordy Nichols MD PGY 3 Disclaimer: The document may contain phonetic/typographic errors due to voice recognition software. Documentation for date of: 07/15/25 Subjective Subjective Interval history: HPI: This is a 74-year-old female PMHx of seizure disorder, developmental delay, schizophrenia, hypothyroidism, HLD, osteoporosis coming from [facility] with low temperature of 94 and shortness of breath.? Was admitted for acute hypoxic respiratory failure secondary to bibasilar pneumonia. 07/13/2025: Overnight admission. Seen and examined at bedside and forensic toxicologist present. Per forensic toxicologist, patient is at her baseline but does state that she does have recurrent hospitalizations that seem to be repetitive in nature that revolves around hypoxia and blue lips. Suspect dysphagia and/or aspiration, especially given imaging findings of mass in thoracic cavity. Speech therapy evaluated patient and is known to them, who suspects pharyngeal versus esophageal dysphagia and recommends video swallow study. However, at this time we will consult GI and await recommendations. Otherwise, transitioned certain p.o. medications to IV, including Depakote and levothyroxine and patient currently NPO. 07/14/2025: Patient remains hypothermic with a temp of 96.5, satting at 93% on 3 L nasal cannula. Sodium was 134 up to 140 now. Patient's mentation is improved today. GI consulted the patient and will schedule for upper endoscopy with possible endoscopic dilation and consideration of PEG tube placement. 07/15/2025: Endoscopy done last night. PUD/GERD/bland diet started. Patient had stage II hypertension at 165/77. Labetalol 20 IV push for SBP over 180 on board. Hemoglobin is 10.8 and stable. Cocci serology is positive, started fluconazole. Urine cultures positive for E. coli and serratia marcescens. Continuing Zosyn. Exam Vital Signs Temp Pulse Resp BP Pulse Ox O2 Del Method O2 Flow Rate 97.4 F 83 19 163/81 H 99 Oxy Mask 6 07/15/25 08:00 07/15/25 08:00 07/15/25 08:00 07/15/25 08:00 07/15/25 08:00 07/15/25 08:00 07/15/25 08:00 Narrative Exam General: Frail, unable to communicate, making incomprehensible sounds when asked questions. Neurologic: Confused, no gross neurological deficit. HEENT: Normocephalic, atraumatic, mucous membranes moist. Pupils reactive to light. Heart: Regular rate and rhythm, normal S1 and S2, no murmurs. Lungs: Coarse breath sounds bilaterally. Abdomen: Soft, nondistended, nontender, positive bowel sounds. No guarding or rebound tenderness. Extremities: No edema. 2+ radial and dorsalis pedis pulses bilaterally. Skin: Warm. Dry. No rash or ecchymoses. Objective Labs 07/16/25 04:57 07/16/25 04:57 Labs: Laboratory Results - last 24 hr 07/14/25 07/15/25 10:00 05:10 WBC 9.3 D RBC 3.38 L Hgb 10.8 L Hct 33.6 L MCV 99 MCH 32.0 MCHC 32.1 RDW Std Deviation 57.5 H Plt Count 84 L Neut % (Auto) 84 H Lymph % (Auto) 7 L [place] % (Auto) 9 Eos % (Auto) 0 Baso % (Auto) 0 Neut # (Auto) 7.8 H Lymph # (Auto) 0.6 L [place] # (Auto) 0.9 H Eos # (Auto) 0.0 Baso # (Auto) 0.0 Immature Gran # (Auto) 0.03 H Absolute Nucleated RBC 0.00 Immature Gran % 0 Nucleated RBC % 0 Sodium 141 Potassium 3.5 Chloride 98 Carbon Dioxide 34.3 H Anion Gap 9 BUN 14 Creatinine 0.6 Estim Creat Clear Calc 82.4 eGFR > 60 BUN/Creatinine Ratio 23 H Glucose 99 Calculated Osmolality 281 Calcium 9.6 Corrected Calcium 10.0 Phosphorus 3.1 Magnesium 1.6 Total Bilirubin 0.3 AST 31 ALT 10 Alkaline Phosphatase 109 Total Protein 6.7 Albumin 3.5 Globulin 3.2 Albumin/Globulin Ratio 1.1 L Coccidioides IgM Ab Positive A ABG Interpretation ABG results: 07/12/25 21:30 ABG pH 7.37 ABG pCO2 54 H ABG pO2 138 H ABG HCO3 31 H ABG O2 Saturation 97 ABG Base Excess 5 H Quality Measures Quality Measures none Advance care planning discussed with:: patient and other Assessment & Plan Assessment Current Active Medications: Generic Name Dose Route Start Last Admin Trade Name Josias PRN Reason Stop Dose Admin Acetaminophen 650 mg 07/13/25 00:52 Acetaminophen 325 Mg Tablet PO 08/12/25 00:51 Q6H PRN PAIN SCALE 1-3 (mild Acetaminophen 650 mg 07/13/25 00:52 Acetaminophen 325 Mg Tablet PO 08/12/25 00:51 Q6H PRN Fever >100.4 Albuterol/Ipratropium 3 ml 07/13/25 01:57 07/14/25 18:36 Albuterol/Ipratropium (Duoneb) Rt Belkys 3 Ml Nebu INH 08/12/25 01:56 3 ml Q6HRRT PRN Administration Wheezing Dextrose 50 ml 07/13/25 01:51 Dextrose 50%-Water Inj 50 Ml Syringe IV 08/12/25 01:50 Q15MIN PRN BG <50 OR BG <70 & pt unresponsive Divalproex Sodium 500 mg 07/13/25 09:00 07/13/25 10:28 Divalproex Sod Er 250 Mg Bruce (Non-Formulary) PO 08/12/25 08:59 500 mg On Hold: 07/13/25 16:19 BID PRATIBHA Administration Comment: HOLD CHANGED TO IV JENIFER DORSEY Furosemide 20 mg 07/13/25 20:00 07/15/25 05:30 Furosemide Inj 10 Mg/Ml Vial 2 Ml IVP 08/12/25 19:59 20 mg BIDD PRATIBHA Administration Glucagon 1 mg 07/13/25 01:51 Glucagon Inj 1 Mg Vial IM Q15MIN PRN BG <70, and no IV access Piperacillin/Tazobactam/Dextrose 3.375 gm in 50 mls @ 12.5 mls/hr 07/13/25 14:00 07/15/25 05:30 Zosyn IV 07/20/25 13:59 12.5 mls/hr Q8HR PRATIBHA Administration Protocol Valproic Acid 250 mg/ Sodium 52.5 mls @ 52.5 mls/hr 07/13/25 18:00 07/15/25 05:31 Chloride IV 08/12/25 17:59 52.5 mls/hr Q6HR PRATIBHA Administration Sodium Chloride 500 mls @ 20 mls/hr 07/14/25 17:50 07/14/25 19:32 Ns IV 07/15/25 17:49 Not Given .Q24H ONE Fluconazole 400 mg in 200 mls @ 100 mls/hr 07/15/25 09:56 Diflucan/Ns Ivpb IV 07/22/25 09:55 QDAY PRATIBHA Labetalol HCl 20 mg 07/15/25 07:37 Labetalol Inj 5 Mg/Ml Vial 20 Ml IVP X1 PRN Hypertensive Emergency Levothyroxine Sodium 125 mcg 07/16/25 08:00 Levothyroxine Sodium 125 Mcg Tablet PO 08/15/25 07:59 ACBR PRATIBHA Ondansetron HCl 4 mg 07/13/25 00:52 Ondansetron Inj 2 Mg/Ml Inj 2 Ml IVP 08/12/25 00:51 Q6H PRN NAUSEA OR VOMITING Protocol Pantoprazole Sodium 40 mg 07/13/25 09:00 07/15/25 09:43 Pantoprazole Inj 40 Mg Vial IVP 08/12/25 08:59 40 mg QDAY PRATIBHA Administration Quetiapine Fumarate 400 mg 07/13/25 09:00 07/13/25 09:14 Quetiapine Fumarate 100 Mg Tablet PO 08/12/25 08:59 400 mg On Hold: 07/13/25 19:10 BID PRATIBHA Administration Plan Summary: This is a 74-year-old female PMHx of seizure disorder, developmental delay, schizophrenia, hypothyroidism, HLD, osteoporosis coming from [facility] with low temperature of 94 and shortness of breath. #AHRF secondary to aspiration pneumonia #Acute decompensation of HFpEF with ejection fraction 50 to 55% Presented from [facility] with low temperature of 94, and shortness of breath. Desatted to 87. While in the ED, rectal temperature was 94.1. WBC WNL, but possibly improper immune response. Likely combination pneumonia versus new onset CHF. CXR showed significant bibasilar pneumonia. CT abdomen showed dense pneumonic consolidation versus pulmonary mass of 4.6 on the left lobe. BNP slightly elevated with evidence of vascular congestion on imaging, JVD and 3+ bilateral lower extremity edema. No baseline echocardiogram file. She had mild hyponatremia of 130 with low serum osmolality, suggestive of fluid retention. Echo showed normal left ventricular size and function with an approximate ejection fraction of 50-55%. There was aortic valve sclerosis without stenosis. Mild thickening of the mitral valve leaflets and mild mitral and trace tricuspid regurg. Consider the presence of chest x-ray findings showing pulmonary edema. Plan: ? Continue ZOSYN for pneumonia ? DC Lasix, patient is net -3.3 L, nasal cannula flow rate decreasing, saturating 99% ? Fluid restriction, salt restriction, strict MAREK's ? Blood cultures negative for growth after 48 hours ? Continue BiPAP PRN ? Recommended repeat CT chest to assess for mass resolution after ANTIBIOTICS #Acute Metobolic Encephalopathy #Schizophrenia #Developmental delay #Seizure disorder #Dysphagia Baseline developmental delay, unable to obtain further history from [facility] at this point. Labs significant for ammonia of 102, improved to 41. Consider side effects in the presence of Depakote home meds. No history of cirrhosis, however there was signs of hepatomegaly on ultrasound. Unable to rule out hepatic encephalopathy, will proceed with treatment. Patient unable to tolerate p.o. Patient does have a history of esophageal dilation procedure in November of this year. Endoscopy last night showed esophageal stenosis in the proximal esophagus, it was dilated during the procedure, there was also esophagitis in the lower third of the esophagus, there was gastritis. GI recommends awaiting pathology results. Plan: ? GI on board ? Speech plans for video swallow test on 07/17/2025 ? PUD/GERD/bland diet ? Will discuss decision about peg tube with primary care doctor ? Continue home SEROQUEL 400 mg BID ? Continue valproate sodium injection 250 mg IV every 6 hours ? Avoid narcotics ? Pending VALPROIC ACID level #Positive cocci serology Sent for confirmation and titer Plan: ? Started fluconazole 400 mg daily ? Follow-up beta D glucan ? Follow-up serum Aspergillus #UTI, likely GNR UA showed UTI. Unable to assess for symptoms. However will treat with ANTIBIOTICS as above. Urine culture positive for Pseudomonas aeruginosa and Serratia Marcescens Plan: ? Continue Zosyn #Isolated Elevated Pancreatic Enzymes Base 168, amylase 109 which is highly specific for acute pancreatitis. No evidence of acute pancreatitis on CT again, unable to assess for symptoms. Unable to give fluids given concern for CHF. Plan: ? Monitor closely #Hyperkalemia (Resolved) Potassium 5.6. Improved to 3.5. ? Daily labs #Mild hypoglycemia Glucose in the 80s and 90s Has been corrected with D5W drips over the past 2 evenings because the patient was n.p.o., now patient is on a diet Plan: ? Started diet, expected to improve ? Registered dietitian consulted #Concern for GI bleed She was evaluated earlier this week by PCP for bloody stool with negative work- up. Hgb around baseline. Plan: ? Daily labs, transfuse if Hgb < 7.0 #Hypothyroidism TSH 5.81, free T4 0.75 Plan: ? Switched levothyroxine from IV to oral #Hyperlipidemia #Seasonal allergies #Chronic constipation Plan: ? Hold ATORVASTATIN 10 mg, n.p.o. ? Hold home LORATIDINE 10 mg, n.p.o. Health maintenance Diet: PUD/GERD/bland diet GI prophylaxis: PROTONIX DVT prophylaxis: SCDs Antibiotics: ZOSYN CODE STATUS: FULL-CODE (Please verify with [facility]) Disposition: GI performed an esophageal dilation. Awaiting biopsy results. Started patient on fluconazole due to cocci positive serology. Pending Aspergillus and beta D glucan results. Started diet of PUD/GERD/bland. Urine positive for gram-negative rods, E. coli and serratia marcescens, continuing Zosyn. Patient was seen and discussed with my attending physician Dr. Richard [facility] and my senior resident Dr. Magdalena TOLBERT PGY-3. Wes Osorio DO PGY-1. Attending Provider Attestation/Addendum I, Tere Ramos DO, attest that I was physically present for the horn portions of the service and evaluated the patient with the resident and I reviewed and discussed the case with the resident and agree with the resident's findings and plans of care as documented above Patient seen and evaluated this AM. Patient working with speech therapist and able to take applesauce with close supervision. Patient able to expectorate. EGD had been done yesterday showing benign esophageal stenosis that was subsequently dilated. Patient required more supplemental O2 overnight following sedation from procedure. Currently weaned to 3L/NC. Case discussed with speech therapist at bedside, recommends a video swallow eval on Thursday. Will advance diet as tolerated. Cocci noted to be positive, which may be cause of density noted on CT. Started on fluconazole.
[2025-07-15] MEDS: FLUCONAZOLE/NS 400 MG IVPB 400 MG/200 ML BAG 100 MG IV (12:05)
--- NOTE | 2025-07-15 15:49 | PC.SS ---
Rounding note: Swallow test on Thursday, d/c 1 day.
--- NOTE | 2025-07-15 19:13 | PD.IMPROG ---
Documentation for date of: 07/15/25 Subjective Subjective Interval history: Patient status post endoscopic dilatation of the proximal esophagus stricture Patient also had gastritis and esophagitis biopsies are pending Exam Vital Signs Temp Pulse Resp BP Pulse Ox O2 Del Method O2 Flow Rate 97.9 F 85 18 157/64 H 97 Nasal Cannula 4 07/15/25 16:00 07/15/25 19:03 07/15/25 19:03 07/15/25 16:00 07/15/25 19:03 07/15/25 16:00 07/15/25 19:03 Objective Labs 07/15/25 05:10 07/15/25 05:10 Labs: Laboratory Results - last 24 hr 07/15/25 05:10 WBC 9.3 D RBC 3.38 L Hgb 10.8 L Hct 33.6 L MCV 99 MCH 32.0 MCHC 32.1 RDW Std Deviation 57.5 H Plt Count 84 L Neut % (Auto) 84 H Lymph % (Auto) 7 L [place] % (Auto) 9 Eos % (Auto) 0 Baso % (Auto) 0 Neut # (Auto) 7.8 H Lymph # (Auto) 0.6 L [place] # (Auto) 0.9 H Eos # (Auto) 0.0 Baso # (Auto) 0.0 Immature Gran # (Auto) 0.03 H Absolute Nucleated RBC 0.00 Immature Gran % 0 Nucleated RBC % 0 Sodium 141 Potassium 3.5 Chloride 98 Carbon Dioxide 34.3 H Anion Gap 9 BUN 14 Creatinine 0.6 Estim Creat Clear Calc 82.4 eGFR > 60 BUN/Creatinine Ratio 23 H Glucose 99 Calculated Osmolality 281 Calcium 9.6 Corrected Calcium 10.0 Phosphorus 3.1 Magnesium 1.6 Total Bilirubin 0.3 AST 31 ALT 10 Alkaline Phosphatase 109 Total Protein 6.7 Albumin 3.5 Globulin 3.2 Albumin/Globulin Ratio 1.1 L Impressions Impression: Proximal esophagus cystoscopy status post endoscopic dilatation Gastritis Esophagitis Advance diet as tolerated ABG Interpretation ABG results: 07/12/25 21:30 ABG pH 7.37 ABG pCO2 54 H ABG pO2 138 H ABG HCO3 31 H ABG O2 Saturation 97 ABG Base Excess 5 H Assessment & Plan A&P Narrative Dysphagia with cough with previous history of endoscopic dilatation of the esophageal stricture Plan Will schedule the patient for upper endoscopy with possible endoscopic dilatation if necessary if there is no stricture might consider in the future for the placement of a PEG tube for nutritional support Current CT scan chest abdomen pelvis findings could be related to aspiration as well Other medical problems include Developmentally delayed Schizophrenia Hypothyroidism Hyperlipidemia Thank you very much for the opportunity to participate in the care of this patient Time Spent With Patient Time: Total time spent is greater than 50% in coordination of care (as documented) at patient's floor/unit and/or counseling patient:
[2025-07-16] VITALS (9 sets, daily range): BP systolic 124–187; BP diastolic 65–100; PULSE 72–100; RESP 12–24; TEMP 35.5–36.4; O2SAT 94–99
[2025-07-16] MEDS: VALPROATE SOD INJ 250 MG in SODIUM CHLORIDE 0.9% 50 ML 52.5 MG IV ×5 (01:26→23:42)
[2025-07-16] MEDS: PIPER/TAZO 3.375 GM PREMIX 3.375 GM/50 ML BAG IV (05:18)
[2025-07-16 05:38] LABS: Basophils # (Auto) 0.0 Thou/mm3 (0.0-0.2); Basophils % (Auto) 0 % (0-2.5); Eosinophils # (Auto) 0.1 Thou/mm3 (0.0-0.5); Eosinophils % (Auto) 1 % (0-10); Hematocrit 32.2 % (36.0-46.0); Hemoglobin 10.2 g/dL (12.0-16.0); Immature Granulocytes Auto 0.02 Thou/mm3 (0.00-0.00); Lymphocytes # (Auto) 1.2 Thou/mm3 (1.0-4.8); Lymphocytes % (Auto) 18 % (10-50); Mean Corpuscular HGB Conc 31.7 g/dl (31.0-37.0); Mean Corpuscular Hemoglobin 32.1 pg (25.0-35.0); Mean Corpuscular Volume 101 fL (80-100); Monocytes # (Auto) 0.6 Thou/mm3 (0.0-0.8); Monocytes % (Auto) 9 % (0-12); Neutrophils # (Auto) 4.8 Thou/mm3 (1.8-7.7); Neutrophils % (Auto) 72 % (37-80); Nucleated Red Blood Cell # 0.00 Thou/mm3 (0.00-0.00); Nucleated Red Blood Cell % 0 /100 WBC (0); Platelet Count 82 Thou/mm3 (140-440); RDW Standard Deviation 58.8 fL (36.4-46.3); Red Blood Count 3.18 Miln/mm3 (4.00-5.20); White Blood Count 6.8 Thou/mm3 (3.6-11.0)
[2025-07-16 06:13] LABS: Alanine Aminotransferase 11 U/L (10-49); Albumin, Serum 3.5 gm/dL (3.4-4.8); Albumin/Globulin Ratio 1.1 (1.2-2.2); Alkaline Phosphatase 109 U/L (46-116); Anion Gap 8 (7-16); Aspartate Amino Transferase 29 U/L (0-34); BUN/Creatinine Ratio 26 Ratio (12-20); Bilirubin,Total 0.3 mg/dL (0.3-1.2); Blood Urea Nitrogen 18 mg/dL (9-23); Calcium 9.7 mg/dL (8.3-10.6); Calcium (Corrected) 10.1 mg/dL (8.5-10.1); Carbon Dioxide 35.7 mMol/L (20.0-31.0); Chloride 100 mMol/L (98-107); Creatinine (Component) 0.7 mg/dL (0.6-1.3); Estimated Creatinine Clearance 70.6 mL/min (>60); Globulin 3.1 gm/dL (2.3-3.5); Glucose 77 mg/dL (74-106); Magnesium 1.8 mg/dL (1.6-2.6); Osmolality,Calculated 287 (275-295); Phosphorous 3.0 mg/dL (2.4-5.1); Potassium 3.7 mMol/L (3.4-5.1); Sodium 144 mMol/L (136-145); Total Protein 6.6 gm/dL (5.7-8.2); eGFR > 60 See Note
[2025-07-16] MEDS: FLUCONAZOLE/NS 400 MG IVPB 400 MG/200 ML BAG 100 MG IV (08:32)
[2025-07-16] MEDS: VIT B12/Vit C/FA (Nephrovite) TABLET 1 TAB PO (08:33)
[2025-07-16] MEDS: LEVOTHYROXINE SODIUM 125 MCG TABLET PO (08:33)
--- NOTE | 2025-07-16 10:02 | XR_ITS ---
Examination: AP chest single view. Technique: AP portable semiupright chest single view Date and time: July 16, 2025, 10:24 AM, comparison 07/12/2025 Indications: Hypoxia today. Findings: Prominent left lung pneumonia. Possible left pleural fluid. Mild enlargement cardiac contour. Ectatic enlarged thoracic aorta. Prominent osteopenia. Impression: Significant left lung pneumonia.
--- NOTE | 2025-07-16 10:33 | PD.RESEVENT ---
Documentation for date of: 07/16/25 Event Note Event Note: At 10:01 AM, a rapid response was called for patient desaturating to low to mid 80s. Patient had been eating applesauce the hour prior and when she spoke to providers in the room vocal crackles were audible. Course crackles on lung exam, especially over the Lt medial side, could be auscultated as patient kept speaking. Vitals notable for BP in mid 170's systolic. CXR revealed marked Lt lower lobe pneumonia. Immediate suction and removal of phlegm followed by supplementation with 15L oxymask improved her respiratory status. Once stablized, pt was downgraded to 4L with saturations in high 90's.
[2025-07-16] MEDS: hydrALAZINE INJ 20 MG/ML VIAL 10 MG IVP (11:46)
--- NOTE | 2025-07-16 13:00 | ESPR_ITS ---
<Statement entered by Hiro Metzger MD - 07/16/25 13:22> No acute overnight events. Seen and examined at bedside in patient appears to be resting comfortably in bed. However, rapid response called for desaturating into low to mid 80s. She was noted to have eaten applesauce and hour prior and coarse sounds audible without auscultation. She was placed on oxime mask at 15 L and suction and oxygenation improved to mid to high 90s on 4 L oxy mask. Pending videofluoroscopy given dysphagia and high suspicion of aspiration. ----- Note reviewed and agree with care plan as documented. Please refer to the note below for further details. Plan discussed with attending physician Dr. Richard Metzger MD PGY-2 Internal Medicine Documentation for date of: 07/16/25 Subjective Subjective Interval history: HPI: This is a 74-year-old female PMHx of seizure disorder, developmental delay, schizophrenia, hypothyroidism, HLD, osteoporosis coming from [facility] assisted with low temperature of 94 and shortness of breath.? Was admitted for acute hypoxic respiratory failure secondary to bibasilar pneumonia. 07/13/2025: Overnight admission. Seen and examined at bedside and shuttle hand present. Per shuttle hand, patient is at her baseline but does state that she does have recurrent hospitalizations that seem to be repetitive in nature that revolves around hypoxia and blue lips. Suspect dysphagia and/or aspiration, especially given imaging findings of mass in thoracic cavity. Speech therapy evaluated patient and is known to them, who suspects pharyngeal versus esophageal dysphagia and recommends video swallow study. However, at this time we will consult GI and await recommendations. Otherwise, transitioned certain p.o. medications to IV, including Depakote and levothyroxine and patient currently NPO. 07/14/2025: Patient remains hypothermic with a temp of 96.5, satting at 93% on 3 L nasal cannula. Sodium was 134 up to 140 now. Patient's mentation is improved today. GI consulted the patient and will schedule for upper endoscopy with possible endoscopic dilation and consideration of PEG tube placement. 07/15/2025: Endoscopy done last night. PUD/GERD/bland diet started. Patient had stage II hypertension at 165/77. Labetalol 20 IV push for SBP over 180 on board. Hemoglobin is 10.8 and stable. Cocci serology is positive, started fluconazole. Urine cultures positive for E. coli and serratia marcescens. Continuing Zosyn. 07/16/2025: Patient was seen and examined at bedside. No acute events took place overnight. Patient responds to questions asked from her but history is limited to intellectual disability of the patient. A rapid response was called for patient desaturating to low to mid 80s. Patient had been eating applesauce the hour prior and when she is spoke to providers in the room vocal crackles were audible. Immediate suction and removal of phlegm followed by supplementation with 15L oxymask improved her respiratory status. Once stablized, pt was downgraded to 4L with saturations in high 90's. Exam Vital Signs Temp Pulse Resp BP Pulse Ox O2 Del Method O2 Flow Rate 96.6 F L 72 18 187/98 H 95 Nasal Cannula 4 07/16/25 08:00 07/16/25 11:46 07/16/25 08:00 07/16/25 11:46 07/16/25 08:00 07/16/25 08:00 07/16/25 08:00 Narrative Exam General: Frail, unable to communicate, making incomprehensible sounds when asked questions. Neurologic: Confused, no gross neurological deficit. HEENT: Normocephalic, atraumatic, mucous membranes moist. Pupils reactive to light. Heart: Regular rate and rhythm, normal S1 and S2, no murmurs. Lungs: Coarse breath sounds bilaterally. Abdomen: Soft, nondistended, nontender, positive bowel sounds. No guarding or rebound tenderness. Extremities: No edema. 2+ radial and dorsalis pedis pulses bilaterally. Skin: Warm. Dry. No rash or ecchymoses. Objective Labs 07/17/25 05:19 07/17/25 05:19 Labs: Laboratory Results - last 24 hr 07/16/25 04:57 WBC 6.8 RBC 3.18 L Hgb 10.2 L Hct 32.2 L MCV 101 H MCH 32.1 MCHC 31.7 RDW Std Deviation 58.8 H Plt Count 82 L Neut % (Auto) 72 Lymph % (Auto) 18 [place] % (Auto) 9 Eos % (Auto) 1 Baso % (Auto) 0 Neut # (Auto) 4.8 Lymph # (Auto) 1.2 [place] # (Auto) 0.6 Eos # (Auto) 0.1 Baso # (Auto) 0.0 Immature Gran # (Auto) 0.02 H Absolute Nucleated RBC 0.00 Immature Gran % 0 Nucleated RBC % 0 Sodium 144 Potassium 3.7 Chloride 100 Carbon Dioxide 35.7 H Anion Gap 8 BUN 18 Creatinine 0.7 Estim Creat Clear Calc 70.6 eGFR > 60 BUN/Creatinine Ratio 26 H Glucose 77 Calculated Osmolality 287 Calcium 9.7 Corrected Calcium 10.1 Phosphorus 3.0 Magnesium 1.8 Total Bilirubin 0.3 AST 29 ALT 11 Alkaline Phosphatase 109 Total Protein 6.6 Albumin 3.5 Globulin 3.1 Albumin/Globulin Ratio 1.1 L ABG Interpretation ABG results: 07/12/25 21:30 ABG pH 7.37 ABG pCO2 54 H ABG pO2 138 H ABG HCO3 31 H ABG O2 Saturation 97 ABG Base Excess 5 H Quality Measures Quality Measures none Advance care planning discussed with:: patient and other Assessment & Plan Assessment Current Active Medications: Generic Name Dose Route Start Last Admin Trade Name Freq PRN Reason Stop Dose Admin Acetaminophen 650 mg 07/13/25 00:52 Acetaminophen 325 Mg Tablet PO 08/12/25 00:51 Q6H PRN PAIN SCALE 1-3 (mild Acetaminophen 650 mg 07/13/25 00:52 Acetaminophen 325 Mg Tablet PO 08/12/25 00:51 Q6H PRN Fever >100.4 Albuterol/Ipratropium 3 ml 07/13/25 01:57 07/14/25 18:36 Albuterol/Ipratropium (Duoneb) Rt Belkys 3 Ml Nebu INH 08/12/25 01:56 3 ml Q6HRRT PRN Administration Wheezing Dextrose 50 ml 07/13/25 01:51 Dextrose 50%-Water Inj 50 Ml Syringe IV 08/12/25 01:50 Q15MIN PRN BG <50 OR BG <70 & pt unresponsive Divalproex Sodium 500 mg 07/13/25 09:00 07/13/25 10:28 Divalproex Sod Er 250 Mg Bruce (Non-Formulary) PO 08/12/25 08:59 500 mg On Hold: 07/13/25 16:19 BID PRATIBHA Administration Comment: HOLD CHANGED TO IV TORB LUPE METZGER Glucagon 1 mg 07/13/25 01:51 Glucagon Inj 1 Mg Vial IM Q15MIN PRN BG <70, and no IV access Valproic Acid 250 mg/ Sodium 52.5 mls @ 52.5 mls/hr 07/13/25 18:00 07/16/25 12:35 Chloride IV 08/12/25 17:59 52.5 mls/hr Q6HR PRATIBHA Administration Fluconazole 400 mg in 200 mls @ 100 mls/hr 07/15/25 09:56 07/16/25 08:32 Diflucan/Ns Ivpb IV 07/22/25 09:55 100 mls/hr QDAY PRATIBHA Administration Ampicillin Sodium/Sulbactam 100 mls @ 200 mls/hr 07/16/25 18:00 Sodium 3 gm/ Sodium Chloride IV 07/23/25 17:59 Q6HR PRATIBHA Labetalol HCl 20 mg 07/15/25 07:37 Labetalol Inj 5 Mg/Ml Vial 20 Ml IVP X1 PRN Hypertensive Emergency Levothyroxine Sodium 125 mcg 07/16/25 08:00 07/16/25 08:33 Levothyroxine Sodium 125 Mcg Tablet PO 08/15/25 07:59 125 mcg ACBR PRATIBHA Administration Ondansetron HCl 4 mg 07/13/25 00:52 Ondansetron Inj 2 Mg/Ml Inj 2 Ml IVP 08/12/25 00:51 Q6H PRN NAUSEA OR VOMITING Protocol Pantoprazole Sodium 40 mg 07/13/25 09:00 07/16/25 08:32 Pantoprazole Inj 40 Mg Vial IVP 08/12/25 08:59 40 mg QDAY PRATIBHA Administration Quetiapine Fumarate 400 mg 07/13/25 09:00 07/13/25 09:14 Quetiapine Fumarate 100 Mg Tablet PO 08/12/25 08:59 400 mg On Hold: 07/13/25 19:10 BID PRATIBHA Administration Vitamin B Complex/Vit C/Folic Acid 1 tab 07/16/25 09:00 07/16/25 08:33 Vit B12/Vit C/Fa (Nephrovite) Tablet PO 08/15/25 08:59 1 tab QDAY PRATIBHA Administration Plan Summary: This is a 74-year-old female PMHx of seizure disorder, developmental delay, schizophrenia, hypothyroidism, HLD, osteoporosis coming from [facility] assisted with low temperature of 94 and shortness of breath. #AHRF secondary to aspiration pneumonia #Acute decompensation of HFpEF with ejection fraction 50 to 55% Presented from [facility] with low temperature of 94, and shortness of breath. Desatted to 87. While in the ED, rectal temperature was 94.1. WBC WNL, but possibly improper immune response. Likely combination pneumonia versus new onset CHF. CXR showed significant bibasilar pneumonia. CT abdomen showed dense pneumonic consolidation versus pulmonary mass of 4.6 on the left lobe. BNP slightly elevated with evidence of vascular congestion on imaging, JVD and 3+ bilateral lower extremity edema. No baseline echocardiogram file. She had mild hyponatremia of 130 with low serum osmolality, suggestive of fluid retention. Echo showed normal left ventricular size and function with an approximate ejection fraction of 50-55%. There was aortic valve sclerosis without stenosis. Mild thickening of the mitral valve leaflets and mild mitral and trace tricuspid regurg. Consider the presence of chest x-ray findings showing pulmonary edema. CXR (07/26): Marked Lt lung pneumonia Plan: ? Switched Zosyn to Unasyn 3g Q6h ? DC Lasix, patient is net -7.8 L ? Fluid restriction, salt restriction, strict MAREK's ? Blood cultures negative for growth after 48 hours ? Continue BiPAP PRN ? Recommended repeat CT chest to assess for mass resolution after ANTIBIOTICS #Acute Metobolic Encephalopathy #Schizophrenia #Developmental delay #Seizure disorder #Dysphagia Baseline developmental delay, unable to obtain further history from assisted at this point. Labs significant for ammonia of 102, improved to 41. Consider side effects in the presence of Depakote home meds. No history of cirrhosis, however there was signs of hepatomegaly on ultrasound. Unable to rule out hepatic encephalopathy, will proceed with treatment. Patient unable to tolerate p.o. Patient does have a history of esophageal dilation procedure in November of this year. Endoscopy (07/14) showed esophageal stenosis in the proximal esophagus, it was dilated during the procedure, there was also esophagitis in the lower third of the esophagus, there was gastritis. GI recommends awaiting pathology results. Plan: ? GI on board ? Speech plans for video swallow test on 07/17/2025 ? PUD/GERD/bland diet ? Will discuss decision about peg tube with primary care doctor ? Continue home SEROQUEL 400 mg BID ? Continue valproate sodium injection 250 mg IV every 6 hours ? Avoid narcotics ? Pending VALPROIC ACID level #Positive cocci serology Sent for confirmation and titer Plan: ? Started fluconazole 400 mg daily ? Follow-up beta D glucan ? Follow-up serum Aspergillus #UTI, likely GNR UA showed UTI. Unable to assess for symptoms. However will treat with ANTIBIOTICS as above. Urine culture positive for Pseudomonas aeruginosa and Serratia Marcescens Plan: ? Continue Zosyn #Isolated Elevated Pancreatic Enzymes Base 168, amylase 109 which is highly specific for acute pancreatitis. No evidence of acute pancreatitis on CT again, unable to assess for symptoms. Unable to give fluids given concern for CHF. Plan: ? Monitor closely #Hyperkalemia (Resolved) Potassium 5.6. Improved to 3.5. ? Daily labs #Mild hypoglycemia Glucose in the 80s and 90s Has been corrected with D5W drips over the past 2 evenings because the patient was n.p.o., now patient is on a diet Plan: ? Started diet, expected to improve ? Registered dietitian consulted #Concern for GI bleed She was evaluated earlier this week by PCP for bloody stool with negative work- up. Hgb around baseline. Plan: ? Daily labs, transfuse if Hgb < 7.0 #Hypothyroidism TSH 5.81, free T4 0.75 Plan: ? Switched levothyroxine from IV to oral #Hyperlipidemia #Seasonal allergies #Chronic constipation Plan: ? Hold ATORVASTATIN 10 mg, n.p.o. ? Hold home LORATIDINE 10 mg, n.p.o. Health maintenance Diet: PUD/GERD/bland diet GI prophylaxis: PROTONIX DVT prophylaxis: SCDs Antibiotics: ZOSYN CODE STATUS: FULL-CODE (Please verify with assisted) Disposition: GI performed an esophageal dilation. Awaiting biopsy results. Started patient on fluconazole due to cocci positive serology. Pending Aspergillus and beta D glucan results. Started diet of PUD/GERD/bland. Urine positive for gram-negative rods, E. coli and serratia marcescens, continuing Zosyn. Patient was seen and discussed with my attending physician Dr. Richard [facility] and my senior resident Dr Domenica Dong DO PGY 1 Attending Provider Attestation/Addendum Tony, Tere Ramos DO, attest that I was physically present for the horn portions of the service and evaluated the patient with the resident and I reviewed and discussed the case with the resident and agree with the resident's findings and plans of care as documented above Patient seen and evaluated this AM. Patient remains at her baseline mental status. Patient had a rapid response due to aspiration. Patient unable to expectorate her secreations unless prompted. Currently on oxymask. Saturations improved with deep suctioning and manual percussion. She otherwise tolerated pureed diet. Pending video swallow eval tomorrow
--- NOTE | 2025-07-16 17:11 | PD.IMPROG ---
Documentation for date of: 07/16/25 Subjective Subjective Interval history: Patient evaluated According nursing staff patient eating better after endoscopic dilatation of the proximal esophageal stricture Exam Vital Signs Temp Pulse Resp BP Pulse Ox O2 Del Method O2 Flow Rate 96.7 F L 85 24 H 168/77 H 97 Nasal Cannula 4 07/16/25 16:00 07/16/25 16:00 07/16/25 16:00 07/16/25 16:00 07/16/25 16:00 07/16/25 16:00 07/16/25 12:00 Objective Labs 07/16/25 04:57 07/16/25 04:57 Labs: Laboratory Results - last 24 hr 07/16/25 04:57 WBC 6.8 RBC 3.18 L Hgb 10.2 L Hct 32.2 L MCV 101 H MCH 32.1 MCHC 31.7 RDW Std Deviation 58.8 H Plt Count 82 L Neut % (Auto) 72 Lymph % (Auto) 18 [place] % (Auto) 9 Eos % (Auto) 1 Baso % (Auto) 0 Neut # (Auto) 4.8 Lymph # (Auto) 1.2 [place] # (Auto) 0.6 Eos # (Auto) 0.1 Baso # (Auto) 0.0 Immature Gran # (Auto) 0.02 H Absolute Nucleated RBC 0.00 Immature Gran % 0 Nucleated RBC % 0 Sodium 144 Potassium 3.7 Chloride 100 Carbon Dioxide 35.7 H Anion Gap 8 BUN 18 Creatinine 0.7 Estim Creat Clear Calc 70.6 eGFR > 60 BUN/Creatinine Ratio 26 H Glucose 77 Calculated Osmolality 287 Calcium 9.7 Corrected Calcium 10.1 Phosphorus 3.0 Magnesium 1.8 Total Bilirubin 0.3 AST 29 ALT 11 Alkaline Phosphatase 109 Total Protein 6.6 Albumin 3.5 Globulin 3.1 Albumin/Globulin Ratio 1.1 L Impressions Impression: Dysphagia Dysphagia improved after endoscopic dilatation of the proximal esophageal stricture as per the nursing staff dyspepsia Continue current management ABG Interpretation ABG results: 07/12/25 21:30 ABG pH 7.37 ABG pCO2 54 H ABG pO2 138 H ABG HCO3 31 H ABG O2 Saturation 97 ABG Base Excess 5 H Assessment & Plan A&P Narrative Dysphagia with cough with previous history of endoscopic dilatation of the esophageal stricture Plan Will schedule the patient for upper endoscopy with possible endoscopic dilatation if necessary if there is no stricture might consider in the future for the placement of a PEG tube for nutritional support Current CT scan chest abdomen pelvis findings could be related to aspiration as well Other medical problems include Developmentally delayed Schizophrenia Hypothyroidism Hyperlipidemia Thank you very much for the opportunity to participate in the care of this patient Time Spent With Patient Time: Total time spent is greater than 50% in coordination of care (as documented) at patient's floor/unit and/or counseling patient:
[2025-07-16] MEDS: AMPICILLIN/SULBAC INJ 3 GM in SODIUM CHLORIDE 0.9% (POP) 100 ML IV ×2 (17:46→23:42)
[2025-07-17] VITALS (9 sets, daily range): BP systolic 146–197; BP diastolic 49–110; PULSE 63–97; RESP 11–20; TEMP 36–36.1; O2SAT 95–99; BMI 26.2
--- NOTE | 2025-07-17 01:06 | PC.RT ---
@ 0023 collected a small amount of sputum for a culture, sent to lab.
[2025-07-17 05:31] LABS: Basophils # (Auto) 0.0 Thou/mm3 (0.0-0.2); Basophils % (Auto) 0 % (0-2.5); Eosinophils # (Auto) 0.0 Thou/mm3 (0.0-0.5); Eosinophils % (Auto) 0 % (0-10); Hematocrit 31.8 % (36.0-46.0); Hemoglobin 9.8 g/dL (12.0-16.0); Immature Granulocytes Auto 0.02 Thou/mm3 (0.00-0.00); Lymphocytes # (Auto) 1.1 Thou/mm3 (1.0-4.8); Lymphocytes % (Auto) 12 % (10-50); Mean Corpuscular HGB Conc 30.8 g/dl (31.0-37.0); Mean Corpuscular Hemoglobin 31.6 pg (25.0-35.0); Mean Corpuscular Volume 103 fL (80-100); Monocytes # (Auto) 0.8 Thou/mm3 (0.0-0.8); Monocytes % (Auto) 9 % (0-12); Neutrophils # (Auto) 7.2 Thou/mm3 (1.8-7.7); Neutrophils % (Auto) 78 % (37-80); Nucleated Red Blood Cell # 0.00 Thou/mm3 (0.00-0.00); Nucleated Red Blood Cell % 0 /100 WBC (0); Platelet Count 90 Thou/mm3 (140-440); RDW Standard Deviation 61.0 fL (36.4-46.3); Red Blood Count 3.10 Miln/mm3 (4.00-5.20); White Blood Count 9.2 Thou/mm3 (3.6-11.0)
[2025-07-17] MEDS: VALPROATE SOD INJ 250 MG in SODIUM CHLORIDE 0.9% 50 ML 52.5 MG IV ×3 (05:34→18:14)
[2025-07-17] MEDS: AMPICILLIN/SULBAC INJ 3 GM in SODIUM CHLORIDE 0.9% (POP) 100 ML IV (05:34)
[2025-07-17] MEDS: LEVOTHYROXINE SODIUM 125 MCG TABLET PO (05:35)
[2025-07-17 05:58] LABS: Alanine Aminotransferase 13 U/L (10-49); Albumin, Serum 3.4 gm/dL (3.4-4.8); Albumin/Globulin Ratio 1.1 (1.2-2.2); Alkaline Phosphatase 103 U/L (46-116); Anion Gap 9 (7-16); Aspartate Amino Transferase 27 U/L (0-34); BUN/Creatinine Ratio 33 Ratio (12-20); Bilirubin,Total 0.3 mg/dL (0.3-1.2); Blood Urea Nitrogen 20 mg/dL (9-23); Calcium 9.7 mg/dL (8.3-10.6); Calcium (Corrected) 10.2 mg/dL (8.5-10.1); Carbon Dioxide 35.3 mMol/L (20.0-31.0); Chloride 105 mMol/L (98-107); Creatinine (Component) 0.6 mg/dL (0.6-1.3); Estimated Creatinine Clearance 83.1 mL/min (>60); Globulin 3.0 gm/dL (2.3-3.5); Glucose 111 mg/dL (74-106); Magnesium 1.9 mg/dL (1.6-2.6); Osmolality,Calculated 299 (275-295); Phosphorous 3.0 mg/dL (2.4-5.1); Potassium 3.4 mMol/L (3.4-5.1); Sodium 149 mMol/L (136-145); Total Protein 6.4 gm/dL (5.7-8.2); eGFR > 60 See Note
[2025-07-17 06:05] LABS: INR 1.0 (0.9-1.3); Partial Thromboplastin Time 25.3 Seconds (22.0-36.0); Prothrombin Time 10.9 Seconds (9.0-12.2)
--- NOTE | 2025-07-17 08:00 | XR_ITS ---
Examination: Modified barium swallow Video esophagram standard 64 spot fluoroscopic lateral films of the esophagus Date and time: July 17, 2025 10:40 AM INDICATIONS: Difficulty swallowing this week TECHNIQUE AND FINDINGS: Patient swallowed multiple barium mixtures including pudding, cracker, nectar, thin barium 66 spot fluoroscopic films of the soft tissue lateral neck with swallowing, radiation dose 34.18 mCi Premature transfer. Pooling in the vallecular region and piriform sinuses No pharyngeal aspiration or penetration IMPRESSION: No pharyngeal penetration or aspiration
[2025-07-17] MEDS: VIT B12/Vit C/FA (Nephrovite) TABLET 1 TAB PO (08:09)
[2025-07-17] MEDS: FLUCONAZOLE/NS 400 MG IVPB 400 MG/200 ML BAG 100 MG IV (08:09)
[2025-07-17] MEDS: LABETALOL INJ 5 MG/ML VIAL 20 ML 20 MG IVP (08:10)
[2025-07-17] MEDS: DEXTROSE 5%-WATER 500 ML 999 ML IV ×2 (11:53→12:29)
[2025-07-17] MEDS: LOSARTAN POTASSIUM 25 MG TABLET PO (11:53)
--- NOTE | 2025-07-17 13:17 | ESPR_ITS ---
<Statement entered by Hiro Metzger MD - 07/17/25 21:19> No acute overnight events. Seen and examined at bedside and patient sleeping but easily arousable. No auditory coarse lung sounds auscultated and obtained videofluoroscopy that did not show any signs of penetration or aspiration. If hospital course continues to remain free of complications, will anticipate discharge within next 24 to 48 hours ----- Note reviewed and agree with care plan as documented. Please refer to the note below for further details. Plan discussed with attending physician Dr. Richard Metzger MD PGY-2 Internal Medicine Documentation for date of: 07/17/25 Subjective Subjective Interval history: HPI: This is a 74-year-old female PMHx of seizure disorder, developmental delay, schizophrenia, hypothyroidism, HLD, osteoporosis coming from [facility] half-way with low temperature of 94 and shortness of breath.? Was admitted for acute hypoxic respiratory failure secondary to bibasilar pneumonia. 07/13/2025: Overnight admission. Seen and examined at bedside and orchid hand present. Per orchid hand, patient is at her baseline but does state that she does have recurrent hospitalizations that seem to be repetitive in nature that revolves around hypoxia and blue lips. Suspect dysphagia and/or aspiration, especially given imaging findings of mass in thoracic cavity. Speech therapy evaluated patient and is known to them, who suspects pharyngeal versus esophageal dysphagia and recommends video swallow study. However, at this time we will consult GI and await recommendations. Otherwise, transitioned certain p.o. medications to IV, including Depakote and levothyroxine and patient currently NPO. 07/14/2025: Patient remains hypothermic with a temp of 96.5, satting at 93% on 3 L nasal cannula. Sodium was 134 up to 140 now. Patient's mentation is improved today. GI consulted the patient and will schedule for upper endoscopy with possible endoscopic dilation and consideration of PEG tube placement. 07/15/2025: Endoscopy done last night. PUD/GERD/bland diet started. Patient had stage II hypertension at 165/77. Labetalol 20 IV push for SBP over 180 on board. Hemoglobin is 10.8 and stable. Cocci serology is positive, started fluconazole. Urine cultures positive for E. coli and serratia marcescens. Continuing Zosyn. 07/16/2025: Patient was seen and examined at bedside. No acute events took place overnight. Patient responds to questions asked from her but history is limited to intellectual disability of the patient. A rapid response was called for patient desaturating to low to mid 80s. Patient had been eating applesauce the hour prior and when she is spoke to providers in the room vocal crackles were audible. Immediate suction and removal of phlegm followed by supplementation with 15L oxymask improved her respiratory status. Once stablized, pt was downgraded to 4L with saturations in high 90's. 07/17/2025: Patient was seen and examined at bedside. No acute events took place overnight. Patient had applesauce in the morning and tolerated it well. She breathes and speaks clearly without vocal crackles. Patient is going to complete video fluoroscopy swallow by Dr. Gonzalez today. Patient had BP 197/91 at 8 AM and was given labetalol IVP 20 mg x 1. Patient started losartan p.o. 25 mg daily. Exam Vital Signs Temp Pulse Resp BP Pulse Ox O2 Del Method O2 Flow Rate 96.8 F 68 16 170/82 H 98 Nasal Cannula 2 07/17/25 12:00 07/17/25 12:00 07/17/25 12:00 07/17/25 12:00 07/17/25 12:00 07/17/25 12:07/17/25 12:00 Narrative Exam General: Frail, unable to communicate, making incomprehensible sounds when asked questions. Neurologic: Confused, no gross neurological deficit. HEENT: Normocephalic, atraumatic, mucous membranes moist. Pupils reactive to light. Heart: Regular rate and rhythm, normal S1 and S2, no murmurs. Lungs: Coarse breath sounds bilaterally. Abdomen: Soft, nondistended, nontender, positive bowel sounds. No guarding or rebound tenderness. Extremities: Trace pitting edema. 2+ radial and dorsalis pedis pulses bilaterally. Skin: Warm. Dry. No rash or ecchymoses. Objective Labs 07/18/25 04:44 07/18/25 04:44 Labs: Laboratory Results - last 24 hr 07/17/25 05:19 WBC 9.2 RBC 3.10 L Hgb 9.8 L Hct 31.8 L MCV 103 H MCH 31.6 MCHC 30.8 L RDW Std Deviation 61.0 H Plt Count 90 L Neut % (Auto) 78 Lymph % (Auto) 12 [place] % (Auto) 9 Eos % (Auto) 0 Baso % (Auto) 0 Neut # (Auto) 7.2 Lymph # (Auto) 1.1 [place] # (Auto) 0.8 Eos # (Auto) 0.0 Baso # (Auto) 0.0 Immature Gran # (Auto) 0.02 H Absolute Nucleated RBC 0.00 Immature Gran % 0 Nucleated RBC % 0 PT 10.9 INR 1.0 APTT 25.3 Sodium 149 H Potassium 3.4 Chloride 105 Carbon Dioxide 35.3 H Anion Gap 9 BUN 20 Creatinine 0.6 Estim Creat Clear Calc 83.1 eGFR > 60 BUN/Creatinine Ratio 33 H Glucose 111 H Calculated Osmolality 299 H Calcium 9.7 Corrected Calcium 10.2 H Phosphorus 3.0 Magnesium 1.9 Total Bilirubin 0.3 AST 27 ALT 13 Alkaline Phosphatase 103 Total Protein 6.4 Albumin 3.4 Globulin 3.0 Albumin/Globulin Ratio 1.1 L ABG Interpretation ABG results: 07/12/25 21:30 ABG pH 7.37 ABG pCO2 54 H ABG pO2 138 H ABG HCO3 31 H ABG O2 Saturation 97 ABG Base Excess 5 H Quality Measures Quality Measures none Advance care planning discussed with:: patient and other Assessment & Plan Assessment Current Active Medications: Generic Name Dose Route Start Last Admin Trade Name Freq PRN Reason Stop Dose Admin Acetaminophen 650 mg 07/17/25 10:17 Acetaminophen 325 Mg Tablet PO 08/12/25 00:51 Q6H PRN Fever > 99.9 Dextrose 50 ml 07/13/25 01:51 Dextrose 50%-Water Inj 50 Ml Syringe IV 08/12/25 01:50 Q15MIN PRN BG <50 OR BG <70 & pt unresponsive Divalproex Sodium 500 mg 07/13/25 09:00 07/13/25 10:28 Divalproex Sod Er 250 Mg Bruce (Non-Formulary) PO 08/12/25 08:59 500 mg On Hold: 07/13/25 16:19 BID PRATIBHA Administration Comment: HOLD CHANGED TO IV TORChuy METZGER Glucagon 1 mg 07/13/25 01:51 Glucagon Inj 1 Mg Vial IM Q15MIN PRN BG <70, and no IV access Guaifenesin/Dextromethorphan 1 each 07/17/25 10:15 Guaifenesin/Dm Tablet PO 08/16/25 10:14 BID PRN COUGH Valproic Acid 250 mg/ Sodium 52.5 mls @ 52.5 mls/hr 07/13/25 18:00 07/17/25 12:31 Chloride IV 08/12/25 17:59 52.5 mls/hr Q6HR PRATIBHA Administration Fluconazole 400 mg in 200 mls @ 100 mls/hr 07/15/25 09:56 07/17/25 08:09 Diflucan/Ns Ivpb IV 07/22/25 09:55 100 mls/hr QDAY PRATIBHA Administration Dextrose 500 mls @ 999 mls/hr 07/17/25 10:15 07/17/25 12:29 D5w IV 08/16/25 10:14 999 mls/hr .Q31M PRATIBHA Administration Levothyroxine Sodium 125 mcg 07/16/25 08:00 07/17/25 05:35 Levothyroxine Sodium 125 Mcg Tablet PO 08/15/25 07:59 125 mcg ACBR PRATIBHA Administration Losartan Potassium 25 mg 07/17/25 10:20 07/17/25 11:53 Losartan Potassium 25 Mg Tablet PO 08/16/25 10:19 25 mg QDAY PRATIBHA Administration Ondansetron HCl 4 mg 07/13/25 00:52 Ondansetron Inj 2 Mg/Ml Inj 2 Ml IVP 08/12/25 00:51 Q6H PRN NAUSEA OR VOMITING Protocol Pantoprazole Sodium 40 mg 07/13/25 09:00 07/17/25 08:09 Pantoprazole Inj 40 Mg Vial IVP 08/12/25 08:59 40 mg QDAY PRATIBHA Administration Quetiapine Fumarate 400 mg 07/13/25 09:00 07/13/25 09:14 Quetiapine Fumarate 100 Mg Tablet PO 08/12/25 08:59 400 mg On Hold: 07/13/25 19:10 BID PRATIBHA Administration Vitamin B Complex/Vit C/Folic Acid 1 tab 07/16/25 09:00 07/17/25 08:09 Vit B12/Vit C/Fa (Nephrovite) Tablet PO 08/15/25 08:59 1 tab QDAY PRATIBHA Administration Plan Summary: This is a 74-year-old female PMHx of seizure disorder, developmental delay, schizophrenia, hypothyroidism, HLD, osteoporosis coming from [facility] half-way with low temperature of 94 and shortness of breath. #AHRF secondary to aspiration pneumonia #Acute decompensation of HFpEF with ejection fraction 50 to 55% Presented from [facility] with low temperature of 94, and shortness of breath. Desatted to 87. While in the ED, rectal temperature was 94.1. WBC WNL, but possibly improper immune response. Likely combination pneumonia versus new onset CHF. CXR showed significant bibasilar pneumonia. CT abdomen showed dense pneumonic consolidation versus pulmonary mass of 4.6 on the left lobe. BNP slightly elevated with evidence of vascular congestion on imaging, JVD and 3+ bilateral lower extremity edema. No baseline echocardiogram file. She had mild hyponatremia of 130 with low serum osmolality, suggestive of fluid retention. Echo showed normal left ventricular size and function with an approximate ejection fraction of 50-55%. There was aortic valve sclerosis without stenosis. Mild thickening of the mitral valve leaflets and mild mitral and trace tricuspid regurg. Consider the presence of chest x-ray findings showing pulmonary edema. CXR (07/26): Marked Lt lung pneumonia Plan: ? Switched Zosyn to Unasyn 3g Q6h ? DC Lasix, patient is net -7.8 L ? Fluid restriction, salt restriction, strict MAREK's ? Blood cultures negative for growth after 48 hours ? Continue BiPAP PRN ? Recommended repeat CT chest to assess for mass resolution after ANTIBIOTICS #Acute Metobolic Encephalopathy #Schizophrenia #Developmental delay #Seizure disorder #Dysphagia Baseline developmental delay, unable to obtain further history from half-way at this point. Labs significant for ammonia of 102, improved to 41. Consider side effects in the presence of Depakote home meds. No history of cirrhosis, however there was signs of hepatomegaly on ultrasound. Unable to rule out hepatic encephalopathy, will proceed with treatment. Patient unable to tolerate p.o. Patient does have a history of esophageal dilation procedure in November of this year. Endoscopy (07/14) showed esophageal stenosis in the proximal esophagus, it was dilated during the procedure, there was also esophagitis in the lower third of the esophagus, there was gastritis. GI recommends awaiting pathology results. XR video fluoroscopy swallow study on was negative for pharyngeal penetration or aspiration (07/17/2025) Plan: ? GI on board ? PUD/GERD/bland diet ? Will discuss decision about peg tube with primary care doctor ? Continue home SEROQUEL 400 mg BID ? Continue valproate sodium injection 250 mg IV every 6 hours ? Avoid narcotics ? Pending VALPROIC ACID level #Positive cocci serology Sent for confirmation and titer Plan: ? Started fluconazole 400 mg daily ? Follow-up beta D glucan ? Follow-up serum Aspergillus #UTI, likely GNR UA showed UTI. Unable to assess for symptoms. However will treat with ANTIBIOTICS as above. Urine culture positive for Pseudomonas aeruginosa and Serratia Marcescens Plan: ? Continue Zosyn #Isolated Elevated Pancreatic Enzymes Base 168, amylase 109 which is highly specific for acute pancreatitis. No evidence of acute pancreatitis on CT again, unable to assess for symptoms. Unable to give fluids given concern for CHF. Plan: ? Monitor closely #Hyperkalemia (Resolved) Potassium 5.6. Improved to 3.5. ? Daily labs #Mild hypoglycemia Glucose in the 80s and 90s Has been corrected with D5W drips over the past 2 evenings because the patient was n.p.o., now patient is on a diet Plan: ? Started diet, expected to improve ? Registered dietitian consulted #Concern for GI bleed She was evaluated earlier this week by PCP for bloody stool with negative work- up. Hgb around baseline. Plan: ? Daily labs, transfuse if Hgb < 7.0 #Hypothyroidism TSH 5.81, free T4 0.75 Plan: ? Switched levothyroxine from IV to oral ? Levothyroxine p.o. 125 mcg ACBR #Hyperlipidemia #Seasonal allergies #Chronic constipation Plan: ? Hold ATORVASTATIN 10 mg, n.p.o. ? Hold home LORATIDINE 10 mg, n.p.o. Health maintenance Diet: PUD/GERD/bland diet GI prophylaxis: PROTONIX DVT prophylaxis: SCDs Antibiotics: ZOSYN CODE STATUS: FULL-CODE (Please verify with half-way) Disposition: GI performed an esophageal dilation. Awaiting biopsy results. Videofluoroscopic swallow study completed today and was unremarkable. Anticipate discharge within the next 24 hours. Patient was seen and discussed with my attending physician Dr. Richard [facility] and my senior resident Dr Domenica Dong DO PGY 1 Attending Provider Attestation/Addendum Tere Jimenez DO, attest that I was physically present for the horn portions of the service and evaluated the patient with the resident and I reviewed and discussed the case with the resident and agree with the resident's findings and plans of care as documented above Patient seen and evalauted this AM. She states that she is feeling fine. She has no active complaints. Patient underwent video swallow study which shows no evidence of aspiration. Will advance diet as tolerated. Anticipate DC within next 24h.
--- NOTE | 2025-07-17 20:50 | PD.IMPROG ---
Documentation for date of: 07/17/25 Subjective Subjective Interval history: Status post endoscopic dilatation of the proximal esophagus stricture Gastric esophageal biopsy results are still pending Exam Vital Signs Temp Pulse Resp BP Pulse Ox O2 Del Method O2 Flow Rate 96.9 F 65 20 156/49 H 95 Nasal Cannula 3 07/17/25 20:00 07/17/25 20:00 07/17/25 20:00 07/17/25 20:00 07/17/25 20:00 07/17/25 20:00 07/17/25 20:00 Objective Labs 07/17/25 05:19 07/17/25 05:19 Labs: Laboratory Results - last 24 hr 07/17/25 05:19 WBC 9.2 RBC 3.10 L Hgb 9.8 L Hct 31.8 L MCV 103 H MCH 31.6 MCHC 30.8 L RDW Std Deviation 61.0 H Plt Count 90 L Neut % (Auto) 78 Lymph % (Auto) 12 [place] % (Auto) 9 Eos % (Auto) 0 Baso % (Auto) 0 Neut # (Auto) 7.2 Lymph # (Auto) 1.1 [place] # (Auto) 0.8 Eos # (Auto) 0.0 Baso # (Auto) 0.0 Immature Gran # (Auto) 0.02 H Absolute Nucleated RBC 0.00 Immature Gran % 0 Nucleated RBC % 0 PT 10.9 INR 1.0 APTT 25.3 Sodium 149 H Potassium 3.4 Chloride 105 Carbon Dioxide 35.3 H Anion Gap 9 BUN 20 Creatinine 0.6 Estim Creat Clear Calc 83.1 eGFR > 60 BUN/Creatinine Ratio 33 H Glucose 111 H Calculated Osmolality 299 H Calcium 9.7 Corrected Calcium 10.2 H Phosphorus 3.0 Magnesium 1.9 Total Bilirubin 0.3 AST 27 ALT 13 Alkaline Phosphatase 103 Total Protein 6.4 Albumin 3.4 Globulin 3.0 Albumin/Globulin Ratio 1.1 L Impressions Impression: Proximal esophageal stricture Status post endoscopic dilatation of the proximal esophagus stricture Gastritis biopsies pending Esophagitis biopsies pending Continue current management ABG Interpretation ABG results: 07/12/25 21:30 ABG pH 7.37 ABG pCO2 54 H ABG pO2 138 H ABG HCO3 31 H ABG O2 Saturation 97 ABG Base Excess 5 H Assessment & Plan A&P Narrative Dysphagia with cough with previous history of endoscopic dilatation of the esophageal stricture Plan Will schedule the patient for upper endoscopy with possible endoscopic dilatation if necessary if there is no stricture might consider in the future for the placement of a PEG tube for nutritional support Current CT scan chest abdomen pelvis findings could be related to aspiration as well Other medical problems include Developmentally delayed Schizophrenia Hypothyroidism Hyperlipidemia Thank you very much for the opportunity to participate in the care of this patient Time Spent With Patient Time: Total time spent is greater than 50% in coordination of care (as documented) at patient's floor/unit and/or counseling patient:
[2025-07-18] VITALS (10 sets, daily range): BP systolic 150–168; BP diastolic 60–92; PULSE 60–81; RESP 12–24; TEMP 36.4–36.8; O2SAT 93–98; BMI 26.0
[2025-07-18] MEDS: VALPROATE SOD INJ 250 MG in SODIUM CHLORIDE 0.9% 50 ML 52.5 MG IV ×4 (00:10→17:15)
[2025-07-18 05:20] LABS: Basophils # (Auto) 0.0 Thou/mm3 (0.0-0.2); Basophils % (Auto) 0 % (0-2.5); Eosinophils # (Auto) 0.1 Thou/mm3 (0.0-0.5); Eosinophils % (Auto) 2 % (0-10); Hematocrit 28.7 % (36.0-46.0); Hemoglobin 8.9 g/dL (12.0-16.0); Immature Granulocytes Auto 0.01 Thou/mm3 (0.00-0.00); Lymphocytes # (Auto) 1.6 Thou/mm3 (1.0-4.8); Lymphocytes % (Auto) 23 % (10-50); Mean Corpuscular HGB Conc 31.0 g/dl (31.0-37.0); Mean Corpuscular Hemoglobin 32.2 pg (25.0-35.0); Mean Corpuscular Volume 104 fL (80-100); Monocytes # (Auto) 0.7 Thou/mm3 (0.0-0.8); Monocytes % (Auto) 11 % (0-12); Neutrophils # (Auto) 4.3 Thou/mm3 (1.8-7.7); Neutrophils % (Auto) 64 % (37-80); Nucleated Red Blood Cell # 0.00 Thou/mm3 (0.00-0.00); Nucleated Red Blood Cell % 0 /100 WBC (0); Platelet Count 96 Thou/mm3 (140-440); RDW Standard Deviation 60.0 fL (36.4-46.3); Red Blood Count 2.76 Miln/mm3 (4.00-5.20); White Blood Count 6.8 Thou/mm3 (3.6-11.0)
[2025-07-18] MEDS: LEVOTHYROXINE SODIUM 125 MCG TABLET PO (05:37)
[2025-07-18 05:56] LABS: Alanine Aminotransferase 11 U/L (10-49); Albumin, Serum 3.1 gm/dL (3.4-4.8); Albumin/Globulin Ratio 1.0 (1.2-2.2); Alkaline Phosphatase 92 U/L (46-116); Anion Gap 8 (7-16); Aspartate Amino Transferase 28 U/L (0-34); BUN/Creatinine Ratio 38 Ratio (12-20); Bilirubin,Total 0.3 mg/dL (0.3-1.2); Blood Urea Nitrogen 19 mg/dL (9-23); Calcium 9.2 mg/dL (8.3-10.6); Calcium (Corrected) 9.9 mg/dL (8.5-10.1); Carbon Dioxide 35.6 mMol/L (20.0-31.0); Chloride 106 mMol/L (98-107); Creatinine (Component) 0.5 mg/dL (0.6-1.3); Estimated Creatinine Clearance 99.3 mL/min (>60); Globulin 3.1 gm/dL (2.3-3.5); Glucose 87 mg/dL (74-106); Magnesium 2.1 mg/dL (1.6-2.6); Osmolality,Calculated 299 (275-295); Phosphorous 3.1 mg/dL (2.4-5.1); Potassium 3.5 mMol/L (3.4-5.1); Sodium 150 mMol/L (136-145); Total Protein 6.2 gm/dL (5.7-8.2); eGFR > 60 See Note
[2025-07-18 06:37] LABS: Valporic Acid (Depak)* 75.7 mg/L (50.0-100.0)
[2025-07-18] MEDS: LOSARTAN POTASSIUM 25 MG TABLET PO (09:05)
[2025-07-18] MEDS: VIT B12/Vit C/FA (Nephrovite) TABLET 1 TAB PO (09:05)
[2025-07-18] MEDS: IRON SUCROSE CPLX INJ 20 MG/ML VIAL 5 ML 200 MG IVP (09:06)
[2025-07-18] MEDS: DEXTROSE 5%-WATER 500 ML 85 ML IV (09:06)
[2025-07-18] MEDS: FLUCONAZOLE/NS 400 MG IVPB 400 MG/200 ML BAG 100 MG IV (09:06)
--- NOTE | 2025-07-18 13:00 | ESPR_ITS ---
<Statement entered by Hiro Metzger MD - 07/18/25 14:47> No acute overnight events. Seen and examined at bedside and patient alert and appears to be comfortable. Per nursing staff, she was able to eat all of her breakfast and tolerating increased p.o. intake. Given that patient has good and bad days regarding PO intake, spoke to Dr. Garcia regarding long-term nutritional support. At this time, will continue to forego PEG tube and attempt to modify meals. He spoke to personnel at [facility] who will be sending someone today who knows the patient in the early afternoon to assess if they can help increase p.o. intake. CBC shows decrease in hemoglobin from 9.8 to 8.9, and Na increased from 149 to 150. Currently encouraging PO intake with thickened fluids and will follow-up on repeat renal panel. Sputum culture growing GPC but low suspicion for infection at this time. Consulted pulmonology regarding mass seen on imaging who will evaluate patient tomorrow. ----- Note reviewed and agree with care plan as documented. Please refer to the note below for further details. Plan discussed with attending physician Dr. Richard Metzger MD PGY-2 Internal Medicine Documentation for date of: 07/18/25 Subjective Subjective Interval history: Patient has had variations in her ability to tolerate oral intake, this may be a behavioral issue. Considering this, a discussion was had with Dr. Garcia regarding nutritional delivery in the long-term. Decision was made to not proceed with a PEG tube placement and attempts to modify meals. Dr. Garcia spoke to personnel at [facility], they will be sending a leasing representative today who knows the patient to try and assess for better compliance with increased oral intake. Patient's hemoglobin went down to 8.9 from 9.8. Sodium 150, repeat sodium at 2 PM showed sodium 145. Will continue to encourage oral intake with thickened fluids. Sputum culture positive for gram-positive cocci but low suspicion of infection. 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 Exam Vital Signs Temp Pulse Resp BP Pulse Ox O2 Del Method O2 Flow Rate 97.8 F 68 24 H 168/85 H 94 L Nasal Cannula 3 07/18/25 08:00 07/18/25 09:05 07/18/25 08:00 07/18/25 09:05 07/18/25 08:00 07/18/25 08:00 07/18/25 08:00 Narrative Exam General: Frail, unable to communicate, making incomprehensible sounds when asked questions. Neurologic: Confused, no gross neurological deficit. HEENT: Normocephalic, atraumatic, mucous membranes moist. Pupils reactive to light. Heart: Regular rate and rhythm, normal S1 and S2, no murmurs. Lungs: Coarse breath sounds bilaterally. Abdomen: Soft, nondistended, nontender, positive bowel sounds. No guarding or rebound tenderness. Extremities: Trace pitting edema in the ankles bilaterally. 2+ radial and dorsalis pedis pulses bilaterally. Skin: Warm. Dry. No rash or ecchymoses. Objective Labs 07/19/25 04:49 07/19/25 04:49 Labs: Laboratory Results - last 24 hr 07/13/25 07/18/25 05:30 04:44 WBC 6.8 RBC 2.76 L Hgb 8.9 L Hct 28.7 L MCV 104 H MCH 32.2 MCHC 31.0 RDW Std Deviation 60.0 H Plt Count 96 L Neut % (Auto) 64 Lymph % (Auto) 23 [place] % (Auto) 11 Eos % (Auto) 2 Baso % (Auto) 0 Neut # (Auto) 4.3 Lymph # (Auto) 1.6 [place] # (Auto) 0.7 Eos # (Auto) 0.1 Baso # (Auto) 0.0 Immature Gran # (Auto) 0.01 H Absolute Nucleated RBC 0.00 Immature Gran % 0 Nucleated RBC % 0 Sodium 150 H Potassium 3.5 Chloride 106 Carbon Dioxide 35.6 H Anion Gap 8 BUN 19 Creatinine 0.5 L Estim Creat Clear Calc 99.3 eGFR > 60 BUN/Creatinine Ratio 38 H Glucose 87 Calculated Osmolality 299 H Calcium 9.2 Corrected Calcium 9.9 Phosphorus 3.1 Magnesium 2.1 Total Bilirubin 0.3 AST 28 ALT 11 Alkaline Phosphatase 92 Total Protein 6.2 Albumin 3.1 L Globulin 3.1 Albumin/Globulin Ratio 1.0 L Valproic Acid 75.7 ABG Interpretation ABG results: 07/12/25 21:30 ABG pH 7.37 ABG pCO2 54 H ABG pO2 138 H ABG HCO3 31 H ABG O2 Saturation 97 ABG Base Excess 5 H Quality Measures Quality Measures none Advance care planning discussed with:: other (Caregiver and PCP) Assessment & Plan Assessment Current Active Medications: Generic Name Dose Route Start Last Admin Trade Name Freq PRN Reason Stop Dose Admin Acetaminophen 650 mg 07/17/25 10:17 Acetaminophen 325 Mg Tablet PO 08/12/25 00:51 Q6H PRN Fever > 99.9 Dextrose 50 ml 07/13/25 01:51 Dextrose 50%-Water Inj 50 Ml Syringe IV 08/12/25 01:50 Q15MIN PRN BG <50 OR BG <70 & pt unresponsive Divalproex Sodium 500 mg 07/13/25 09:00 07/13/25 10:28 Divalproex Sod Er 250 Mg Bruce (Non-Formulary) PO 08/12/25 08:59 500 mg On Hold: 07/13/25 16:19 BID PRATIBHA Administration Comment: HOLD CHANGED TO IV JENIFER MEZTGER Glucagon 1 mg 07/13/25 01:51 Glucagon Inj 1 Mg Vial IM Q15MIN PRN BG <70, and no IV access Guaifenesin/Dextromethorphan 1 each 07/17/25 10:15 Guaifenesin/Dm Tablet PO 08/16/25 10:14 BID PRN COUGH Valproic Acid 250 mg/ Sodium 52.5 mls @ 52.5 mls/hr 07/13/25 18:00 07/18/25 12:03 Chloride IV 08/12/25 17:59 52.5 mls/hr Q6HR PRATIBHA Administration Fluconazole 400 mg in 200 mls @ 100 mls/hr 07/15/25 09:56 07/18/25 09:06 Diflucan/Ns Ivpb IV 07/22/25 09:55 100 mls/hr QDAY PRATIBHA Administration Dextrose 500 mls @ 85 mls/hr 07/18/25 08:00 07/18/25 09:06 D5w IV 07/18/25 13:52 85 mls/hr .Q5H53M ONE Administration Iron Sucrose 200 mg 07/18/25 09:00 07/18/25 09:06 Iron Sucrose Cplx Inj 20 Mg/Ml Vial 5 Ml IVP 07/22/25 08:59 200 mg DAILY PRATIBHA Administration Levothyroxine Sodium 125 mcg 07/16/25 08:00 07/18/25 05:37 Levothyroxine Sodium 125 Mcg Tablet PO 08/15/25 07:59 125 mcg ACBR PRATIBHA Administration Losartan Potassium 25 mg 07/17/25 10:20 07/18/25 09:05 Losartan Potassium 25 Mg Tablet PO 08/16/25 10:19 25 mg QDAY PRATIBHA Administration Ondansetron HCl 4 mg 07/13/25 00:52 Ondansetron Inj 2 Mg/Ml Inj 2 Ml IVP 08/12/25 00:51 Q6H PRN NAUSEA OR VOMITING Protocol Pantoprazole Sodium 40 mg 07/13/25 09:00 07/18/25 09:07 Pantoprazole Inj 40 Mg Vial IVP 08/12/25 08:59 40 mg QDAY PRATIBHA Administration Quetiapine Fumarate 400 mg 07/13/25 09:00 07/13/25 09:14 Quetiapine Fumarate 100 Mg Tablet PO 08/12/25 08:59 400 mg On Hold: 07/13/25 19:10 BID PRATIBHA Administration Vitamin B Complex/Vit C/Folic Acid 1 tab 07/16/25 09:00 07/18/25 09:05 Vit B12/Vit C/Fa (Nephrovite) Tablet PO 08/15/25 08:59 1 tab QDAY PRATIBHA Administration Plan Summary: This is a 74-year-old female PMHx of seizure disorder, developmental delay, schizophrenia, hypothyroidism, HLD, osteoporosis coming from [facility] custodial with low temperature of 94 and shortness of breath. #AHRF secondary to aspiration pneumonia #Acute decompensation of HFpEF with ejection fraction 50 to 55% Presented from [facility] with low temperature of 94, and shortness of breath. Desatted to 87. While in the ED, rectal temperature was 94.1. WBC WNL, but possibly improper immune response. Likely combination pneumonia versus new onset CHF. CXR showed significant bibasilar pneumonia. CT abdomen showed dense pneumonic consolidation versus pulmonary mass of 4.6 on the left lobe. BNP slightly elevated with evidence of vascular congestion on imaging, JVD and 3+ bilateral lower extremity edema. No baseline echocardiogram file. She had mild hyponatremia of 130 with low serum osmolality, suggestive of fluid retention. Echo showed normal left ventricular size and function with an approximate ejection fraction of 50-55%. There was aortic valve sclerosis without stenosis. Mild thickening of the mitral valve leaflets and mild mitral and trace tricuspid regurg. Consider the presence of chest x-ray findings showing pulmonary edema. CXR (07/26): Marked Lt lung pneumonia Sputum cultures positive for gram-positive cocci, low suspicion for infection, antibiotic courses completed. Plan: ? Fluid restriction, salt restriction, strict MAREK's ? Blood cultures negative for growth after 5 days ? Continue BiPAP PRN ? Recommended repeat CT chest to assess for mass ? Pulmonology consulted for mediastinal mass #Acute Metobolic Encephalopathy #Schizophrenia #Developmental delay #Seizure disorder #Dysphagia Baseline developmental delay, unable to obtain further history from custodial at this point. Labs significant for ammonia of 102, improved to 41. Consider side effects in the presence of Depakote home meds. No history of cirrhosis, however there was signs of hepatomegaly on ultrasound. Unable to rule out hepatic encephalopathy, will proceed with treatment. Patient unable to tolerate p.o. Patient does have a history of esophageal dilation procedure in November of this year. Endoscopy (07/14) showed esophageal stenosis in the proximal esophagus, it was dilated during the procedure, there was also esophagitis in the lower third of the esophagus, there was gastritis. GI recommends awaiting pathology results. XR video fluoroscopy swallow study on was negative for pharyngeal penetration or aspiration (07/17/2025) Patient's inconsistency in oral intake is likely a behavioral issue. A caregiver with a well-established relationship with the patient will visit the patient to encourage oral intake. Plan: ? GI on board ? PUD/GERD/bland diet ? Had discussion with Dr. Garcia, will not pursue PEG tube at this time, will encourage oral intake ? Continue home SEROQUEL 400 mg BID ? Continue valproate sodium injection 250 mg IV every 6 hours ? Avoid narcotics ? Pending VALPROIC ACID level #Positive cocci serology Sent for confirmation and titer Plan: ? Continue fluconazole 400 mg daily ? Follow-up beta D glucan ? Follow-up serum Aspergillus #UTI, likely GNR UA showed UTI. Unable to assess for symptoms. Antibiotic course completed. Urine culture positive for Pseudomonas aeruginosa and Serratia Marcescens Plan: ? Antibiotics complete #Hypernatremia Patient's sodium level has been around 149-150 Consider in the presence of reduced oral intake Plan: ? Sodium was rechecked after encouraging oral intake, corrected to 145 ? Continue to monitor and encourage oral intake #Isolated Elevated Pancreatic Enzymes Base 168, amylase 109 which is highly specific for acute pancreatitis. No evidence of acute pancreatitis on CT again, unable to assess for symptoms. Unable to give fluids given concern for CHF. Plan: ? Monitor closely #Hyperkalemia (Resolved) Potassium 5.6. Improved to 3.5. Plan: ? Daily labs #Mild hypoglycemia Glucose in acceptable range Plan: ? Continue to increase encourage oral intake ? Registered dietitian consulted #Concern for GI bleed She was evaluated earlier this week by PCP for bloody stool with negative work- up. Hgb around baseline. Plan: ? Daily labs, transfuse if Hgb < 7.0 #Hypothyroidism TSH 5.81, free T4 0.75 Plan: ? Switched levothyroxine from IV to oral ? Levothyroxine p.o. 125 mcg ACBR #Hyperlipidemia #Seasonal allergies #Chronic constipation Plan: ? Hold ATORVASTATIN 10 mg, n.p.o. ? Hold home LORATIDINE 10 mg, n.p.o. Health maintenance Diet: PUD/GERD/bland diet GI prophylaxis: PROTONIX DVT prophylaxis: SCDs Antibiotics/Antifungals: Fluconazole CODE STATUS: FULL-CODE (Please verify with custodial) Disposition: Discussed with Dr. Garcia about plans for PEG tube placement, will not pursue at this time. Will continue to encourage oral intake with support from a well-known caregiver today from the patient's custodial. Pulmonology consulted for patient's mediastinal mass. Patient was seen and discussed with my attending physician Dr. Richard [facility] and my senior resident Dr. Domenica TOLBERT PGY-2. Wes Osorio DO PGY-1. Attending Provider Attestation/Addendum Tony, Tere Ramos DO, attest that I was physically present for the horn portions of the service and evaluated the patient with the resident and I reviewed and discussed the case with the resident and agree with the resident's findings and plans of care as documented above Patient seen and evaluated this AM. Patient states she is fine. However, sodium has been uptrending. Started on IV fluids. Conservator feels that PEG tube will not help patient with her issue of aspiration and does not change her morbidity/ mortality outcome. Will have dba manager from home to living coach patient in drinking water. Patient is at baseline. Will monitor sodium level. If improved, anticipate DC within next 24h.
--- NOTE | 2025-07-18 14:20 | PC.SS ---
Rounding Note: PEG tub decision is pending. Team to reach out to Dr. Garcia.
[2025-07-18 14:37] LABS: Albumin, Serum 2.9 gm/dL (3.4-4.8); Anion Gap 6 (7-16); BUN/Creatinine Ratio 38 Ratio (12-20); Blood Urea Nitrogen 19 mg/dL (9-23); Calcium 8.5 mg/dL (8.3-10.6); Calcium (Corrected) 9.4 mg/dL (8.5-10.1); Carbon Dioxide 33.8 mMol/L (20.0-31.0); Chloride 105 mMol/L (98-107); Creatinine (Component) 0.5 mg/dL (0.6-1.3); Estimated Creatinine Clearance 99.3 mL/min (>60); Glucose 200 mg/dL (74-106); Osmolality,Calculated 296 (275-295); Phosphorous 2.2 mg/dL (2.4-5.1); Potassium 3.2 mMol/L (3.4-5.1); Sodium 145 mMol/L (136-145); eGFR > 60 See Note
--- NOTE | 2025-07-18 16:23 | ESPR_ITS ---
Documentation for date of: 07/18/25 Subjective Subjective Interval history: Still poor p.o. intake I still feel that in the long run patient will benefit from placement of a PEG tube as she is not going to eat enough calories and drink enough liquids for electrolyte correction Exam Vital Signs Temp Pulse Resp BP Pulse Ox O2 Del Method O2 Flow Rate 97.8 F 68 24 H 168/85 H 94 L Nasal Cannula 3 07/18/25 12:00 07/18/25 12:00 07/18/25 12:00 07/18/25 12:00 07/18/25 12:00 07/18/25 12:00 07/18/25 12:00 Objective Labs 07/18/25 04:44 07/18/25 14:02 Labs: Laboratory Results - last 24 hr 07/13/25 07/18/25 07/18/25 05:30 04:44 14:02 WBC 6.8 RBC 2.76 L Hgb 8.9 L Hct 28.7 L MCV 104 H MCH 32.2 MCHC 31.0 RDW Std Deviation 60.0 H Plt Count 96 L Neut % (Auto) 64 Lymph % (Auto) 23 [place] % (Auto) 11 Eos % (Auto) 2 Baso % (Auto) 0 Neut # (Auto) 4.3 Lymph # (Auto) 1.6 [place] # (Auto) 0.7 Eos # (Auto) 0.1 Baso # (Auto) 0.0 Immature Gran # (Auto) 0.01 H Absolute Nucleated RBC 0.00 Immature Gran % 0 Nucleated RBC % 0 Sodium 150 H 145 Potassium 3.5 3.2 L Chloride 106 105 Carbon Dioxide 35.6 H 33.8 H Anion Gap 8 6 L BUN 19 19 Creatinine 0.5 L 0.5 L Estim Creat Clear Calc 99.3 99.3 eGFR > 60 > 60 BUN/Creatinine Ratio 38 H 38 H Glucose 87 200 H D Calculated Osmolality 299 H 296 H Calcium 9.2 8.5 Corrected Calcium 9.9 9.4 Phosphorus 3.1 2.2 L Magnesium 2.1 Total Bilirubin 0.3 AST 28 ALT 11 Alkaline Phosphatase 92 Total Protein 6.2 Albumin 3.1 L 2.9 L Globulin 3.1 Albumin/Globulin Ratio 1.0 L Valproic Acid 75.7 Impressions Impression: Failure to thrive Dysphagia Electrolyte abnormalities Continue to encourage p.o. intake ABG Interpretation ABG results: 07/12/25 21:30 ABG pH 7.37 ABG pCO2 54 H ABG pO2 138 H ABG HCO3 31 H ABG O2 Saturation 97 ABG Base Excess 5 H Assessment & Plan A&P Narrative Dysphagia with cough with previous history of endoscopic dilatation of the esophageal stricture Plan Will schedule the patient for upper endoscopy with possible endoscopic dilatation if necessary if there is no stricture might consider in the future for the placement of a PEG tube for nutritional support Current CT scan chest abdomen pelvis findings could be related to aspiration as well Other medical problems include Developmentally delayed Schizophrenia Hypothyroidism Hyperlipidemia Thank you very much for the opportunity to participate in the care of this patient Time Spent With Patient Time: Total time spent is greater than 50% in coordination of care (as documented) at patient's floor/unit and/or counseling patient:
[2025-07-19] VITALS (11 sets, daily range): BP systolic 141–183; BP diastolic 69–89; PULSE 63–84; RESP 12–22; TEMP 35.9–36.7; O2SAT 92–99; BMI 27.1
[2025-07-19] MEDS: VALPROATE SOD INJ 250 MG in SODIUM CHLORIDE 0.9% 50 ML 52.5 MG IV ×2 (00:17→05:26)
[2025-07-19] MEDS: LEVOTHYROXINE SODIUM 125 MCG TABLET PO (05:26)
[2025-07-19] MEDS: LOSARTAN POTASSIUM 25 MG TABLET PO ×2 (05:33→10:50)
[2025-07-19 06:00] LABS: Basophils # (Auto) 0.0 Thou/mm3 (0.0-0.2); Basophils % (Auto) 0 % (0-2.5); Eosinophils # (Auto) 0.2 Thou/mm3 (0.0-0.5); Eosinophils % (Auto) 3 % (0-10); Hematocrit 27.8 % (36.0-46.0); Immature Granulocytes Auto 0.03 Thou/mm3 (0.00-0.00); Lymphocytes # (Auto) 1.5 Thou/mm3 (1.0-4.8); Lymphocytes % (Auto) 22 % (10-50); Mean Corpuscular HGB Conc 30.9 g/dl (31.0-37.0); Mean Corpuscular Hemoglobin 31.9 pg (25.0-35.0); Mean Corpuscular Volume 103 fL (80-100); Monocytes # (Auto) 0.8 Thou/mm3 (0.0-0.8); Monocytes % (Auto) 12 % (0-12); Neutrophils # (Auto) 4.3 Thou/mm3 (1.8-7.7); Neutrophils % (Auto) 63 % (37-80); Nucleated Red Blood Cell # 0.00 Thou/mm3 (0.00-0.00); Nucleated Red Blood Cell % 0 /100 WBC (0); Platelet Count 121 Thou/mm3 (140-440); RDW Standard Deviation 57.8 fL (36.4-46.3); Red Blood Count 2.70 Miln/mm3 (4.00-5.20); White Blood Count 6.9 Thou/mm3 (3.6-11.0)
[2025-07-19 06:06] LABS: Hemoglobin 8.6 g/dL (12.0-16.0)
[2025-07-19 06:38] LABS: Alanine Aminotransferase 16 U/L (10-49); Albumin, Serum 3.0 gm/dL (3.4-4.8); Albumin/Globulin Ratio 1.0 (1.2-2.2); Alkaline Phosphatase 92 U/L (46-116); Anion Gap 7 (7-16); Aspartate Amino Transferase 31 U/L (0-34); BUN/Creatinine Ratio 40 Ratio (12-20); Bilirubin,Total 0.3 mg/dL (0.3-1.2); Blood Urea Nitrogen 16 mg/dL (9-23); Calcium 9.0 mg/dL (8.3-10.6); Calcium (Corrected) 9.8 mg/dL (8.5-10.1); Carbon Dioxide 34.7 mMol/L (20.0-31.0); Chloride 104 mMol/L (98-107); Creatinine (Component) 0.4 mg/dL (0.6-1.3); Estimated Creatinine Clearance 126.5 mL/min (>60); Globulin 2.9 gm/dL (2.3-3.5); Glucose 80 mg/dL (74-106); Magnesium 1.7 mg/dL (1.6-2.6); Osmolality,Calculated 290 (275-295); Phosphorous 2.6 mg/dL (2.4-5.1); Potassium 3.3 mMol/L (3.4-5.1); Sodium 146 mMol/L (136-145); Total Protein 5.9 gm/dL (5.7-8.2); eGFR > 60 See Note
[2025-07-19] MEDS: VIT B12/Vit C/FA (Nephrovite) TABLET 1 TAB PO (09:03)
[2025-07-19] MEDS: Magnesium Sulfate 2 GM Ivpb 2 GM/50 ML BAG IV (09:03)
[2025-07-19] MEDS: FLUCONAZOLE/NS 400 MG IVPB 400 MG/200 ML BAG 100 MG IV (09:03)
[2025-07-19] MEDS: POTASSIUM CHL 10 mEq IVPB 10 MEQ/100 ML BAG 100 MEQ IV ×3 (10:37→12:48)
[2025-07-19] MEDS: IRON SUCROSE CPLX INJ 20 MG/ML VIAL 5 ML 200 MG IVP (10:50)
[2025-07-19] MEDS: LACTULOSE SYRUP 20 GM/30 ML UDC PO (10:50)
--- NOTE | 2025-07-19 11:28 | PD.PUCONS ---
[facility] Pulmonology Consult Data of Consult Requesting Physician: Tere Ramos DO Primary Care Provider: Nathan Avila MD Consult Narrative History of present illness: This is a 74-year-old female diagnosed with aspiration pneumonia. CT scan of the chest was interpreted by the radiologist as possible left lower lobe 4.6 cm mass. A pulmonary medicine consultation was requested. Due to developmental delay the patient is unable to provide medical history. Chart review identifies: PMHx of seizure disorder, developmental delay, schizophrenia, hypothyroidism, HLD, osteoporosis coming from [facility] care home with low temperature of 94 and shortness of breath. cc:: cc: Tere Ramos DO Review of Systems Review of Systems Narrative Review of Systems: Unable to obtain Meds Home Medications and Allergies Allergies Allergy/AdvReac Type Severity Reaction Status Date / Time amitriptyline Allergy Intermediate unknown Verified 07/12/25 21:36 haloperidol Allergy Intermediate Itching Verified 07/12/25 21:36 Exam Vital Signs Temp Pulse Resp BP Pulse Ox O2 Del Method O2 Flow Rate 97.0 F 75 15 181/85 H 97 Nasal Cannula 3 07/19/25 08:00 07/19/25 10:50 07/19/25 08:00 07/19/25 10:50 07/19/25 08:00 07/19/25 08:00 07/19/25 08:00 Narrative Exam GENERAL: Patient appears to be chronically ill but not in severe distress HEENT: No facial asymmetry, EOM normal PULMONARY: Diminished bilateral breath sounds fair excursions nonlabored CARDIAC: Regular rate GASTROINTESTINAL: Abdomen is soft and nontender EXTREMITIES: Dependent edema SKIN: Warm and dry NEURO: Responds to questions by stating the same thing over over again May i go to sleep Physical Exam Completion Physical Exam Complete?: Yes Results - Clinical Application Specialist Labs 07/19/25 04:49 07/19/25 04:49 Labs: Short CBC 07/19/25 Range/Units 04:49 WBC 6.9 (3.6-11.0) Thou/mm3 Hgb 8.6 L (12.0-16.0) g/dL Hct 27.8 L (36.0-46.0) % Plt Count 121 L D (140-440) Thou/mm3 BMP 07/18/25 07/19/25 14:02 04:49 Sodium 145 146 H Potassium 3.2 L 3.3 L Chloride 105 104 Carbon Dioxide 33.8 H 34.7 H BUN 19 16 Creatinine 0.5 L 0.4 L Glucose 200 H D 80 D Calcium 8.5 9.0 Liver Function 07/18/25 07/19/25 Range/Units 14:02 04:49 Total Bilirubin 0.3 (0.3-1.2) mg/dL AST 31 (0-34) U/L ALT 16 (10-49) U/L Alkaline Phosphatase 92 (46-116) U/L Albumin 2.9 L 3.0 L (3.4-4.8) gm/dL ABG Interpretation ABG results: 07/12/25 21:30 ABG pH 7.37 ABG pCO2 54 H ABG pO2 138 H ABG HCO3 31 H ABG O2 Saturation 97 ABG Base Excess 5 H Assessment & Plan Additional Assessment Additional Assessment: Left lower lobe consolidation: Mrs. Alcantar has a history of chronic left lower lobe atelectasis. Multiple chest x-rays including CT scans of the chest have been reviewed from 2016 onward. She has had various degrees of left lower lobe atelectasis/consolidation all the way from full left lung complete atelectasis to regional lower lobe atelectasis. These changes are not new in date back for many years. Malignancy is very low on the differential and further workup for malignancy is not recommended at this time. She appears to be at risk for recurring aspiration pneumonia and given the chronicity of atelectasis I doubt it will improve. Thank you for allow me to participate in the care of this patient Additional Plan Additional Plan: Provider Notation Provider Notation: Although this document has been carefully reviewed, there may still be some phonetic and other typographical errors. These errors are purely grammatical due to imperfections in the software program and should not be construed in any way to compromise the substance of the patient's medical care during this visit. Thank you for the opportunity and privilege in assisting you with this patient's care and management.
[2025-07-19] MEDS: VALPROIC ACID SYRUP 250 MG/5 ML UDC PO ×2 (11:41→17:22)
--- NOTE | 2025-07-19 12:44 | PD.IMPROG ---
Documentation for date of: 07/19/25 Subjective Subjective Interval history: Patient evaluated oral intake remains poor Exam Vital Signs Temp Pulse Resp BP Pulse Ox O2 Del Method O2 Flow Rate 97.0 F 75 15 181/85 H 97 Nasal Cannula 3 07/19/25 08:00 07/19/25 10:50 07/19/25 08:00 07/19/25 10:50 07/19/25 08:00 07/19/25 08:00 07/19/25 08:00 Objective Labs 07/19/25 04:49 07/19/25 04:49 Labs: Laboratory Results - last 24 hr 07/18/25 07/19/25 14:02 04:49 WBC 6.9 RBC 2.70 L Hgb 8.6 L Hct 27.8 L MCV 103 H MCH 31.9 MCHC 30.9 L RDW Std Deviation 57.8 H Plt Count 121 L D Neut % (Auto) 63 Lymph % (Auto) 22 [place] % (Auto) 12 Eos % (Auto) 3 Baso % (Auto) 0 Neut # (Auto) 4.3 Lymph # (Auto) 1.5 [place] # (Auto) 0.8 Eos # (Auto) 0.2 Baso # (Auto) 0.0 Immature Gran # (Auto) 0.03 H Absolute Nucleated RBC 0.00 Immature Gran % 0 Nucleated RBC % 0 Sodium 145 146 H Potassium 3.2 L 3.3 L Chloride 105 104 Carbon Dioxide 33.8 H 34.7 H Anion Gap 6 L 7 BUN 19 16 Creatinine 0.5 L 0.4 L Estim Creat Clear Calc 99.3 126.5 eGFR > 60 > 60 BUN/Creatinine Ratio 38 H 40 H Glucose 200 H D 80 D Calculated Osmolality 296 H 290 Calcium 8.5 9.0 Corrected Calcium 9.4 9.8 Phosphorus 2.2 L 2.6 Magnesium 1.7 Total Bilirubin 0.3 AST 31 ALT 16 Alkaline Phosphatase 92 Total Protein 5.9 Albumin 2.9 L 3.0 L Globulin 2.9 Albumin/Globulin Ratio 1.0 L Impressions Impression: Dysphagia Esophageal stricture status post endoscopic dilatation Continue to encourage p.o. intake ABG Interpretation ABG results: 07/12/25 21:30 ABG pH 7.37 ABG pCO2 54 H ABG pO2 138 H ABG HCO3 31 H ABG O2 Saturation 97 ABG Base Excess 5 H Assessment & Plan A&P Narrative Dysphagia with cough with previous history of endoscopic dilatation of the esophageal stricture Plan Will schedule the patient for upper endoscopy with possible endoscopic dilatation if necessary if there is no stricture might consider in the future for the placement of a PEG tube for nutritional support Current CT scan chest abdomen pelvis findings could be related to aspiration as well Other medical problems include Developmentally delayed Schizophrenia Hypothyroidism Hyperlipidemia Thank you very much for the opportunity to participate in the care of this patient Time Spent With Patient Time: Total time spent is greater than 50% in coordination of care (as documented) at patient's floor/unit and/or counseling patient:
--- NOTE | 2025-07-19 14:29 | PC.SS ---
[facility] informed by bedside nurse that resident confirmed Dr. Garcia is in agreement with patient discharging back to snf today.
--- NOTE | 2025-07-19 14:35 | PC.SS ---
[employer] SUPER[employer]OR notified bedside nurse of need to conduct room air evaluation on behalf of the patient to confirm need for home oxygen.
--- NOTE | 2025-07-19 14:40 | ESDS_ITS ---
Planned Discharge Date 07/19/25 DS: Providers Provider Date of admission: 07/13/25 00:52 Primary care physician: Nathan Avila MD Admitting Provider: Aquiles Black MD Attending Provider on Admission: Tere Ramos DO Consults: 07/13/25 01:06 Referral Registered Dietitian Stat Comment: 07/13/25 08:38 Referral Speech Therapy Urgent Comment: Swallow evaluation. 07/13/25 14:02 Consult to Gastroenterology Routine Comment: Dysphagia, mediastinal mass on X-ray. Consulting Provider: Jelena Amaya 07/18/25 14:26 Consult to Pulmonology Routine Comment: Left-sided mass seen on CT, Cocci IgM positive Consulting Provider: Paxton Marquez Attending Provider on DC: Ac Dong DO Discharging Provider: Ac Dong DO Hospital Course Hospital Course Hospital course: This is a 74-year-old female diagnosed with aspiration pneumonia. CT scan of the chest was interpreted by the radiologist as possible left lower lobe 4.6 cm mass. A pulmonary medicine consultation was requested. Due to developmental delay the patient is unable to provide medical history. Chart review identifies: PMHx of seizure disorder, developmental delay, schizophrenia, hypothyroidism, HLD, osteoporosis coming from [facility] with low temperature of 94 and shortness of breath. Time Spent with Patient Time attestation: Total time spent providing and/or coordinating discharge services: Exam Vital Signs Temp Pulse Resp BP Pulse Ox O2 Del Method O2 Flow Rate 97.4 F 72 18 148/69 H 95 Nasal Cannula 3 07/19/25 12:00 07/19/25 12:00 07/19/25 12:07/19/25 12:07/19/25 12:07/19/25 12:00 07/19/25 12:00 Discharge Plan Plan Patient Disposition: Xfer Skilled Nsg Fac (SNF) Disposition Comment: Custodial Patient condition on transfer: Stable Care Plan Goals: * Follow-up with PCP within 1-2 weeks of discharge. * You may follow-up with one of our residents doctor with the [facility] at the address below. * Continue taking medications as prescribed below. * Start amlodipine 5 mg and losartan 50 mg daily for optimal blood pressure control. * Continue to take fluconazole 400 mg (that is two of the 200 mg tablets you were prescribed) until you follow-up with your PCP. Your serology was positive for IgM cocci. * Return to Emergency Room if symptoms persist, worsen, or new symptoms develop. [facility] [address] [place] [address] Prescriptions/Referrals Prescriptions/Med Rec: New amlodipine 5 mg Tablet 5 mg PO HS 30 Days Qty: 30 0RF fluconazole 200 mg tablet 400 mg PO QDAY 30 Days Qty: 60 0RF losartan 50 mg tablet 50 mg PO QDAY 30 Days Qty: 30 0RF Continued pantoprazole [Protonix] 40 mg tablet,delayed release (DR/EC) 40 mg PO QDAY Qty: 30 0RF docusate sodium 250 mg capsule 250 mg PO QDAY PRN (Reason: constipation) Qty: 30 0RF ASCORBATE CALCIUM (VITAMIN C) 500 MG tablet 500 mg PO QDAY Qty: 30 0RF Acetaminophen * (TYLENOL *) 325 MG tablet 2 tab PO Q4HR PRN (Reason: PAIN) Qty: 30 0RF Albuterol Sulfate/Ipratropium NEB * (DUONEB *) 3 ML AMPUL.NEB 3 ml HHN Q4HR PRN (Reason: SHORTNESS OF BREATH OR WHEEZE) Qty: 9 0RF levothyroxine [Synthroid] 100 MCG tablet 100 mcg PO ACBR Qty: 30 0RF bisacodyl 10 mg Suppository 10 mg DE QDAY PRN (Reason: Constipation) Qty: 30 0RF Rx Instructions: if no BM in 3 days simvastatin 20 MG tablet 20 mg PO HS Qty: 30 0RF divalproex [Depakote ER] 500 MG tablet extended release 24 hr 500 mg PO BID Qty: 30 0RF pseudoephedrine HCl [Sudogest] 60 MG tablet 60 mg PO Q6HR PRN (Reason: CONGESTION) Qty: 30 0RF lactulose 10 GM/15 ML syrup 1 g PO QDAY PRN (Reason: CONSTIPATION) Qty: 3785 0RF Rx Instructions: May hold if loose stools quetiapine [Seroquel XR] 300 MG tablet extended release 24 hr 400 mg PO BID Qty: 30 0RF Calcium Carbonate/Cholecalciferol 600 * (CALTRATE PLUS D 600 *) 1 TAB tablet 1 tab PO BID Qty: 30 0RF Guaifenesin/D-Methorphan Hb Syrup (Robitussin Dm Syrup) 120 ML syrup 10 ml PO Q4HR PRN (Reason: COUGH) Qty: 120 0RF LORATADINE (CLARITIN) 10 MG capsule 10 mg PO QDAY Qty: 30 0RF Multivit-Min/Iron Fum/Folic AC (Bdhuj-Yhqakra-Ixfypjdm Tablet) 1 EACH tablet 1 tab PO QDAY Qty: 30 0RF Referrals: Nathan Avila MD [Primary Care Provider, Family Practice] Patient/Caregiver Discharge Instructions Education Materials: Low-Salt Choices, Preventing Common Respiratory ... Print Language: Uzbek Stand Alone Forms: Aleja Award Info., Patient Portal Info Letter Discharge Order Discharge Orders: Discharge (Routine); Ordered 07/19/25 Ordered By: Hiro Metzger
--- NOTE | 2025-07-19 14:43 | PC.SS ---
ASSET PROTECTION LEAD conducted phone contact with [facility] nurseKell. ASSET PROTECTION LEAD informed that patient cannot return to snf with oxygen unless facility possesses waiver from state allowing oxygen in facility. ASSET PROTECTION LEAD informed [facility] that ASSET PROTECTION LEAD will reach out to medical team to request attempt at weaning patient's oxygen requirement. [facility] to initiate waiver request in event patient cannot come off of oxygen. ASSET PROTECTION LEAD to submit order for oxygen. Discahrge status is pending.
--- NOTE | 2025-07-19 14:46 | PC.SS ---
ATM MANAGER updated medical team that patient cannot discharge back to facility with oxygen unless facility possesses a waiver. Medical team to attempt to wean patient from oxygen. ATM MANAGER informed medical team that facility will initiate request for waiver in case patient cannot be weaned off oxygen.
--- NOTE | 2025-07-19 14:53 | PC.NURSE ---
Pt resting on 2L NC o2 sats 94%, placed pt on room air o2 stats dropped to 88% while resting placed pt back on 2L NC with improvement of o2 sats to 92%.
--- NOTE | 2025-07-19 17:37 | PC.NURSE ---
Removed patient oxygen per Dr Dong. Will continue to monitor patient oxygen saturation.
[2025-07-19 17:50] LABS: Index Value <0.50
--- NOTE | 2025-07-19 18:10 | PC.NURSE ---
I resumed oxygen on patient at 0.5L NC as patient was saturating at 82% on room air.
--- NOTE | 2025-07-19 19:21 | ESPR_ITS ---
<Statement entered by Hiro Metzger MD - 07/19/25 20:43> No acute overnight events. Seen and examined at bedside and patient resting comfortably in bed. She has been doing well and tolerating increased p.o. intake for her hypernatremia. She was evaluated by pulmonology who stated that malignancy is very low on differential for lung mass and that workup for malignancy is not recommended at this time. Spoke to Dr. Garcia today and stated the patient can be discharged from his perspective. Attempted to wean patient off of her supplemental oxygen of 1 L nasal cannula but unable as she desaturates into the low 80s without it. BP elevated and started on amlodipine and losartan. ----- Note reviewed and agree with care plan as documented. Please refer to the note below for further details. Plan discussed with attending physician Dr. Richard Metzger MD PGY-2 Internal Medicine Documentation for date of: 07/19/25 Subjective Subjective Interval history: Patient was seen and examined at bedside. No acute events took place overnight. Patient does not provide appropriate responses to questions asked from her. Nonetheless, she is alert. She has been tolerating thickened fluids and her medications were changed to p.o. today. Given stable medical conditions, patient could be discharged today however she was found to be reliant on supplemental oxygen delivery via NC as attempts to wean her to RA resulted in oxygen saturations in the low 80s. Patient saturating in mid 90s on 2 L via nasal cannula. Additionally blood pressure was noted to be elevated this morning and her antihypertensive regiment was up dosed and amlodipine added. Pulmonology saw patient today, and brought to light that patient has had longstanding atelectasis for varying degrees from lower lobe involvement to the entire left lung. There was very low suspicion for malignancy. Exam Vital Signs Temp Pulse Resp BP Pulse Ox O2 Del Method O2 Flow Rate 96.6 F L 66 18 141/73 H 94 L Nasal Cannula 1 07/19/25 16:00 07/19/25 16:00 07/19/25 16:07/19/25 16:07/19/25 16:07/19/25 16:07/19/25 16:00 Narrative Exam General: Frail, unable to communicate, making incomprehensible sounds when asked questions. Neurologic: Confused, no gross neurological deficit. HEENT: Normocephalic, atraumatic, mucous membranes moist. Pupils reactive to light. Heart: Regular rate and rhythm, normal S1 and S2, no murmurs. Lungs: Coarse breath sounds bilaterally. Abdomen: Soft, nondistended, nontender, positive bowel sounds. No guarding or rebound tenderness. Extremities: Trace pitting edema in the ankles bilaterally. 2+ radial and dorsalis pedis pulses bilaterally. Skin: Warm. Dry. No rash or ecchymoses. Objective Labs 07/20/25 05:06 07/20/25 05:06 Labs: Laboratory Results - last 24 hr 07/19/25 04:49 WBC 6.9 RBC 2.70 L Hgb 8.6 L Hct 27.8 L MCV 103 H MCH 31.9 MCHC 30.9 L RDW Std Deviation 57.8 H Plt Count 121 L D Neut % (Auto) 63 Lymph % (Auto) 22 Cobb % (Auto) 12 Eos % (Auto) 3 Baso % (Auto) 0 Neut # (Auto) 4.3 Lymph # (Auto) 1.5 Cobb # (Auto) 0.8 Eos # (Auto) 0.2 Baso # (Auto) 0.0 Immature Gran # (Auto) 0.03 H Absolute Nucleated RBC 0.00 Immature Gran % 0 Nucleated RBC % 0 Sodium 146 H Potassium 3.3 L Chloride 104 Carbon Dioxide 34.7 H Anion Gap 7 BUN 16 Creatinine 0.4 L Estim Creat Clear Calc 126.5 eGFR > 60 BUN/Creatinine Ratio 40 H Glucose 80 D Calculated Osmolality 290 Calcium 9.0 Corrected Calcium 9.8 Phosphorus 2.6 Magnesium 1.7 Total Bilirubin 0.3 AST 31 ALT 16 Alkaline Phosphatase 92 Total Protein 5.9 Albumin 3.0 L Globulin 2.9 Albumin/Globulin Ratio 1.0 L ABG Interpretation ABG results: 07/12/25 21:30 ABG pH 7.37 ABG pCO2 54 H ABG pO2 138 H ABG HCO3 31 H ABG O2 Saturation 97 ABG Base Excess 5 H Quality Measures Quality Measures none Advance care planning discussed with:: legal surragate Assessment & Plan Assessment Current Active Medications: Generic Name Dose Route Start Last Admin Trade Name Freq PRN Reason Stop Dose Admin Acetaminophen 650 mg 07/17/25 10:17 Acetaminophen 325 Mg Tablet PO 08/12/25 00:51 Q6H PRN Fever > 99.9 Amlodipine Besylate 5 mg 07/20/25 21:00 Amlodipine Besylate 5 Mg Tablet PO 08/19/25 20:59 HS PRATIBHA Dextrose 50 ml 07/13/25 01:51 Dextrose 50%-Water Inj 50 Ml Syringe IV 08/12/25 01:50 Q15MIN PRN BG <50 OR BG <70 & pt unresponsive Fluconazole 400 mg 07/20/25 09:00 Fluconazole 100 Mg Tablet PO 07/27/25 08:59 QDAY PRATIBHA Glucagon 1 mg 07/13/25 01:51 Glucagon Inj 1 Mg Vial IM Q15MIN PRN BG <70, and no IV access Guaifenesin/Dextromethorphan 1 each 07/17/25 10:15 Guaifenesin/Dm Tablet PO 08/16/25 10:14 BID PRN COUGH Iron Sucrose 200 mg 07/18/25 09:00 07/19/25 10:50 Iron Sucrose Cplx Inj 20 Mg/Ml Vial 5 Ml IVP 07/22/25 08:59 200 mg DAILY PRATIBHA Administration Labetalol HCl 10 mg 07/19/25 10:17 Labetalol Inj 5 Mg/Ml Vial 20 Ml IVP 08/18/25 10:16 Q6HR PRN SBP >165 Lactulose 20 gm 07/19/25 10:15 07/19/25 10:50 Lactulose Syrup 20 Gm/30 Ml Udc PO 08/18/25 10:14 20 gm DAILY PRATIBHA Administration Protocol Levothyroxine Sodium 125 mcg 07/16/25 08:00 07/19/25 05:26 Levothyroxine Sodium 125 Mcg Tablet PO 08/15/25 07:59 125 mcg ACBR PRATIBHA Administration Losartan Potassium 50 mg 07/20/25 09:00 Losartan Potassium 25 Mg Tablet PO 08/19/25 08:59 QDAY PRATIBHA Ondansetron HCl 4 mg 07/13/25 00:52 Ondansetron Inj 2 Mg/Ml Inj 2 Ml IVP 08/12/25 00:51 Q6H PRN NAUSEA OR VOMITING Protocol Pantoprazole Sodium 40 mg 07/13/25 09:00 07/19/25 09:03 Pantoprazole Inj 40 Mg Vial IVP 08/12/25 08:59 40 mg QDAY PRTAIBHA Administration Quetiapine Fumarate 400 mg 07/13/25 09:00 07/13/25 09:14 Quetiapine Fumarate 100 Mg Tablet PO 08/12/25 08:59 400 mg On Hold: 07/13/25 19:10 BID PRATIBHA Administration Valproic Acid 250 mg 07/19/25 12:00 07/19/25 17:22 Valproic Acid Syrup 250 Mg/5 Ml Udc PO 08/18/25 11:59 250 mg Q6HR PRATIBHA Administration Vitamin B Complex/Vit C/Folic Acid 1 tab 07/16/25 09:00 07/19/25 09:03 Vit B12/Vit C/Fa (Nephrovite) Tablet PO 08/15/25 08:59 1 tab QDAY PRATIBHA Administration Plan Summary: This is a 74-year-old female PMHx of seizure disorder, developmental delay, schizophrenia, hypothyroidism, HLD, osteoporosis coming from [facility] with low temperature of 94 and shortness of breath. #AHRF secondary to aspiration pneumonia #Dense pneumonic consolidation in left lower lobe #Atelectasis #Acute decompensation of HFpEF with ejection fraction 50 to 55%, resolved Presented from [facility] with low temperature of 94, and shortness of breath. Desatted to 87. While in the ED, rectal temperature was 94.1. WBC WNL, but possibly improper immune response. Likely combination pneumonia versus new onset CHF. CXR showed significant bibasilar pneumonia. CT abdomen showed dense pneumonic consolidation versus pulmonary mass of 4.6 on the left lobe. BNP slightly elevated with evidence of vascular congestion on imaging, JVD and 3+ bilateral lower extremity edema. No baseline echocardiogram file. She had mild hyponatremia of 130 with low serum osmolality, suggestive of fluid retention. Echo showed normal left ventricular size and function with an approximate ejection fraction of 50-55%. There was aortic valve sclerosis without stenosis. Mild thickening of the mitral valve leaflets and mild mitral and trace tricuspid regurg. Consider the presence of chest x-ray findings showing pulmonary edema. CXR (07/26): Marked Lt lung pneumonia Sputum cultures positive for gram-positive cocci, low suspicion for infection, antibiotic courses completed. ? Pulmonology consult 07/19: Patient has had various degrees of left lower lobe atelectasis/consolidation from full-lung complete atelectasis to regional lower lobe atelectasis. These changes have been present for many years. Malignancy is very low on the differential. Patient appears to be at risk for recurrent aspiration pneumonia. Plan: ? Fluid restriction, salt restriction, strict MAREK's ? Blood cultures negative for growth after 5 days ? Continue BiPAP PRN #Acute Metobolic Encephalopathy #Schizophrenia #Developmental delay #Seizure disorder #Dysphagia Baseline developmental delay, unable to obtain further history from ch[facility] at this point. Labs significant for ammonia of 102, improved to 41. Consider side effects in the presence of Depakote home meds. No history of cirrhosis, however there was signs of hepatomegaly on ultrasound. Unable to rule out hepatic encephalopathy, will proceed with treatment. Patient unable to tolerate p.o. Patient does have a history of esophageal dilation procedure in November of this year. Endoscopy (07/14) showed esophageal stenosis in the proximal esophagus, it was dilated during the procedure, there was also esophagitis in the lower third of the esophagus, there was gastritis. GI recommends awaiting pathology results. XR video fluoroscopy swallow study on was negative for pharyngeal penetration or aspiration (07/17/2025) Patient's inconsistency in oral intake is likely a behavioral issue. A caregiver with a well-established relationship with the patient will visit the patient to encourage oral intake. Plan: ? GI on board ? PUD/GERD/bland diet ? Had discussion with Dr. Garcia, will not pursue PEG tube at this time, will encourage oral intake. According to Dr. Garcia, a care provider will look after the patient closely and make sure that she drinks and eats well and watch out for dysphagia with oral intake. ? Continue home SEROQUEL 400 mg BID ? Continue valproate sodium injection 250 mg IV every 6 hours ? Avoid narcotics ? Pending VALPROIC ACID level #Positive cocci serology Sent for confirmation and titer Plan: ? Continue fluconazole 400 mg daily ? Follow-up beta D glucan ? Follow-up serum Aspergillus #Essential Hypertension BP in the morning of 07/19 was 181/85. Review of BP logs showed BP between 160-188/69-92 systolic. ? Added amlodipine p.o. 5 mg at bedtime ? Ana losartan to p.o. 50 mg daily #Hypernatremia Patient's sodium level has been around 149-150. 146 on 07/19. Consider in the presence of reduced oral intake Plan: ? Sodium was rechecked after encouraging oral intake, corrected to 145 ? Continue to monitor and encourage oral intake #Isolated Elevated Pancreatic Enzymes Base 168, amylase 109 which is highly specific for acute pancreatitis. No evidence of acute pancreatitis on CT again, unable to assess for symptoms. Unable to give fluids given concern for CHF. Plan: ? Monitor closely #Hyperkalemia (Resolved) Potassium 5.6. Improved to 3.5. Plan: ? Daily labs #UTI, likely GNR UA showed UTI. Unable to assess for symptoms. Antibiotic course completed. Urine culture positive for Pseudomonas aeruginosa and Serratia Marcescens Plan: ? Antibiotics complete #Mild hypoglycemia Glucose in acceptable range Plan: ? Continue to increase encourage oral intake ? Registered dietitian consulted #Concern for GI bleed She was evaluated earlier this week by PCP for bloody stool with negative work- up. Hgb around baseline. Plan: ? Daily labs, transfuse if Hgb < 7.0 #Hypothyroidism TSH 5.81, free T4 0.75 Plan: ? Switched levothyroxine from IV to oral ? Levothyroxine p.o. 125 mcg ACBR #Hyperlipidemia #Seasonal allergies #Chronic constipation Plan: ? Hold ATORVASTATIN 10 mg, n.p.o. ? Hold home LORATIDINE 10 mg, n.p.o. ? Lactulose p.o. 20 g daily Health maintenance Diet: PUD/GERD/bland diet GI prophylaxis: PROTONIX DVT prophylaxis: SCDs Antibiotics/Antifungals: Fluconazole CODE STATUS: FULL-CODE (Please verify with [facility]) Disposition: Discussed with Dr. Garcia about plans for PEG tube placement, will not pursue at this time. Will continue to encourage oral intake with support from a well-known caregiver today from the patient's [facility]. Pending confirmation of supplemental oxygen availability at [facility] prior to discharge as patient is dependent on 2L O2 via NC for adequate saturation. Patient was seen and discussed with my attending physician Dr. Richard [facility] and my senior resident Dr. Domenica TOLBERT PGY-2. Ac Dong DO PGY-1. Attending Provider Attestation/Addendum I, Tere Ramos DO, attest that I was physically present for the horn portions of the service and evaluated the patient with the resident and I reviewed and discussed the case with the resident and agree with the resident's findings and plans of care as documented above Patient seen and eval this a.m. No acute events overnight. Patient is back at her baseline stating that she does not want to go to [facility]. She otherwise is able to verbalize that she is feeling fine. She denies any pain. Patient currently on 2 L nasal cannula. Will wean off O2. Seen by pulmonology regarding left lower lobe consolidation causing tracheal deviation, no further workup is recommended at this time as it likely is due to chronic atelectasis. Will DC Giraldo catheter. Patient tolerating oral diet without any episodes of aspiration. Anticipate discharge within the next 24 hours.
[2025-07-19 19:50] LABS: (1-3)-B-D-glucan* <31 pg/mL
[2025-07-20] VITALS (17 sets, daily range): BP systolic 110–192; BP diastolic 68–99; PULSE 68–98; RESP 16–25; TEMP 36.1–36.6; O2SAT 91–95
[2025-07-20] MEDS: LEVOTHYROXINE SODIUM 125 MCG TABLET PO (05:47)
[2025-07-20] MEDS: LABETALOL INJ 5 MG/ML VIAL 20 ML 10 MG IVP (05:47)
[2025-07-20 06:00] LABS: Basophils # (Auto) 0.0 Thou/mm3 (0.0-0.2); Basophils % (Auto) 0 % (0-2.5); Eosinophils # (Auto) 0.2 Thou/mm3 (0.0-0.5); Eosinophils % (Auto) 2 % (0-10); Hematocrit 30.7 % (36.0-46.0); Hemoglobin 9.7 g/dL (12.0-16.0); Immature Granulocytes Auto 0.07 Thou/mm3 (0.00-0.00); Lymphocytes # (Auto) 1.4 Thou/mm3 (1.0-4.8); Lymphocytes % (Auto) 16 % (10-50); Mean Corpuscular HGB Conc 31.6 g/dl (31.0-37.0); Mean Corpuscular Hemoglobin 32.2 pg (25.0-35.0); Mean Corpuscular Volume 102 fL (80-100); Monocytes # (Auto) 1.0 Thou/mm3 (0.0-0.8); Monocytes % (Auto) 11 % (0-12); Neutrophils # (Auto) 6.6 Thou/mm3 (1.8-7.7); Neutrophils % (Auto) 71 % (37-80); Nucleated Red Blood Cell # 0.02 Thou/mm3 (0.00-0.00); Nucleated Red Blood Cell % 0 /100 WBC (0); Platelet Count 182 Thou/mm3 (140-440); RDW Standard Deviation 57.0 fL (36.4-46.3); Red Blood Count 3.01 Miln/mm3 (4.00-5.20); White Blood Count 9.2 Thou/mm3 (3.6-11.0)
[2025-07-20 06:24] LABS: Alanine Aminotransferase 16 U/L (10-49); Albumin, Serum 3.4 gm/dL (3.4-4.8); Albumin/Globulin Ratio 1.1 (1.2-2.2); Alkaline Phosphatase 112 U/L (46-116); Anion Gap 6 (7-16); Aspartate Amino Transferase 28 U/L (0-34); BUN/Creatinine Ratio 28 Ratio (12-20); Bilirubin,Total 0.3 mg/dL (0.3-1.2); Blood Urea Nitrogen 14 mg/dL (9-23); Calcium 9.4 mg/dL (8.3-10.6); Calcium (Corrected) 9.9 mg/dL (8.5-10.1); Carbon Dioxide 33.2 mMol/L (20.0-31.0); Chloride 103 mMol/L (98-107); Creatinine (Component) 0.5 mg/dL (0.6-1.3); Estimated Creatinine Clearance 100.1 mL/min (>60); Globulin 3.1 gm/dL (2.3-3.5); Glucose 102 mg/dL (74-106); Magnesium 1.6 mg/dL (1.6-2.6); Osmolality,Calculated 283 (275-295); Phosphorous 2.2 mg/dL (2.4-5.1); Potassium 3.9 mMol/L (3.4-5.1); Sodium 142 mMol/L (136-145); Total Protein 6.5 gm/dL (5.7-8.2); eGFR > 60 See Note
[2025-07-20 06:36] LABS: Aspergillus Ag, Ser* NOT DETECTED
[2025-07-20 06:51] LABS: Interpretation NEGATIVE
[2025-07-20] MEDS: Magnesium Sulfate 4 GM Ivpb 4 GM/50 ML BAG IV (09:36)
[2025-07-20] MEDS: LACTULOSE SYRUP 20 GM/30 ML UDC PO (09:36)
[2025-07-20] MEDS: POTASSIUM CHL 10 mEq IVPB 10 MEQ/100 ML BAG 100 MEQ IV ×2 (09:36→11:04)
[2025-07-20] MEDS: LOSARTAN POTASSIUM 25 MG TABLET 50 MG PO ×2 (09:37→12:03)
[2025-07-20] MEDS: FLUCONAZOLE 100 MG TABLET 400 MG PO (09:37)
[2025-07-20] MEDS: VIT B12/Vit C/FA (Nephrovite) TABLET 1 TAB PO (09:38)
[2025-07-20] MEDS: DIVALPROEX SOD DR 500 MG TABLET.DR PO ×2 (09:38→20:33)
[2025-07-20] MEDS: IRON SUCROSE CPLX INJ 20 MG/ML VIAL 5 ML 200 MG IVP (11:03)
--- NOTE | 2025-07-20 11:22 | PC.SS ---
Follow up note: SS spoke to floor nurse who has been weaning own 02 since 7a.m. Patient has been saturating well in the 90's. SS inquired if patient desaturated with exertion. Patient does not need 02 based on sat's. D/c to [facility] today. Floor nurse already updated hospitalist.
--- NOTE | 2025-07-20 11:56 | PC.NURSE ---
doctor present in the room. informed dr at pt bp 192/[address] ordered additional dose losartan 5mg and was told not to give prn bp medicine right now. Pt not in any discomfort
[2025-07-20] MEDS: NIFEdipine XL 30 MG TABCR 60 MG PO (12:08)
--- NOTE | 2025-07-20 13:10 | PC.NURSE ---
Pts current bp is 112/71 with HR at 98
[2025-07-20] MEDS: POT PHOS 15 mMol in NS 250 ML 15 MMOL/250 ML BAG 90 MMOL IV (13:40)
--- NOTE | 2025-07-20 15:56 | ESDS_ITS ---
<Statement entered by Hiro Metzger MD - 07/20/25 16:45> Note reviewed and agree with care plan as documented. Please refer to the note below for further details. Plan discussed with attending physician Dr. Saeid Metzger MD PGY-2 Internal Medicine Planned Discharge Date 07/20/25 DS: Providers Provider Date of admission: 07/13/25 00:52 Primary care physician: Nathan Avila MD Admitting Provider: Aquiles Black MD Attending Provider on Admission: Tere Ramos DO Consults: 07/13/25 01:06 Referral Registered Dietitian Stat Comment: 07/13/25 08:38 Referral Speech Therapy Urgent Comment: Swallow evaluation. 07/13/25 14:02 Consult to Gastroenterology Routine Comment: Dysphagia, mediastinal mass on X-ray. Consulting Provider: Jelena Amaya 07/18/25 14:26 Consult to Pulmonology Routine Comment: Left-sided mass seen on CT, Cocci IgM positive Consulting Provider: Paxton Marquez Attending Provider on DC: Nickolas Breaux DO Discharging Provider: Ac Dong DO DS: Diagnosis Problem List Completed Was Problem List Reviewed/Reconciled?: Yes Hospital Course Status at Discharge Cognitive/behavioral status at discharge: Ty Alcantar is a 74-year-old female with medical history of seizure disorder, developmental delay, she is a frenula, hypothyroidism, hyperlipidemia, osteoporosis who was brought in from her [facility] On 07/13/2025 with concerns over low temperature of 94 and shortness of breath.Chest x-ray showed significant bibasilar pneumonia. CT abdomen showed dense pneumonic consolidation versus pulmonary mass of 4.6 cm on the left lobe. Patient desatted to 87%, WBC WNL. BNP slightly elevated with evidence of vascular congestion on imaging, JVD and 3+ bilateral lower extremity edema. She had hyponatremia of 130 with low serum osmolality, suggestive of fluid retention. Patient was treated with Lasix 40 mg total daily dose for 3 days with net loss of 3.3 L in body fluid balance. Additionally, she was started on antibiotics vancomycin and Zosyn, with Zosyn continued for 3 days and switched to Unasyn for 2 more days. Furthermore ammonia at presentation was elevated at 102, and there was signs of hepatomegaly on ultrasound. The patient was treated with lactulose [place] 30 mg 3 times daily and rifaximin 500 mg twice daily. Patient was found to be unable to tolerate oral intake, and given a history of esophageal strictures requiring dilation in the November of this year, GI was consulted. Endoscopy on 07/14 showed esophageal stenosis in the proximal esophagus, which was dilated during the procedure. Found to have esophagitis in the lower third of the esophagus as well as gastritis biopsies were taken. To further evaluate dysphagia, a video fluoroscopy swallow completed subsequently was negative for pharyngeal penetration or aspiration. Patient's diet was advanced to PUD/GERD/bland and medications were switched from IV to p.o.. 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 Pulmonology was consulted related to imaging findings concerning for a pulmonary mass in the left lower lobe. However review of chest x-ray for the past decade showed atelectasis at varying degrees from involvement of regional left lobe to the entire left lung. Malignancy was very low in the differential and patient was recommended to be monitored Additionally the patient was found to have hypertension and antihypertensives were added in a stepladder fashion, with optimal measures found on losartan 50 mg, and nifedipine 30 mg. By the time of discharge, patient's oxygen saturation is between 94 to 96% on room air. She has been successfully weaned to breathing on room air. At the time of discharge, patient is medically stable and deemed safe to return to his/her previous state of living. Admission diagnoses: #AHRF secondary to aspiration pneumonia #Dense pneumonic consolidation in the left lower lobe #Atelectasis #Acute decompensation of HFpEF with ejection fraction 50 to 55%, resolved #Acute metabolic encephalopathy #She is a for Enea #Developmental delay #Seizure disorder #Dysphagia #Positive cocci serology #Essential hypertension #Isolated elevated pancreatic enzyme #Hyperkalemia (resolved) #UTI, likely GNR #Mild hypoglycemia #Concern for GI bleed #Hypothyroidism #Hyperlipidemia #Seasonal allergies #Chronic constipation Discharge Instructions: Follow-up with PCP within 1-2 weeks of discharge. * You may follow-up with one of our residents doctor with the [facility] at the address below. * Continue taking medications as prescribed below. * Start nifedipine 30mg once a day and losartan 50 mg daily for optimal blood pressure control. * Continue to take fluconazole 400 mg (that is two of the 200 mg tablets you were prescribed) until you follow-up with your PCP. Your serology was positive for IgM cocci. * Stop taking calcium carbonate/cholecalciferol 600 and vitamin C supplement. Your last corrected calcium was 9.8, very close to the upper limit of normal. * Stop taking pantoprazole 40 mg as you have been on it for a long while and continued consumption would put you under risk for C difficile infection. * Follow up with your PCP about your gastric hernia, and seek speciality care in the face of uncontrolled gastrointestenial or respiratory symptoms from it. * For risk of changes in mentation due to abnormal sodium levels, make sure sodium stays within normal limits of 135-145. For high sodium levels, make sure to drink plenty of tap water. For lower levels, restrict water intake or take salt tablets. * Return to Emergency Room if symptoms persist, worsen, or new symptoms develop. This case was discussed with my attending physician, Dr. Breaux, and senior resident, Dr Domenica Pierce. Ac Dong, DO PGY I Time Spent with Patient Time attestation: Total time spent providing and/or coordinating discharge services: More than 50% of patient's total hospital stay Time spent: Greater than 30 minutes Specific discharge activities: stable Exam Vital Signs Temp Pulse Resp BP Pulse Ox O2 Del Method O2 Flow Rate 97.6 F 98 18 112/71 91 L Room Air 1 07/20/25 13:10 07/20/25 13:10 07/20/25 13:10 07/20/25 13:10 07/20/25 13:10 07/20/25 13:10 07/20/25 12:00 Narrative Exam General: Frail, unable to communicate, making incomprehensible sounds when asked questions. Neurologic: Confused, no gross neurological deficit. HEENT: Normocephalic, atraumatic, mucous membranes moist. Pupils reactive to light. Heart: Regular rate and rhythm, normal S1 and S2, no murmurs. Lungs: Coarse breath sounds bilaterally. Abdomen: Soft, nondistended, nontender, positive bowel sounds. No guarding or rebound tenderness. Extremities: Trace pitting edema in the ankles bilaterally. 2+ radial and dorsalis pedis pulses bilaterally. Skin: Warm. Dry. No rash or ecchymoses. Discharge Plan Plan Patient Disposition: Xfer Skilled Nsg Fac (SNF) Disposition Comment: Care Home Patient condition on transfer: Stable Care Plan Goals: * Follow-up with PCP within 1-2 weeks of discharge. * You may follow-up with one of our residents doctor with the [facility] at the address below. * Continue taking medications as prescribed below. * Start nifedipine 30mg once a day and losartan 100 mg daily for optimal blood pressure control. * Continue to take fluconazole 400 mg (that is two of the 200 mg tablets you were prescribed) until you follow-up with your PCP. Your serology was positive for IgM cocci. * Stop taking calcium carbonate/cholecalciferol 600 and vitamin C supplement. Your last corrected calcium was 9.8, very close to the upper limit of normal. * Stop taking pantoprazole 40 mg as you have been on it for a long while and continued consumption would put you under risk for C difficile infection. * For risk of changes in mentation due to abnormal sodium levels, make sure sodium stays within normal limits of 135-145. For high sodium levels, make sure to drink plenty of tap water. For lower levels, restrict water intake or take salt tablets. * Return to Emergency Room if symptoms persist, worsen, or new symptoms develop. [facility] [address] [place] [address] Prescriptions/Referrals Prescriptions/Med Rec: New fluconazole 200 mg tablet 400 mg PO QDAY 30 Days Qty: 60 0RF losartan 100 mg tablet 100 mg PO QDAY 30 Days Qty: 30 0RF nifedipine 30 mg Tablet Extended Release 24hr 30 mg PO DAILY 30 Days Qty: 30 0RF Continued docusate sodium 250 mg capsule 250 mg PO QDAY PRN (Reason: constipation) Qty: 30 0RF Acetaminophen * (TYLENOL *) 325 MG tablet 2 tab PO Q4HR PRN (Reason: PAIN) Qty: 30 0RF Albuterol Sulfate/Ipratropium NEB * (DUONEB *) 3 ML AMPUL.NEB 3 ml HHN Q4HR PRN (Reason: SHORTNESS OF BREATH OR WHEEZE) Qty: 9 0RF levothyroxine [Synthroid] 100 MCG tablet 100 mcg PO ACBR Qty: 30 0RF bisacodyl 10 mg Suppository 10 mg [place] QDAY PRN (Reason: Constipation) Qty: 30 0RF Rx Instructions: if no BM in 3 days simvastatin 20 MG tablet 20 mg PO HS Qty: 30 0RF divalproex [Depakote ER] 500 MG tablet extended release 24 hr 500 mg PO BID Qty: 30 0RF pseudoephedrine HCl [Sudogest] 60 MG tablet 60 mg PO Q6HR PRN (Reason: CONGESTION) Qty: 30 0RF lactulose 10 GM/15 ML syrup 1 g PO QDAY PRN (Reason: CONSTIPATION) Qty: 3785 0RF Rx Instructions: May hold if loose stools quetiapine [Seroquel XR] 300 MG tablet extended release 24 hr 400 mg PO BID Qty: 30 0RF Guaifenesin/D-Methorphan Hb Syrup (Robitussin Dm Syrup) 120 ML syrup 10 ml PO Q4HR PRN (Reason: COUGH) Qty: 120 0RF LORATADINE (CLARITIN) 10 MG capsule 10 mg PO QDAY Qty: 30 0RF Multivit-Min/Iron Fum/Folic AC (Mpvyz-Ijzvqbh-Erstolmg Tablet) 1 EACH tablet 1 tab PO QDAY Qty: 30 0RF Discontinued pantoprazole [Protonix] 40 mg tablet,delayed release (DR/EC) 40 mg PO QDAY Qty: 30 0RF ASCORBATE CALCIUM (VITAMIN C) 500 MG tablet 500 mg PO QDAY Qty: 30 0RF Calcium Carbonate/Cholecalciferol 600 * (CALTRATE PLUS D 600 *) 1 TAB tablet 1 tab PO BID Qty: 30 0RF Referrals: Nathan Avila MD [Primary Care Provider, Family Practice] Patient/Caregiver Discharge Instructions Education Materials: Low-Salt Choices, Preventing Common Respiratory ... Print Language: Bermudian Stand Alone Forms: Aleja Award Info., Patient Portal Info Letter Discharge Order Discharge Orders: Discharge (Routine); Ordered 07/21/25 Ordered By: Yordy Nichols Quality Discharge Quality Measures VTE prophylaxis Attestestation Attestation I Nickolas Breaux MD reviewed the note and agree with the resident's assessment & plan with modifications/additions/exceptions as below. I have personally reviewed labs, imaging, home meds/prior records, examined the patient, formulated and discussed management plan with the IM team. 75-year-old female with history of seizure disorder and psych disorder essentially bedridden admitted for community-acquired pneumonia. Further imaging did reveal potential lung mass versus consolidation and severe constipation. Patient also had videofluoroscopy which did reveal low concern for aspiration. Pulmonology is on board who cleared for discharge and recommended no further workup for potential lung mass. Patient already completed pneumonia treatment, for better blood pressure control will use losartan and nifedipine.
--- NOTE | 2025-07-20 16:21 | PC.NURSE ---
Deanna in social media campaign manager called [facility] however they told her that pt has to be there [id number] however ambulance can not apple picking supervisor up that soon. pt's dc tomorrow morning. doctor is aware
[2025-07-20] MEDS: NIFEdipine XL 30 MG TABCR PO (20:33)
--- NOTE | 2025-07-20 21:01 | ESPR_ITS ---
Documentation for date of: 07/20/25 Subjective Subjective Interval history: Patient evaluated Hemoglobin hematocrit 9.7 and 30.7 Discharge planning in progress Exam Vital Signs Temp Pulse Resp BP Pulse Ox O2 Del Method O2 Flow Rate 97.8 F 84 19 129/68 92 L Room Air 1 07/20/25 20:00 07/20/25 20:33 07/20/25 20:00 07/20/25 20:33 07/20/25 20:00 07/20/25 20:00 07/20/25 16:00 Objective Labs 07/20/25 05:06 07/20/25 05:06 Labs: Laboratory Results - last 24 hr 07/15/25 07/16/25 07/20/25 05:10 06:35 05:06 WBC 9.2 RBC 3.01 L Hgb 9.7 L Hct 30.7 L MCV 102 H MCH 32.2 MCHC 31.6 RDW Std Deviation 57.0 H Plt Count 182 D Neut % (Auto) 71 Lymph % (Auto) 16 [place] % (Auto) 11 Eos % (Auto) 2 Baso % (Auto) 0 Neut # (Auto) 6.6 Lymph # (Auto) 1.4 [place] # (Auto) 1.0 H Eos # (Auto) 0.2 Baso # (Auto) 0.0 Immature Gran # (Auto) 0.07 H Absolute Nucleated RBC 0.02 H Immature Gran % 1 H Nucleated RBC % 0 Sodium 142 Potassium 3.9 D Chloride 103 Carbon Dioxide 33.2 H Anion Gap 6 L BUN 14 Creatinine 0.5 L Estim Creat Clear Calc 100.1 eGFR > 60 BUN/Creatinine Ratio 28 H Glucose 102 Calculated Osmolality 283 Calcium 9.4 Corrected Calcium 9.9 Phosphorus 2.2 L Magnesium 1.6 Total Bilirubin 0.3 AST 28 ALT 16 Alkaline Phosphatase 112 D Total Protein 6.5 Albumin 3.4 Globulin 3.1 Albumin/Globulin Ratio 1.1 L Aspergillus Ag (EIA) NOT DETECTED Aspergillus Index Value <0.50 Beta-(1,3)-D-Glucan <31 B-(1,3)-D-Glucan Intrp NEGATIVE Impressions Impression: Dysphagia Esophageal stricture status post endoscopic dilatation Failure to thrive Encourage p.o. intake as much as possible ABG Interpretation ABG results: 07/12/25 21:30 ABG pH 7.37 ABG pCO2 54 H ABG pO2 138 H ABG HCO3 31 H ABG O2 Saturation 97 ABG Base Excess 5 H Assessment & Plan A&P Narrative Dysphagia with cough with previous history of endoscopic dilatation of the esophageal stricture Plan Will schedule the patient for upper endoscopy with possible endoscopic dilatation if necessary if there is no stricture might consider in the future for the placement of a PEG tube for nutritional support Current CT scan chest abdomen pelvis findings could be related to aspiration as well Other medical problems include Developmentally delayed Schizophrenia Hypothyroidism Hyperlipidemia Thank you very much for the opportunity to participate in the care of this patient Time Spent With Patient Time: Total time spent is greater than 50% in coordination of care (as documented) at patient's floor/unit and/or counseling patient:
--- NOTE | 2025-07-20 21:55 | PC.NURSE ---
Dr. Gustafson made aware about patient ended up not being discharged today because per AM Nurse, Kavita, facility where Pt is supposed to be discharged does not accept patients beyond 5pm. No ambulance was available before 5pm to transport Pt.
[2025-07-21] VITALS (7 sets, daily range): BP systolic 113–126; BP diastolic 56–82; PULSE 76–94; RESP 18–22; TEMP 36.1–36.6; O2SAT 91–95
[2025-07-21] MEDS: LEVOTHYROXINE SODIUM 125 MCG TABLET PO (05:55)
[2025-07-21 06:08] LABS: Basophils # (Auto) 0.0 Thou/mm3 (0.0-0.2); Basophils % (Auto) 0 % (0-2.5); Eosinophils # (Auto) 0.2 Thou/mm3 (0.0-0.5); Eosinophils % (Auto) 2 % (0-10); Hematocrit 30.2 % (36.0-46.0); Hemoglobin 9.6 g/dL (12.0-16.0); Immature Granulocytes Auto 0.07 Thou/mm3 (0.00-0.00); Lymphocytes # (Auto) 1.3 Thou/mm3 (1.0-4.8); Lymphocytes % (Auto) 14 % (10-50); Mean Corpuscular HGB Conc 31.8 g/dl (31.0-37.0); Mean Corpuscular Hemoglobin 32.2 pg (25.0-35.0); Mean Corpuscular Volume 101 fL (80-100); Monocytes # (Auto) 1.2 Thou/mm3 (0.0-0.8); Monocytes % (Auto) 13 % (0-12); Neutrophils # (Auto) 6.4 Thou/mm3 (1.8-7.7); Neutrophils % (Auto) 70 % (37-80); Nucleated Red Blood Cell # 0.02 Thou/mm3 (0.00-0.00); Nucleated Red Blood Cell % 0 /100 WBC (0); Platelet Count 231 Thou/mm3 (140-440); RDW Standard Deviation 57.8 fL (36.4-46.3); Red Blood Count 2.98 Miln/mm3 (4.00-5.20); White Blood Count 9.2 Thou/mm3 (3.6-11.0)
[2025-07-21 06:16] LABS: Alanine Aminotransferase 13 U/L (10-49); Albumin, Serum 3.3 gm/dL (3.4-4.8); Albumin/Globulin Ratio 1.2 (1.2-2.2); Alkaline Phosphatase 110 U/L (46-116); Anion Gap 9 (7-16); Aspartate Amino Transferase 27 U/L (0-34); BUN/Creatinine Ratio 37 Ratio (12-20); Bilirubin,Total 0.2 mg/dL (0.3-1.2); Blood Urea Nitrogen 22 mg/dL (9-23); Calcium 9.1 mg/dL (8.3-10.6); Calcium (Corrected) 9.7 mg/dL (8.5-10.1); Carbon Dioxide 30.0 mMol/L (20.0-31.0); Chloride 105 mMol/L (98-107); Creatinine (Component) 0.6 mg/dL (0.6-1.3); Estimated Creatinine Clearance 83.4 mL/min (>60); Globulin 2.8 gm/dL (2.3-3.5); Glucose 101 mg/dL (74-106); Magnesium 2.6 mg/dL (1.6-2.6); Osmolality,Calculated 290 (275-295); Phosphorous 3.7 mg/dL (2.4-5.1); Potassium 3.8 mMol/L (3.4-5.1); Sodium 144 mMol/L (136-145); Total Protein 6.1 gm/dL (5.7-8.2); eGFR > 60 See Note
[2025-07-21] MEDS: FLUCONAZOLE 100 MG TABLET 400 MG PO (08:58)
[2025-07-21] MEDS: ALBUMIN HUMAN 25% IVPB 25 GM/100 ML BTL IV (08:58)
[2025-07-21] MEDS: LACTULOSE SYRUP 20 GM/30 ML UDC PO (08:58)
[2025-07-21] MEDS: NIFEdipine XL 30 MG TABCR PO (08:59)
[2025-07-21] MEDS: LOSARTAN POTASSIUM 25 MG TABLET 100 MG PO (08:59)
[2025-07-21] MEDS: VIT B12/Vit C/FA (Nephrovite) TABLET 1 TAB PO (08:59)
[2025-07-21] MEDS: DIVALPROEX SOD DR 500 MG TABLET.DR PO (09:00)
[2025-07-21] MEDS: IRON SUCROSE CPLX INJ 20 MG/ML VIAL 5 ML 200 MG IVP (09:17)
--- NOTE | 2025-07-21 13:29 | ESDS_ITS ---
<Statement entered by Nickolas Breaux MD - 07/21/25 14:53> I Nickolas Breaux MD reviewed the note and agree with the resident's assessment & plan with modifications/additions/exceptions as below. I have personally reviewed labs, imaging, home meds/prior records, examined the patient, formulated and discussed management plan with the IM team. Patient was not discharged yesterday due to logistics issues. Blood pressure is better controlled now. Will discharge on hide Vantin and azithromycin with a short course of systemic steroids. Fluconazole for coccidioidomycosis. Follow- up with repeat imaging in 1 month for lung consolidation/mass reevaluation. Planned Discharge Date 07/21/25 DS: Providers Provider Date of admission: 07/13/25 00:52 Primary care physician: Nathan Avila MD Admitting Provider: Aquiles Black MD Attending Provider on Admission: Tere Ramos DO Consults: 07/13/25 01:06 Referral Registered Dietitian Stat Comment: 07/13/25 08:38 Referral Speech Therapy Urgent Comment: Swallow evaluation. 07/13/25 14:02 Consult to Gastroenterology Routine Comment: Dysphagia, mediastinal mass on X-ray. Consulting Provider: Jelena Amaya 07/18/25 14:26 Consult to Pulmonology Routine Comment: Left-sided mass seen on CT, Cocci IgM positive Consulting Provider: Paxton Marquez Attending Provider on DC: Amisha Breaux MD Discharging Provider: Yordy Nichols MD DS: Diagnosis Discharge Diagnosis (1) Dehydration with hypernatremia: Status: Acute Problem List Completed Was Problem List Reviewed/Reconciled?: Yes Hospital Course Hospital Course Hospital course: Ms Ty Alcantar is a 74-year-old female with medical history of seizure disorder, developmental delay, she is a frenula, hypothyroidism, hyperlipidemia, osteoporosis who [facility] On 07/13/2025 with concerns over low temperature of 94 and shortness of breath.Chest x-ray showed significant bibasilar pneumonia. CT abdomen showed dense pneumonic consolidation versus pulmonary mass of 4.6 cm on the left lobe. Patient desatted to 87%, WBC WNL. BNP slightly elevated with evidence of vascular congestion on imaging, JVD and 3+ bilateral lower extremity edema. She had hyponatremia of 130 with low serum osmolality, suggestive of fluid retention. Patient was treated with Lasix 40 mg total daily dose for 3 days with net loss of 3.3 L in body fluid balance. Additionally, she was started on antibiotics vancomycin and Zosyn, with Zosyn continued for 3 days and switched to Unasyn for 2 more days. Furthermore ammonia at presentation was elevated at 102, and there was signs of hepatomegaly on ultrasound. The patient was treated with lactulose IL 30 mg 3 times daily and rifaximin 500 mg twice daily. Patient was found to be unable to tolerate oral intake, and given a history of esophageal strictures requiring dilation in the November of this year, GI was consulted. Endoscopy on 07/14 showed esophageal stenosis in the proximal esophagus, which was dilated during the procedure. Found to have esophagitis in the lower third of the esophagus as well as gastritis biopsies were taken. To further evaluate dysphagia, a video fluoroscopy swallow completed subsequently was negative for pharyngeal penetration or aspiration. Patient's diet was advanced to PUD/GERD/bland and medications were switched from IV to p.o.. Patient had positive serology for cocci fluconazole 400 mg daily was added to his treatment regimen. Pulmonology was consulted related to imaging findings concerning for a pulmonary mass in the left lower lobe. However review of chest x-ray for the past decade showed atelectasis at varying degrees from involvement of regional left lobe to the entire left lung. Malignancy was very low in the differential and patient was recommended to be monitored Additionally the patient was found to have hypertension and antihypertensives were added in a stepladder fashion, with optimal measures found on losartan 50 mg, and nifedipine 30 mg. By the time of discharge, patient's oxygen saturation is between 94 to 96% on room air. She has been successfully weaned to breathing on room air. At the time of discharge, patient is medically stable and deemed safe to return to his/her previous state of living. Problems for this admission: - Acute metabolic encephalopathy (resolved) - AHRF secondary to - Aspiration pneumonia - Positive cocci serology - Acute decompensation of HFpEF 50 to 55% - Developmental delay - Dysphagia - Essential hypertension - HyperNATREMIA - UTI, likely GNR - Concern for GI bleed - Hypothyroidism - Hyperlipidemia - Chronic constipation Discharge Instructions: Follow-up with PCP within 1-2 weeks of discharge. * You may follow-up with one of our residents doctor with the [facility] at the address below. * Continue taking medications as prescribed below. * Start nifedipine 30mg once a day and losartan 50 mg daily for optimal blood pressure control. * Continue to take fluconazole 400 mg (that is two of the 200 mg tablets you were prescribed) until you follow-up with your PCP. Your serology was positive for IgM cocci. * Stop taking calcium carbonate/cholecalciferol 600 and vitamin C supplement. Your last corrected calcium was 9.8, very close to the upper limit of normal. * Stop taking pantoprazole 40 mg as you have been on it for a long while and continued consumption would put you under risk for C difficile infection. * Follow up with your PCP about your gastric hernia, and seek speciality care in the face of uncontrolled gastrointestenial or respiratory symptoms from it. * For risk of changes in mentation due to abnormal sodium levels, make sure sodium stays within normal limits of 135-145. For high sodium levels, make sure to drink plenty of tap water. For lower levels, restrict water intake or take salt tablets. * Return to Emergency Room if symptoms persist, worsen, or new symptoms develop. We are grateful to be able to participate in Mr Alcantar's care. We wish her the b - Yordy Nichols M.D. PGY3 Disclaimer: Minor errors in air crew member may be present as this note was dictated using voice recognition software. Status at Discharge Cognitive/behavioral status at discharge: Stable and returned to baseline Time Spent with Patient Time attestation: Total time spent providing and/or coordinating discharge services: more than 50% Time spent: Greater than 30 minutes Specific discharge activities: stable Exam Vital Signs Temp Pulse Resp BP Pulse Ox O2 Del Method O2 Flow Rate 97.5 F 94 20 114/56 L 91 L Nasal Cannula 1 07/21/25 12:07/21/25 12:07/21/25 12:07/21/25 12:07/21/25 12:07/21/25 12:07/21/25 12:00 Narrative Exam General: Frail, unable to communicate, making incomprehensible sounds when asked questions. Neurologic: Confused, no gross neurological deficit. HEENT: Normocephalic, atraumatic, mucous membranes moist. Pupils reactive to light. Heart: Regular rate and rhythm, normal S1 and S2, no murmurs. Lungs: Coarse breath sounds bilaterally. Abdomen: Soft, nondistended, nontender, positive bowel sounds. No guarding or rebound tenderness. Extremities: Trace pitting edema in the ankles bilaterally. 2+ radial and dorsalis pedis pulses bilaterally. Skin: Warm. Dry. No rash or ecchymoses. Discharge Plan Plan Patient Disposition: Xfer Skilled Nsg Fac (SNF) Disposition Comment: Retirement Patient condition on transfer: Stable Care Plan Goals: * Follow-up with PCP within 1-2 weeks of discharge. * You may follow-up with one of our residents doctor with the [facility] at the address below. * Continue taking medications as prescribed below. * Start nifedipine 30mg once a day and losartan 100 mg daily for optimal blood pressure control. * Continue to take fluconazole 400 mg (that is two of the 200 mg tablets you were prescribed) until you follow-up with your PCP. Your serology was positive for IgM cocci. * Stop taking calcium carbonate/cholecalciferol 600 and vitamin C supplement. Your last corrected calcium was 9.8, very close to the upper limit of normal. * Stop taking pantoprazole 40 mg as you have been on it for a long while and continued consumption would put you under risk for C difficile infection. * For risk of changes in mentation due to abnormal sodium levels, make sure sodium stays within normal limits of 135-145. For high sodium levels, make sure to drink plenty of tap water. For lower levels, restrict water intake or take salt tablets. * Return to Emergency Room if symptoms persist, worsen, or new symptoms develop. [facility] [address] [place] [address] Prescriptions/Referrals Prescriptions/Med Rec: New fluconazole 200 mg tablet 400 mg PO QDAY 30 Days Qty: 60 0RF losartan 100 mg tablet 100 mg PO QDAY 30 Days Qty: 30 0RF nifedipine 30 mg Tablet Extended Release 24hr 30 mg PO DAILY 30 Days Qty: 30 0RF Continued docusate sodium 250 mg capsule 250 mg PO QDAY PRN (Reason: constipation) Qty: 30 0RF Acetaminophen * (TYLENOL *) 325 MG tablet 2 tab PO Q4HR PRN (Reason: PAIN) Qty: 30 0RF Albuterol Sulfate/Ipratropium NEB * (DUONEB *) 3 ML AMPUL.NEB 3 ml HHN Q4HR PRN (Reason: SHORTNESS OF BREATH OR WHEEZE) Qty: 9 0RF levothyroxine [Synthroid] 100 MCG tablet 100 mcg PO ACBR Qty: 30 0RF bisacodyl 10 mg Suppository 10 mg IL QDAY PRN (Reason: Constipation) Qty: 30 0RF Rx Instructions: if no BM in 3 days simvastatin 20 MG tablet 20 mg PO HS Qty: 30 0RF divalproex [Depakote ER] 500 MG tablet extended release 24 hr 500 mg PO BID Qty: 30 0RF pseudoephedrine HCl [Sudogest] 60 MG tablet 60 mg PO Q6HR PRN (Reason: CONGESTION) Qty: 30 0RF lactulose 10 GM/15 ML syrup 1 g PO QDAY PRN (Reason: CONSTIPATION) Qty: 3785 0RF Rx Instructions: May hold if loose stools quetiapine [Seroquel XR] 300 MG tablet extended release 24 hr 400 mg PO BID Qty: 30 0RF Guaifenesin/D-Methorphan Hb Syrup (Robitussin Dm Syrup) 120 ML syrup 10 ml PO Q4HR PRN (Reason: COUGH) Qty: 120 0RF LORATADINE (CLARITIN) 10 MG capsule 10 mg PO QDAY Qty: 30 0RF Multivit-Min/Iron Fum/Folic AC (Axitu-Afbkgza-Erdalmji Tablet) 1 EACH tablet 1 tab PO QDAY Qty: 30 0RF Discontinued pantoprazole [Protonix] 40 mg tablet,delayed release (DR/EC) 40 mg PO QDAY Qty: 30 0RF ASCORBATE CALCIUM (VITAMIN C) 500 MG tablet 500 mg PO QDAY Qty: 30 0RF Calcium Carbonate/Cholecalciferol 600 * (CALTRATE PLUS D 600 *) 1 TAB tablet 1 tab PO BID Qty: 30 0RF Referrals: Nathan Avila MD [Primary Care Provider, Family Practice] Patient/Caregiver Discharge Instructions Education Materials: Low-Salt Choices, Preventing Common Respiratory ... Print Language: Kyrgyz Stand Alone Forms: Aleja Award Info., Patient Portal Info Letter Discharge Order Discharge Orders: Discharge (Routine); Ordered 07/21/25 Ordered By: Yordy Nichols Quality Discharge Quality Measures VTE prophylaxis
== END 2025-07-21 12:35 | disposition skilled nursing facility (03) | DRG 177 ==
LOC: SERX 07-13 00:40 → SERHOLD 07-13 01:25 → S2NX 07-13 04:15 → S3NX 07-20 05:18
PROVIDERS: Specialist; Student in an Organized Health Care Education/Training Program; Admitting Provider Internal Medicine; Emergency Provider Emergency Medicine; PCP Family Medicine; Visit Provider Internal Medicine
PROC: 0DB48ZX Excision of Esophagogastric Junction, Via Natural or Artificial Opening Endoscopic, Diagnostic (ICD-10-PCS; CPT 43239; principal; 2025-07-14 17:00)
DX: J69.0 Pneumonitis due to inhalation of food and vomit (principal); G93.41 Metabolic encephalopathy; J96.01 Acute respiratory failure with hypoxia; I50.33 Acute on chronic diastolic (congestive) heart failure; N39.0 Urinary tract infection, site not specified; B38.9 Coccidioidomycosis, unspecified; E87.0 Hyperosmolality and hypernatremia; E87.1 Hypo-osmolality and hyponatremia; E87.29 Other acidosis; J18.9 Pneumonia, unspecified organism; F20.9 Schizophrenia, unspecified; E03.9 Hypothyroidism, unspecified; E78.5 Hyperlipidemia, unspecified; G40.909 Epilepsy, unspecified, not intractable, without status epilepticus; M81.0 Age-related osteoporosis without current pathological fracture; E87.5 Hyperkalemia; E16.2 Hypoglycemia, unspecified; K59.09 Other constipation; J30.2 Other seasonal allergic rhinitis; B96.20 Unspecified Escherichia coli [E. coli] as the cause of diseases classified elsewhere; I11.0 Hypertensive heart disease with heart failure; K22.2 Esophageal obstruction; R62.7 Adult failure to thrive; F79 Unspecified intellectual disabilities; R62.50 Unspecified lack of expected normal physiological development in childhood; K29.70 Gastritis, unspecified, without bleeding; K80.20 Calculus of gallbladder without cholecystitis without obstruction; E86.0 Dehydration; B96.5 Pseudomonas (aeruginosa) (mallei) (pseudomallei) as the cause of diseases classified elsewhere; I35.8 Other nonrheumatic aortic valve disorders; Z88.8 Allergy status to other drugs, medicaments and biological substances; Z79.899 Other long term (current) drug therapy; Z93.1 Gastrostomy status; J39.8 Other specified diseases of upper respiratory tract
CPT/HCPCS: 36415; 36600; 70450; 71045; 71250; 74176; 74230; 76705; 80053; 80069; 80074; 80164; 80307; 80320; 81001; 82010; 82140; 82150; 82248; 82803; 83605; 83690; 83735; 83880; 84100; 84132; 84145; 84439; 84443; 84484; 85025; 85379; 85610; 85652; 85730; 86140; 86635; 86850; 86900; 86901; 87040; 87077; 87081; 87086; 87186; 87205; 87305; 87400; 87449; 87811; 92526; 92610; 93005; 93225; 93306; 93970; 94640; 96361; 96365; 96366; 96375; 99285; A4649; A9270; C1769; J0295; J0360; J0456; J0696; J1450; J1756; J1938; J2250; J2470; J2543; J2919; J3010; J3373; J3420; J3475; J3480; J3490; J7042; J7050; J7060; J7121; J7999; P9047; G0480; J1920

== ENCOUNTER 2025-07-22 08:44 | Inpatient (IN) | payer MEDICARE, MEDICAID, SELFPAY ==
[2025-07-22] VITALS (13 sets, daily range): BP systolic 97–124; BP diastolic 48–58; PULSE 55–88; RESP 15–90; TEMP 36.1–36.6; O2SAT 94–100; BMI 19.2
--- NOTE | 2025-07-22 09:41 | EKG_ITS ---
[facility] Test Date: 2025-07-22 Pat Name: AGGIE LEUNG Department: Room: - Gender: Female [employer] Machine Operator: : [id number] Requested By: Roel Segura Order Number: [id number] Reading MD: Roel Segura Measurements Intervals [place] Rate: 87 P: 28 AL: 114 QRS: 22 QRSD: 84 T: 118 QT: 358 QTc: 431 Interpretive Statements SINUS RHYTHM WITH SHORT AL INTERVAL LEFT ATRIAL ENLARGEMENT [-0.15mV P-WAVE IN V1/V2] LEFT VENTRICULAR HYPERTROPHY AND ST-T CHANGE [VOLTAGE CRITERIA PLUS ST/T ABNORMALITY] Compared to ECG 07/12/2025 21:58:36 Short AL interval now present Left ventricular hypertrophy now present ST (T wave) deviation now present T-wave abnormality no longer present /store/S0/[id number]/[id number].pdf
--- NOTE | 2025-07-22 09:42 | PC.NURSE ---
SPOKE TO BRANNON FRANK RN [facility]; PER BRANNON, SHE WAS DISCHARGED FROM THE HOSPITAL YESTERDAY AND GOT BACK TO OUR FACILITY AROUND 1-2PM. SHE WAS RX'D WITH 2 ANTIHYPERTENSIVES, BUT SHE'S NEVER HAD HIGH BP BEFORE. HER BP YESTERDAY WAS AROUND 110'S SYSTOLIC SO I TOLD STAFF NOT TO GIVE HR ANY OF HER B MEDS. TODAY, THEY GOT HER UP TO SHOWER AND THEN GOT HER READY TO EAT WHEN SHE JUST SLUMPED OVER HER WHEELCHAIR. SHE DID NOT GET ANY OF HER BP MEDS YESTERDAY OR TODAY.
--- NOTE | 2025-07-22 09:42 | PD.EDAMS ---
Altered Mental Status RME/HPI General Chief Complaint: Altered Mental Status Stated Complaint: AMS Time Seen by Provider: 07/22/25 09:25 Arrival date/time: 07/22/25 08:44 Limitations: no limitations RME / HPI RME / HPI narrative: DR. MCARTHUR MAIN ED EVALUATION: 75-year-old female with past medical history of schizophrenia, diabetes, constipation, allergies, and chronic leg edema presents to the Emergency Department [facility] from a convalescent home with altered mental status. She is on quetiapine, divalproex (Depakote), Ingrezza, levothyroxine, and pantoprazole. She recently received azithromycin and prednisone on 06/14/2025. Per halfway staff, after receiving a shower, the patient became hypoxic with O2 saturation down to 90% on room air and hypotensive with systolic BP in the 90s per EMS. On arrival, her blood pressure was 98/60 and glucose 147. Related Data Previous Rx's ?Medication ?Instructions ?Recorded Acetaminophen * (TYLENOL *) 2 tab PO Q4HR PRN PAIN #30 tabs 11/29/24 Albuterol Sulfate/Ipratropium NEB 3 ml HHN Q4HR PRN SHORTNESS OF 11/29/24 * (DUONEB *) BREATH OR WHEEZE #9 mL Guaifenesin/D-Methorphan Hb Syrup 10 ml PO Q4HR PRN COUGH #120 mL 11/29/24 (Robitussin Dm Syrup) LORATADINE (CLARITIN) 10 mg PO QDAY #30 mg 11/29/24 Multivit-Min/Iron Fum/Folic AC 1 tab PO QDAY #30 mg 11/29/24 (Ptqmk-Gqgiqlf-Sqhnzpzv Tablet) bisacodyl 10 mg rectal suppository 10 mg NV QDAY PRN Constipation #30 11/29/24 ea divalproex 500 mg tablet,extended 500 mg PO BID #30 tabs 11/29/24 release 24 hr (Depakote ER) docusate sodium 250 mg capsule 250 mg PO QDAY PRN constipation 11/29/24 #30 caps lactulose 10 gram/15 mL oral 1 g (1.5 mL) PO QDAY PRN 11/29/24 solution CONSTIPATION #3,785 mL levothyroxine 100 mcg tablet 100 mcg PO ACBR #30 tabs 11/29/24 (Synthroid) pseudoephedrine HCl 60 mg tablet 60 mg PO Q6HR PRN CONGESTION #30 11/29/24 (Sudogest) tabs quetiapine 300 mg tablet,extended 400 mg (1.3333 x 300 mg) PO BID 11/29/24 release 24 hr (Seroquel XR) #30 tabs simvastatin 20 mg tablet 20 mg PO HS #30 tabs 11/29/24 fluconazole 200 mg tablet 400 mg (2 x 200 mg) PO QDAY 30 07/19/25 days #60 tabs losartan 100 mg tablet 100 mg PO QDAY 30 days #30 tabs 07/20/25 nifedipine 30 mg tablet,extended 30 mg PO DAILY 30 days #30 tabs 07/20/25 release 24 hr Allergies Allergy/AdvReac Type Severity Reaction Status Date / Time amitriptyline Allergy Intermediate unknown Verified 07/12/25 21:36 haloperidol Allergy Intermediate Itching Verified 07/12/25 21:36 Review of Systems Review of Systems Systems Reviewed: All systems reviewed, normal except as documented Past Medical History Past Medical History NEUROLOGIC: Positive Seizures MUSCULOSKELETAL: Positive Musculoskeletal Disorders and Arthritis PSYCHO/SOCIAL: Positive Psychiatric Problems, Schizophrenia and Anxiety OTHER HISTORY: Positive Developmental Delay Social History SMOKING STATUS: Never smoker SUBSTANCE USE: does not use ALCOHOL: Never ED Exam General Limitations: Present no limitations General appearance: Present in no apparent distress and other (Opens mouth and eyes. Tries to verbalize; difficulty verbalizing though she is able to follow commands and move.) Head Head exam: Present atraumatic, normocephalic and normal inspection Eye Eye exam: Present normal appearance, PERRL and EOMI ENT ENT exam: Present normal exam, normal oropharynx and mucous membranes dry Neck Neck exam: Present normal inspection, full ROM and trachea midline Expanded Neck Exam Neck exam focused ED: Absent JVD Chest Chest inspection: Present normal inspection and symmetric chest wall rise Respiratory Respiratory exam: Present normal lung sounds bilaterally Cardiovascular Cardiovascular exam: Present regular rate, normal rhythm and normal heart sounds Abdominal Exam Abdominal exam: Present soft and normal bowel sounds Extremities Exam Extremities exam: Present other (Swelling of the left hand. Old ecchymosis on the left forearm. Left foot drop.) Back Exam Back exam: Present normal inspection and full ROM Neurological Exam Neurological exam: Present other (Opens mouth and eyes. Tries to verbalize; difficulty verbalizing though she is able to follow commands and move. Left foot drop.) Psychiatric Psychiatric exam: Present normal affect and normal mood Skin Skin exam: Present warm, dry, intact and normal color Course Quality Measures none Orders Category Date Time Status Bedside Blood Glucose NOW Care 07/22/25 09:41 Completed Bedside COVID-19 Antigen Test NOW Care 07/22/25 13:29 Active COVID-19 Screening Questionnaire NOW Care 07/22/25 13:[address] Screening NOW Care 07/22/25 13:02 Active Heat Treater Helper NOW Care 07/22/25 09:41 Active Continuous Pulse Oximetry NOW Care 07/22/25 09:41 Completed Decision to Admit X1 Care 07/22/25 13:11 Completed EKG (ED ONLY) *Do not use* NOW Care 07/22/25 09:41 Completed In and Out Catheter X1 Care 07/22/25 09:41 Completed Insert IV NOW Care 07/22/25 09:41 Completed NPO NOW Care 07/22/25 09:[address] angio chest Stat Exams 07/22/25 13:[address] head/brain wo con Stat Exams 07/22/25 09:41 Completed CXRP [XR chest 1V portable] Stat Exams 07/22/25 12:14 Completed EKG (ED Only) Stat Exams 07/22/25 09:41 Draft Acetaminophen Stat Lab 07/22/25 09:07 Completed Alcohol, Blood Medical Stat Lab 07/22/25 09:07 Completed Ammonia Stat Lab 07/22/25 10:27 Completed Arterial Blood Gas Stat Lab 07/22/25 10:45 Completed Blood Culture (Lab) Stat Lab 07/22/25 10:27 Received CBC Stat Lab 07/22/25 09:07 Completed Comprehensive Metabolic Panel Stat Lab 07/22/25 09:07 Completed Drug Screen,Urine Stat Lab 07/22/25 11:16 Completed Lactic Acid [Lactate (Lactic Acid)] Stat Lab 07/22/25 12:29 Completed Magnesium Stat Lab 07/22/25 09:07 Completed Procalcitonin Stat Lab 07/22/25 09:07 Completed Prothrombin Time with INR Stat Lab 07/22/25 09:07 Completed Salicylate Stat Lab 07/22/25 09:07 Completed Thyroid Stimulating Hormone Stat Lab 07/22/25 09:07 Completed Troponin I Stat Lab 07/22/25 09:07 Completed ALBUTEROL RT 3ml [Proventil Rt 3ml] Med 07/22/25 12:50 Discontinued 5 mg INH X1 ONE Azithromycin Inj [Zithromax Inj] 500 mg Med 07/23/25 14:00 Active Sodium Chloride 0.9% 250 ml [Ns] 250 ml IV QDAY@1400 Azithromycin Inj [Zithromax Inj] 500 mg Med 07/22/25 13:00 Discontinued Sodium Chloride 0.9% 250 ml [Ns] 250 ml IV X1 Sodium Chloride 0.9% 1000 ml [Ns] 1,000 ml Med 07/22/25 09:41 Discontinued IV 1,000 mls/hr cefTRIAXone [Rocephin] 2 gm Med 07/22/25 12:50 Discontinued SODIUM CHLORIDE 0.9% (Popper) [Ns 0.9% (P)] 50 ml IV X1 Oxygen Delivery NOW RT 07/22/25 09:41 Active Vital Signs Vital signs: Vital Signs Temperature 97.5 F 07/22/25 08:59 Pulse Rate 79 07/22/25 08:59 Respiratory Rate 15 07/22/25 08:59 Blood Pressure 107/52 L 07/22/25 08:59 Pulse Oximetry (%) 95 07/22/25 08:59 Oxygen Delivery Method Room Air 07/22/25 08:59 Altered Mental Status MDM Narrative MDM Narrative:: 75-year-old female with multiple comorbidities presents with acute AMS, hypotension, and hypoxia. Exam findings of dryness and decreased mental status suggest dehydration and possible metabolic encephalopathy rather than acute focal neurologic event. She does not appear to have focal weakness, lowering immediate concern for stroke. Infectious etiology or medication-related adverse effects also remain possible, particularly given her recent azithromycin and prednisone use. Plan includes IV fluids for suspected dehydration, labs including CBC, CMP, troponin, chest X-ray, EKG, and head CT Chelo Jimenez am scribing for and in the presence of Dr. Mcarthur. Patient data External records reviewed:: [facility] previous records and EMS form Clinical information provided by:: patient and EMS Social determinants that could affect healthcare access:: housing (halfway) Patient has the following chronic illnesses:: Past medical history of schizophrenia, diabetes, constipation, allergies, and chronic leg edema. She is on quetiapine, divalproex (Depakote), Ingrezza, levothyroxine, and pantoprazole. She recently received azithromycin and prednisone on 06/14/2025. How is presenting disease/condition affected by chronic disease/condition?: exacerbated by Evaluation data The following diagnostics were reviewed and interpreted by me:: lab results, radiology exam(s) and EKG tracing(s) (My interpretation: EKG performed at 0957 hours, sinus rhythm, rate 87, no STEMI) Lab and/or radiology exams considered but not ordered:: none Interpretation Summary: Procedure(s): CT head/brain wo con Accession Number(s): [id number] cc: Roel Mcarthur MD; Nathan Avila MD; Itz Hernández MD~ Examination: CT brain head without contrast. 2-D sagittal coronal reconstructions Date and time of exam:July 22, 2025, 10:22 AM, comparison 07/12/2025 Indications: Altered mental status today. CTDI: vol (mGy):55.6 DLP: (mGycm):1117 Technique: Multiple CT axial sections of the brain have been obtained, 5 mm slice thickness. Contrast has not been administered. 2-D sagittal, coronal reconstructions have been obtained Low dose protocols were performed. One or more of the following dose reduction techniques were used; automated exposure control, adjustment of the mA and/or KV according to patient size, use of iterative reconstruction technique. Findings: No significant ventricular enlargement. Significant atrophy Intra-axial or extra-axial hemorrhage density is not seen. No mass effect or midline shift Basal cisterns are not remarkable. Fourth ventricle is midline. Cranial vault intact. Impression: Negative for acute hemorrhage, mass effect or midline shift Dictated By: Itz Hernández MD Procedure(s): XR chest 1V portable Accession Number(s): [id number] cc: Roel Mcarthur MD; Nathan Avila MD; Itz Hernández MD~ Examination: AP chest single view Technique: AP upright portable chest single view Date and time: July 22, 2025, 12:32 PM, comparison 07/16/2025 Indications: Difficulty breathing coughing this week. Findings: Severe left lung pneumonia with layering left pleural fluid Mild enlargement cardiac contour with moderate vascular congestion Impression: Extensive left lung pneumonia with layering left pleural fluid Dictated By: Itz Hernández MD Medications / Prescriptions Medications or Prescriptions considered but not ordered:: none Medication administrations:: Medication Administration History Acetaminophen (Acetaminophen 325 Mg Tablet) 650 mg PO Q6H PRN PRN Reason: PAIN OR FEVER > 100.4 Stop: 08/21/25 13:30 Atorvastatin Calcium (Atorvastatin Calcium 10 Mg Tablet) 20 mg PO HS PRATIBHA Stop: 08/21/25 20:59 Divalproex Sodium (Divalproex Sod Dr 500 Mg Tablet.Dr) 500 mg PO BID PRATIBHA Stop: 08/21/25 20:59 Fluconazole (Fluconazole 100 Mg Tablet) 400 mg PO QDAY PRATIBHA Stop: 07/30/25 08:59 Guaifenesin/Dextromethorphan (Guaifenesin/Dm 10 Ml Udc) 10 ml PO Q4HR PRN PRN Reason: COUGH Azithromycin 500 mg/ Sodium (Chloride) 250 mls @ 250 mls/hr IV QDAY@1400 PRATIBHA Stop: 07/30/25 13:59 Ceftriaxone Sodium/Dextrose (Rocephin/D5w 1gm Iv Premix) 1 gm in 50 mls @ 100 mls/hr IV QDAY PRATIBHA Stop: 07/30/25 08:59 Lactulose (Lactulose Syrup 20 Gm/30 Ml Udc) 20 gm PO QDAY PRN; Protocol PRN Reason: CONSTIPATION Stop: 08/21/25 15:18 Levothyroxine Sodium (Levothyroxine Sodium 100 Mcg Tablet) 100 mcg PO ACBR PRATIBHA Stop: 08/22/25 05:59 Losartan Potassium (Losartan Potassium 25 Mg Tablet) 100 mg PO QDAY PRATIBHA Stop: 08/22/25 08:59 Multivitamins (Multivitamins Tablet) 1 tab PO QDAY PRATIBHA Stop: 08/22/25 08:59 Nifedipine (Nifedipine Xl 30 Mg Tabcr) 30 mg PO DAILY PRATIBHA Stop: 08/22/25 08:59 Ondansetron HCl (Ondansetron Inj 2 Mg/Ml Inj 2 Ml) 4 mg IVP Q6H PRN; Protocol PRN Reason: NAUSEA OR VOMITING Stop: 08/21/25 13:30 Pantoprazole Sodium (Pantoprazole Inj 40 Mg Vial) 40 mg IVP Q12HR PRATIBHA Stop: 08/21/25 20:59 Quetiapine Fumarate (Quetiapine Fumarate 100 Mg Tablet) 400 mg PO BID PRATIBHA Stop: 08/21/25 20:59 Discontinued Medications Albuterol (Albuterol Rt 2.5 Mg/3 Ml Nebu) 5 mg INH X1 ONE Stop: 07/22/25 12:51 Last Admin: 07/22/25 13:13 Dose: 5 mg Documented By: LATESHA Sodium Chloride (Ns) 1,000 mls @ 1,000 mls/hr IV .Q1H ONE Stop: 07/22/25 10:40 Last Infusion: 07/22/25 11:37 Dose: Infused Documented By: Admin: 07/22/25 10:22 Dose: 1,000 mls/hr Documented By: SAULO Ceftriaxone Sodium 2 gm/ (Sodium Chloride) 50 mls @ 100 mls/hr IV X1 ONE Stop: 07/22/25 13:19 Last Infusion: 07/22/25 15:18 Dose: Infused Documented By: Admin: 07/22/25 13:24 Dose: 100 mls/hr Documented By: SAULO Azithromycin 500 mg/ Sodium (Chloride) 250 mls @ 250 mls/hr IV X1 ONE Stop: 07/22/25 13:59 Last Admin: 07/22/25 15:00 Dose: 250 mls/hr Documented By: YON see above Consultations Consultation(s) initiated? (list below): Yes Consultation #1 (Physician, Specialty, Details): Discussed test HPI, PMHx, lab, radiology results and/or management with resident working with the hospitalist. Will admit for further evaluation and management. Accepts patient for admission. Time: 13:40 Diagnosis Differential diagnosis altered mental status: other (Metabolic encephalopathy, sepsis, and dehydration.) Most likely diagnosis given after review of the tests above:: Acute respiratory distress Pneumonia AMS Schizophrenia Admission Indicated Admission indicated?: indicated Admission Request Was there a request for admission?: Yes Admission Attestation Admission request attestation: Discussed case with [] from Hospitalist service regarding admission. Discussed patients ED course, exam findings, labs, and radiology results. The Hospitalist [agrees,declines] to accept the patient for admission. Disposition Plan Disposition Plan: Admit Critical Care Time Critical Care Time Critical Care Time: Yes Total Critical Care Time (min.): 45 Attestation: The high probability of sudden, clinically significant deterioration in the patient?s condition required the highest level of my preparedness to intervene urgently. The services I provided to this patient were to treat and/or prevent clinically significant deterioration. Services included the following: chart data review, reviewing nursing notes and/or old charts, documentation time, healthcare risk control consultant collaboration regarding findings and treatment options, medication orders and management, direct patient care, vital sign assessments and ordering, interpreting and reviewing diagnostic studies and lab tests. Aggregate critical care time includes only time during which I was engaged in work directly related to the patient?s care, as described above, whether at bedside or elsewhere in the Emergency Department. It did not include time spent performing other reported procedures or the services of residents, students, nurses or physician assistants. Discharge Plan Plan Patient Disposition: Admit Acute Care w/in Hospital Problem List Clinical Impression: Acute respiratory distress, Pneumonia, AMS (altered mental status), Schizophrenia
[2025-07-22] MEDS: SODIUM CHLORIDE 0.9% 1000 ML 1,000 ML IV (10:22)
[2025-07-22 10:24] LABS: Basophils # (Auto) 0.0 Thou/mm3 (0.0-0.2); Basophils % (Auto) 0 % (0-2.5); Eosinophils # (Auto) 0.1 Thou/mm3 (0.0-0.5); Eosinophils % (Auto) 1 % (0-10); Hematocrit 25.4 % (36.0-46.0); Immature Granulocytes Auto 0.07 Thou/mm3 (0.00-0.00); Lymphocytes # (Auto) 1.4 Thou/mm3 (1.0-4.8); Lymphocytes % (Auto) 19 % (10-50); Mean Corpuscular HGB Conc 32.3 g/dl (31.0-37.0); Mean Corpuscular Hemoglobin 33.1 pg (25.0-35.0); Mean Corpuscular Volume 102 fL (80-100); Monocytes # (Auto) 0.9 Thou/mm3 (0.0-0.8); Monocytes % (Auto) 12 % (0-12); Neutrophils # (Auto) 5.2 Thou/mm3 (1.8-7.7); Neutrophils % (Auto) 67 % (37-80); Nucleated Red Blood Cell # 0.00 Thou/mm3 (0.00-0.00); Nucleated Red Blood Cell % 0 /100 WBC (0); Platelet Count 265 Thou/mm3 (140-440); RDW Standard Deviation 60.3 fL (36.4-46.3); Red Blood Count 2.48 Miln/mm3 (4.00-5.20); White Blood Count 7.7 Thou/mm3 (3.6-11.0)
[2025-07-22 10:26] LABS: Acetaminophen < 2.0 mcg/mL (10.0-20.0); Alanine Aminotransferase 17 U/L (10-49); Albumin, Serum 3.3 gm/dL (3.4-4.8); Albumin/Globulin Ratio 1.2 (1.2-2.2); Alcohol, Blood Medical < 3.0 mg/dL (0-10.0); Alkaline Phosphatase 88 U/L (46-116); Anion Gap 9 (7-16); Aspartate Amino Transferase 68 U/L (0-34); BUN/Creatinine Ratio 23 Ratio (12-20); Bilirubin,Total 0.2 mg/dL (0.3-1.2); Blood Urea Nitrogen 27 mg/dL (9-23); Calcium 9.0 mg/dL (8.3-10.6); Calcium (Corrected) 9.6 mg/dL (8.5-10.1); Carbon Dioxide 27.6 mMol/L (20.0-31.0); Chloride 106 mMol/L (98-107); Creatinine (Component) 1.2 mg/dL (0.6-1.3); Estimated Creatinine Clearance 42.8 mL/min (>60); Globulin 2.7 gm/dL (2.3-3.5); Glucose 134 mg/dL (74-106); Magnesium 2.4 mg/dL (1.6-2.6); Osmolality,Calculated 292 (275-295); Potassium 4.9 mMol/L (3.4-5.1); Salicylate < 3.0 mg/dL; Sodium 143 mMol/L (136-145); Thyroid Stimulating Hormone 4.26 uIU/mL (0.55-4.78); Total Protein 6.0 gm/dL (5.7-8.2); Troponin I 0.027 ng/mL (0.0-0.045); eGFR 47 See Note
[2025-07-22 10:30] LABS: INR 1.0 (0.9-1.3); Prothrombin Time 10.6 Seconds (9.0-12.2)
[2025-07-22 10:36] LABS: Hemoglobin 8.2 g/dL (12.0-16.0)
[2025-07-22 10:51] LABS: Base Excess 4 (-3-3); HCO3 28 mEq/L (20-26); O2 Saturation 99 % (91-98); PCO2 41 mmHg (32.0-48.0); PO2 129 mmHg (83-108); pH, Arterial 7.45 (7.35-7.45)
[2025-07-22 10:56] LABS: Inspired O2, VO2 Liters 5 L/min
[2025-07-22 10:57] LABS: Allen Test Performed/OK; Puncture Site Right Radial
[2025-07-22 11:21] LABS: Ammonia 13 uMol/L (11-32)
[2025-07-22 11:42] LABS: Amphetamine/Methamp Scrn,U Negative (Negative); Barbiturate Screen,Urine Negative (Negative); Benzodiazepines Screen,Urine Negative (Negative); Benzoylecgonine Screen, Ur Negative (Negative); Fentanyl Screen,Urine Negative (Negative); Opiate Screen,Urine Negative (Negative); THC Screen,Urine Negative (Negative)
--- NOTE | 2025-07-22 12:14 | XR_ITS ---
Examination: AP chest single view Technique: AP upright portable chest single view Date and time: July 22, 2025, 12:32 PM, comparison 07/16/2025 Indications: Difficulty breathing coughing this week. Findings: Severe left lung pneumonia with layering left pleural fluid Mild enlargement cardiac contour with moderate vascular congestion Impression: Extensive left lung pneumonia with layering left pleural fluid
[2025-07-22 12:35] LABS: Lactate (Lactic Acid) 0.6 mMol/L (0.4-2.0)
--- NOTE | 2025-07-22 13:02 | XR_ITS ---
Examination: CTA chest with intravenous contrast 2-D reconstructions 3-D reconstructions, vascular Date and time of exam: July 22, 2025, 1949 hrs., Comparison 07/12/2025 Indications: Shortness of breath today, CT chest 07/12/2025 dense pneumonic consolidation versus pulmonary mass in the left lower lobe, 4.6 cm, cholelithiasis, large amounts of stool throughout the colon CTDI: vol (mGy) 29.06 DLP: (mGycm) 639 Technique: Multiple axial sections of the thorax have been obtained. 3 mm slice thickness, from below the hemidiaphragms to above the apices of the lungs. Mediastinal and lung density settings have been obtained. 2-D sagittal and coronal reconstructions. 3-D angiographic renderings, 3-D volume renderings, 3D post processing, vascular maximum intensity projections obtained. Contrast administered is 100 cc [id number]. Low dose protocols were performed. One or more of the following dose reduction techniques were used; automated exposure control, adjustment of the mA and/or KV according to patient size, use of iterative reconstruction technique. Findings: AP dimension ascending thoracic aorta 3.1 cm no thoracic aortic dissection No pulmonary artery emboli Findings most consistent with prominent pneumonia in the left lung especially lower lobe and mild pneumonia right base Mild to moderate enlargement cardiac contour with ectatic thoracic aorta Significant elevation left hemidiaphragm No visualized liver lesion Cholelithiasis Spleen is not enlarged No pancreatic mass Kidneys partially visualized no hydronephrosis Prominent osteopenia Impression: No thoracic aortic aneurysm dilatation or dissection Negative for pulmonary artery emboli Findings most consistent with significant pneumonia in the left lung especially lower lobe, mild pneumonia right base Cholelithiasis
[2025-07-22] MEDS: ALBUTEROL RT 2.5 MG/3 ML NEBU 5 MG INH (13:13)
[2025-07-22] MEDS: cefTRIAXone 2 GM in SODIUM CHLORIDE 0.9% (Popper) 50 ML IV (13:24)
[2025-07-22 13:28] LABS: Procalcitonin 0.11 ng/ml (0.0-0.49)
--- NOTE | 2025-07-22 13:41 | PC.CC ---
Parts Facilitator attempted to complete initial assessment. Pt unable to engage. Parts Facilitator contacted Person to Notify Elise Houstond [phone] cell phone. Unable to reach - left voicemail with call back information.
--- NOTE | 2025-07-22 14:38 | ESHP_ITS ---
<Statement entered by Hiro Metzger MD - 07/22/25 16:27> Ty Alcantar is a 75-year-old female with reported schizophrenia, diabetes, hypertension, dysphagia/chronic aspiration risk who presents for low oxygen saturations at her care facility. During previous admission, patient was admitted for hypothermia and shortness of breath. She received IV antibiotics for 9 days due to likely aspriation pneumonia/pneumonitis. There was no luekocytosis at the time, no fevers, though she was saturating in the low-mid 90s on 1 L NC. On day of discharge, patient was saturating in the mid-90s on room air and deemed stable for discharge. Case was also discussed with Dr. Garcia, who patient is conserved by, as well as cook boat, Dr. Marquez, who states that she will be chronically at risk for micro-/macroaspiration and that work-up for mass seen on imaging is not warranted. At baseline, patient is unable to communicate effectively and can only say 1-2 words at a time and has a spoke maker as well. CXR shows left lung pneumonia with layering of pleural fluid. CTA chest ordered by ED and will evaluate extent of pleural fluid and if needed, will order IR drainage. Otherwise, will empiracally treat with IV antibiotics and follow-up on imaging. ----- Note reviewed and agree with care plan as documented. Please refer to the note below for further details. Plan discussed with attending physician Dr. Saeid Metzger MD PGY-2 Internal Medicine Documentation for date of: 07/22/25 HPI History of Present Illness History of present illness: HPI: 75-year-old female with past medical history of schizophrenia, diabetes, constipation, allergies, and chronic leg edema presents to the Emergency Department [facility] from a convalescent home with altered mental status. She is on quetiapine, divalproex (Depakote), Ingrezza, levothyroxine, and pantoprazole. She recently received azithromycin and prednisone on 06/14/2025. Per snf staff, after receiving a shower, the patient became hypoxic with O2 saturation down to 90% on room air and hypotensive with systolic BP in the 90s per EMS. On arrival, her blood pressure was 98/60 and glucose 147. The patient was recently in the hospital for treatment of aspiration pneumonia. Patient was admitted for management of her altered mental status. ED course: * Labs on arrival: WBC 7.7, hemoglobin 8.2, ABG showed a pH of 7.45, pCO2 41, pO2 of 129, HCO3 of 28. Sodium 143, potassium 4.9, chloride 106. BUN 27, creatinine 1.2, glucose 134. AST 68, ALT 17, albumin 3.3. * Vitals on arrival: BP was 98/60, followed by 107/52, pulse 79, respiratory rate 15, temp 97.5, saturating 95% on 5 L oxygen mask. * Imaging: Head CT was negative for any acute hemorrhage, positive for significant atrophy. EKG showed a sinus rhythm with left ventricular hypertrophy. Chest x-ray showed a possible left pneumonia. * Patient was given 500 mg IV azithromycin, and albuterol treatment, and started on fluids. History: * Past medical history: Seizure disorder, developmental delay, schizophrenia, hypothyroid, hyperlipidemia, osteoporosis, diabetes, chronic constipation, allergies, chronic leg edema * Surgical history: Unable to obtain due to the patient's mentation * Social history: Lives in SNF, developmental and psychiatric disorders, no alcohol smoking or substance use * Medications: ALBUTEROL/IPRATROPIUM, LORATADINE 10 mg q. day, DEPAKOTE 500 mg BID, VALBENAZINE 80 mg HS PRATIBHA, QUETIAPINE 400 mg BID, LEVOTHYROXINE 100 mcg AC BR, ALENDRONATE 35 mg q. 7 days, SIMVASTATIN 20 mg HS, ROBITUSSIN 10 mm PRN for cough, Daily Bowel Reg (LACTULOSE 10 mg QID PRATIBHA, DOCUSATE 250 mg suppository q. day, milk of magnesium 30 mg q. day) Review of Systems Review of Systems Narrative Review of Systems: Review of systems unobtainable due to mental status. Exam Vital Signs Temp Pulse Resp BP Pulse Ox O2 Del Method O2 Flow Rate 97.4 F 75 16 102/50 L 100 Oxy Mask 3 07/22/25 13:08 07/22/25 13:15 07/22/25 13:15 07/22/25 13:08 07/22/25 13:15 07/22/25 13:08 07/22/25 13:15 Narrative Exam General: Frail, unable to communicate, making incomprehensible sounds when asked questions. Neurologic: Confused, no gross neurological deficit. HEENT: Normocephalic, atraumatic, mucous membranes moist. Pupils reactive to light. Heart: Regular rate and rhythm, normal S1 and S2, no murmurs. Lungs: Coarse breath sounds right lung, decreased breath sounds on the left. Abdomen: Soft, nondistended, nontender, positive bowel sounds. No guarding or rebound tenderness. Extremities: Trace pitting edema in the ankles bilaterally. 2+ radial and dorsalis pedis pulses bilaterally. Skin: Warm. Dry. No rash or ecchymoses. Results: Labs 07/23/25 04:46 07/23/25 04:46 Labs: Short CBC 07/22/25 Range/Units 09:07 WBC 7.7 (3.6-11.0) Thou/mm3 Hgb 8.2 L (12.0-16.0) g/dL Hct 25.4 L (36.0-46.0) % Plt Count 265 D (140-440) Thou/mm3 BMP 07/22/25 09:07 Sodium 143 Potassium 4.9 D Chloride 106 Carbon Dioxide 27.6 BUN 27 H Creatinine 1.2 D Glucose 134 H Calcium 9.0 Cardiac Enzymes 07/22/25 Range/Units 09:07 Troponin I 0.027 (0.0-0.045) ng/mL Liver Function 07/22/25 Range/Units 09:07 Total Bilirubin 0.2 L (0.3-1.2) mg/dL AST 68 H (0-34) U/L ALT 17 (10-49) U/L Alkaline Phosphatase 88 D (46-116) U/L Albumin 3.3 L (3.4-4.8) gm/dL ABG Interpretation ABG results: 07/22/25 10:45 ABG pH 7.45 ABG pCO2 41 ABG pO2 129 H ABG HCO3 28 H ABG O2 Saturation 99 H ABG Base Excess 4 H Quality Measures Quality Measures none Advance care planning discussed with:: other Medications Home Medications and Allergies Allergies Allergy/AdvReac Type Severity Reaction Status Date / Time amitriptyline Allergy Intermediate unknown Verified 07/12/25 21:36 haloperidol Allergy Intermediate Itching Verified 07/12/25 21:36 Visit Medications Acetaminophen (Acetaminophen 325 Mg Tablet) 650 mg PO Q6H PRN PRN Reason: PAIN OR FEVER > 100.4 Stop: 08/21/25 13:30 Azithromycin 500 mg/ Sodium (Chloride) 250 mls @ 250 mls/hr IV QDAY PRATIBHA Stop: 07/29/25 12:50 Ceftriaxone Sodium/Dextrose (Rocephin/D5w 1gm Iv Premix) 1 gm in 50 mls @ 100 mls/hr IV QDAY PRATIBHA Stop: 07/30/25 08:59 Ondansetron HCl (Ondansetron Inj 2 Mg/Ml Inj 2 Ml) 4 mg IVP Q6H PRN; Protocol PRN Reason: NAUSEA OR VOMITING Stop: 08/21/25 13:30 Pantoprazole Sodium (Pantoprazole Inj 40 Mg Vial) 40 mg IVP Q12HR PRATIBHA Stop: 08/21/25 20:59 Discontinued Medications Albuterol (Albuterol Rt 2.5 Mg/3 Ml Nebu) 5 mg INH X1 ONE Stop: 07/22/25 12:51 Last Admin: 07/22/25 13:13 Dose: 5 mg Sodium Chloride (Ns) 1,000 mls @ 1,000 mls/hr IV .Q1H ONE Stop: 07/22/25 10:40 Last Infusion: 07/22/25 11:37 Dose: Infused Ceftriaxone Sodium 2 gm/ (Sodium Chloride) 50 mls @ 100 mls/hr IV X1 ONE Stop: 07/22/25 13:19 Last Admin: 07/22/25 13:24 Dose: 100 mls/hr Azithromycin 500 mg/ Sodium (Chloride) 250 mls @ 250 mls/hr IV X1 ONE Stop: 07/22/25 13:59 Assessment & Plan Plan 75-year-old female PMH of Seizure disorder, developmental delay, schizophrenia, hypothyroid, hyperlipidemia, osteoporosis, diabetes, chronic constipation, allergies, and chronic leg edema who presented to the ED by ambulance with altered mental status from SNF. She was recently hospitalized for aspiration pneumonia. She was admitted for management of her altered mental status. #Acute encephalopathy secondary to acute hypoxic respiratory failure secondary to aspiration pneumonia versus community-acquired pneumonia #Dense pneumonic consolidation in left upper and lower lobe #Acute decompensation of HFpEF with ejection fraction 50 to 55% The patient became hypoxic with an O2 saturation down to 90% on room air per staff at the patient's SNF on 07/22/2025. Per EMS the patient's systolic blood pressure was in the 90s. Echo showed normal left ventricular size and function with an approximate ejection fraction of 50-55%. There was aortic valve sclerosis without stenosis. Mild thickening of the mitral valve leaflets and mild mitral and trace tricuspid regurg. Chest x-ray suspicious for left lobar pneumonia Consider altered mental status in the presence of heart failure, developmental delay, schizophrenia, acute hypoxemia, and possible left pneumonia. Patient received 500 mg azithromycin and was started on fluids in the ED. Sputum cultures positive for gram-positive cocci on recent hospitalization, low suspicion for infection, antibiotic courses completed. Pulmonology consult 07/19: Patient has had various degrees of left lower lobe atelectasis/consolidation from full-lung complete atelectasis to regional lower lobe atelectasis. These changes have been present for many years. Malignancy is very low on the differential. Patient appears to be at risk for recurrent aspiration pneumonia. Plan: * Ceftriaxone 1 g daily * Titrate oxygen to achieve a saturation of 98%, wean as tolerated #Schizophrenia #Developmental delay #Seizure disorder #Dysphagia Baseline developmental delay, unable to obtain further history from snf at this point. Consider side effects in the presence of Depakote home meds. Patient does have a history of esophageal dilation procedure in November of this year. Patient had esophageal dilation procedure on 07/14/2025 during her previous hospitalization XR video fluoroscopy swallow study on was negative for pharyngeal penetration or aspiration (07/17/2025) Based on previous hospital stay, patient's dysphagia is likely behavioral in nature as she intermittently accepts oral intake. Considering the presence of developmental delay and schizophrenia. Plan: * PUD/GERD/bland diet * Restart home SEROQUEL 400 mg BID * Restart Depakote 500 mg twice daily * Avoid narcotics #Positive cocci serology Sent for confirmation and titer during recent hospitalization Beta D glucan negative Aspergillus serology negative Plan: * Restarted fluconazole 40 mg daily #Hypothyroidism Patient is a history of hypothyroid TSH 4.26, free T4 0.75 Plan: * Will start home levothyroxine #Hyperlipidemia #Essential hypertension Patient is a history of hypertension Blood pressure was volatile during previous visit, patient had episodes of hypertensive urgency during recent previous visit, today presented with SBP in the 90s Plan: * Will resume home atorvastatin 20 mg on 07/22/2025 * Will resume home losartan on 07/23/2025 * Will resume home nifedipine on 07/23/2025 #Chronic constipation Plan: * Resume home lactulose Health maintenance Hospital Maintenance: DVT ppx: SCDs GI ppx: Pantoprazole 40 mg IV every 12 hours Diet: Peptic ulcer disease diet, dysphagia IV lines: Peripheral IV Code status: Full code Dispo: Patient will be admitted for management of altered mental status. Will start ceftriaxone 1 g and resume fluconazole due to recent positive cocci serology on recent hospital admission. Patient was seen and discussed with my attending physician Dr. Saeid TOLBERT and my senior resident Dr. Domenica TOLBERT PGY-2. Wes Osorio DO PGY-1. Attending Provider Attestation/Addendum I Nickolas Breaux MD reviewed the note and agree with the resident's assessment & plan with modifications/additions/exceptions as below. I have personally reviewed labs, imaging, home meds/prior records, examined the patient, formulated and discussed management plan with the IM team. 75-year-old female with history of seizure disorder and psych disorder essentially bedridden recently discharged following treatment for community- acquired pneumonia. Reportedly in SNF, noted to have hypoxia and hypotension with labored breathing for which patient is transferred back to ED. However as per notes from snf patient SpO2 of 90 and systolic blood pressure in 90s. On presentation to ED was found to be normotensive requiring supplemental oxygen with maintaining SpO2 above 93%, afebrile. CTA ruled out PE however similar findings of diaphragmatic paralysis and bilateral infiltrates noted consistent with pneumonia. During last hospitalization, patient also had videofluoroscopy which did reveal low concern for aspiration. Patient has relatively poor mentation today will evaluate further for altered mental status and resume antibiotic treatment for pneumonia with Rocephin 1 g daily.
[2025-07-22] MEDS: AZITHROMYCIN INJ 500 MG in SODIUM CHLORIDE 0.9% 250 ML 250 ML 250 MG IV (15:00)
--- NOTE | 2025-07-22 17:06 | PC.NURSE ---
Patient arrived at 17:07
--- NOTE | 2025-07-22 18:33 | PC.NURSE ---
I will hand off patient assessment to baker helper RN. I had to call Kell at [phone] for admission questions and med rec.
[2025-07-22] MEDS: DIVALPROEX SOD DR 500 MG TABLET.DR PO (20:44)
[2025-07-22] MEDS: ATORVASTATIN CALCIUM 10 MG TABLET 20 MG PO (20:44)
[2025-07-23] VITALS (11 sets, daily range): BP systolic 98–120; BP diastolic 50–66; PULSE 63–91; RESP 16–20; TEMP 36.1–36.5; O2SAT 92–99
[2025-07-23] MEDS: LEVOTHYROXINE SODIUM 100 MCG TABLET PO (05:22)
[2025-07-23 05:27] LABS: Basophils # (Auto) 0.0 Thou/mm3 (0.0-0.2); Basophils % (Auto) 0 % (0-2.5); Eosinophils # (Auto) 0.0 Thou/mm3 (0.0-0.5); Eosinophils % (Auto) 1 % (0-10); Hematocrit 25.0 % (36.0-46.0); Immature Granulocytes Auto 0.04 Thou/mm3 (0.00-0.00); Lymphocytes # (Auto) 0.4 Thou/mm3 (1.0-4.8); Lymphocytes % (Auto) 5 % (10-50); Mean Corpuscular HGB Conc 31.6 g/dl (31.0-37.0); Mean Corpuscular Hemoglobin 32.8 pg (25.0-35.0); Mean Corpuscular Volume 104 fL (80-100); Monocytes # (Auto) 0.5 Thou/mm3 (0.0-0.8); Monocytes % (Auto) 7 % (0-12); Neutrophils # (Auto) 6.9 Thou/mm3 (1.8-7.7); Neutrophils % (Auto) 87 % (37-80); Nucleated Red Blood Cell # 0.00 Thou/mm3 (0.00-0.00); Nucleated Red Blood Cell % 0 /100 WBC (0); Platelet Count 224 Thou/mm3 (140-440); RDW Standard Deviation 59.3 fL (36.4-46.3); Red Blood Count 2.41 Miln/mm3 (4.00-5.20); White Blood Count 7.9 Thou/mm3 (3.6-11.0)
[2025-07-23 05:29] LABS: Hemoglobin 7.9 g/dL (12.0-16.0)
[2025-07-23 06:05] LABS: Albumin, Serum 3.0 gm/dL (3.4-4.8); Albumin/Globulin Ratio 1.2 (1.2-2.2); Alkaline Phosphatase 88 U/L (46-116); Anion Gap 10 (7-16); Aspartate Amino Transferase 22 U/L (0-34); BUN/Creatinine Ratio 44 Ratio (12-20); Bilirubin,Total < 0.2 mg/dL (0.3-1.2); Blood Urea Nitrogen 35 mg/dL (9-23); Calcium 9.0 mg/dL (8.3-10.6); Calcium (Corrected) 9.8 mg/dL (8.5-10.1); Carbon Dioxide 28.3 mMol/L (20.0-31.0); Chloride 109 mMol/L (98-107); Creatinine (Component) 0.8 mg/dL (0.6-1.3); Estimated Creatinine Clearance 64.3 mL/min (>60); Globulin 2.5 gm/dL (2.3-3.5); Glucose 108 mg/dL (74-106); Magnesium 2.1 mg/dL (1.6-2.6); Osmolality,Calculated 301 (275-295); Phosphorous 4.4 mg/dL (2.4-5.1); Potassium 3.4 mMol/L (3.4-5.1); Sodium 147 mMol/L (136-145); Total Protein 5.5 gm/dL (5.7-8.2); eGFR > 60 See Note
[2025-07-23 06:16] LABS: Alanine Aminotransferase 11 U/L (10-49)
[2025-07-23] MEDS: MULTIVITAMINS TABLET 1 TAB PO (09:00)
[2025-07-23] MEDS: LOSARTAN POTASSIUM 25 MG TABLET 100 MG PO (09:00)
[2025-07-23] MEDS: NIFEdipine XL 30 MG TABCR PO (09:00)
[2025-07-23] MEDS: FLUCONAZOLE 100 MG TABLET 400 MG PO (09:00)
[2025-07-23] MEDS: cefTRIAXone/D5w 1gm IV premix 1 GM/50 ML BAG IV (10:02)
[2025-07-23] MEDS: DIVALPROEX SOD DR 500 MG TABLET.DR PO ×2 (10:04→21:49)
--- NOTE | 2025-07-23 12:05 | PC.SS ---
Ty Alcantar is a 75-year-old female admitted to [facility] for Hypoxia. Pt is developmentally delayed, and at [facility] receives 24 hr care at [facility]. Pt is total care and they utilize a [employer] for pt and wheelchair. [facility] makes all medical healthcare decisions for patient. Dr. Garcia assists with all the medical decision-making. Patient is not conserved. [facility] disease case manager rn is Chelsey Cervantes. [facility] [phone] PCP: Dr. Avila @ [facility] Psychiatrist: Dr. Faria
--- NOTE | 2025-07-23 12:18 | PC.NURSE ---
Spoke with Dr. Nichols regarding patients oxygen level dropping to 86% on 2 L of o2 at 1215. Per Dr. Nichols's request bump up oxygen until patient is at a 92%. Removed the nasal canula and put on the oxy mask and patient is now at 93% at 8 L.
[2025-07-23 13:01] LABS: Base Excess 4 (-3-3); HCO3 29 mEq/L (20-26); Inspired Oxygen, FIO2 6 %; O2 Saturation 89 % (91-98); PCO2 46 mmHg (32.0-48.0); pH, Arterial 7.41 (7.35-7.45)
[2025-07-23 13:03] LABS: Allen Test Performed/OK; Puncture Site Left Radial
[2025-07-23 13:05] LABS: PO2 58 mmHg (83-108)
--- NOTE | 2025-07-23 13:08 | PC.NURSE ---
Recieved a call from lab at 1305 stating that her pO2 was at 58. t=
--- NOTE | 2025-07-23 13:09 | PC.NURSE ---
Addendum entered by Csasidy Murphy RN 07/23/25 13:32: Patient is currently saturating at 94% via oxy mask with 6 L of oxygen at 1332. Original Note: Received a call from lab at 1305 regarding patient's PO2 reading at 58 from AB. This nurse called Dr. Pierce and update him about lab results. No new orders.
[2025-07-23 13:56] LABS: Lactate (Lactic Acid) 0.9 mMol/L (0.4-2.0)
--- NOTE | 2025-07-23 14:09 | ESPR_ITS ---
<Statement entered by Hiro Metzger MD - 07/23/25 14:40> No acute overnight events. Seen and examined at bedside and patient saturating 96% on 6 L OxyMask. Titrated oxy mask to 4 L and continues to saturate well and asked nurse to switch to nasal cannula. Reportedly she was saturating 94% on 2 L nasal cannula and was deemed stable for discharge but was told by nursing staff that she did desaturated to low was 86%. At bedside, patient appeared to be tired and was noted to have gotten little sleep overnight. Obtain ABG that showed pO2 of 58 and obtain lactate that was normal. Suspect that patient is fatigued and given decreased left lung volumes, baseline may be closer to 88 to 92%. Otherwise, we will continue IV antibiotics and reevaluate tomorrow. ----- Note reviewed and agree with care plan as documented. Please refer to the note below for further details. Plan discussed with attending physician Dr. Saeid Metzger MD PGY-2 Internal Medicine Documentation for date of: 07/23/25 Subjective Subjective Interval history: No acute overnight events. Patient slightly agitated this morning. No leukocytosis and afebrile.? Hemoglobin 7.9 and stable.? Sodium 147.? BUN 35 up from 27, creatinine 0.8 and stable.? Osmolality of 301. Blood cultures negative after 24 hours. Patient saturating in the low 90s on 1 L nasal cannula. Exam Vital Signs Temp Pulse Resp BP Pulse Ox O2 Del Method O2 Flow Rate 97.7 F 84 20 117/50 L 93 L Nasal Cannula 1 07/23/25 12:07/23/25 12:07/23/25 12:07/23/25 12:07/23/25 12:07/23/25 12:07/23/25 12:00 Narrative Exam General: Frail, unable to communicate, making incomprehensible sounds when asked questions. Neurologic: Confused, no gross neurological deficit. HEENT: Normocephalic, atraumatic, mucous membranes moist. Pupils reactive to light. Heart: Regular rate and rhythm, normal S1 and S2, no murmurs. Lungs: Coarse breath sounds right lung, decreased breath sounds on the left. Saturating 94% on 1 L nasal cannula. Abdomen: Soft, nondistended, nontender, positive bowel sounds. No guarding or rebound tenderness. Extremities: 2+ radial and dorsalis pedis pulses bilaterally, negative for edema. Skin: Warm. Dry. No rash or ecchymoses. Objective Labs 07/23/25 04:46 07/23/25 04:46 Labs: Laboratory Results - last 24 hr 07/23/25 07/23/25 07/23/25 04:46 12:53 13:23 WBC 7.9 RBC 2.41 L Hgb 7.9 L Hct 25.0 L MCV 104 H MCH 32.8 MCHC 31.6 RDW Std Deviation 59.3 H Plt Count 224 D Neut % (Auto) 87 H Lymph % (Auto) 5 L [place] % (Auto) 7 Eos % (Auto) 1 Baso % (Auto) 0 Neut # (Auto) 6.9 Lymph # (Auto) 0.4 L [place] # (Auto) 0.5 Eos # (Auto) 0.0 Baso # (Auto) 0.0 Immature Gran # (Auto) 0.04 H Absolute Nucleated RBC 0.00 Immature Gran % 1 H Nucleated RBC % 0 Puncture Site Left Radial ABG pH 7.41 ABG pCO2 46 ABG pO2 58 L* D ABG HCO3 29 H ABG O2 Saturation 89 L ABG Base Excess 4 H FiO2 6 Sodium 147 H Potassium 3.4 D Chloride 109 H Carbon Dioxide 28.3 Anion Gap 10 BUN 35 H Creatinine 0.8 Estim Creat Clear Calc 64.3 eGFR > 60 BUN/Creatinine Ratio 44 H Glucose 108 H Calculated Osmolality 301 H Lactic Acid 0.9 Calcium 9.0 Corrected Calcium 9.8 Phosphorus 4.4 Magnesium 2.1 Total Bilirubin < 0.2 L AST 22 ALT 11 Alkaline Phosphatase 88 Total Protein 5.5 L Albumin 3.0 L Globulin 2.5 Albumin/Globulin Ratio 1.2 ABG Interpretation ABG results: 07/22/25 07/23/25 10:45 12:53 ABG pH 7.45 7.41 ABG pCO2 41 46 ABG pO2 129 H 58 L* D ABG HCO3 28 H 29 H ABG O2 Saturation 99 H 89 L ABG Base Excess 4 H 4 H Quality Measures Quality Measures none Advance care planning discussed with:: other Assessment & Plan Assessment Current Active Medications: Generic Name Dose Route Start Last Admin Trade Name Freq PRN Reason Stop Dose Admin Acetaminophen 650 mg 07/22/25 13:31 Acetaminophen 325 Mg Tablet PO 08/21/25 13:30 Q6H PRN PAIN OR FEVER > 100.4 Atorvastatin Calcium 20 mg 07/22/25 21:00 07/22/25 20:44 Atorvastatin Calcium 10 Mg Tablet PO 08/21/25 20:59 20 mg HS PRATIBHA Administration Divalproex Sodium 500 mg 07/22/25 21:00 07/23/25 10:[address] 500 Mg Tablet.Dr PO 08/21/25 20:59 500 mg BID PRATIBHA Administration Fluconazole 400 mg 07/23/25 09:00 07/23/25 09:00 Fluconazole 100 Mg Tablet PO 07/30/25 08:59 400 mg QDAY PRATIBHA Administration Guaifenesin/Dextromethorphan 10 ml 07/22/25 15:19 Guaifenesin/Dm 10 Ml Udc PO Q4HR PRN COUGH Azithromycin 500 mg/ Sodium 250 mls @ 250 mls/hr 07/23/25 14:00 Chloride IV 07/30/25 13:59 QDAY@1400 PRATIBHA Ceftriaxone Sodium/Dextrose 1 gm in 50 mls @ 100 mls/hr 07/23/25 09:00 07/23/25 10:02 Rocephin/D5w 1gm Iv Premix IV 07/30/25 08:59 100 mls/hr QDAY PRATIBHA Administration Lactulose 20 gm 07/22/25 15:19 Lactulose Syrup 20 Gm/30 Ml Udc PO 08/21/25 15:18 QDAY PRN CONSTIPATION Protocol Levothyroxine Sodium 100 mcg 07/23/25 06:00 07/23/25 05:22 Levothyroxine Sodium 100 Mcg Tablet PO 08/22/25 05:59 100 mcg ACBR PRATIBHA Administration Losartan Potassium 100 mg 07/23/25 09:00 07/23/25 09:00 Losartan Potassium 25 Mg Tablet PO 08/22/25 08:59 100 mg QDAY PRATIBHA Administration Multivitamins 1 tab 07/23/25 09:00 07/23/25 09:00 Multivitamins Tablet PO 08/22/25 08:59 1 tab QDAY PRATIBHA Administration Nifedipine 30 mg 07/23/25 09:00 07/23/25 09:00 Nifedipine Xl 30 Mg Tabcr PO 08/22/25 08:59 30 mg DAILY PRATIBHA Administration Ondansetron HCl 4 mg 07/22/25 13:31 Ondansetron Inj 2 Mg/Ml Inj 2 Ml IVP 08/21/25 13:30 Q6H PRN NAUSEA OR VOMITING Protocol Pantoprazole Sodium 40 mg 07/23/25 21:00 Pantoprazole 40 Mg Tablet PO 08/22/25 20:59 Q12HR PRATIBHA Quetiapine Fumarate 400 mg 07/22/25 21:00 07/23/25 09:00 Quetiapine Fumarate 100 Mg Tablet PO 08/21/25 20:59 400 mg On Hold: 07/23/25 12:31 BID PRATIBHA Administration Plan 75-year-old female PMH of Seizure disorder, developmental delay, schizophrenia, hypothyroid, hyperlipidemia, osteoporosis, diabetes, chronic constipation, allergies, and chronic leg edema who presented to the ED by ambulance with altered mental status from SNF. She was recently hospitalized for aspiration pneumonia. She was admitted for management of her altered mental status. #Acute encephalopathy secondary to acute hypoxic respiratory failure secondary to aspiration pneumonia versus community-acquired pneumonia #Dense pneumonic consolidation in left upper and lower lobe The patient became hypoxic with an O2 saturation down to 90% on room air per staff at the patient's SNF on 07/22/2025. Per EMS the patient's systolic blood pressure was in the 90s. Chest x-ray suspicious for left lobar pneumonia Consider altered mental status in the presence of heart failure, developmental delay, schizophrenia, acute hypoxemia, and possible left pneumonia. Patient received 500 mg azithromycin and was started on fluids in the ED. Sputum cultures positive for gram-positive cocci on recent hospitalization. Lactic acid negative on 07/23/2025. Repeat ABG on 07/23/2025 showed a PaO2 of 58, pH 7.41, pCO2 46, HCO3 of 29. Likely inaccurate due to lactic acid being negative. Plan: * Ceftriaxone 1 g daily * Titrate oxygen to achieve a saturation of 90-92%, wean as tolerated #Schizophrenia #Developmental delay #Seizure disorder #Dysphagia Baseline developmental delay, unable to obtain further history from halfway at this point. Consider side effects in the presence of Depakote home meds. Patient does have a history of esophageal dilation procedure in November of this year. Patient had esophageal dilation procedure on 07/14/2025 during her previous hospitalization XR video fluoroscopy swallow study on was negative for pharyngeal penetration or aspiration (07/17/2025) Based on previous hospital stay, patient's dysphagia is likely behavioral in nature as she intermittently accepts oral intake. Considering the presence of developmental delay and schizophrenia. Plan: * PUD/GERD/bland diet * Home SEROQUEL 400 mg BID * Depakote 500 mg twice daily * Avoid narcotics #Positive cocci serology Sent for confirmation and titer during recent hospitalization Beta D glucan negative Aspergillus serology negative Plan: * Continue fluconazole 40 mg daily #Hypothyroidism Patient is a history of hypothyroid TSH 4.26, free T4 0.75 Plan: * Home levothyroxine #Hyperlipidemia #Essential hypertension #Acute decompensation of HFpEF with ejection fraction 50 to 55% Patient is a history of hypertension Blood pressure was volatile during previous visit, patient had episodes of hypertensive urgency during recent previous visit, today presented with SBP in the 90s Echo on 07/13/2025 showed normal left ventricular size and function with an approximate ejection fraction of 50-55%. There was aortic valve sclerosis without stenosis. Mild thickening of the mitral valve leaflets and mild mitral and trace tricuspid regurg. Plan: * Home atorvastatin 20 mg on 07/22/2025 * Will resume home losartan on 07/23/2025 * Will resume home nifedipine on 07/23/2025 #Chronic constipation Plan: * Home lactulose Health maintenance Hospital Maintenance: DVT ppx: SCDs GI ppx: Pantoprazole 40 mg IV every 12 hours Diet: Peptic ulcer disease diet, dysphagia IV lines: Peripheral IV Code status: Full code Dispo: Will continue ceftriaxone and fluconazole. Oxygen saturation goal of 90 to 92%. Patient was seen and discussed with my attending physician Dr. Saeid TOLBERT and my senior resident Dr. Domenica TOLBERT PGY-2. Wes Osorio DO PGY-1. Attending Provider Attestation/Addendum I Nickolas Breaux MD reviewed the note and agree with the resident's assessment & plan with modifications/additions/exceptions as below. I have personally reviewed labs, imaging, home meds/prior records, examined the patient, formulated and discussed management plan with the IM team. 75-year-old female with history of seizure disorder and psych disorder essentially bedridden recently discharged following treatment for community- acquired pneumonia. Patient was sent back to ED following noticing a short episode of hypoxia and relatively low blood pressure. Patient remained hemodynamically stable, CTA ruled out PE however similar findings of diaphragmatic paralysis and infiltrates consistent with pneumonia. CT head rule out any acute process however did reveal severe extensive brain atrophy. Patient had an episode of transient hypoxia lasting for few minutes resolved by his supplemental oxygen increase, remained altered. Likely etiology of encephalopathy is metabolic in nature or medication use. Will discontinue quetiapine, avoid all sedatives However will continue Depakote at this point, obtain ABG and lactate level. Resume antibiotic treatment for pneumonia with Rocephin 1 g daily.
[2025-07-23] MEDS: AZITHROMYCIN INJ 500 MG in SODIUM CHLORIDE 0.9% 250 ML 250 ML 250 MG IV (14:21)
[2025-07-23] MEDS: PANTOPRAZOLE 40 MG TABLET PO (21:49)
[2025-07-23] MEDS: ATORVASTATIN CALCIUM 10 MG TABLET 20 MG PO (21:49)
[2025-07-24] VITALS (9 sets, daily range): BP systolic 98–140; BP diastolic 48–82; PULSE 74–90; RESP 15–20; TEMP 36.1–36.3; O2SAT 92–99; BMI 19.2
[2025-07-24] MEDS: LEVOTHYROXINE SODIUM 100 MCG TABLET PO (05:24)
[2025-07-24 06:08] LABS: Basophils # (Auto) 0.0 Thou/mm3 (0.0-0.2); Basophils % (Auto) 0 % (0-2.5); Eosinophils # (Auto) 0.2 Thou/mm3 (0.0-0.5); Eosinophils % (Auto) 2 % (0-10); Hematocrit 25.8 % (36.0-46.0); Immature Granulocytes Auto 0.05 Thou/mm3 (0.00-0.00); Lymphocytes # (Auto) 0.4 Thou/mm3 (1.0-4.8); Lymphocytes % (Auto) 5 % (10-50); Mean Corpuscular HGB Conc 31.4 g/dl (31.0-37.0); Mean Corpuscular Hemoglobin 32.8 pg (25.0-35.0); Mean Corpuscular Volume 105 fL (80-100); Monocytes # (Auto) 0.5 Thou/mm3 (0.0-0.8); Monocytes % (Auto) 6 % (0-12); Neutrophils # (Auto) 6.9 Thou/mm3 (1.8-7.7); Neutrophils % (Auto) 86 % (37-80); Nucleated Red Blood Cell # 0.02 Thou/mm3 (0.00-0.00); Nucleated Red Blood Cell % 0 /100 WBC (0); Platelet Count 257 Thou/mm3 (140-440); RDW Standard Deviation 60.9 fL (36.4-46.3); Red Blood Count 2.47 Miln/mm3 (4.00-5.20); White Blood Count 8.0 Thou/mm3 (3.6-11.0)
[2025-07-24 06:13] LABS: Hemoglobin 8.1 g/dL (12.0-16.0)
[2025-07-24 06:36] LABS: Alanine Aminotransferase 11 U/L (10-49); Albumin, Serum 3.1 gm/dL (3.4-4.8); Albumin/Globulin Ratio 1.2 (1.2-2.2); Alkaline Phosphatase 93 U/L (46-116); Anion Gap 10 (7-16); Aspartate Amino Transferase 33 U/L (0-34); BUN/Creatinine Ratio 51 Ratio (12-20); Bilirubin,Total < 0.2 mg/dL (0.3-1.2); Blood Urea Nitrogen 36 mg/dL (9-23); Calcium 9.1 mg/dL (8.3-10.6); Calcium (Corrected) 9.8 mg/dL (8.5-10.1); Carbon Dioxide 27.7 mMol/L (20.0-31.0); Chloride 112 mMol/L (98-107); Creatinine (Component) 0.7 mg/dL (0.6-1.3); Estimated Creatinine Clearance 73.4 mL/min (>60); Globulin 2.6 gm/dL (2.3-3.5); Glucose 62 mg/dL (74-106); Osmolality,Calculated 304 (275-295); Potassium 3.6 mMol/L (3.4-5.1); Sodium 150 mMol/L (136-145); Total Protein 5.7 gm/dL (5.7-8.2); eGFR > 60 See Note
[2025-07-24] MEDS: DEXTROSE 5%-LACTATED RINGERS 1,000 ML 100 ML IV ×2 (07:57→09:45)
[2025-07-24] MEDS: MULTIVITAMINS TABLET 1 TAB PO (09:44)
[2025-07-24] MEDS: DIVALPROEX SOD DR 500 MG TABLET.DR PO ×2 (09:44→20:48)
[2025-07-24] MEDS: FLUCONAZOLE 100 MG TABLET 400 MG PO (09:44)
[2025-07-24] MEDS: cefTRIAXone/D5w 1gm IV premix 1 GM/50 ML BAG IV (09:45)
[2025-07-24] MEDS: PANTOPRAZOLE 40 MG TABLET PO ×2 (09:45→20:48)
--- NOTE | 2025-07-24 09:58 | PC.NURSE ---
ANTONINA NASSAR MADE AWARE OF PTS BP ON RIGHT ARM 98/59 HR 90AND LEFT ARM 121/83 HR 93. PER MD HOLD MEDICATION AND INCREASE D5LR TO 125 ML/HR. ORDER RECEIVED, READ BACK AND CARRIED OUT.
[2025-07-24] MEDS: POTASSIUM CHL 10 mEq IVPB 10 MEQ/100 ML BAG 100 MEQ IV ×3 (12:30→14:44)
[2025-07-24] MEDS: ALBUMIN HUMAN 25% IVPB 12.5 GM/50 ML BTL IV (12:51)
[2025-07-24] MEDS: DEXTROSE 5%-WATER 1,000 ML 100 ML IV (13:08)
--- NOTE | 2025-07-24 13:32 | ESPR_ITS ---
Addendum Progress Note Addendum Date of report being addended: 07/24/25 Narrative: I Nickolas Breaux MD reviewed the note and agree with the resident's assessment & plan with modifications/additions/exceptions as below. I have personally reviewed labs, imaging, home meds/prior records, examined the patient, formulated and discussed management plan with the IM team. 75-year-old female with history of seizure disorder and psych disorder essentially bedridden recently discharged following treatment for community- acquired pneumonia. Patient was sent back to ED following noticing a short episode of hypoxia and relatively low blood pressure. Patient remained hemodynamically stable, CTA ruled out PE however similar findings of diaphragmatic paralysis and infiltrates consistent with pneumonia. CT head rule out any acute process however did reveal severe extensive brain atrophy. Likely etiology of encephalopathy is metabolic in nature or medication use. Will discontinue quetiapine, avoid all sedatives However will continue Depakote at this point. Resume antibiotic treatment for pneumonia with Rocephin 1 g daily. Patient has uptrending serum sodium levels, will discontinue LR and start on D5W at 100 mL an hour and encourage increased p.o. intake. Continue fluconazole therapy.
--- NOTE | 2025-07-24 13:49 | PC.NURSE ---
coordinated care with dr. addi andujar.
[2025-07-24 14:47] LABS: Albumin, Serum 3.1 gm/dL (3.4-4.8); Anion Gap 8 (7-16); BUN/Creatinine Ratio 47 Ratio (12-20); Blood Urea Nitrogen 33 mg/dL (9-23); Calcium 8.9 mg/dL (8.3-10.6); Calcium (Corrected) 9.6 mg/dL (8.5-10.1); Carbon Dioxide 29.1 mMol/L (20.0-31.0); Chloride 113 mMol/L (98-107); Creatinine (Component) 0.7 mg/dL (0.6-1.3); Estimated Creatinine Clearance 73.4 mL/min (>60); Glucose 146 mg/dL (74-106); Osmolality,Calculated 308 (275-295); Phosphorous 3.0 mg/dL (2.4-5.1); Potassium 3.4 mMol/L (3.4-5.1); Sodium 150 mMol/L (136-145); eGFR > 60 See Note
--- NOTE | 2025-07-24 15:07 | ESPR_ITS ---
<Statement entered by Hiro Metzger MD - 07/24/25 15:19> No acute overnight events. Patient seen and examined at bedside and appears more alert and awake compared to yesterday. Touch base with nurse at [facility] and stated that patient presented due to low blood pressure, hypoxia, and was found slumped on her chair. Explained to her that we expect her new baseline to be O2 of around 88 to 92% given low left lung volume likely secondary to left phrenic nerve pathology. Blood pressure continues to be soft and was not given any antihypertensives, saturating 93 to 94% on 1 L nasal cannula, CBC stable, CHEM panel shows sodium of 150 and encouraging p.o. intake and pending repeat CHEM panel. ----- Note reviewed and agree with care plan as documented. Please refer to the note below for further details. Plan discussed with attending physician Dr. Saeid Metzger MD PGY-2 Internal Medicine Documentation for date of: 07/24/25 Subjective Subjective Interval history: Patient seen and examined at bedside, no significant overnight events. Hemoglobin 8.1 and stable, sodium 150 and glucose in the 60s, osmolality 304, BP 98/59, started D5W. Vitals slightly hypotensive 107/54, satting at 92% on 1 L nasal cannula. Oxygen goal set to 88-92%. Patient did have blood pressure cuff measurement variations in her arms in the morning: Right arm showed a BP of 98/59, left arm showed a BP of 121/53, however there was no significant difference in the size of the patient's arms. In discussions with Dr. Garcia regarding consideration of hospice care. Exam Vital Signs Temp Pulse Resp BP Pulse Ox O2 Del Method O2 Flow Rate 97.3 F 90 16 98/59 L 92 L Nasal Cannula 1 07/24/25 04:00 07/24/25 09:58 07/24/25 07:11 07/24/25 09:58 07/24/25 07:11 07/24/25 04:00 07/24/25 07:11 Narrative Exam General: Frail, unable to communicate, making incomprehensible sounds when asked questions. Neurologic: Confused, no gross neurological deficit. HEENT: Normocephalic, atraumatic, mucous membranes moist. Pupils reactive to light. Heart: Regular rate and rhythm, normal S1 and S2, no murmurs. Lungs: Coarse breath sounds right lung, decreased breath sounds on the left. Saturating 94% on 3 L nasal cannula. Abdomen: Soft, nondistended, nontender, positive bowel sounds. No guarding or rebound tenderness. Extremities: 2+ radial and dorsalis pedis pulses bilaterally, negative for edema. Skin: Warm. Dry. No rash or ecchymoses. Objective Labs 07/24/25 05:05 07/24/25 13:34 Labs: Laboratory Results - last 24 hr 07/24/25 07/24/25 05:05 13:34 WBC 8.0 RBC 2.47 L Hgb 8.1 L Hct 25.8 L MCV 105 H MCH 32.8 MCHC 31.4 RDW Std Deviation 60.9 H Plt Count 257 D Neut % (Auto) 86 H Lymph % (Auto) 5 L [place] % (Auto) 6 Eos % (Auto) 2 Baso % (Auto) 0 Neut # (Auto) 6.9 Lymph # (Auto) 0.4 L [place] # (Auto) 0.5 Eos # (Auto) 0.2 Baso # (Auto) 0.0 Immature Gran # (Auto) 0.05 H Absolute Nucleated RBC 0.02 H Immature Gran % 1 H Nucleated RBC % 0 Sodium 150 H 150 H Potassium 3.6 3.4 Chloride 112 H 113 H Carbon Dioxide 27.7 29.1 Anion Gap 10 8 BUN 36 H 33 H Creatinine 0.7 0.7 Estim Creat Clear Calc 73.4 73.4 eGFR > 60 > 60 BUN/Creatinine Ratio 51 H 47 H Glucose 62 L 146 H D Calculated Osmolality 304 H 308 H Calcium 9.1 8.9 Corrected Calcium 9.8 9.6 Phosphorus 3.0 Total Bilirubin < 0.2 L AST 33 ALT 11 Alkaline Phosphatase 93 Total Protein 5.7 Albumin 3.1 L 3.1 L Globulin 2.6 Albumin/Globulin Ratio 1.2 ABG Interpretation ABG results: 07/22/25 07/23/25 10:45 12:53 ABG pH 7.45 7.41 ABG pCO2 41 46 ABG pO2 129 H 58 L* D ABG HCO3 28 H 29 H ABG O2 Saturation 99 H 89 L ABG Base Excess 4 H 4 H Quality Measures Quality Measures none Advance care planning discussed with:: other Assessment & Plan Assessment Current Active Medications: Generic Name Dose Route Start Last Admin Trade Name Freq PRN Reason Stop Dose Admin Acetaminophen 650 mg 07/22/25 13:31 Acetaminophen 325 Mg Tablet PO 08/21/25 13:30 Q6H PRN PAIN OR FEVER > 100.4 Atorvastatin Calcium 20 mg 07/22/25 21:00 07/23/25 21:49 Atorvastatin Calcium 10 Mg Tablet PO 08/21/25 20:59 20 mg HS PRATIBHA Administration Divalproex Sodium 500 mg 07/22/25 21:00 07/24/25 09:[address] 500 Mg Tablet.Dr PO 08/21/25 20:59 500 mg BID PRATIBHA Administration Fluconazole 400 mg 07/23/25 09:00 07/24/25 09:44 Fluconazole 100 Mg Tablet PO 07/30/25 08:59 400 mg QDAY PRATIBHA Administration Guaifenesin/Dextromethorphan 10 ml 07/22/25 15:19 Guaifenesin/Dm 10 Ml Udc PO Q4HR PRN COUGH Ceftriaxone Sodium/Dextrose 1 gm in 50 mls @ 100 mls/hr 07/23/25 09:00 07/24/25 09:45 Rocephin/D5w 1gm Iv Premix IV 07/30/25 08:59 100 mls/hr QDAY PRATIBHA Administration Potassium Chloride 10 meq in 100 mls @ 100 mls/hr 07/24/25 11:41 07/24/25 14:44 Kcl Ivpb IV 07/24/25 15:40 100 mls/hr Q1H PRATIBHA Administration Dextrose 1,000 mls @ 100 mls/hr 07/24/25 12:45 07/24/25 13:08 D5w IV 08/23/25 12:44 100 mls/hr .Q10H PRATIBHA Administration Lactulose 20 gm 07/22/25 15:19 Lactulose Syrup 20 Gm/30 Ml Udc PO 08/21/25 15:18 QDAY PRN CONSTIPATION Protocol Levothyroxine Sodium 100 mcg 07/23/25 06:00 07/24/25 05:24 Levothyroxine Sodium 100 Mcg Tablet PO 08/22/25 05:59 100 mcg ACBR PRATIBHA Administration Losartan Potassium 50 mg 07/24/25 14:30 Losartan Potassium 25 Mg Tablet PO 08/22/25 08:59 QDAY PRATIBHA Multivitamins 1 tab 07/23/25 09:00 07/24/25 09:44 Multivitamins Tablet PO 08/22/25 08:59 1 tab QDAY PRATIBHA Administration Ondansetron HCl 4 mg 07/22/25 13:31 Ondansetron Inj 2 Mg/Ml Inj 2 Ml IVP 08/21/25 13:30 Q6H PRN NAUSEA OR VOMITING Protocol Pantoprazole Sodium 40 mg 07/23/25 21:00 07/24/25 09:45 Pantoprazole 40 Mg Tablet PO 08/22/25 20:59 40 mg Q12HR PRATIBHA Administration Quetiapine Fumarate 400 mg 07/22/25 21:00 07/23/25 09:00 Quetiapine Fumarate 100 Mg Tablet PO 08/21/25 20:59 400 mg On Hold: 07/23/25 12:31 BID PRATIBHA Administration Plan 75-year-old female PMH of Seizure disorder, developmental delay, schizophrenia, hypothyroid, hyperlipidemia, osteoporosis, diabetes, chronic constipation, allergies, and chronic leg edema who presented to the ED by ambulance with altered mental status from SNF. She was recently hospitalized for aspiration pneumonia. She was admitted for management of her altered mental status. #Acute encephalopathy secondary to acute hypoxic respiratory failure secondary to aspiration pneumonia versus community-acquired pneumonia #Dense pneumonic consolidation in left upper and lower lobe The patient became hypoxic with an O2 saturation down to 90% on room air per staff at the patient's SNF on 07/22/2025. Per EMS the patient's systolic blood pressure was in the 90s. Chest x-ray positive for left lobar pneumonia. Consider altered mental status in the presence of heart failure, developmental delay, schizophrenia, acute hypoxemia, and possible left pneumonia. Plan: * Ceftriaxone 1 g daily * Titrate oxygen to achieve a saturation of 88-92%, wean as tolerated #Schizophrenia #Developmental delay #Seizure disorder #Dysphagia Baseline developmental delay, unable to obtain further history from senior living at this point. Consider side effects in the presence of Depakote home meds. Patient does have a history of esophageal dilation procedure in November of this year. Patient had esophageal dilation procedure on 07/14/2025 during her previous hospitalization XR video fluoroscopy swallow study on was negative for pharyngeal penetration or aspiration (07/17/2025) Based on previous hospital stay, patient's dysphagia is likely behavioral in nature as she intermittently accepts oral intake. Consider in the presence of developmental delay and schizophrenia. Plan: * PUD/GERD/bland diet * Home SEROQUEL 400 mg BID * Depakote 500 mg twice daily * Avoid narcotics #Goals of care #Recurrent desaturations The patient has recurrent episodes of desaturation per the senior living. Primary team and nurses agree that hospice may be an option for the patient, as she would receive the oxygen therapy that she needs while being kept comfortable in her current state Plan: * Initiated discussions with Dr. Garcia about possible hospice considerations * Oxygen goal is 88-92% #Hypernatremia #Hypoglycemia Patient has intermittently been accepting oral food offerings. This may help explain why her sodium was 150 and her glucose in the 60s. Repeat renal panel afternoon of 07/24/2025 showed sodium of 150 again. Osmolality 308. Plan: * Started D5W 1 L as a temporary measure * Encourage oral intake #Positive cocci serology Sent for confirmation and titer during recent hospitalization Beta D glucan negative Aspergillus serology negative Plan: * Continue fluconazole 40 mg daily #Hypothyroidism Patient is a history of hypothyroid TSH 4.26, free T4 0.75 Plan: * Home levothyroxine #Hyperlipidemia #Essential hypertension #Acute decompensation of HFpEF with ejection fraction 50 to 55% Patient is a history of hypertension Blood pressure was volatile during previous visit, patient had episodes of hypertensive urgency during recent previous visit, today presented with SBP in the 90s Echo on 07/13/2025 showed normal left ventricular size and function with an approximate ejection fraction of 50-55%. There was aortic valve sclerosis without stenosis. Mild thickening of the mitral valve leaflets and mild mitral and trace tricuspid regurg. Plan: * Atorvastatin 20 mg p.o. nightly * Losartan 50 mg p.o. daily #Chronic constipation Plan: * Lactulose 20 GM p.o. daily as needed Health maintenance Hospital Maintenance: DVT ppx: SCDs GI ppx: Pantoprazole 40 mg IV every 12 hours Diet: Peptic ulcer disease diet, dysphagia IV lines: Peripheral IV Code status: Full code Dispo: Will continue ceftriaxone and fluconazole. New oxygen saturation goal is 88-92%. Initiating discussions with Dr. Garcia about hospice care. Encouraging oral intake. Patient was seen and discussed with my attending physician Dr. Saeid TOLBERT and my senior resident Dr. Domenica TOLBERT PGY-2. Wes Osorio DO PGY-1.
--- NOTE | 2025-07-24 16:29 | PC.SS ---
SS submitted hospice referral to [facility] as this was preferred hospice agency for [facility]. Physician team called Dr. Garcia at [facility] and follow up with a discharge for tomorrow. Hospice referral sent on michelle. [facility] agreeable.
[2025-07-24] MEDS: POTASSIUM CHLORIDE 10% 20 MEQ/15 ML UDC 40 MEQ PO (16:46)
[2025-07-24] MEDS: ATORVASTATIN CALCIUM 10 MG TABLET 20 MG PO (20:48)
[2025-07-25] VITALS (8 sets, daily range): BP systolic 101–138; BP diastolic 58–79; PULSE 74–82; RESP 13–20; TEMP 36.1–36.6; O2SAT 92–97
[2025-07-25] MEDS: LEVOTHYROXINE SODIUM 100 MCG TABLET PO (05:04)
[2025-07-25 05:23] LABS: Basophils # (Auto) 0.0 Thou/mm3 (0.0-0.2); Basophils % (Auto) 0 % (0-2.5); Eosinophils # (Auto) 0.2 Thou/mm3 (0.0-0.5); Eosinophils % (Auto) 3 % (0-10); Hematocrit 26.5 % (36.0-46.0); Immature Granulocytes Auto 0.03 Thou/mm3 (0.00-0.00); Lymphocytes # (Auto) 0.8 Thou/mm3 (1.0-4.8); Lymphocytes % (Auto) 14 % (10-50); Mean Corpuscular HGB Conc 30.9 g/dl (31.0-37.0); Mean Corpuscular Hemoglobin 32.3 pg (25.0-35.0); Mean Corpuscular Volume 104 fL (80-100); Monocytes # (Auto) 0.6 Thou/mm3 (0.0-0.8); Monocytes % (Auto) 10 % (0-12); Neutrophils # (Auto) 4.3 Thou/mm3 (1.8-7.7); Neutrophils % (Auto) 72 % (37-80); Nucleated Red Blood Cell # 0.00 Thou/mm3 (0.00-0.00); Nucleated Red Blood Cell % 0 /100 WBC (0); Platelet Count 245 Thou/mm3 (140-440); RDW Standard Deviation 63.7 fL (36.4-46.3); Red Blood Count 2.54 Miln/mm3 (4.00-5.20); White Blood Count 5.9 Thou/mm3 (3.6-11.0)
[2025-07-25 05:33] LABS: Hemoglobin 8.2 g/dL (12.0-16.0)
[2025-07-25 06:07] LABS: Alanine Aminotransferase 12 U/L (10-49); Albumin, Serum 3.1 gm/dL (3.4-4.8); Albumin/Globulin Ratio 1.2 (1.2-2.2); Alkaline Phosphatase 98 U/L (46-116); Anion Gap 7 (7-16); Aspartate Amino Transferase 26 U/L (0-34); BUN/Creatinine Ratio 43 Ratio (12-20); Bilirubin,Total < 0.2 mg/dL (0.3-1.2); Blood Urea Nitrogen 26 mg/dL (9-23); Calcium 9.1 mg/dL (8.3-10.6); Calcium (Corrected) 9.8 mg/dL (8.5-10.1); Carbon Dioxide 27.4 mMol/L (20.0-31.0); Chloride 113 mMol/L (98-107); Creatinine (Component) 0.6 mg/dL (0.6-1.3); Estimated Creatinine Clearance 85.7 mL/min (>60); Globulin 2.5 gm/dL (2.3-3.5); Glucose 76 mg/dL (74-106); Osmolality,Calculated 296 (275-295); Potassium 3.7 mMol/L (3.4-5.1); Sodium 147 mMol/L (136-145); Total Protein 5.6 gm/dL (5.7-8.2); eGFR > 60 See Note
[2025-07-25] MEDS: VIT B12/Vit C/FA (Nephrovite) TABLET 1 TAB PO (08:03)
[2025-07-25] MEDS: FLUCONAZOLE 100 MG TABLET 400 MG PO (08:03)
[2025-07-25] MEDS: PANTOPRAZOLE 40 MG TABLET PO (08:04)
[2025-07-25] MEDS: cefTRIAXone/D5w 1gm IV premix 1 GM/50 ML BAG IV (08:04)
[2025-07-25] MEDS: DIVALPROEX SOD DR 500 MG TABLET.DR PO (08:04)
[2025-07-25] MEDS: ALBUMIN HUMAN 25% IVPB 25 GM/100 ML BTL IV (08:04)
[2025-07-25] MEDS: DEXTROSE 5%-WATER 500 ML 100 ML IV (08:04)
[2025-07-25] MEDS: POTASSIUM CHLORIDE 10% 20 MEQ/15 ML UDC 40 MEQ GT (08:04)
[2025-07-25] MEDS: LOSARTAN POTASSIUM 25 MG TABLET 50 MG PO (08:06)
--- NOTE | 2025-07-25 09:26 | PC.SS ---
Follow up note: SS spoke to Awilda @ [facility] and they have accepted patient and can admit today. Dr. Garcia is on board and agreeable to d/c plan. D/c today back to [facility]. Awilda will provide new 02 and JUAN ALBERTO will coordinate with [facility] on transportation. [place] has all documentation needed. SS will submit final d/c orders.
[2025-07-25 12:58] LABS: Sodium 147 mMol/L (136-145)
--- NOTE | 2025-07-25 13:14 | ESDS_ITS ---
Planned Discharge Date 07/25/25 DS: Providers Provider Date of admission: 07/22/25 13:31 Primary care physician: Nathan Avila MD Admitting Provider: Nickolas Breaux MD Attending Provider on Admission: Arlen Espinoza MD Consults: 07/22/25 17:32 [facility] Referral - Knowledge Deficit Routine Comment: Positive screening for knowledge deficit needs. 07/24/25 15:39 Referral Hospice Routine Comment: Attending Provider on DC: Nicolás Espinoza MD Discharging Provider: Yordy Nichols MD DS: Diagnosis Discharge Diagnosis (1) Dehydration with hypernatremia: Status: Acute Problem List Completed Was Problem List Reviewed/Reconciled?: Yes Hospital Course Hospital Course Hospital course: Ms Ty Alcantar is a 74-year-old female with medical history of seizure disorder, developmental delay, she is a frenula, hypothyroidism, hyperlipidemia, osteoporosis who was brought in from her long term [facility] on 07/22/2025. She was recently discharged after a long hospital stay from 07/13- 07/21/2025. She was sent to the hospital for worsening hypoxia and saturat ions <90% at the residential. Chest x-ray and CT reman unchanged. Pateint appeared to be in her normal state of mentation, afebrile and oxygen sats remained at 89-94% on 1 L nasal cannula. Oxygen goal was set to 88-92%. After extensive discussions with Dr. Garcia, cristiant started on hospice care for as needed oxygen at the residential. Additionally the patient was found to have Stage II hypertension on her last visit, which appears to have resolved now. We will continue losartan 50 mg and discontinue nifedipine 30 mg at this time. At the time of discharge, patient is medically stable and deemed safe to return to her previous state of living. Problems for this admission: - Acute hypoxia - Positive cocci serology - HFpEF 50 to 55% - Developmental delay - Dysphagia - Essential hypertension - HyperNATREMIA Discharge Instructions: - Follow up with PCP within 1 week of discharge - Stop Nifedipine. Take Losartan 50mg daily for BP control - Sodium elevated 147-150 due to poor oral intake in the hospital. Recommend daily 2L oral water intake. - Ordered repeat renal panel in 2 days. - Take Augmentin as prescribed to complete course. - Keep goal oxygen saturations @ 88-92% - Return to ED if symptoms worsen We are grateful to be able to participate in Mr Alcantar's care. We wish her the best. - Yordy Nichols M.D. PGY3 Disclaimer: Minor errors in algorithm design engineer may be present as this note was dictated using voice recognition software. Status at Discharge Cognitive/behavioral status at discharge: Stable and returned to baseline Time Spent with Patient Time attestation: Total time spent providing and/or coordinating discharge services: 35 min Time spent: Greater than 30 minutes Specific discharge activities: stable Exam Vital Signs Temp Pulse Resp BP Pulse Ox O2 Del Method O2 Flow Rate 97.3 F 79 18 125/79 93 L Nasal Cannula 3 07/25/25 11:48 07/25/25 12:00 07/25/25 11:48 07/25/25 11:48 07/25/25 11:48 07/25/25 11:48 07/25/25 11:48 Narrative Exam Constitutional Alert, oriented x1 and comfortable HEENT Vision grossly intact, PERRL. Patent nares. Trachea midline. Respiratory Chest normal on inspection , decreased breath sounds on the left. Saturating 94% on 3 L nasal cannula. Cardiovascular S1 and S2 audible, RRR. No murmurs or carotid bruit. No gross JVD. Abdominal Soft and BS + ; non tender to palpation in all quadrants. Genitourinary No bladder tenderness, no flank pain. Normal to palpation. Musculoskeletal Extremities tone within normal limits. 1+ LE edema. Neurological CN II - XII grossly intact. Extremity motor and sensation grossly intact. Skin Warm, dry and intact. No apparent lesions. Psychiatric Patient has a good affect, is cooperative. Baseline developmental delay Discharge Plan Problem List Was Problem List Reviewed/Reconciled?: Yes Plan Disposition Comment: d/c with [facility] Patient condition on transfer: Stable Care Plan Goals: - Follow up with PCP within 1 week of discharge - Stop Nifedipine. Take Losartan 50mg daily for BP control - Sodium elevated 147-150 due to poor oral intake in the hospital. Recommend daily 2L oral water intake. - Ordered repeat renal panel in 2 days. - Take Augmentin as prescribed to complete course. - Keep goal oxygen saturations @ 88-92% - Return to ED if symptoms worsen Prescriptions/Referrals Prescriptions/Med Rec: New amoxicillin-pot clavulanate 875-125 mg tablet 1 tab PO BID 13 Days Qty: 26 0RF losartan 25 mg tablet 25 mg PO BID 30 Days Qty: 60 0RF Continued levothyroxine [Synthroid] 100 MCG tablet 100 mcg PO ACBR Qty: 30 0RF simvastatin 20 MG tablet 20 mg PO HS Qty: 30 0RF divalproex [Depakote ER] 500 MG tablet extended release 24 hr 500 mg PO BID Qty: 30 0RF lactulose 10 GM/15 ML syrup 1 g PO QDAY PRN (Reason: CONSTIPATION) Qty: 3785 0RF Rx Instructions: May hold if loose stools quetiapine [Seroquel XR] 300 MG tablet extended release 24 hr 400 mg PO BID Qty: 30 0RF Guaifenesin/D-Methorphan Hb Syrup (Robitussin Dm Syrup) 120 ML syrup 10 ml PO Q4HR PRN (Reason: COUGH) Qty: 120 0RF Multivit-Min/Iron Fum/Folic AC (Qpmfm-Fjmqojq-Csnjhvwd Tablet) 1 EACH tablet 1 tab PO QDAY Qty: 30 0RF fluconazole 200 mg tablet 400 mg PO QDAY 30 Days Qty: 60 0RF Discontinued losartan 100 mg tablet 100 mg PO QDAY 30 Days Qty: 30 0RF nifedipine 30 mg Tablet Extended Release 24hr 30 mg PO DAILY 30 Days Qty: 30 0RF Referrals: Nathan Avila MD [Primary Care Provider, Family Practice] Outpatient Orders (i.e. Home Health, Labs, Imaging): Renal Function Panel (Routine) Timeframe: 2 Days Location: Determined by Patient Ordered By: Yordy Nichols Patient/Caregiver Discharge Instructions Discharge Activity: resume usual activities Print Language: Lao Stand Alone Forms: Aleja Award Info., Patient Portal Info Letter Discharge Order Discharge Orders: Discharge (Routine); Ordered 07/25/25 Ordered By: Yordy Nichols Quality Discharge Quality Measures VTE prophylaxis Attestestation MD Attestation I attest that I was physically present for the evaluation, physical examination, lab and imaging review of the patient with the residents. I discussed the case with the residents and agree with the findings and plans of care as documented above. Patient seen and examined at bedside this morning. Appears comfortable, vitals are stable, saturating well on 3 L nasal cannula. Sodium level has improved to 147 from 150 yesterday. Patient has been not totally compliant with free water intake here in the hospital but usually is compliant at her facility with caretakers. She is encouraged to have increased free water and recheck sodium level in 2 days. We will continue with Augmentin to complete 14 days antibiotic course. Holding nifedipine and continuing losartan 50 daily for blood pressure control. Recommended to follow-up with PCP in 1 week of discharge. Arlen Espinoza MD
== END 2025-07-25 16:35 | disposition skilled nursing facility (03) | DRG 193 ==
LOC: SERX 13:49 → SERHOLD 13:56 → S3SX 17:07
PROVIDERS: Student in an Organized Health Care Education/Training Program; Admitting Provider Student in an Organized Health Care Education/Training Program; Emergency Provider Family Medicine; PCP Family Medicine; Visit Provider Student in an Organized Health Care Education/Training Program
DX: J18.1 Lobar pneumonia, unspecified organism (principal); G93.41 Metabolic encephalopathy; I50.33 Acute on chronic diastolic (congestive) heart failure; J96.01 Acute respiratory failure with hypoxia; E87.0 Hyperosmolality and hypernatremia; I11.0 Hypertensive heart disease with heart failure; F20.9 Schizophrenia, unspecified; E11.9 Type 2 diabetes mellitus without complications; K59.00 Constipation, unspecified; G40.909 Epilepsy, unspecified, not intractable, without status epilepticus; R13.10 Dysphagia, unspecified; E03.9 Hypothyroidism, unspecified; E78.5 Hyperlipidemia, unspecified; K59.09 Other constipation; E11.649 Type 2 diabetes mellitus with hypoglycemia without coma; R62.50 Unspecified lack of expected normal physiological development in childhood; I35.8 Other nonrheumatic aortic valve disorders; E86.0 Dehydration; M81.0 Age-related osteoporosis without current pathological fracture; Z74.01 Bed confinement status; Z51.5 Encounter for palliative care; Z79.899 Other long term (current) drug therapy; Z88.1 Allergy status to other antibiotic agents; Z88.8 Allergy status to other drugs, medicaments and biological substances; Z79.890 Hormone replacement therapy
CPT/HCPCS: 36415; 36600; 70450; 71045; 71275; 80053; 80069; 80307; 80320; 80329; 82140; 82803; 83605; 83735; 84100; 84145; 84295; 84443; 84484; 85025; 85610; 87040; 87811; 93005; 93225; 94640; 96361; 96365; 96366; 96375; 99284; A4649; J0456; J0696; J2470; J3480; J7030; J7050; J7070; J7121; P9047; Q9967; A9270; G0480